=== PATIENT | female | born 1975 | race Caucasian/White ===

== ENCOUNTER → 2020-03-21 15:13 | Outpatient (BNVA) | payer OTHER, SELFPAY | DX: Z76.89 Persons encountering health services in other specified circumstances (principal) ==

== ENCOUNTER 2020-05-21 08:46 | Emergency (ER) | payer OTHER, SELFPAY ==
[2020-05-21 08:57] VITALS: BP 144/82; PULSE 99; RESP 18; TEMP 36.5; O2SAT 97; BMI 29.2
--- NOTE | 2020-05-21 09:16 | ED.NECK ---
HPI - Neck Pain/Injury General Chief Complaint: Neck Pain/Injury Stated Complaint: neck and arm pain Time Seen by Provider: 05/21/20 09:07 Source: patient Mode of arrival: ambulatory Limitations: no limitations History of Present Illness HPI Narrative: 44yoF c PMHx of cervical radiculopathy with herniated discs with history of cervical discectomy presenting to the ED with complaints of neck pain with bilateral tingling to arms that started yesterday. Reports that this is similar compared to prior. Denies any new injuries, fevers, chills, headaches, dizziness, jaw pain, nausea/vomiting, chest pain, shortness of breath, dyspnea on exertion, orthopnea, palpitations, extremity edema, any symptoms or any other symptoms complaints or concerns at this time. Reports that she usually gets a Toradol shot and steroids and help significantly with the pain. Although reports that she had left over prednisone from prior episodes and she took 1 dose yesterday and it did not provide any symptomatic relief. She has taken multiple [id number] medications which include Motrin, Tylenol and muscle relaxants that she has also had in the past including Valium and no symptomatic relief with that either. Reports that she has a follow-up with her primary care provider later this month and he is supposed to prescribe her gabapentin. Denies any other symptoms complaints or concerns at this time. MD complaint: neck pain Onset (ago): day(s) (Since yesterday worse today) Place: home Radiation: right upper extremity Severity: moderate, constant and similar to prior neck pain Severity scale (1-10): >10 Quality: sharp and tingling Duration: constant Relieving factors: remaining still Exacerbating factors: movement of extremity and movement of neck Context: other (History of herniated disc with nerve impingement s hx of surgery few years ago ) Associated symptoms: tingling (To bilateral arms which is similar compared to prior episodes) Treatments prior to arrival: other (Prednisone although no symptomatic relief) Related Data Previous Rx's Medication Instructions Recorded medroxyprogesterone 150 mg/mL 150 mg IM Q12W 84 Days #1 ml 03/18/20 intramuscular suspension ketorolac 10 mg PO TID PRN 5 Days #10 tab 05/21/20 lidocaine [Lidoderm] 1 patch TOPICAL DAILY #15 ea 05/21/20 oxycodone-acetaminophen [Percocet] 1 tab PO Q6H PRN #10 tab 05/21/20 prednisone 40 mg PO DAILY 5 Days #10 tab 05/21/20 Allergies Allergy/AdvReac Type Severity Reaction Status Date / Time No Known Allergies Allergy Verified 02/22/20 13:41 Review of Systems Review of Systems: Constitutional : No trauma, No Weight loss, No Fever, No Chills, ENT/Mouth : No Hearing loss, No Ear Pain, No Nasal Congestion, No Sinus Pain, No Hoarseness, No sore throat, No Rhinorrhea, No Swallowing Difficulty Cardiovascular : No Chest Pain, No SOB Respiratory : No Cough, No Dyspnea Gastrointestinal : No Nausea, No Vomiting, No Diarrhea, No abdominal Pain, No Hematochezia, No Melena Genitourinary : No Dysuria, No Urinary Frequency, No Hematuria, No Urinary or Bowel Incontinence/retention Musculoskeletal : + Neck pain, No Back pain, No joint stiffness, No joint swelling Skin : No Skin Lesions, No rash or signs of infection Neuro : + Tingling to b/l arms, No Weakness, No radiation, No Numbness, No headache, no loss of bowel or bladder incontinence, no saddle anesthesia Denies history of IV drug usage. Yes all other systems are reviewed and are negative PMFSH Past Medical History Medical History Herniated disc Surgical History History of cervical discectomy History of section History of tubal ligation S/P ureteral stent placement Family History Family History Father Medical history unknown Mother Medical history unknown Maternal Grandmother Breast cancer Sister Breast cancer Daughter Breast cancer Son Autism Social History Social History Advance Directives: No Advance Directives Information Provided: Yes Physical Exam Vital Signs: Vital Signs: Last Vital Signs Temp 97.7 F 05/21/20 08:57 Pulse 99 05/21/20 08:57 Resp 18 05/21/20 08:57 BP 144/82 H 05/21/20 08:57 Pulse Ox 97 05/21/20 08:57 Body Mass Index 29.2 vital signs have been reviewed as normal and appeared to be correct. Blood pressure normal. Heart rate normal. Respiration rate normal. Temperature normal. Oxygen saturation normal. Appearance: Alert. Oriented X3. No acute distress. Head: Normal external exam. Normocephalic. Atraumatic. Eyes: PERRLA. EOMI. Conjunctiva and sclera normal. Eyelids normal. ENT: Pharynx normal. Uvula midline. Moist mucous membranes. No trismus noted. No drooling noted. No muffled voice noted. Neck: Normal inspection. Neck supple. FROM. No adenopathy. Thyroid Normal. Trachea midline. No meningeal signs. No neck mass noted. Tender to palpation of bilateral paracervical musculature and mid cervical tenderness. No step-offs or deformities noted. Patient neuro intact bilaterally and distally on all 4 extremities. Reflexes intact bilaterally and distally in all 4 extremities. No rashes/lesion/induration/fluctuance or signs of infection noted. No edema noted. CVS: Normal heart rate and rhythm. Heart sound normal. No murmurs noted. Pulses normal throughout. Respiratory: No respiratory distress. Painless inspiration. Breath sounds normal. No wheezes/rales/rhonchi noted. Chest nontender. No accessory muscle usage noted or decreased air movement noted. Back: Full range of motion noted. No obvious deformities, or edema. Full ROM in back and lower extremities. Skin: Skin warm and dry. Normal skin color. Normal skin turgor. No rashes/lesions/lacerations noted. Extremities: Extremities exhibit normal range of motion. Extremities nontender. Neuro: Oriented X 3. No motor deficit. No sensory deficit. Reflexes normal. Normal steady gait. Course Course Course Narrative: Pt c likely muscular pain, but could be herniated disc. Neuro exam shows no deficits. Not c/w vascular etiology, perivertebral / other soft tissue neck / airway infection, or spinal fx / process. Imaging not currently indicated. DC c meds and f/u patient understands agrees with this plan. MDM - Neck Pain/Injury Medical Records Attestation: I reviewed the patient's medical records. Discharge Plan Discharge Clinical Impression: Cervical radiculopathy, Spasm of cervical paraspinous muscle Patient Disposition: Home, Self-Care Instructions: Cervical Radiculopathy (ED) Prescriptions: New prednisone 20 mg tablet 40 mg PO DAILY 5 Days Qty: 10 RF: 0 ketorolac 10 mg tablet 10 mg PO TID PRN (Reason: pain) 5 Days Qty: 10 RF: 0 oxycodone-acetaminophen [Percocet] 5-325 mg tablet 1 tab PO Q6H PRN (Reason: pain) Qty: 10 RF: 0 lidocaine [Lidoderm] 5 % adhesive patch,medicated 1 patch topical DAILY Qty: 15 RF: 0 No Action medroxyprogesterone [Depo-Provera] 150 mg/mL suspension 150 mg IM Q12W 84 Days Qty: 1 RF: 0 Referrals: Melvin Lara MD [Primary Care Provider] - 2 days Stand Alone Forms: Work/School Release Print Language: Marshallese
[2020-05-21] MEDS: predniSONE 20 MG TABLET 40 MG PO (09:17)
[2020-05-21] MEDS: Ketorolac Tromethamine 30 MG/ML VIAL IM (09:18)
== END 2020-05-21 09:35 | disposition home or self-care (01) ==
PROVIDERS: Emergency Provider Emergency Medicine; PCP Internal Medicine
DX: M54.12 Radiculopathy, cervical region (principal); M62.838 Other muscle spasm
CPT/HCPCS: 96372; 99283; 99284; J1885

== ENCOUNTER → 2020-06-12 15:02 | Outpatient (BNVA) | payer OTHER, SELFPAY | PROVIDERS: PCP Internal Medicine; Visit Provider Advanced Practice Midwife | DX: Z30.42 Encounter for surveillance of injectable contraceptive (principal) | CPT/HCPCS: 96372; 99211 ==

== ENCOUNTER 2020-06-19 16:24 | Outpatient (REF) | payer OTHER, SELFPAY ==
--- NOTE | ~2020-06-19 | MM_ITS ---
EXAMINATION: MM SCREENING DIGITAL BREAST TOMOSYNTHESIS, BILATERAL CLINICAL INFORMATION: Screening. Asymptomatic. The lifetime risk of breast cancer based on the Tyrer-Cuzick Model is 13.8%. COMPARISON: Mammography: May 04, 2018 and studies dating back to May 17, 2013 TECHNIQUE: Digital breast tomosynthesis is performed in both the craniocaudal and mediolateral oblique views along with computer-aided detection (CAD). Synthesized 2D images are generated from the tomosynthesis. FINDINGS: The breasts are heterogeneously dense, which may obscure small masses (ACR BI-RADS breast composition Category c). There are no significant masses, abnormal calcifications, or other abnormalities. MM/MM tomosynthesis screening BI IMPRESSION: There are no significant changes from prior study. ASSESSMENT: BI-RADS 1: Negative RECOMMENDATION: Routine annual mammography screening. This patient's information was entered into a reminder system with a target due date for their next mammogram.
== END 2020-06-19 16:25 | disposition home or self-care (01) ==
LOC: HO.MAMMO 16:24
PROVIDERS: PCP Internal Medicine; Visit Provider Internal Medicine
DX: Z12.31 Encounter for screening mammogram for malignant neoplasm of breast (principal)
CPT/HCPCS: 77063; 77067

== ENCOUNTER 2020-07-25 09:31 | Emergency (ER) | payer OTHER, SELFPAY ==
--- NOTE | ~2020-07-25 | CT_ITS ---
EXAMINATION: CT HEAD WITHOUT CONTRAST CLINICAL INFORMATION: Headache COMPARISON: 06/18/2016 TECHNIQUE: Contiguous axial imaging was performed from the skull base to vertex without intravenous administration of contrast. This CT examination was performed using dose optimization techniques as appropriate, variously including the following: *Automated exposure control *Adjustment of mA and/or kV according to patient size (this includes techniques or standardized protocols for targeted exams where dose is matched to indication/reason for exam; i.e. extremities or head) *Use of iterative reconstruction technique DLP: 580 mGy-cm FINDINGS: There is no evidence of acute intracranial hemorrhage or territorial infarction. No abnormal mass effect or midline shift is seen. Ramos to white matter differentiation is well preserved. No extra-axial fluid collections are identified. The ventricles are normal in size. There is no abnormal attenuation within the brain parenchyma. The osseous structures and soft tissues are normal. The mastoid air cells and visualized portions of the paranasal sinuses are well aerated. CT/CT head/brain wo con IMPRESSION: No CT evidence of acute intracranial pathology.
[2020-07-25 09:49] VITALS: BP 140/92; PULSE 90; RESP 14; TEMP 36.7; O2SAT 97
--- NOTE | 2020-07-25 10:05 | ED.NECK ---
HPI - Neck Pain/Injury General Chief Complaint: Back Pain/Injury Stated Complaint: neck pain Time Seen by Provider: 07/25/20 10:05 History of Present Illness HPI Narrative: Patient complains of right-sided neck pain along with tingling in the right arm radiating to the hand as well as weakness in the chief operator hydroformer of her right hand She gets these symptoms when ever her radiculopathy flares up she has had many evaluations and has had prior surgery for this problem and the surgeon told her at this point there is probably no other surgical recourse She says when she gets steroids the chief operator hydroformer strength returns and the tingling and pain are reduced She denies any changes to bowel or bladder She also complains for the last month she has has been getting new headaches unlike anything she has had before the headaches are continuous and new Related Data Previous Rx's Medication Instructions Recorded medroxyprogesterone 150 mg/mL 150 mg IM Q12W 84 Days #1 ml 03/18/20 intramuscular suspension lidocaine [Lidoderm] 1 patch TOPICAL DAILY #15 ea 05/21/20 prednisone 40 mg PO DAILY 5 Days #10 tab 05/21/20 gabapentin 100 mg capsule 100 mg PO TID 30 Days #90 cap 05/24/20 sulfamethoxazole 800 1 tab PO BID 7 Days #14 tab 05/24/20 mg-trimethoprim 160 mg tablet medroxyprogesterone 150 mg/mL 150 mg IM Q12W #1 ml 06/25/20 intramuscular suspension acetaminophen 1,000 mg PO Q8H PRN #30 tab 07/25/20 cyclobenzaprine 5 mg PO TID PRN #20 tab 07/25/20 ibuprofen 600 mg PO Q6H PRN #30 tab 07/25/20 oxycodone 5 mg PO Q6H PRN #20 cap 07/25/20 prednisone 60 mg PO DAILY 4 Days #12 tab 07/25/20 Allergies Allergy/AdvReac Type Severity Reaction Status Date / Time No Known Allergies Allergy Verified 05/24/20 09:57 Review of Systems Review of Systems: Positive are right-sided neck pain radiating to the right hand and fingers with associated decreased sensation and associated weakness of chief operator hydroformer strength, and a headache Negatives are no fever no chills no dizziness no confusion no fainting no vision changes no chest pain no shortness of breath no palpitations no abdominal pain no nausea no vomiting PMFSH Past Medical History Source: nursing notes reviewed Medical History (Updated 07/26/20 @ 00:01 by Tucker Stephenson) Anxiety Herniated disc Herniation of cervical intervertebral disc with radiculopathy Menstrual disorder Nonintractable headache Obesity (BMI 30-39.9) Urinary tract infection Surgical History History of cervical discectomy History of section History of tubal ligation S/P ureteral stent placement Family History Family History Father Medical history unknown Mother Medical history unknown Maternal Grandmother Breast cancer Sister Breast cancer Daughter Breast cancer Son Autism Social History Social History Alcohol intake: current Alcohol intake frequency: holidays/special occasions only Smoking Status: Never smoker Advance Directives: No Advance Directives Information Provided: No Physical Exam Vital Signs: Vital Signs: Last Vital Signs Temp 98.1 F 07/25/20 09:49 Pulse 79 07/25/20 12:00 Resp 16 07/25/20 12:00 BP 135/96 H 07/25/20 12:00 Pulse Ox 98 07/25/20 12:00 Body Mass Index 30.0 General appearance is no acute distress, common cooperative A&O x3 Head is normocephalic atraumatic Pupils equal round reactive to light extraocular motions are intact The ears are clear with normal tympanic membrane and normal canals The pharynx is clear and well hydrated The neck has right-sided paraspinal tenderness as well as right trapezius tenderness, there is pain with movement of the neck The chest is clear to auscultation bilaterally with full symmetric equal breath sounds, no chest wall tenderness The heart no murmur Abdomen soft nontender Extremities is full range of motion x4 Neuro the chief operator hydroformer strength in the right hand is 4/5 compared to 5/5 in the left hand sensation is diminished in the right hand The gait and balance are normal, cranial nerves 2-12 intact as tested, cerebellar exam is normal, verbal interaction speech and comprehension are normal Course Course Course Narrative: Because she had new headaches over the last month she had a head CT which did not reveal any acute pathology and was normal For her tingling numbness and weakness in the right arm we started steroids As she has had this multiple times before and is closely followed by neurosurgeon Dr. Fay in [place] she can get close follow-up with the neurosurgeon For headaches she will follow with primary care doctor and if needed a referral to neurologist She had some improvement after shot of Toradol and pain was somewhat improved and she was discharged to follow-up Discharge Plan Discharge Clinical Impression: Cervical radiculopathy, Headache Patient Disposition: Home, Self-Care Additional Instructions: We are prescribing prednisone to hopefully reduce inflammation around the nerve and able chief operator hydroformer strength and sensation to return to their baseline For pain we recommend taking Tylenol extra-strength a 1000 mg 3 times a day, Motrin 600 mg 4 times a day and oxycodone as needed Flexeril may help with muscle relaxer Follow closely with your surgeon cause the weakness is concerning in the right hand If needed get a 2nd opinion Return any time any concerns Prescriptions: New acetaminophen 500 mg tablet 1,000 mg PO Q8H PRN (Reason: pain) Qty: 30 RF: 0 ibuprofen 600 mg tablet 600 mg PO Q6H PRN (Reason: pain) Qty: 30 RF: 0 cyclobenzaprine 5 mg tablet 5 mg PO TID PRN (Reason: muscle spasm) Qty: 20 RF: 0 oxycodone 5 mg capsule 5 mg PO Q6H PRN (Reason: pain) Qty: 20 RF: 0 prednisone 20 mg tablet 60 mg PO DAILY 4 Days Qty: 12 RF: 0 No Action medroxyprogesterone [Depo-Provera] 150 mg/mL suspension 150 mg IM Q12W 84 Days Qty: 1 RF: 0 medroxyprogesterone 150 mg/mL suspension 150 mg IM Q12W Qty: 1 RF: 0 prednisone 20 mg tablet 40 mg PO DAILY 5 Days Qty: 10 RF: 0 lidocaine [Lidoderm] 5 % adhesive patch,medicated 1 patch topical DAILY Qty: 15 RF: 0 gabapentin 100 mg capsule 100 mg PO TID 30 Days Qty: 90 RF: 3 sulfamethoxazole-trimethoprim [Bactrim DS] 800-160 mg tablet 1 tab PO BID 7 Days Qty: 14 RF: 0 Interventions: ED Discharge Assessment Last Done: 07/25/20 12:47 Discharge Date/Time: 07/25/20 12:48
[2020-07-25] MEDS: predniSONE 20 MG TABLET 60 MG PO (11:10)
[2020-07-25] MEDS: Ketorolac Tromethamine 60 MG/2 ML VIAL IM (11:13)
[2020-07-25 12:00] VITALS: BP 135/96; PULSE 79; RESP 16; O2SAT 98
== END 2020-07-25 12:48 | disposition home or self-care (01) ==
PROVIDERS: Emergency Provider Emergency Medicine; PCP Internal Medicine
DX: M54.12 Radiculopathy, cervical region (principal); R51.9 Headache, unspecified
CPT/HCPCS: 70450; 96372; 99284; J1885

== ENCOUNTER 2020-08-28 14:35 | Outpatient (REF) | payer OTHER, SELFPAY ==
[2020-08-29 01:29] LABS: CT PCR NOT DETECTED (Not Detect.); NG PCR NOT DETECTED (Not Detect.)
[2020-08-31 06:07] LABS: HPV mRNA E6/E7 rflx Not Detected (Not Detected)
== END 2020-08-28 14:36 | disposition home or self-care (01) ==
LOC: HO.LAB 14:35
PROVIDERS: PCP Internal Medicine; Visit Provider Obstetrics & Gynecology
DX: Z01.419 Encounter for gynecological examination (general) (routine) without abnormal findings (principal); Z11.51 Encounter for screening for human papillomavirus (HPV); Z11.3 Encounter for screening for infections with a predominantly sexual mode of transmission; Z20.2 Contact with and (suspected) exposure to infections with a predominantly sexual mode of transmission; C53.9 Malignant neoplasm of cervix uteri, unspecified; N94.12 Deep dyspareunia
CPT/HCPCS: 87491; 87591; 87624; 88142; 96372; J1050

== ENCOUNTER 2020-09-25 09:22 | Outpatient (REF) | payer OTHER, SELFPAY ==
--- NOTE | 2020-09-25 09:25 | EMG_ITS ---
This is a 45-year-old woman with a 4-year history of cervical diskectomy who has burning and numbness in both hands, right greater than left. Neurological examination is normal. No Tinel or Phalen sign. IMPRESSION: Rule out cervical radiculopathy. Rule out carpal tunnel syndrome. Nerve conduction EMG study: Normal electrodiagnostic study of both upper extremities with no evidence of carpal tunnel syndrome or nerve entrapment. Normal EMG of the right C5-T1 innervated muscles. Mild chronic denervated changes in the right lower paraspinal cervical muscles suggestive of mild lower cervical radiculopathy. MD JOVANY Wyatt/REINA / [id number]
== END 2020-09-25 09:23 | disposition home or self-care (01) ==
LOC: HO.NEURO 09:22
PROVIDERS: PCP Internal Medicine; Visit Provider Internal Medicine
DX: R53.1 Weakness (principal); R29.898 Other symptoms and signs involving the musculoskeletal system
CPT/HCPCS: 95885; 95913

== ENCOUNTER 2020-11-05 17:51 | Emergency (ER) | payer OTHER, SELFPAY ==
--- NOTE | ~2020-11-05 | US_ITS ---
EXAMINATION: US ABDOMEN LIMITED CLINICAL INFORMATION: Right upper quadrant pain. COMPARISON: Renal ultrasound September 06, 2019. CT abdomen and pelvis August 31, 2018 TECHNIQUE: Real-time imaging of the right upper quadrant abdominal viscera. Color Doppler exam used. FINDINGS: PANCREAS: Pancreatic head is visualized and is normal. The body and tail of the pancreas is obscured by bowel gas. LIVER: Normal. The liver is normal in size. The liver contour is normal. Parenchymal echogenicity is normal. No focal hepatic lesion. There is no intrahepatic biliary duct dilatation seen. GALLBLADDER: Normal. The gallbladder is physiologically distended without evidence of stones, sludge, polyps, wall thickening or pericholecystic fluid. COMMON BILE DUCT: Normal in caliber measuring 0.3 cm in diameter. RIGHT KIDNEY: Nonobstructive mid pole stone measuring 0.3 cm. No hydronephrosis. No focal parenchymal lesion. The kidney measures 8.9 cm in maximum dimension. FREE FLUID: None. Bilateral renal stones are seen on the ultrasound exam of kidneys of September 06, [address] exam of July 01, 2018. Only one stone is seen in the left kidney on today's exam. US/US abdomen limited IMPRESSION: 1. No acute abnormality right upper quadrant. 2. 3 mm nonobstructive stone mid pole of the right kidney.
--- NOTE | ~2020-11-05 | CT_ITS ---
EXAMINATION: CT ABDOMEN AND PELVIS WITH CONTRAST CLINICAL INFORMATION: Right upper quadrant/flank pain COMPARISON: 07/01/2018 TECHNIQUE: Multidetector volumetric images were obtained from the superior aspect of the liver through the pubic symphysis following administration 85 mL of Omnipaque 350 intravenous contrast. Sagittal and coronal reformatted images were obtained on the technologist's workstation. Oral contrast: No This CT examination was performed using dose optimization techniques as appropriate, variously including the following: *Automated exposure control *Adjustment of mA and/or kV according to patient size (this includes techniques or standardized protocols for targeted exams where dose is matched to indication/reason for exam; i.e. extremities or head) *Use of iterative reconstruction technique DLP: 518 mGy-cm FINDINGS: LUNG BASES: The visualized lung bases are unremarkable. LIVER, GALLBLADDER, AND BILIARY TREE: The liver is normal in size, shape, and attenuation. No focal hepatic lesion or biliary ductal dilatation is present. The gallbladder is unremarkable with no evidence of radiopaque gallstones, gallbladder wall thickening, or obvious pericholecystic inflammatory changes. PANCREAS: Unremarkable. SPLEEN: Unremarkable. ADRENAL GLANDS: Unremarkable. KIDNEYS AND URETERS: The kidneys are normal in size, shape, and attenuation. There are several scattered calculi within each kidney measuring up to 4 mm. No hydronephrosis, hydroureter, or obstructing calculi seen. No perinephric stranding. BLADDER: Unremarkable. GASTROINTESTINAL TRACT: The small and large bowel are unremarkable. The appendix is unremarkable. No free fluid or free air is seen. ABDOMINAL WALL: No significant hernia is appreciated. LYMPH NODES: Normal. VASCULAR: Circumaortic left renal vein is noted. PELVIC VISCERA: Unremarkable. OSSEOUS STRUCTURES: Unremarkable. CT/CT abdomen pelvis w con IMPRESSION: No acute findings identified in the abdomen/pelvis. Scattered bilateral renal calculi without hydronephrosis.
[2020-11-05 18:44] VITALS: BP 170/106; PULSE 112; RESP 18; TEMP 36.9; O2SAT 97; BMI 28.3
[2020-11-05 19:36] LABS: Glucose Urine UA NEG (NEG); Leukocyte Esterase Urine NEG (NEG); Nitrite Urine NEG (NEG); Specific Gravity - Urine <= 1.005 (1.005-1.025); Urine Blood 2+ (NEG); Urine Ketones NEG (NEG); Urine Protein NEG (NEG-TRACE)
[2020-11-05 19:37] LABS: Appearance Urine CLEAR; Color Urine YELLOW
[2020-11-05 19:48] LABS: RBC Urine 0-2 /HPF (0); Squamous Epithelial Cell Urine 1+ /LPF; WBC Urine 0 /HPF (0-4)
--- NOTE | 2020-11-05 21:21 | ED_ITS ---
HPI - Abdominal Pain General Chief Complaint: Abdominal Pain Stated Complaint: abdominal pain Time Seen by Provider: 11/05/20 21:18 Source: patient Mode of arrival: ambulatory History of Present Illness HPI narrative: 45-year-old female with history of interstitial cystitis presents with onset of right upper quadrant/epigastric pain that radiates into the back since 9:00 a.m. this morning. Patient states she took Prilosec without improv ement of symptoms describes concomitant nausea but no vomiting, fevers, chills, or urinary pain/burning, or diarrhea. Related Data Previous Rx's Medication Instructions Recorded medroxyprogesterone 150 mg/mL 150 mg IM Q12W 84 Days #1 ml 03/18/20 intramuscular suspension lidocaine [Lidoderm] 1 patch TOPICAL DAILY #15 ea 05/21/20 prednisone 40 mg PO DAILY 5 Days #10 tab 05/21/20 gabapentin 100 mg capsule 100 mg PO TID 30 Days #90 cap 05/24/20 medroxyprogesterone 150 mg/mL 150 mg IM Q12W #1 ml 06/25/20 intramuscular suspension acetaminophen 1,000 mg PO Q8H PRN #30 tab 07/25/20 cyclobenzaprine 5 mg PO TID PRN #20 tab 07/25/20 oxycodone 5 mg PO Q6H PRN #20 cap 07/25/20 prednisone 60 mg PO DAILY 4 Days #12 tab 07/25/20 amoxicillin 875 mg-potassium 1 tab PO Q12H 10 Days #20 tab 08/02/20 clavulanate 125 mg tablet fluticasone propionate 50 2 spray INTRANASAL DAILY PRN 30 08/02/20 mcg/actuation nasal Days #16 g spray,suspension ibuprofen 800 mg tablet 800 mg PO TID PRN 30 Days #90 tab 08/20/20 omeprazole 40 mg PO DAILY #30 cap 11/06/20 Allergies Allergy/AdvReac Type Severity Reaction Status Date / Time ciprofloxacin AdvReac Intermediate swelling Verified 11/05/20 18:44 of feet Sulfa (Sulfonamide AdvReac Intermediate swelling Verified 11/05/20 18:44 Antibiotics) of feet Review of Systems Review of Systems Pertinent positives and negatives as stated in HPI 10 point review of systems is otherwise negative. Physical Exam Vital Signs: Vital Signs: Last Vital Signs Temp 98.0 F 11/05/20 22:40 Pulse 96 11/05/20 22:40 Resp 18 11/05/20 22:40 BP 170/100 H 11/05/20 22:40 Pulse Ox 98 11/05/20 22:40 Body Mass Index 28.3 VITAL SIGNS: Reviewed. GENERAL: Well developed, well nourished, in no acute distress. HEAD: Normocephalic/atraumatic EYES: PERRLA, EOMI EARS: Ext canals without abnormality OROPHARYNX: no oral lesions noted, posterior pharynx clear LUNGS: Normal breath sounds. No adventitious sounds or accessory muscle use. SpO2<98> CARDIOVASCULAR: Regular rate and rhythm without noted murmurs ABDOMEN: Soft, right upper quadrant/epigastric pain without rebound, non- distended with bowel sounds. SKIN: Inspection of the skin reveals no rashes NEUROLOGIC: Alert and oriented x 4. Strength and sensation to light touch were grossly intact x 4. Course Course Course Narrative: 45-year-old female with history and clinical presentation suggestive of cholecystitis, renal colic. Review of all investigations negative for acute findings to better explain patient's presentation. Suspect the possibility passage of small stones verses significant gastritis. Patient will receive a GI cocktail and on re-evaluation her pain has improved. MDM - Abdominal Pain Lab Data Result diagrams: 11/05/20 21:43 11/05/20 21:43 Labs: Lab Results 11/05/20 11/05/20 11/05/20 Range/Units 18:49 18:49 21:43 WBC 6.9 (4.8-10.8) X10*3/uL RBC 5.71 H (4.20-5.50) X10*6/uL Hgb 16.1 H (12.0-16.0) g/dl Hct 48.1 H (37-47) % MCV 84.2 (80-98) fL MCH 28.2 (27.0-33.0) pg MCHC 33.5 (31.0-35.0) g/dl RDW 13.3 (11.0-16.0) % Plt Count 218 (160-400) X10*3/uL MPV 12.3 (9.4-12.3) fL Immature Gran % (Auto) 0.3 (0.0-0.4) % Neut % (Auto) 73.9 H (45-73) % Lymph % (Auto) 16.2 L (20-40) % [place] % (Auto) 8.9 (2-11) % Eos % (Auto) 0.3 (0-4) % Baso % (Auto) 0.4 (0-2) % Lymph # (Auto) 1.1 L (1.2-4.9) X10*3/uL [place] # (Auto) 0.6 (0.1-1.2) X10*3/uL Eos # (Auto) 0.0 (0.0-0.4) X10*3/uL Baso # (Auto) 0.0 (0.0-0.2) X10*3/uL Abs Immat Gran (auto) 0.02 (0.00-0.03) X10*3/uL Absolute Neuts (auto) 5.1 (2.0-8.3) X10*3/uL Absolute Nucleated RBC 0.000 (0.0-0.012) X10*3/uL Nucleated RBC % (auto) 0.0 (0.0-0.2) /100WBC Sodium (135-145) mmol/L Potassium (3.3-5.1) mmol/L Chloride (96-108) mmol/L Carbon Dioxide (22-29) mmol/L Anion Gap (12-20) BUN (9-16) mg/dL Creatinine (0.5-1.4) mg/dL Estim Creat Clear Calc Estimated GFR Random Glucose (60-115) mg/dL Calcium (8.4-10.2) mg/dL Total Bilirubin (0.0-1.0) mg/dL AST (5-31) U/L ALT (0-31) U/L Alkaline Phosphatase (39-117) U/L Total Protein (6.5-8.0) g/dL Albumin (3.5-5.0) g/dL Lipase (8-78) U/L Beta HCG, Quant mIU/mL Specimen Comment Urine Color YELLOW Urine Appearance CLEAR Urine pH 6.0 (5.0-8.0) Ur Specific [place] <= 1.005 (1.005-1.025) Urine Protein NEG (NEG-TRACE) MG/DL Urine Glucose (UA) NEG (NEG) MG/DL Urine Ketones NEG (NEG) MG/DL Urine Blood 2+ H (NEG) Urine Nitrite NEG (NEG) Ur Leukocyte Esterase NEG (NEG) Urine RBC 0-2 (0) /HPF Urine WBC 0 (0-4) /HPF Ur Squamous Epith Cells 1+ /LPF Urine Bacteria NONE /LPF Urine Test Cancelled 11/05/20 11/05/20 Range/Units 21:43 22:41 WBC (4.8-10.8) X10*3/uL RBC (4.20-5.50) X10*6/uL Hgb (12.0-16.0) g/dl Hct (37-47) % MCV (80-98) fL MCH (27.0-33.0) pg MCHC (31.0-35.0) g/dl RDW (11.0-16.0) % Plt Count (160-400) X10*3/uL MPV (9.4-12.3) fL Immature Gran % (Auto) (0.0-0.4) % Neut % (Auto) (45-73) % Lymph % (Auto) (20-40) % [place] % (Auto) (2-11) % Eos % (Auto) (0-4) % Baso % (Auto) (0-2) % Lymph # (Auto) (1.2-4.9) X10*3/uL [place] # (Auto) (0.1-1.2) X10*3/uL Eos # (Auto) (0.0-0.4) X10*3/uL Baso # (Auto) (0.0-0.2) X10*3/uL Abs Immat Gran (auto) (0.00-0.03) X10*3/uL Absolute Neuts (auto) (2.0-8.3) X10*3/uL Absolute Nucleated RBC (0.0-0.012) X10*3/uL Nucleated RBC % (auto) (0.0-0.2) /100WBC Sodium 137 (135-145) mmol/L Potassium 4.5 (3.3-5.1) mmol/L Chloride 105 (96-108) mmol/L Carbon Dioxide 21 L (22-29) mmol/L Anion Gap 16 (12-20) BUN 10 (9-16) mg/dL Creatinine 0.79 (0.5-1.4) mg/dL Estim Creat Clear Calc 77.7 Estimated GFR > 60 Random Glucose 78 (60-115) mg/dL Calcium 10.5 H (8.4-10.2) mg/dL Total Bilirubin 0.5 (0.0-1.0) mg/dL AST 26 (5-31) U/L ALT 27 (0-31) U/L Alkaline Phosphatase 67 (39-117) U/L Total Protein 8.0 (6.5-8.0) g/dL Albumin 4.3 (3.5-5.0) g/dL Lipase 9 (8-78) U/L Beta HCG, Quant < 2 mIU/mL Specimen Comment DELAY Urine Color Urine Appearance Urine pH (5.0-8.0) Ur Specific [place] (1.005-1.025) Urine Protein (NEG-TRACE) MG/DL Urine Glucose (UA) (NEG) MG/DL Urine Ketones (NEG) MG/DL Urine Blood (NEG) Urine Nitrite (NEG) Ur Leukocyte Esterase (NEG) Urine RBC (0) /HPF Urine WBC (0-4) /HPF Ur Squamous Epith Cells /LPF Urine Bacteria /LPF Urine Test Discharge Plan Discharge Clinical Impression: Gastritis Patient Disposition: Home, Self-Care Instructions: Gastritis (ED), Kidney Stones (ED), Diet for Stomach Ulcers and Gastritis (ED) Additional Instructions: 1. Resume all home medications as prescribed. 2. Increase fluid hydration especially with water and avoid carbonated/caffeinated products. 3. Tylenol 1000 mg, orally, every 6 hours as needed for pain control. Do not exceed 4000 mg within 24 hours. 4. Ibuprofen 400 mg, orally with milk or food, every 6 hours as needed for pain control. May combine this with Tylenol for increased symptom relief. 5. Please follow-up with primary care provider in the next 2-3 days for re- evaluation and further outpatient management. Return to the ER for acute worsening symptoms. Prescriptions: New omeprazole 40 mg capsule,delayed release(DR/EC) 40 mg PO DAILY Qty: 30 RF: 0 No Action medroxyprogesterone [Depo-Provera] 150 mg/mL suspension 150 mg IM Q12W 84 Days Qty: 1 RF: 0 medroxyprogesterone 150 mg/mL suspension 150 mg IM Q12W Qty: 1 RF: 0 ibuprofen 800 mg tablet 800 mg PO TID PRN (Reason: pain) 30 Days Qty: 90 RF: 1 prednisone 20 mg tablet 40 mg PO DAILY 5 Days Qty: 10 RF: 0 lidocaine [Lidoderm] 5 % adhesive patch,medicated 1 patch topical DAILY Qty: 15 RF: 0 acetaminophen 500 mg tablet 1,000 mg PO Q8H PRN (Reason: pain) Qty: 30 RF: 0 cyclobenzaprine 5 mg tablet 5 mg PO TID PRN (Reason: muscle spasm) Qty: 20 RF: 0 oxycodone 5 mg capsule 5 mg PO Q6H PRN (Reason: pain) Qty: 20 RF: 0 prednisone 20 mg tablet 60 mg PO DAILY 4 Days Qty: 12 RF: 0 gabapentin 100 mg capsule 100 mg PO TID 30 Days Qty: 90 RF: 3 amoxicillin-pot clavulanate 875-125 mg tablet 1 tab PO Q12H 10 Days Qty: 20 RF: 0 fluticasone propionate 50 mcg/actuation spray,suspension 2 spray intranasal DAILY PRN (Reason: nasal congestion) 30 Days Qty: 16 RF: 3 Referrals: Melvin Lara MD [Primary Care Provider] - 2 days PMF Past Medical History Source: nursing notes reviewed Medical History Anxiety Dysuria Herniated disc Herniation of cervical intervertebral disc with radiculopathy Menstrual disorder Nonintractable headache Obesity (BMI 30-39.9) Sinusitis Urinary tract infection Weakness of both hands Surgical History History of cervical discectomy History of section History of tubal ligation S/P ureteral stent placement Family History Family History Father Medical history unknown Mother Medical history unknown Maternal Grandmother Breast cancer Sister Breast cancer Daughter Breast cancer Son Autism Social History Social History Alcohol intake: never Patient Tobacco Use Status: Tobacco use Unknown Use of substances other than those prescribed or required for medical reasons: No Advance Directives: No Advance Directives Information Provided: Yes Patient : No
[2020-11-05 21:23] VITALS: BP 140/94; PULSE 95; RESP 19; TEMP 36.9; O2SAT 98
[2020-11-05 21:48] LABS: Basophils Percent Auto 0.4 % (0-2); Eosinophils Percent Auto 0.3 % (0-4); Hematocrit 48.1 % (37-47); Hemoglobin 16.1 g/dl (12.0-16.0); Imm Gran Abs Auto 0.02 X10*3/uL (0.00-0.03); Imm Gran Pct Auto 0.3 % (0.0-0.4); Lymphocytes Absolute Auto 1.1 X10*3/uL (1.2-4.9); Lymphocytes Percent Auto 16.2 % (20-40); MANUAL DIFF FLAG NO; Mean Corpuscular HGB Conc 33.5 g/dl (31.0-35.0); Mean Corpuscular Hemoglobin 28.2 pg (27.0-33.0); Mean Corpuscular Volume 84.2 fL (80-98); Mean Platelet Volume 12.3 fL (9.4-12.3); Monocytes Absolute Auto 0.6 X10*3/uL (0.1-1.2); Monocytes Percent Auto 8.9 % (2-11); Neutrophils Absolute Auto 5.1 X10*3/uL (2.0-8.3); Neutrophils Percent Auto 73.9 % (45-73); Platelet Count 218 X10*3/uL (160-400); Red Blood Count 5.71 X10*6/uL (4.20-5.50); Red Cell Distribution Width 13.3 % (11.0-16.0); White Blood Count 6.9 X10*3/uL (4.8-10.8)
[2020-11-05 22:14] LABS: Alanine Aminotransferase 27 U/L (0-31); Albumin Level 4.3 g/dL (3.5-5.0); Alkaline Phosphatase 67 U/L (39-117); Anion Gap 16 (12-20); Aspartate Amino Transferase 26 U/L (5-31); Bilirubin Total 0.5 mg/dL (0.0-1.0); Blood Urea Nitrogen 10 mg/dL (9-16); Calcium 10.5 mg/dL (8.4-10.2); Carbon Dioxide 21 mmol/L (22-29); Chloride 105 mmol/L (96-108); Creatinine Clr Calc Pharmacy 77.7; Estimated Glomerular Filt Rate > 60; Glucose Random 78 mg/dL (60-115); Lipase 9 U/L (8-78); Potassium 4.5 mmol/L (3.3-5.1); Sodium 137 mmol/L (135-145)
[2020-11-05] MEDS: Acetaminophen 325 MG TABLET 975 MG PO (22:37)
[2020-11-05] MEDS: Ketorolac Tromethamine 15 MG/ML VIAL IVPUSH (22:37)
[2020-11-05] MEDS: ondansetron HCL 4 MG/2 ML VIAL IVPUSH (22:38)
[2020-11-05] MEDS: 0.9 % Sodium Chloride 1,000 ML 999 ML IV (22:38)
[2020-11-05 22:40] VITALS: BP 170/100; PULSE 96; RESP 18; TEMP 36.7; O2SAT 98
[2020-11-05 22:42] LABS: Delay - Chemistry DELAY
[2020-11-05 23:37] LABS: HCG Quantitative < 2 mIU/mL
[2020-11-05] MEDS: iohexoL 350 MG/ML 100 ML INFUS..BTL 85 ML IV (23:47)
[2020-11-06] MEDS: Magnesium Hydrox/Alum Hydrox 30 ML ORAL.SUSP PO (01:09)
[2020-11-06] MEDS: Lidocaine HCl Viscous 2 % 15 ML SOLUTION 10 ML MUCOUS MEM (01:09)
== END 2020-11-06 01:17 | disposition home or self-care (01) ==
PROVIDERS: Emergency Provider Student in an Organized Health Care Education/Training Program; PCP Internal Medicine
DX: K29.70 Gastritis, unspecified, without bleeding (principal); N20.0 Calculus of kidney
CPT/HCPCS: 36415; 74177; 76705; 80053; 81001; 83690; 84702; 85025; 96361; 96374; 96375; 99285; J1885; J2405; Q9967

== ENCOUNTER → 2020-11-21 12:59 | Outpatient (BNVA) | payer OTHER, SELFPAY | PROVIDERS: PCP Internal Medicine; Visit Provider Obstetrics & Gynecology | DX: Z30.9 Encounter for contraceptive management, unspecified (principal) | CPT/HCPCS: 96372; 99211 ==

== ENCOUNTER 2020-12-10 15:25 | Outpatient (REF) | payer OTHER, SELFPAY | END 2020-12-10 15:26 | disposition home or self-care (01) | LOC: HO.LNP 15:25 | PROVIDERS: Visit Provider Nurse Practitioner Family | DX: R30.0 Dysuria (principal) | CPT/HCPCS: 87086 ==

== ENCOUNTER 2021-01-14 00:01 | Emergency (ER) | payer OTHER, SELFPAY ==
[2021-01-14 00:08] VITALS: BP 145/94; PULSE 93; RESP 20; TEMP 36.7; O2SAT 98; BMI 30.4
--- NOTE | 2021-01-14 00:46 | ED.HA ---
HPI - Headache General Chief Complaint: Headache Stated Complaint: Headache Time Seen by Provider: 01/14/21 00:45 Source: patient Mode of arrival: ambulatory Limitations: no limitations History of Present Illness HPI Narrative: Patient with history of migraine headache noticed headache the right side with tingling sensation on the right side of the face since 04:00 o'clock. Patient feels this pain is different than usual headaches. No light sensitivity no fever no neck pain no nausea vomiting no vision problems no head injury Related Data Previous Rx's Medication Instructions Recorded lidocaine 5 % topical patch 1 patch TOPICAL DAILY #15 ea 05/21/20 (Lidoderm) gabapentin 100 mg capsule 100 mg PO TID 30 Days #90 cap 05/24/20 acetaminophen 500 mg tablet 1,000 mg PO Q8H PRN #30 tab 07/25/20 cyclobenzaprine 5 mg tablet 5 mg PO TID PRN #20 tab 07/25/20 oxycodone 5 mg capsule 5 mg PO Q6H PRN #20 cap 07/25/20 fluticasone propionate 50 2 spray INTRANASAL DAILY PRN 30 08/02/20 mcg/actuation nasal Days #16 g spray,suspension ibuprofen 800 mg tablet 800 mg PO TID PRN 30 Days #90 tab 08/20/20 omeprazole 40 mg capsule,delayed 40 mg PO DAILY #30 cap 11/06/20 release medroxyprogesterone 150 mg/mL 150 mg IM [id number] 90 Days #1 ml 11/21/20 intramuscular suspension phenazopyridine 100 mg tablet 100 mg PO TID PRN #6 tab 12/10/20 (Pyridium) carbamazepine 200 mg tablet 200 mg PO BID #60 tab 01/14/21 (Tegretol) tramadol 50 mg tablet 50 mg PO Q6H PRN #20 tab 01/14/21 Allergies Allergy/AdvReac Type Severity Reaction Status Date / Time ciprofloxacin AdvReac Intermediate swelling Verified 12/10/20 08:57 of feet Sulfa (Sulfonamide AdvReac Intermediate swelling Verified 12/10/20 08:57 Antibiotics) of feet Review of Systems Review of Systems: Yes all other systems are reviewed and are negative PMFSH Past Medical History Medical History Anxiety Dysuria Herniated disc Herniation of cervical intervertebral disc with radiculopathy Menstrual disorder Nonintractable headache Obesity (BMI 30-39.9) Sinusitis Urinary tract infection Weakness of both hands Surgical History History of cervical discectomy History of section History of tubal ligation S/P ureteral stent placement Family History Family History Father Medical history unknown Mother Medical history unknown Maternal Grandmother Breast cancer Sister Breast cancer Daughter Breast cancer Son Autism Mental health disorder Social History Social History Housing: Apartment Alcohol intake: never Patient Tobacco Use Status: Never used Tobacco Use of substances other than those prescribed or required for medical reasons: No Advance Directives: No Advance Directives Information Provided: No Patient : No service: No Current occupational status: employed Physical Exam Vital Signs: Vital Signs: Last Vital Signs Temp 98.0 F 01/14/21 00:08 Pulse 93 01/14/21 00:08 Resp 20 01/14/21 00:08 BP 145/94 H 01/14/21 00:08 Pulse Ox 98 01/14/21 00:08 Body Mass Index 30.4 Appearance: Alert. Oriented X3. No acute distress. Eyes: PERRLA, No Nystagmus ENT: Pharynx normal. Oral Mucosa moist no temporal artery tenderness increase in tingling sensation on tapping tragus on the right side Neck: Normal inspection. Neck supple. CVS: Normal heart rate and rhythm. Pulses normal. Respiratory: No respiratory distress. Equal air entry bilateral, Abdomen: Soft and nontender. Skin: Skin warm and dry. Normal skin color. Normal skin turgor. Extremities: No lower extremity edema. No calf tenderness Neuro: Oriented X 3. No motor deficit. No sensory deficit.No cerebellar signs , cranial nerves II-XII intact MDM - Headache MDM Narrative Medical decision making narrative: Patient clinically seems to be complex migraine possible trigeminal neuralgia. Will try Imitrex and see the response Discharge Plan Discharge Clinical Impression: Trigeminal neuralgia of right side of face Patient Disposition: Home, Self-Care Instructions: Trigeminal Neuralgia (ED) Additional Instructions: Take pain medication as advised Take Tegretol 200 mg twice daily and follow up with PCP Prescriptions: New tramadol 50 mg tablet 50 mg PO Q6H PRN (Reason: pain) Qty: 20 RF: 0 carbamazepine [Tegretol] 200 mg tablet 200 mg PO BID Qty: 60 RF: 0 No Action ibuprofen 800 mg tablet 800 mg PO TID PRN (Reason: pain) 30 Days Qty: 90 RF: 1 lidocaine [Lidoderm] 5 % adhesive patch,medicated 1 patch topical DAILY Qty: 15 RF: 0 acetaminophen 500 mg tablet 1,000 mg PO Q8H PRN (Reason: pain) Qty: 30 RF: 0 cyclobenzaprine 5 mg tablet 5 mg PO TID PRN (Reason: muscle spasm) Qty: 20 RF: 0 oxycodone 5 mg capsule 5 mg PO Q6H PRN (Reason: pain) Qty: 20 RF: 0 omeprazole 40 mg capsule,delayed release(DR/EC) 40 mg PO DAILY Qty: 30 RF: 0 gabapentin 100 mg capsule 100 mg PO TID 30 Days Qty: 90 RF: 3 fluticasone propionate 50 mcg/actuation spray,suspension 2 spray intranasal DAILY PRN (Reason: nasal congestion) 30 Days Qty: 16 RF: 3 phenazopyridine [Pyridium] 100 mg tablet 100 mg PO TID PRN (Reason: pain) Qty: 6 RF: 0 medroxyprogesterone 150 mg/mL suspension 150 mg IM [id number] 90 Days Qty: 1 RF: 2
[2021-01-14] MEDS: traMADoL HCL 50 MG TABLET PO (02:39)
[2021-01-14] MEDS: carBAMazepine 200 MG TABLET PO (02:46)
== END 2021-01-14 02:52 | disposition home or self-care (01) ==
PROVIDERS: Emergency Provider Internal Medicine; PCP Internal Medicine
DX: G50.0 Trigeminal neuralgia (principal); R51.9 Headache, unspecified; Z79.899 Other long term (current) drug therapy
CPT/HCPCS: 96372; 99284; J3030

== ENCOUNTER 2021-01-16 01:31 | Emergency (ER) | payer OTHER, SELFPAY ==
--- NOTE | 2021-01-16 01:45 | ED.HA ---
HPI - Headache General Chief Complaint: Headache Stated Complaint: headache Time Seen by Provider: 01/16/21 01:44 Source: patient Mode of arrival: ambulatory Limitations: no limitations History of Present Illness HPI Narrative: Was seen Wednesday for headache which continued. Now with vesicles to her head MD elicited complaint: headache Onset (ago): day(s) Onset description: gradually Location: right and frontal Quality & Timing: aching and throbbing Exacerbating factors: none Relieving factors: nothing Associated symptoms: none Related Data Previous Rx's Medication Instructions Recorded lidocaine 5 % topical patch 1 patch TOPICAL DAILY #15 ea 05/21/20 (Lidoderm) gabapentin 100 mg capsule 100 mg PO TID 30 Days #90 cap 05/24/20 acetaminophen 500 mg tablet 1,000 mg PO Q8H PRN #30 tab 07/25/20 cyclobenzaprine 5 mg tablet 5 mg PO TID PRN #20 tab 07/25/20 oxycodone 5 mg capsule 5 mg PO Q6H PRN #20 cap 07/25/20 fluticasone propionate 50 2 spray INTRANASAL DAILY PRN 30 08/02/20 mcg/actuation nasal Days #16 g spray,suspension ibuprofen 800 mg tablet 800 mg PO TID PRN 30 Days #90 tab 08/20/20 omeprazole 40 mg capsule,delayed 40 mg PO DAILY #30 cap 11/06/20 release medroxyprogesterone 150 mg/mL 150 mg IM [id number] 90 Days #1 ml 11/21/20 intramuscular suspension phenazopyridine 100 mg tablet 100 mg PO TID PRN #6 tab 12/10/20 (Pyridium) carbamazepine 200 mg tablet 200 mg PO BID #60 tab 01/14/21 (Tegretol) tramadol 50 mg tablet 50 mg PO Q6H PRN #20 tab 01/14/21 valacyclovir 1 gram tablet 1,000 mg PO BID #20 tab 01/16/21 (Valtrex) Allergies Allergy/AdvReac Type Severity Reaction Status Date / Time ciprofloxacin AdvReac Intermediate swelling Verified 12/10/20 08:57 of feet Sulfa (Sulfonamide AdvReac Intermediate swelling Verified 12/10/20 08:57 Antibiotics) of feet Review of Systems Constitutional: Constitutional: Reports no additional constitutional complaints Eyes: Eyes: Reports no additional eye complaints ENT: Denies dizziness Cardiovascular: Cardiovascular: Reports no additional cardiovascular complaints Respiratory: Respiratory: Reports as per HPI Gastrointestinal: Gastrointestinal: Reports no additional gastrointestinal complaints Genitourinary: Genitourinary: Reports no additional female genitourinary complaints Musculoskeletal: Musculoskeletal: Reports no additional musculoskeletal complaints Integumentary/Breasts: Skin/Breast: Denies rash Neurologic: Reports system reviewed and no additional complaints, except as documented, Denies dizziness and Denies Sensory deficit (Neuro) Psychiatric: Psychiatric: Denies anxiety [facility] Past Medical History Medical History Anxiety Dysuria Herniated disc Herniation of cervical intervertebral disc with radiculopathy Menstrual disorder Nonintractable headache Obesity (BMI 30-39.9) Sinusitis Urinary tract infection Weakness of both hands Surgical History History of cervical discectomy History of section History of tubal ligation S/P ureteral stent placement Family History Family History Father Medical history unknown Mother Medical history unknown Maternal Grandmother Breast cancer Sister Breast cancer Daughter Breast cancer Son Autism Mental health disorder Social History Social History Housing: Apartment Alcohol intake: never Patient Tobacco Use Status: Never used Tobacco Advance Directives: No Advance Directives Information Provided: Yes Patient : No service: No Current occupational status: employed Physical Exam Vital Signs: Vital Signs: Last Vital Signs Temp 97.0 F 01/16/21 01:46 Pulse 99 01/16/21 01:46 Resp 14 01/16/21 01:46 BP 132/90 H 01/16/21 01:46 Pulse Ox 99 01/16/21 01:46 Body Mass Index 30.4 Const: General: healthy appearing Nutritional Appearance: average body habitus Orientation/consciousness: oriented to person and patient oriented x3 Limitations: no limitations HENMT: Head: Yes normal to inspection Ears: external ears normal General nose exam: Normal external nose present Mouth: Normal oral and palatal mucosa present and oropharynx normal Throat: Yes posterior oropharynx normal Eyes: General: appearance normal, both eyes and all related structures Neck: Other: supple Neck: Yes normal visual inspection Chest: Chest palpation & inspection: normal inspection of the chest Resp: Auscultation: clear to auscultation bilaterally Cardio: Jugular venous distension: no JVD Rate: regular rate Rhythm: regular rhythm Heart sounds: S1 normal heart sound present and S2 normal heart sound present GI: Inspection: Yes normal to inspection Palpation (GI): Soft to palpation, nontender and No hepatosplenomegaly present Auscultation: normal bowel sounds : General: Yes no CVA tenderness Back/Spine/Pelvis: Back: no CVA tenderness Skin: Other: right frontal area with vesicles grouped, Start of lesion on right eyelid Neuro: General: oriented to person and patient oriented x3 Cranial nerves: Yes CN's II-XII intact bilaterally Motor exam (neuro): 5/5 motor strength present throughout Sensory Exam: No Sensory deficit (Neuro) Extrem: General: Yes normal to inspection Psych: Appearance: grossly normal Course Reevaluation(s) Reevaluation #1: patient with shingles will start valtrex Time: 01:51 Discharge Plan Discharge Clinical Impression: Shingles Qualifiers: Herpes zoster complications: unspecified herpes zoster complication Qualified Code(s): B02.8 - Zoster with other complications Patient Disposition: Home, Self-Care Instructions: Shingles (ED) Prescriptions: New valacyclovir [Valtrex] 1 gram tablet 1,000 mg PO BID Qty: 20 RF: 0 No Action ibuprofen 800 mg tablet 800 mg PO TID PRN (Reason: pain) 30 Days Qty: 90 RF: 1 lidocaine [Lidoderm] 5 % adhesive patch,medicated 1 patch topical DAILY Qty: 15 RF: 0 acetaminophen 500 mg tablet 1,000 mg PO Q8H PRN (Reason: pain) Qty: 30 RF: 0 cyclobenzaprine 5 mg tablet 5 mg PO TID PRN (Reason: muscle spasm) Qty: 20 RF: 0 oxycodone 5 mg capsule 5 mg PO Q6H PRN (Reason: pain) Qty: 20 RF: 0 omeprazole 40 mg capsule,delayed release(DR/EC) 40 mg PO DAILY Qty: 30 RF: 0 tramadol 50 mg tablet 50 mg PO Q6H PRN (Reason: pain) Qty: 20 RF: 0 carbamazepine [Tegretol] 200 mg tablet 200 mg PO BID Qty: 60 RF: 0 gabapentin 100 mg capsule 100 mg PO TID 30 Days Qty: 90 RF: 3 fluticasone propionate 50 mcg/actuation spray,suspension 2 spray intranasal DAILY PRN (Reason: nasal congestion) 30 Days Qty: 16 RF: 3 phenazopyridine [Pyridium] 100 mg tablet 100 mg PO TID PRN (Reason: pain) Qty: 6 RF: 0 medroxyprogesterone 150 mg/mL suspension 150 mg IM [id number] 90 Days Qty: 1 RF: 2 Referrals: Melvin Lara MD [Primary Care Provider] - 5 days Stand Alone Forms: Work/School Release
[2021-01-16 01:46] VITALS: BP 132/90; PULSE 99; RESP 14; TEMP 36.1; O2SAT 99; BMI 30.4
--- NOTE | 2021-01-16 01:54 | PC.NURSE ---
at bedside for primary eval.
== END 2021-01-16 02:05 | disposition home or self-care (01) ==
PROVIDERS: Emergency Provider Emergency Medicine; PCP Internal Medicine
DX: B02.8 Zoster with other complications (principal); R51.9 Headache, unspecified; Z79.899 Other long term (current) drug therapy
CPT/HCPCS: 99283

== ENCOUNTER → 2021-02-06 13:06 | Outpatient (BNVA) | payer OTHER, SELFPAY | PROVIDERS: PCP Internal Medicine; Visit Provider Obstetrics & Gynecology | DX: Z30.42 Encounter for surveillance of injectable contraceptive (principal); Z23 Encounter for immunization | CPT/HCPCS: 96372; 99211 ==

== ENCOUNTER 2021-02-25 12:49 | Emergency (ER) | payer OTHER, SELFPAY ==
--- NOTE | ~2021-02-25 | XR_ITS ---
EXAMINATION: XR RIBS, BILATERAL CLINICAL INFORMATION: Bilateral rib pain. COMPARISON: Chest radiograph dated from 05/01/2016. TECHNIQUE: 3 views of the bilateral ribs were obtained. FINDINGS: Lungs are clear. No consolidation, pneumothorax, or pleural effusion. The cardiomediastinal silhouette and pulmonary vasculature are normal. Osseous structures are unremarkable. Ribs are intact. No fractures are identified. Indeterminate radiopaque bodies overlying the lower cervical spine. XR/XR ribs BI min 4V w [id number] IMPRESSION: No acute cardiopulmonary findings. No evidence of acutely displaced rib fractures.
[2021-02-25 14:30] VITALS: BP 171/94; PULSE 85; RESP 16; TEMP 36.6; O2SAT 99; BMI 30.4
[2021-02-25 15:03] LABS: MANUAL DIFF FLAG NO
[2021-02-25 15:05] LABS: Basophils Percent Auto 0.4 % (0-2); Eosinophils Absolute Auto 0.1 X10*3/uL (0.0-0.4); Eosinophils Percent Auto 1.4 % (0-4); Hematocrit 44.7 % (37.0-47.0); Hemoglobin 15.1 g/dl (12.0-16.0); Imm Gran Abs Auto 0.02 X10*3/uL (0.00-0.03); Imm Gran Pct Auto 0.2 % (0.0-0.4); Lymphocytes Absolute Auto 1.8 X10*3/uL (1.2-4.9); Lymphocytes Percent Auto 18.8 % (20-40); Mean Corpuscular HGB Conc 33.8 g/dl (31.0-35.0); Mean Corpuscular Hemoglobin 28.8 pg (27.0-33.0); Mean Corpuscular Volume 85.3 fL (80.0-98.0); Mean Platelet Volume 12.7 fL (9.4-12.3); Monocytes Absolute Auto 0.8 X10*3/uL (0.1-1.2); Monocytes Percent Auto 8.3 % (2-11); Neutrophils Absolute Auto 6.8 x10*3/uL (2.0-8.3); Neutrophils Percent Auto 70.9 % (45-73); Platelet Count 241 X10*3/uL (160-400); Red Blood Count 5.24 X10*6/uL (4.20-5.50); Red Cell Distribution Width 14.2 % (11.0-16.0); White Blood Count 9.6 X10*3/uL (4.8-10.8)
[2021-02-25 15:17] LABS: Appearance Urine CLEAR; Color Urine YELLOW; Glucose Urine UA NEG (NEG); Leukocyte Esterase Urine TRACE (NEG); Nitrite Urine NEG (NEG); PH 6.5 (5.0-8.0); UACC Culture Trigger YES; Urine Blood TRACE (NEG); Urine Ketones NEG (NEG); Urine Protein NEG (NEG-TRACE)
[2021-02-25 15:18] LABS: Anion Gap 12 (12-20); Blood Urea Nitrogen 10 mg/dL (9-16); COVID-19 Test Negative (Negative); Calcium 9.4 mg/dL (8.4-10.2); Carbon Dioxide 22 mmol/L (22-29); Chloride 110 mmol/L (96-108); Creatinine Clr Calc Pharmacy 82.6; Estimated Glomerular Filt Rate > 60; Glucose Random 90 mg/dL (60-115); Potassium 3.8 mmol/L (3.3-5.1); Sodium 140 mmol/L (135-145)
[2021-02-25 15:23] LABS: Bacteria Urine TRACE /LPF; Mucus Urine 1+ /LPF; Squamous Epithelial Cell Urine 2+ /LPF
--- NOTE | 2021-02-25 16:42 | ECG_ITS ---
Test Reason : BILATERAL CHEST PAIN Blood Pressure : / mmHG Vent. Rate : 080 BPM Atrial Rate : 080 BPM P-R Int : 150 ms QRS Dur : 076 ms QT Int : 376 ms P-R-T Axes : 054 027 038 degrees QTc Int : 433 ms Normal sinus rhythm Normal ECG When compared with ECG of 01-JUL-2017 16:00, No significant change was found Referred By: Elder Kitchen Electronically Signed By:TATYANA MATHUR MD
[2021-02-25 16:56] LABS: Alanine Aminotransferase 17 U/L (0-31); Alkaline Phosphatase 59 U/L (39-117); Aspartate Amino Transferase 12 U/L (5-31); Bilirubin Direct < 0.2 mg/dL (0.0-0.5); Bilirubin Total 0.4 mg/dL (0.0-1.0); Lipase 12 U/L (8-78); Total Protein 7.1 g/dL (6.5-8.0)
[2021-02-25 17:00] LABS: UPreg QC Valid YES; Urine Pregnancy NEGATIVE (NEGATIVE)
--- NOTE | 2021-02-25 17:14 | ED_ITS ---
HPI - General Adult General Chief complaint: Abdominal Pain Stated complaint: abd pain Time Seen by Provider: 02/25/21 15:30 Source: patient Mode of arrival: ambulatory Limitations: no limitations History of Present Illness HPI narrative: 45-year-old female female with past history of kidney stones, gastritis, tubal ligation, GERD, herniated disc, cervical radiculopathy, and shingles presents to ED for atypical presentation. Patient states for couple a days of bilateral rib pain with shortness of breath only when lying down flat, mild nausea, mild upper abdominal pain, and feeling bloated. patient states bi lateral rib pain also worse on movement, Patient denies constipation. Patient states having her usual normal bowel movements every day. Denies any blood in stool or diarrhea. Denies not being able to pass flatus. patient denies any dsuria, hematuria, flank pain, fever, or chills. Patient denies seeing any rash on torso or flanks. Patient denies any trauma. Related Data Previous Rx's Medication Instructions Recorded lidocaine 5 % topical patch 1 patch TOPICAL DAILY #15 ea 05/21/20 (Lidoderm) gabapentin 100 mg capsule 100 mg PO TID 30 Days #90 cap 05/24/20 acetaminophen 500 mg tablet 1,000 mg PO Q8H PRN #30 tab 07/25/20 cyclobenzaprine 5 mg tablet 5 mg PO TID PRN #20 tab 07/25/20 fluticasone propionate 50 2 spray INTRANASAL DAILY PRN 30 08/02/20 mcg/actuation nasal Days #16 g spray,suspension ibuprofen 800 mg tablet 800 mg PO TID PRN 30 Days #90 tab 08/20/20 omeprazole 40 mg capsule,delayed 40 mg PO DAILY #30 cap 11/06/20 release medroxyprogesterone 150 mg/mL 150 mg IM [id number] 90 Days #1 ml 11/21/20 intramuscular suspension phenazopyridine 100 mg tablet 100 mg PO TID PRN #6 tab 12/10/20 (Pyridium) tramadol 50 mg tablet 50 mg PO Q6H PRN #20 tab 01/14/21 valacyclovir 1 gram tablet 1,000 mg PO BID #20 tab 01/16/21 (Valtrex) cyclobenzaprine 10 mg tablet 10 mg PO TID PRN #18 tab 02/25/21 famotidine 20 mg tablet (Pepcid) 20 mg PO BID 10 Days #20 tab 02/25/21 Allergies Allergy/AdvReac Type Severity Reaction Status Date / Time ciprofloxacin AdvReac Intermediate swelling Verified 01/29/21 08:48 of feet Sulfa (Sulfonamide AdvReac Intermediate swelling Verified 01/29/21 08:48 Antibiotics) of feet Review of Systems Review of Systems: Yes all other systems are reviewed and are negative Constitutional: Constitutional: Reports as per HPI and Reports no additional constitutional complaints Eyes: Eyes: Reports as per HPI and Reports no additional eye complaints ENT: Reports system reviewed and no additional complaints, except as documented, Reports as per HPI and Denies dysphagia Cardiovascular: Cardiovascular: Reports as per HPI, Reports no additional cardiovascular complaints and Reports dyspnea (Only when lying flat) Comments: Bilateral rib pain. Respiratory: Respiratory: Reports dyspnea (Only when lying flat) Gastrointestinal: Gastrointestinal: Reports as per HPI, Reports no additional gastrointestinal complaints, Denies abdominal pain, Reports bloating, Denies GI cramping, Denies dysphagia and Reports nausea Genitourinary: Genitourinary: Reports no additional female genitourinary complaints and Reports as per HPI Musculoskeletal: Musculoskeletal: Reports no additional musculoskeletal complaints and Reports as per HPI Neurologic: Reports system reviewed and no additional complaints, except as documented and Reports as per HPI Psychiatric: Psychiatric: Reports no additional psychiatric complaints and Reports as per HPI PMFSH Past Medical History Medical History Anxiety Dysuria Herniated disc Herniation of cervical intervertebral disc with radiculopathy Menstrual disorder Nonintractable headache Obesity (BMI 30-39.9) Sinusitis Urinary tract infection Weakness of both hands Surgical History History of cervical discectomy History of section History of tubal ligation S/P ureteral stent placement Family History Family History Father Medical history unknown Mother Medical history unknown Maternal Grandmother Breast cancer Sister Breast cancer Daughter Breast cancer Son Autism Mental health disorder Social History Social History Housing: Apartment Alcohol intake: never Patient Tobacco Use Status: Never used Tobacco e-Cigarette/Vaping Use: Never Used Second Hand Smoke Exposure: No Advance Directives: No Advance Directives Information Provided: No Patient : No service: No Current occupational status: employed Physical Exam Vital Signs: Vital Signs: Last Vital Signs Temp 98 F 02/25/21 14:30 Pulse 85 02/25/21 14:30 Resp 16 02/25/21 14:30 BP 144/102 H 02/25/21 19:22 Pulse Ox 99 02/25/21 14:30 Body Mass Index 30.4 Const: General: cooperative, healthy appearing, comfortable, no acute distress, well developed, alert, awake, Physically active and acute distress Orientation/consciousness: patient oriented x3 HENMT: Head: Yes normal to inspection, Yes No palpable skull fracture present, Yes normocephalic and Yes atraumatic Eyes: General: appearance normal, both eyes and all related structures Neck: Neck: Yes normal visual inspection, Yes full ROM, Yes no lymphadenopathy, Yes no meningeal signs, Yes trachea midline, Yes supple and No tender Chest: Chest palpation & inspection: normal inspection of the chest Chest/axillae images: 1. Positive for tenderness on palpation and movement of torso. Negative for any rash to indicate shingles. Negative for any ecchymosis to indicate any rib fractures. Negative for erythema to indicate cellulitis 2. Positive for tenderness on palpation and movement of torso. Negative for any rash to indicate shingles. Negative for any ecchymosis to indicate any rib fractures. Negative for erythema to indicate cellulitis. Resp: Effort & Inspection: normal respiratory effort and able to speak in complete sentences Auscultation: clear to auscultation bilaterally Cardio: Jugular venous distension: no JVD Heart sounds: S1 normal heart sound present and S2 normal heart sound present GI: Inspection: Yes normal to inspection and No abdominal wall ecchymosis Palpation (GI): Soft to palpation, not firm, nontender, no guarding and not rigid : General: No CVA tenderness and Yes no CVA tenderness Back/Spine/Pelvis: Back: no CVA tenderness, No CVA tenderness and No back tenderness Skin: General skin exam: no rashes or lesions noted and elasticity normal Neuro: General: patient oriented x3, gait normal, no meningeal signs and CN's II-XI intact bilaterally Cranial nerves: Yes CN's II-XII intact bilaterally Extrem: Other: Lower extremities negative for swelling, pitting edema, calf tenderness General: Yes normal to inspection and Yes full ROM Psych: Appearance: grossly normal, well kempt and not disheveled Course Course Course Narrative: Patient was in typical presentation had rapid medical screening which shows normal white blood cell count and normal chemistry and negative for any UTI. Evaluation patient had bilateral upper rib tenderness on palpation and range of motion. History shortness of breath only when lying flat but presently denies any chest pain or shortness of breath. Due to atypical presentation with the EKG, troponin, BNP, D-dimer, and chest x-ray with bilateral ribs. COVID swab negative. Reevaluation(s) Reevaluation #1: EKG negative STEMI. Liver and lipase enzymes normal. D-dimer negative. Troponin negative. BNP negative. Diagnosis muscular rib chest wall pain. Costochondritis diagnosis. Epigastric pain resolved with GI cocktail. Patient states she will follow-up with her primary care provider. Denies any pleuritic chest pain, shortness of breath, fever, chills, weakness or dizziness. Present patient states only bilateral rib pain on range of motion. Patient will be discharged with muscle relaxer. Patient has NSAIDs at home. Patient will be discharged with Pepcid. Heart score 0. Perc Score ) Time: 19:27 Medical Decision Making MDM Narrative Medical decision making narrative: Costochondritis. GERD Lab Data Result diagrams: 02/25/21 14:58 02/25/21 14:58 Labs: Lab Results 02/25/21 02/25/21 02/25/21 Range/Units 14:58 14:58 14:58 WBC 9.6 (4.8-10.8) X10*3/uL RBC 5.24 (4.20-5.50) X10*6/uL Hgb 15.1 (12.0-16.0) g/dl Hct 44.7 (37.0-47.0) % MCV 85.3 (80.0-98.0) fL MCH 28.8 (27.0-33.0) pg MCHC 33.8 (31.0-35.0) g/dl RDW 14.2 (11.0-16.0) % Plt Count 241 (160-400) X10*3/uL MPV 12.7 H (9.4-12.3) fL Immature Gran % (Auto) 0.2 (0.0-0.4) % Neut % (Auto) 70.9 (45-73) % Lymph % (Auto) 18.8 L (20-40) % [place] % (Auto) 8.3 (2-11) % Eos % (Auto) 1.4 (0-4) % Baso % (Auto) 0.4 (0-2) % Lymph # (Auto) 1.8 (1.2-4.9) X10*3/uL [place] # (Auto) 0.8 (0.1-1.2) X10*3/uL Eos # (Auto) 0.1 (0.0-0.4) X10*3/uL Baso # (Auto) 0.0 (0.0-0.2) X10*3/uL Abs Immat Gran (auto) 0.02 (0.00-0.03) X10*3/uL Absolute Neuts (auto) 6.8 (2.0-8.3) x10*3/uL Absolute Nucleated RBC 0.000 (0.0-0.012) X10*3/uL Nucleated RBC % (auto) 0.0 (0.0-0.2) /100WBC PT (9.9-13.0) SEC INR (0.9-1.1) APTT (24.1-38.0) SEC D-Dimer NG/ML Sodium 140 (135-145) mmol/L Potassium 3.8 (3.3-5.1) mmol/L Chloride 110 H (96-108) mmol/L Carbon Dioxide 22 (22-29) mmol/L Anion Gap 12 (12-20) BUN 10 (9-16) mg/dL Creatinine 0.77 (0.5-1.4) mg/dL Estim Creat Clear Calc 82.6 Estimated GFR > 60 Random Glucose 90 (60-115) mg/dL Calcium 9.4 D (8.4-10.2) mg/dL Total Bilirubin 0.4 (0.0-1.0) mg/dL Direct Bilirubin < 0.2 (0.0-0.5) mg/dL AST 12 D (5-31) U/L ALT 17 (0-31) U/L Alkaline Phosphatase 59 (39-117) U/L B-Natriuretic Peptide (<100) pg/mL Total Protein 7.1 (6.5-8.0) g/dL Albumin 4.0 (3.5-5.0) g/dL Lipase 12 (8-78) U/L Urine Color Urine Appearance Urine pH (5.0-8.0) Ur Specific [place] (1.005-1.025) Urine Protein (NEG-TRACE) MG/DL Urine Glucose (UA) (NEG) MG/DL Urine Ketones (NEG) MG/DL Urine Blood (NEG) Urine Nitrite (NEG) Ur Leukocyte Esterase (NEG) Urine RBC (0) /HPF Urine WBC (0-4) /HPF Ur Squamous Epith Cells /LPF Urine Bacteria /LPF Urine Mucus /LPF Urine Test (NEGATIVE) COVID-19 ([facility]) Negative (Negative) COVID-19 Clin Com See Note 02/25/21 02/25/21 02/25/21 Range/Units 15:04 15:04 17:53 WBC (4.8-10.8) X10*3/uL RBC (4.20-5.50) X10*6/uL Hgb (12.0-16.0) g/dl Hct (37.0-47.0) % MCV (80.0-98.0) fL MCH (27.0-33.0) pg MCHC (31.0-35.0) g/dl RDW (11.0-16.0) % Plt Count (160-400) X10*3/uL MPV (9.4-12.3) fL Immature Gran % (Auto) (0.0-0.4) % Neut % (Auto) (45-73) % Lymph % (Auto) (20-40) % [place] % (Auto) (2-11) % Eos % (Auto) (0-4) % Baso % (Auto) (0-2) % Lymph # (Auto) (1.2-4.9) X10*3/uL [place] # (Auto) (0.1-1.2) X10*3/uL Eos # (Auto) (0.0-0.4) X10*3/uL Baso # (Auto) (0.0-0.2) X10*3/uL Abs Immat Gran (auto) (0.00-0.03) X10*3/uL Absolute Neuts (auto) (2.0-8.3) x10*3/uL Absolute Nucleated RBC (0.0-0.012) X10*3/uL Nucleated RBC % (auto) (0.0-0.2) /100WBC PT (9.9-13.0) SEC INR (0.9-1.1) APTT (24.1-38.0) SEC D-Dimer NG/ML Sodium (135-145) mmol/L Potassium (3.3-5.1) mmol/L Chloride (96-108) mmol/L Carbon Dioxide (22-29) mmol/L Anion Gap (12-20) BUN (9-16) mg/dL Creatinine (0.5-1.4) mg/dL Estim Creat Clear Calc Estimated GFR Random Glucose (60-115) mg/dL Calcium (8.4-10.2) mg/dL Total Bilirubin (0.0-1.0) mg/dL Direct Bilirubin (0.0-0.5) mg/dL AST (5-31) U/L ALT (0-31) U/L Alkaline Phosphatase (39-117) U/L B-Natriuretic Peptide < 10 (<100) pg/mL Total Protein (6.5-8.0) g/dL Albumin (3.5-5.0) g/dL Lipase (8-78) U/L Urine Color YELLOW Urine Appearance CLEAR Urine pH 6.5 (5.0-8.0) Ur Specific [place] 1.010 (1.005-1.025) Urine Protein NEG (NEG-TRACE) MG/DL Urine Glucose (UA) NEG (NEG) MG/DL Urine Ketones NEG (NEG) MG/DL Urine Blood TRACE (NEG) Urine Nitrite NEG (NEG) Ur Leukocyte Esterase TRACE H (NEG) Urine RBC 1-4 (0) /HPF Urine WBC 1-4 (0-4) /HPF Ur Squamous Epith Cells 2+ /LPF Urine Bacteria TRACE /LPF Urine Mucus 1+ /LPF Urine Test NEGATIVE (NEGATIVE) COVID-19 ([facility]) (Negative) COVID-19 Clin Com 02/25/21 Range/Units 18:01 WBC (4.8-10.8) X10*3/uL RBC (4.20-5.50) X10*6/uL Hgb (12.0-16.0) g/dl Hct (37.0-47.0) % MCV (80.0-98.0) fL MCH (27.0-33.0) pg MCHC (31.0-35.0) g/dl RDW (11.0-16.0) % Plt Count (160-400) X10*3/uL MPV (9.4-12.3) fL Immature Gran % (Auto) (0.0-0.4) % Neut % (Auto) (45-73) % Lymph % (Auto) (20-40) % [place] % (Auto) (2-11) % Eos % (Auto) (0-4) % Baso % (Auto) (0-2) % Lymph # (Auto) (1.2-4.9) X10*3/uL [place] # (Auto) (0.1-1.2) X10*3/uL Eos # (Auto) (0.0-0.4) X10*3/uL Baso # (Auto) (0.0-0.2) X10*3/uL Abs Immat Gran (auto) (0.00-0.03) X10*3/uL Absolute Neuts (auto) (2.0-8.3) x10*3/uL Absolute Nucleated RBC (0.0-0.012) X10*3/uL Nucleated RBC % (auto) (0.0-0.2) /100WBC PT 10.5 (9.9-13.0) SEC INR 0.9 (0.9-1.1) APTT 32.3 (24.1-38.0) SEC D-Dimer < 200 NG/ML Sodium (135-145) mmol/L Potassium (3.3-5.1) mmol/L Chloride (96-108) mmol/L Carbon Dioxide (22-29) mmol/L Anion Gap (12-20) BUN (9-16) mg/dL Creatinine (0.5-1.4) mg/dL Estim Creat Clear Calc Estimated GFR Random Glucose (60-115) mg/dL Calcium (8.4-10.2) mg/dL Total Bilirubin (0.0-1.0) mg/dL Direct Bilirubin (0.0-0.5) mg/dL AST (5-31) U/L ALT (0-31) U/L Alkaline Phosphatase (39-117) U/L B-Natriuretic Peptide (<100) pg/mL Total Protein (6.5-8.0) g/dL Albumin (3.5-5.0) g/dL Lipase (8-78) U/L Urine Color Urine Appearance Urine pH (5.0-8.0) Ur Specific [place] (1.005-1.025) Urine Protein (NEG-TRACE) MG/DL Urine Glucose (UA) (NEG) MG/DL Urine Ketones (NEG) MG/DL Urine Blood (NEG) Urine Nitrite (NEG) Ur Leukocyte Esterase (NEG) Urine RBC (0) /HPF Urine WBC (0-4) /HPF Ur Squamous Epith Cells /LPF Urine Bacteria /LPF Urine Mucus /LPF Urine Test (NEGATIVE) COVID-19 ([facility]) (Negative) COVID-19 Clin Com ECG Data Interpretation: Normal sinus rhythm. Normal EKG. Sugar 80. Pr interval 150. QRS 76. QTC 433. Negative STEMI Discharge Plan Discharge Clinical Impression: Costochondritis, Muscle strain of chest wall, Gastroesophageal reflux disease Patient Disposition: Home, Self-Care Instructions: Muscle Strain (ED), Costochondritis (ED), Gastroesophageal Reflux Disease (ED), Indigestion (ED) Additional Instructions: Your EKG and blood work came back negative for heart attack or risk of pulmonary embolus. Chest x-ray rib x-ray came back normal. Your liver enzymes and lipase came back normal. Your blood count came back at baseline. Urine came back negative for UTI. You are safe for discharge. Return to the ED for any chest pain, shortness of breath on exertion, coughing up blood, calf pain, fever, chills, worsening abdominal pain, blood in stool, vomiting blood, flank pain, dysuria, hematuria, tingling numbness in extremities, or any other concerning symptoms. Your blood pressure is slightly elevated in the ED please follow-up with your primary care provider. NSAIDs can be taking for pain relief. Prescriptions: New cyclobenzaprine 10 mg tablet 10 mg PO TID PRN (Reason: muscle spasm) Qty: 18 RF: 0 famotidine [Pepcid] 20 mg tablet 20 mg PO BID 10 Days Qty: 20 RF: 0 No Action ibuprofen 800 mg tablet 800 mg PO TID PRN (Reason: pain) 30 Days Qty: 90 RF: 1 lidocaine [Lidoderm] 5 % adhesive patch,medicated 1 patch topical DAILY Qty: 15 RF: 0 acetaminophen 500 mg tablet 1,000 mg PO Q8H PRN (Reason: pain) Qty: 30 RF: 0 cyclobenzaprine 5 mg tablet 5 mg PO TID PRN (Reason: muscle spasm) Qty: 20 RF: 0 omeprazole 40 mg capsule,delayed release(DR/EC) 40 mg PO DAILY Qty: 30 RF: 0 tramadol 50 mg tablet 50 mg PO Q6H PRN (Reason: pain) Qty: 20 RF: 0 valacyclovir [Valtrex] 1 gram tablet 1,000 mg PO BID Qty: 20 RF: 0 gabapentin 100 mg capsule 100 mg PO TID 30 Days Qty: 90 RF: 3 fluticasone propionate 50 mcg/actuation spray,suspension 2 spray intranasal DAILY PRN (Reason: nasal congestion) 30 Days Qty: 16 RF: 3 phenazopyridine [Pyridium] 100 mg tablet 100 mg PO TID PRN (Reason: pain) Qty: 6 RF: 0 medroxyprogesterone 150 mg/mL suspension 150 mg IM [id number] 90 Days Qty: 1 RF: 2 Stand Alone Forms: Work/School Release Interventions: ED Discharge Assessment Last Done: 02/25/21 19:41 Discharge Date/Time: 02/25/21 19:47 Print Language: [place]
[2021-02-25 18:16] LABS: INTERNATIONAL NORM RATIO 0.9 (0.9-1.1); Prothrombin Time 10.5 SEC (9.9-13.0)
[2021-02-25 18:17] LABS: B Type Natriuretic Peptide < 10 pg/mL (<100)
[2021-02-25 18:19] LABS: D Dimer < 200 NG/ML; Partial Thromboplastin Time 32.3 SEC (24.1-38.0)
[2021-02-25] MEDS: Lidocaine HCl Viscous 2 % 15 ML SOLUTION MUCOUS MEM (19:07)
[2021-02-25] MEDS: PHENobarb/Hyoscy/Atropine/Scop 10 ML ELIXIR PO (19:07)
[2021-02-25] MEDS: Magnesium Hydrox/Alum Hydrox 30 ML ORAL.SUSP PO (19:07)
[2021-02-25] MEDS: Famotidine 20 MG TABLET PO (19:07)
[2021-02-25 19:22] VITALS: BP 144/102
--- NOTE | 2021-02-25 19:32 | PC.NURSE ---
The pt is alert and orineted x 3. She has had GI cocktail and admits to mild relief of L sided abdominal pain. She also states that she feels well enough to be discharged home and wishes to be discharged. PA aware. Repeat Bp 140/102. PA aware. Pt instructed to follow u p with PCP re: BP.
== END 2021-02-25 19:47 | disposition home or self-care (01) ==
PROVIDERS: Physician Assistant; Emergency Provider Internal Medicine; PCP Internal Medicine
DX: M94.0 Chondrocostal junction syndrome [Tietze] (principal); S29.011A Strain of muscle and tendon of front wall of thorax, initial encounter; X58.XXXA Exposure to other specified factors, initial encounter; K21.9 Gastro-esophageal reflux disease without esophagitis; R06.02 Shortness of breath; Z20.822 Contact with and (suspected) exposure to COVID-19; Y93.9 Activity, unspecified; Y92.9 Unspecified place or not applicable; Y99.9 Unspecified external cause status
CPT/HCPCS: 36415; 71111; 80048; 80076; 81001; 81025; 83690; 83880; 85025; 85379; 85610; 85730; 87086; 87635; 93005; 99284

== ENCOUNTER → 2021-04-28 14:55 | Outpatient (BNVA) | payer OTHER, SELFPAY | PROVIDERS: PCP Internal Medicine; Visit Provider Obstetrics & Gynecology | DX: Z30.9 Encounter for contraceptive management, unspecified (principal) | CPT/HCPCS: 96372; 99211 ==

== ENCOUNTER 2021-05-21 11:02 | Outpatient (REF) | payer OTHER, SELFPAY ==
[2021-05-21 11:23] LABS: MANUAL DIFF FLAG NO
[2021-05-21 11:51] LABS: Basophils Percent Auto 0.3 % (0-2); Eosinophils Absolute Auto 0.2 X10*3/uL (0.0-0.4); Eosinophils Percent Auto 2.3 % (0-4); Hematocrit 47.2 % (37.0-47.0); Hemoglobin 15.5 g/dl (12.0-16.0); Imm Gran Abs Auto 0.02 X10*3/uL (0.00-0.03); Imm Gran Pct Auto 0.3 % (0.0-0.4); Lymphocytes Absolute Auto 1.5 X10*3/uL (1.2-4.9); Lymphocytes Percent Auto 20.5 % (20-40); Mean Corpuscular HGB Conc 32.8 g/dl (31.0-35.0); Mean Corpuscular Hemoglobin 28.2 pg (27.0-33.0); Mean Platelet Volume 13.3 fL (9.4-12.3); Monocytes Absolute Auto 0.5 X10*3/uL (0.1-1.2); Monocytes Percent Auto 6.6 % (2-11); Neutrophils Absolute Auto 5.3 x10*3/uL (2.0-8.3); Platelet Count 231 X10*3/uL (160-400); Red Blood Count 5.49 X10*6/uL (4.20-5.50); Red Cell Distribution Width 13.5 % (11.0-16.0); White Blood Count 7.5 X10*3/uL (4.8-10.8)
[2021-05-21 12:14] LABS: Alanine Aminotransferase 25 U/L (0-31); Alkaline Phosphatase 58 U/L (39-117); Anion Gap 12 (12-20); Aspartate Amino Transferase 16 U/L (5-31); Bilirubin Total 0.5 mg/dL (0.0-1.0); Blood Urea Nitrogen 10 mg/dL (9-16); Calcium 9.7 mg/dL (8.4-10.2); Carbon Dioxide 23 mmol/L (22-29); Chloride 110 mmol/L (96-108); Estimated Glomerular Filt Rate > 60; Glucose Random 80 mg/dL (60-115); Magnesium 2.5 mg/dL (1.6-2.6); Potassium 4.4 mmol/L (3.3-5.1); Sodium 141 mmol/L (135-145)
[2021-05-21 12:33] LABS: TSH reflex Free T4 1.68 uIU/mL (0.32-4.0)
[2021-05-21 12:45] LABS: Vitamin B12 423 pg/mL (200-900)
== END 2021-05-21 11:03 | disposition home or self-care (01) ==
LOC: HO.LAB 11:02
PROVIDERS: PCP Internal Medicine; Visit Provider Internal Medicine
DX: R20.2 Paresthesia of skin (principal)
CPT/HCPCS: 36415; 80053; 82607; 82746; 83735; 84443; 85025

== ENCOUNTER 2021-06-17 09:46 | Emergency (ER) | payer OTHER, SELFPAY ==
[2021-06-17 10:16] VITALS: BP 162/108; PULSE 111; RESP 18; TEMP 36.8; O2SAT 98; BMI 31.0
--- NOTE | 2021-06-17 10:37 | ED_ITS ---
HPI - General Adult General Chief complaint: General Medical Stated complaint: neck pain Time Seen by Provider: 06/17/21 10:34 Source: patient Mode of arrival: ambulatory Limitations: no limitations History of Present Illness HPI narrative: 45-year-old female with a history of chronic neck pain, history of herniated disc status post cervical fusion several years ago with recurrent disc herniation at a lower level who presents to the ER with worsening right-sided and central neck pain that started 3 days ago. She denies any trauma or injury. She reports these frequent flare ups that usually respond to Toradol and prednisone. She had leftover steroids at home and took 30 mg last night. 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 She reports chronic tingling and numbness in her fingers. She also reports a slight headache because she is tense. She denies any fever, chills, photophobia, chest pain. MD complaint: acute on chronic neck pain Onset (ago): day(s) (3) Location: neck Radiation: back Severity: severe Severity scale (1-10): 9 Quality: stabbing and aching Pain Consistency: constant Relieving factors: medication Exacerbating factors: movement Associated symptoms: headaches Treatments prior to arrival: none Related Data Previous Rx's Medication Instructions Recorded lidocaine 5 % topical patch 1 patch TOPICAL DAILY #15 ea 05/21/20 (Lidoderm) gabapentin 100 mg capsule 100 mg PO TID 30 Days #90 cap 05/24/20 acetaminophen 500 mg tablet 1,000 mg PO Q8H PRN #30 tab 07/25/20 fluticasone propionate 50 2 spray INTRANASAL DAILY PRN 30 08/02/20 mcg/actuation nasal Days #16 g spray,suspension ibuprofen 800 mg tablet 800 mg PO TID PRN 30 Days #90 tab 08/20/20 omeprazole 40 mg capsule,delayed 40 mg PO DAILY #30 cap 11/06/20 release medroxyprogesterone 150 mg/mL 150 mg IM [id number] 90 Days #1 ml 11/21/20 intramuscular suspension phenazopyridine 100 mg tablet 100 mg PO TID PRN #6 tab 12/10/20 (Pyridium) tramadol 50 mg tablet 50 mg PO Q6H PRN #20 tab 01/14/21 valacyclovir 1 gram tablet 1,000 mg PO BID #20 tab 01/16/21 (Valtrex) cyclobenzaprine 10 mg tablet 10 mg PO TID PRN #18 tab 02/25/21 famotidine 20 mg tablet (Pepcid) 20 mg PO BID 10 Days #20 tab 02/25/21 tretinoin 0.1 % topical cream 1 appl TOPICAL BEDTIME #45 g 03/18/21 albuterol sulfate 90 mcg/actuation 2 inh INHALATION Q6H PRN 30 Days 05/13/21 breath activated powder inhaler #1 ea bupropion HCl 150 mg 24 hr tablet, 150 mg PO QAM 90 Days #90 tab 05/20/21 extended release lidocaine 5 % topical patch 1 patch TOPICAL DAILY #15 ea 06/17/21 naproxen 500 mg tablet 500 mg PO BID PRN #20 tab 06/17/21 prednisone 50 mg tablet 50 mg PO DAILY #5 tab 06/17/21 Allergies Allergy/AdvReac Type Severity Reaction Status Date / Time ciprofloxacin AdvReac Intermediate swelling Verified 06/17/21 10:16 of feet Sulfa (Sulfonamide AdvReac Intermediate swelling Verified 06/17/21 10:16 Antibiotics) of feet Review of Systems Review of Systems: Constitutional: No Fever, No Chills ENT/Mouth: No sore throat, No Rhinorrhea, No Swallowing Difficulty Eyes: No vision changes Cardiovascular: No Chest Pain, No SOB, No Orthopnea, No Edema Respiratory: No Cough, No Sputum, No Wheezing, No dyspnea Gastrointestinal: No Nausea, No Vomiting, No abdominal Pain Genitourinary: No Dysuria, No Urinary Frequency, No Hematuria Musculoskeletal: + joint pain, + Myalgias Skin: No Skin Lesions, No rash Neuro: No Weakness, + Numbness, No Dizziness, + Headache Psych: No Anxiety/Panic, No Depression Heme/Lymph: No Bruising, No Lymphadenopathy Endocrine: No Polyuria, No Polydipsia PMFSH Past Medical History Medical History Anxiety Herniated disc Herniation of cervical intervertebral disc with radiculopathy Menstrual disorder Nonintractable headache Obesity (BMI 30-39.9) Weakness of both hands Surgical History History of cervical discectomy History of section History of tubal ligation S/P ureteral stent placement Family History Family History Father Medical history unknown Mother Medical history unknown Maternal Grandmother Breast cancer Sister Breast cancer Daughter Breast cancer Son Autism Mental health disorder Social History Social History Housing: Apartment Alcohol intake: never Patient Tobacco Use Status: Never used Tobacco e-Cigarette/Vaping Use: Never Used Second Hand Smoke Exposure: No Use of substances other than those prescribed or required for medical reasons: No Advance Directives: No Advance Directives Information Provided: No service: No Current occupational status: employed Physical Exam ED Vital Signs: Vital Signs - 24 hr 06/17/21 10:16 06/17/21 11:50 Temperature 98.2 F Pulse Rate 111 H 92 Respiratory Rate 18 16 Blood Pressure 162/108 H 149/95 H Pulse Oximetry 98 100 BMI result Body Mass Index 31.0 Appearance: Alert. Oriented X3. No acute distress. Eyes: Pupils equal, round and reactive to light. ENT: Pharynx normal. Neck: Appears tense, limited ROM of the neck due to pain. right sided soft tissue tenderness and palpable spasm, No midline tenderness. CVS: Normal heart rate and rhythm. Pulses normal. Respiratory: No respiratory distress. Breath sounds normal. Skin: Skin warm and dry. Normal skin color. Normal skin turgor. No rashes. Extremities: No lower extremity edema. Normal inspection and active/passive ROM of the UE. Neuro: Oriented X 3. No motor deficit. No sensory deficit. Equal and symmetrical hand grasp bilaterally. Course Course Course Narrative: 45 y/o year old female with a history of cervical radiculopathy, status post cervical fusion in the past with recurrent disc herniation who presents to the ER with a flare-up of her neck pain. She denies any recent trauma. Working has aggravated the pain and cause some swelling on the right side of her neck. It is tender to touch and worse with movement. She reports whenever she comes to the emergency room she gets a shot of Toradol and some steroids with improvement in her pain. She is hypertensive on arrival with no history of hypertension. She states this usually happens when she is in severe pain. She denies any headache, vision changes or chest pain. Reevaluation(s) Reevaluation #1: Patient's pain is better. She is resting comfortably. When woken she would like to be discharged home. Will give a course of steroids for the inflammation. She has muscle relaxers at home. She is stable for discharge wit h plan to follow up with her primary care doctor. Work note provided per request. Critical Care Time Critical Care Time Critical Care Time: No Discharge Plan Discharge Clinical Impression: Neck pain, Cervical radiculopathy Patient Disposition: Home, Self-Care Instructions: Cervical Strain (DC), Cervical Radiculopathy (ED) Additional Instructions: Take the prescribed prednisone once a day, starting tomorrow. Use ice several times per day for 20 minutes at a time for the next 48 hours and then change to heat. Take medications as prescribed to help with pain and discomfort. Follow up with your Primary Care Doctor this week. If you develop new or worsening symptoms call 911 or come back to the ER for further evaluation. Prescriptions: New prednisone 50 mg tablet 50 mg PO DAILY Qty: 5 0RF lidocaine 5 % adhesive patch,medicated 1 patch topical DAILY Qty: 15 0RF Rx Instructions: leave on most painful area for up to 12 hrs naproxen 500 mg tablet 500 mg PO BID PRN (Reason: pain) Qty: 20 0RF No Action ibuprofen 800 mg tablet 800 mg PO TID PRN (Reason: pain) 30 Days Qty: 90 1RF lidocaine [Lidoderm] 5 % adhesive patch,medicated 1 patch topical DAILY Qty: 15 0RF Rx Instructions: leave on most painful area for up to 12 hrs. May be substituted acetaminophen 500 mg tablet 1,000 mg PO Q8H PRN (Reason: pain) Qty: 30 0RF omeprazole 40 mg capsule,delayed release(DR/EC) 40 mg PO DAILY Qty: 30 0RF tramadol 50 mg tablet 50 mg PO Q6H PRN (Reason: pain) Qty: 20 0RF valacyclovir [Valtrex] 1 gram tablet 1,000 mg PO BID Qty: 20 0RF cyclobenzaprine 10 mg tablet 10 mg PO TID PRN (Reason: muscle spasm) Qty: 18 0RF Rx Instructions: side effect is drowsiness. Do not take at wokr or while driving. famotidine [Pepcid] 20 mg tablet 20 mg PO BID 10 Days Qty: 20 0RF gabapentin 100 mg capsule 100 mg PO TID 30 Days Qty: 90 3RF fluticasone propionate 50 mcg/actuation spray,suspension 2 spray intranasal DAILY PRN (Reason: nasal congestion) 30 Days Qty: 16 3RF Rx Instructions: administer into each nostril tretinoin 0.1 % cream 1 appl topical BEDTIME Qty: 45 0RF phenazopyridine [Pyridium] 100 mg tablet 100 mg PO TID PRN (Reason: pain) Qty: 6 0RF albuterol sulfate 90 mcg/actuation aerosol powdr breath activated 2 inh inhalation Q6H PRN (Reason: shortness of breath or wheezing) 30 Days Qty: 1 1RF bupropion HCl 150 mg tablet extended release 24 hr 150 mg PO QAM 90 Days Qty: 90 1RF medroxyprogesterone 150 mg/mL suspension 150 mg IM [id number] 90 Days Qty: 1 2RF Referrals: Melvin Lara MD [Primary Care Provider] - 1 week ( Acute on chronic neck pain) Stand Alone Forms: Work/School Release
[2021-06-17] MEDS: predniSONE 10 MG TABLET 50 MG PO (11:34)
[2021-06-17] MEDS: Acetaminophen 325 MG TABLET 975 MG PO (11:34)
[2021-06-17] MEDS: Lidocaine 4 % Patch ADH..PATCH 1 PATCH TRANSDERMA (11:36)
[2021-06-17] MEDS: Ketorolac Tromethamine 30 MG/ML VIAL IM (11:38)
[2021-06-17 11:50] VITALS: BP 149/95; PULSE 92; RESP 16; O2SAT 100
--- NOTE | 2021-06-17 12:36 | PC.NURSE ---
PT REPORTS THAT SHE FEELS MUCH BETTER. PAIN LEVEL DOWN TO A 5. PT AGREEABLE TO DC HOME.
[2021-06-17 12:39] VITALS: BP 116/72; PULSE 90; RESP 16; O2SAT 98
== END 2021-06-17 12:39 | disposition home or self-care (01) ==
PROVIDERS: Emergency Provider Emergency Medicine; PCP Internal Medicine
DX: M54.12 Radiculopathy, cervical region (principal); M54.2 Cervicalgia; Z79.899 Other long term (current) drug therapy
CPT/HCPCS: 96372; 99284; J1885

== ENCOUNTER 2021-06-20 16:22 | Outpatient (REF) | payer OTHER, SELFPAY ==
--- NOTE | ~2021-06-20 | MM_ITS ---
EXAMINATION: MM SCREENING DIGITAL BREAST TOMOSYNTHESIS, BILATERAL CLINICAL INFORMATION: Screening. Asymptomatic. The lifetime risk of breast cancer based on the Tyrer-Cuzick Model is 13%. COMPARISON: Mammography: 06/19/2020, 05/04/2018, 04/20/2017 TECHNIQUE: Digital breast tomosynthesis is performed in both the craniocaudal and mediolateral oblique views along with computer-aided detection (CAD). Synthesized 2D images are generated from the tomosynthesis. FINDINGS: There are scattered areas of fibroglandular density (ACR BI-RADS breast composition Category b). Breast tissue composition borders on heterogeneously dense. There is no significant mass or architectural abnormality or abnormal calcifications. Left breast has biopsy clip marker mid upper outer quadrant. Small intramammary nodes again suggested anterior upper outer left breast. The right breast has coarse calcifications again seen mid 3:00 position. The bilateral axilla and skin contours are unremarkable. MM/MM tomosynthesis screening BI IMPRESSION: No significant changes from prior exams. ASSESSMENT: BI-RADS 2: Benign RECOMMENDATION: Routine annual mammography screening. This patient's information was entered into a reminder system with a target due date for their next mammogram.
== END 2021-06-20 16:23 | disposition home or self-care (01) ==
LOC: HO.MAMMO 16:22
PROVIDERS: PCP Internal Medicine; Visit Provider Internal Medicine
DX: Z12.31 Encounter for screening mammogram for malignant neoplasm of breast (principal)
CPT/HCPCS: 77063; 77067

== ENCOUNTER → 2021-07-21 14:59 | Outpatient (BNVA) | payer OTHER, SELFPAY | PROVIDERS: PCP Internal Medicine; Visit Provider Obstetrics & Gynecology | DX: Z30.42 Encounter for surveillance of injectable contraceptive (principal) | CPT/HCPCS: 96372; 99211 ==

== ENCOUNTER 2021-08-21 10:20 | Emergency (ER) | payer OTHER, SELFPAY ==
[2021-08-21 10:45] VITALS: BP 165/96; PULSE 90; RESP 18; TEMP 35.8; O2SAT 98; BMI 31.0
--- NOTE | 2021-08-21 10:52 | ED.NECK ---
HPI - Neck Pain/Injury General Chief Complaint: Neck Pain/Injury Stated Complaint: neck pain hernia disk Time Seen by Provider: 08/21/21 10:52 Source: patient Mode of arrival: ambulatory Limitations: no limitations History of Present Illness HPI Narrative: Patient presents to the emergency department for evaluation of right lateral/central neck pain. Reports that she has chronic neck pain but her pain has been worse for the past 3 days. Denies any precipitating injury. Reports that she has a herniated disc between C4 and C5. Often when her pain flares Toradol and prednisone are helpful. She discharged reports having a right-sided headache which isn't uncommon for her, though she does not typically experience headaches associated with her neck pain. His pain behind her right eye additionally. Reports blurred vision to the right eye but this is not new, she was evaluated by an eye doctor 2 months ago and was given a new prescription for glasses. She is unsure of her visual acuity in that eye at baseline. Denies numbness or tingling, denies neck stiffness, fevers, chills, nasal congestion, rhinorrhea, ear pain, sore throat, chest pain, palpitations shortness of breath difficulty breathing, vomiting, abdominal pain, bowel or bladder dysfunction, numbness or tingling of the perineum. Related Data Previous Rx's Medication Instructions Recorded acetaminophen 500 mg tablet 1,000 mg PO Q8H PRN #30 tab 07/25/20 fluticasone propionate 50 2 spray INTRANASAL DAILY PRN 30 08/02/20 mcg/actuation nasal Days #16 g spray,suspension ibuprofen 800 mg tablet 800 mg PO TID PRN 30 Days #90 tab 08/20/20 medroxyprogesterone 150 mg/mL 150 mg IM [id number] 90 Days #1 ml 11/21/20 intramuscular suspension cyclobenzaprine 10 mg tablet 10 mg PO TID PRN #18 tab 02/25/21 famotidine 20 mg tablet (Pepcid) 20 mg PO BID 10 Days #20 tab 02/25/21 bupropion HCl 150 mg 24 hr tablet, 150 mg PO QAM 90 Days #90 tab 05/20/21 extended release lidocaine 5 % topical patch 1 patch TOPICAL DAILY #15 ea 06/17/21 azithromycin 250 mg tablet See Rx Instructions PO .COMPLEX #6 08/20/21 tab prednisone 50 mg tablet 50 mg PO DAILY 5 Days #5 tab 08/21/21 Allergies Allergy/AdvReac Type Severity Reaction Status Date / Time ciprofloxacin AdvReac Intermediate swelling Verified 08/18/21 15:15 of feet Sulfa (Sulfonamide AdvReac Intermediate swelling Verified 08/18/21 15:15 Antibiotics) of feet Review of Systems Review of Systems: Constitutional: No Fever, No Chills ENT/Mouth: No sore throat, No Rhinorrhea, No Swallowing Difficulty Eyes: No vision changes Cardiovascular: No Chest Pain, No SOB, No Orthopnea, No Edema Respiratory: No Cough, No Sputum, No Wheezing, No dyspnea Gastrointestinal: No Nausea, No Vomiting, No abdominal Pain Genitourinary: No Dysuria, No Urinary Frequency, No Hematuria Musculoskeletal: + joint pain, + Myalgias Skin: No Skin Lesions, No rash Neuro: No Weakness, + Numbness, No Dizziness, + Headache Psych: No Anxiety/Panic, No Depression Heme/Lymph: No Bruising, No Lymphadenopathy Endocrine: No Polyuria, No Polydipsia Yes all other systems are reviewed and are negative PMFSH Past Medical History Attestation statement: The following information was validated with the patient. Source: old records reviewed Medical History Anxiety Herniated disc Herniation of cervical intervertebral disc with radiculopathy Menstrual disorder Nonintractable headache Obesity (BMI 30-39.9) Weakness of both hands Surgical History History of cervical discectomy History of section History of tubal ligation S/P ureteral stent placement Family History Family History Father Medical history unknown Mother Medical history unknown Maternal Grandmother Breast cancer Sister Breast cancer Daughter Breast cancer Son Autism Mental health disorder Social History Social History Housing: Apartment Alcohol intake: never Patient Tobacco Use Status: Never used Tobacco e-Cigarette/Vaping Use: Never Used Second Hand Smoke Exposure: No Advance Directives: No Advance Directives Information Provided: Yes Patient : No service: No Current occupational status: employed Cognitive needs: No Hearing needs: No Vision needs: Yes (glasses) Physical Exam Vital Signs: Vital Signs: Last Vital Signs Temp 96.5 F L 08/21/21 10:45 Pulse 90 08/21/21 10:45 Resp 18 08/21/21 10:45 BP 165/96 H 08/21/21 10:45 Pulse Ox 98 08/21/21 10:45 BMI result Body Mass Index 31.0 Vital signs have been reviewed as normal and appeared to be correct. Elevated blood pressure? Heart rate normal.? Respiration rate normal. Temperature normal.? Oxygen saturation normal. Appearance: Alert.?Oriented to person, place and time. No acute distress.?Normal affect. Eyes: Pupils equal, round and reactive to light.? ENT: Pharynx normal.?? Neck: Normal inspection.? Limited AROM.?Right-sided soft tissue paraspinal tenderness, palpable spasm. No midline cervical spine tenderness. CVS: Heart sounds normal. Normal heart rate and rhythm.? Pulses normal.?? Respiratory: No respiratory distress.? Lung sounds clear to auscultation bilaterally?? Abdomen: Soft and non-tender. Normoactive bowel sounds. No pulsatile mass.?? Skin: Skin warm and dry.? Normal skin color.? Extremities: No lower extremity edema.? Neuro: Moves all extremities spontaneously. Sensation intact bilaterally. 5/5 bilateral upper extremity strength. CN II-XII intact. No focal neuro deficits. Ambulates with normal steady gait. Course Course Course Narrative: Patient is a 45-year-old female with past medical history of chronic back pain herniated disc post cervical fusion years ago with recurrent disc herniation, presenting for evaluation of worsening of her chronic neck pain and associated headache. Precipitating trauma but has been progressively worsening over the last 3-4 days. Significant tenderness with palpation and exacerbation of pain with movement. No descriptors of thunderclap like headache, worse headache of her life, has low vision but reports this is at baseline, otherwise no vision changes, no feelings of pressure posterior to the eye. Right ocular pressure 15, left ocular pressure 12. Unlikely ICH/SAH, would defer CT imaging of the head at this time. Reevaluation(s) Reevaluation #1: Pain has improved after receiving Toradol. She has increased range of motion to the right side of her neck. Headache has improved also though neither are completely resolved. Ambulatory with a steady gait. Well-appearing, in no apparent distress. Patient states that she feels well enough to go home at this time. She was discharged home in stable condition, advised to follow-up with her primary care provider and inquire about her referral back to her surgeon Dr. Fay, and advised to reasons to return back to the emergency department. Time: 12:17 Discharge Plan Discharge Clinical Impression: Cervical radiculopathy Patient Disposition: Home, Self-Care Instructions: Cervical Radiculopathy (ED) Additional Instructions: You may use Tylenol or ibuprofen as needed for your pain. In addition you have been given a course of prednisone. Please contact your primary care provider to inquire about the status of your referral back to your surgeon Dr. Fay. Return to the emergency department with any new or worsening symptoms or concerns Prescriptions: New prednisone 50 mg tablet 50 mg PO DAILY 5 Days Qty: 5 0RF No Action ibuprofen 800 mg tablet 800 mg PO TID PRN (Reason: pain) 30 Days Qty: 90 1RF azithromycin 250 mg tablet See Rx Instructions PO .COMPLEX Qty: 6 0RF Rx Instructions: take 500 mg today (day 1), then 250 mg for 4 days (days 2-5) PO acetaminophen 500 mg tablet 1,000 mg PO Q8H PRN (Reason: pain) Qty: 30 0RF lidocaine 5 % adhesive patch,medicated 1 patch topical DAILY Qty: 15 0RF Rx Instructions: leave on most painful area for up to 12 hrs cyclobenzaprine 10 mg tablet 10 mg PO TID PRN (Reason: muscle spasm) Qty: 18 0RF Rx Instructions: side effect is drowsiness. Do not take at wokr or while driving. famotidine [Pepcid] 20 mg tablet 20 mg PO BID 10 Days Qty: 20 0RF fluticasone propionate 50 mcg/actuation spray,suspension 2 spray intranasal DAILY PRN (Reason: nasal congestion) 30 Days Qty: 16 3RF Rx Instructions: administer into each nostril bupropion HCl 150 mg tablet extended release 24 hr 150 mg PO QAM 90 Days Qty: 90 1RF medroxyprogesterone 150 mg/mL suspension 150 mg IM [id number] 90 Days Qty: 1 2RF
[2021-08-21] MEDS: Ketorolac Tromethamine 60 MG/2 ML VIAL IM (11:06)
== END 2021-08-21 12:32 | disposition home or self-care (01) ==
PROVIDERS: Emergency Provider Emergency Medicine; PCP Internal Medicine
DX: M54.12 Radiculopathy, cervical region (principal); M54.2 Cervicalgia; Z79.899 Other long term (current) drug therapy
CPT/HCPCS: 96372; 99283; 99284; J1885

== ENCOUNTER 2021-08-26 12:56 | Outpatient (REF) | payer OTHER, SELFPAY ==
[2021-08-26 14:21] LABS: Appearance Urine CLEAR; Color Urine YELLOW; Glucose Urine UA NEG (NEG); Leukocyte Esterase Urine NEG (NEG); Nitrite Urine NEG (NEG); PH 6.5 (5.0-8.0); Urine Blood NEG (NEG); Urine Ketones NEG (NEG); Urine Protein NEG (NEG-TRACE)
== END 2021-08-26 12:57 | disposition home or self-care (01) ==
LOC: HO.LAB 12:56
PROVIDERS: PCP Internal Medicine; Visit Provider Internal Medicine
DX: R30.0 Dysuria (principal)
CPT/HCPCS: 81003

== ENCOUNTER → 2021-10-14 14:08 | Outpatient (BNVA) | payer OTHER, SELFPAY | PROVIDERS: PCP Internal Medicine | DX: R30.0 Dysuria (principal); M62.89 Other specified disorders of muscle | CPT/HCPCS: 51798; 99212 ==

== ENCOUNTER → 2021-10-16 12:54 | Outpatient (BNVA) | payer OTHER, SELFPAY | PROVIDERS: PCP Internal Medicine; Visit Provider Obstetrics & Gynecology | DX: Z30.42 Encounter for surveillance of injectable contraceptive (principal) | CPT/HCPCS: 96372; 99211 ==

== ENCOUNTER 2021-11-07 14:47 | Outpatient (REF) | payer OTHER, SELFPAY ==
[2021-11-07 18:28] LABS: CT PCR NOT DETECTED (Not Detect.); NG PCR NOT DETECTED (Not Detect.)
[2021-11-08 10:08] LABS: BV Int Neg Control Negative (Negative); BV Int Pos Control Positive (Positive)
== END 2021-11-07 14:48 | disposition home or self-care (01) ==
LOC: HO.LAB 14:47
PROVIDERS: Visit Provider Advanced Practice Midwife
DX: Z01.419 Encounter for gynecological examination (general) (routine) without abnormal findings (principal)
CPT/HCPCS: 87480; 87491; 87510; 87591; 87660

== ENCOUNTER 2021-11-20 13:23 | Outpatient (REF) | payer OTHER, SELFPAY ==
--- NOTE | ~2021-11-20 | MM_ITS ---
EXAMINATION: MM DIAGNOSTIC DIGITAL BREAST TOMOSYNTHESIS, RIGHT US DIAGNOSTIC ULTRASOUND BREAST, RIGHT CLINICAL INFORMATION: Palpable area noted lower inner right breast at time of routine clinical exam. The lifetime risk of breast cancer based on the Tyrer-Cuzick Model is 13%. COMPARISON: Mammography: 06/20/2021, 06/19/2020, 05/04/2018, 04/20/2017 TECHNIQUE: Digital breast tomosynthesis is performed in both the craniocaudal and mediolateral oblique views along with computer-aided detection (CAD). Synthesized 2D images are generated from the tomosynthesis. Ultrasound lower inner quadrant right breast is performed using grayscale imaging and color Doppler without and with harmonics. FINDINGS: There are scattered areas of fibroglandular density (ACR BI-RADS breast composition Category b). There are no significant masses, abnormal calcifications, or other abnormalities. Breast tissue composition borders on heterogeneously dense. The parenchymal pattern is similar to prior exams. There is no interval mass, architectural abnormality, or abnormal calcification. No skin thickening or coarsening of the Hussain's ligaments. Ultrasound right breast demonstrates no cystic or solid mass, architectural abnormality, or focal duct ectasia. No skin thickening or edema tracking in soft tissue planes. Results are discussed with the patient at time of visit. MM/MM tomosynthesis diagnostic RT IMPRESSION: -No mammographic evidence of malignancy. No significant changes. -Unremarkable right breast ultrasound. ASSESSMENT: BI-RADS 1: Negative RECOMMENDATION: 1. Patient should be managed based on the clinical impression. If clinically indicated, further evaluation may be considered with surgical consult. Decision to proceed with biopsy should be based on clinical grounds and degree of clinical concern. 2. Otherwise, routine annual screening mammography. This patient's information was entered into a reminder system with a target due date for their next mammogram.
== END 2021-11-20 13:24 | disposition home or self-care (01) ==
LOC: HO.MAMMO 13:23
PROVIDERS: PCP Internal Medicine; Visit Provider Internal Medicine
DX: N63.14 Unspecified lump in the right breast, lower inner quadrant (principal)
CPT/HCPCS: 76642; 77061; 77065

== ENCOUNTER → 2021-11-27 09:49 | Outpatient (BNVA) | payer OTHER, SELFPAY | PROVIDERS: PCP Internal Medicine; Visit Provider Urology | DX: N30.11 Interstitial cystitis (chronic) with hematuria (principal); N32.81 Overactive bladder; R39.15 Urgency of urination; N20.0 Calculus of kidney | CPT/HCPCS: 99212 ==

== ENCOUNTER → 2022-01-09 12:52 | Outpatient (BNVA) | payer OTHER, SELFPAY | PROVIDERS: PCP Internal Medicine; Visit Provider Obstetrics & Gynecology | DX: Z30.9 Encounter for contraceptive management, unspecified (principal) | CPT/HCPCS: 96372; 99211 ==

== ENCOUNTER 2022-01-19 06:21 | Day surgery (SDC) | payer OTHER, SELFPAY ==
[2022-01-14 11:46] VITALS: BMI 30.4
--- NOTE | 2022-01-16 10:31 | HO.ANESPROP2 ---
Documented by User: Marylou Corona NP 01/16/22 10:31 HPI - Anesthesia Eval Consult details Narrative: 46yo F for Cystoscopy Hydrodistention of Bladder PMFSH Active Problems Active Problems: All Active Problems (Updated 11/27/21 @ 10:47 by Tanner Rock MD) Interstitial cystitis (chronic) with hematuria (Acute) Palpable mass of breast (Acute) Dysuria (Acute) Pharyngeal or nasopharyngeal cyst (Acute) Degenerative cervical disc (Acute) Paresthesia (Acute) COVID-19 (Acute) Scar of forehead (Acute) Shingles rash (Acute) Trigeminal neuralgia of right side of face (Acute) Skin mole (Acute) Deep dyspareunia (Acute) Contraceptive management (Acute) Well woman exam (Acute) Dysuria (Acute) Weakness of both hands (Acute) Sinusitis (Acute) Menstrual disorder (Acute) Obesity (BMI 30-39.9) (Acute) Anxiety (Acute) Nonintractable headache (Acute) Urinary tract infection (Acute) Herniation of cervical intervertebral disc with radiculopathy (Acute) Nephrolithiasis (Acute) Rotator cuff injury (Acute) Cervical radiculopathy (Acute) GERD (gastroesophageal reflux disease) (Acute) S/P ureteral stent placement (Acute) History of tubal ligation (Acute) History of section (Acute) History of cervical discectomy (Acute) Herniated disc (Acute) Past Medical History Medical History Anal fissure Anxiety Dysuria Epigastric pain Headache, migraine Hemorrhoid Herniated disc 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 Menstrual disorder Microscopic hematuria Nonintractable headache Obesity (BMI 30-39.9) Pelvic floor dysfunction Rectal bleed Recurrent nephrolithiasis Recurrent UTI Weakness of both hands Family History Family History Father Medical history unknown Mother Medical history unknown Maternal Grandmother Breast cancer Sister Breast cancer Daughter Breast cancer Son Autism Mental health disorder Surgical History Surgical History History of cervical discectomy History of section History of tubal ligation S/P ureteral stent placement Social History Social History Housing: Apartment Alcohol intake: never Patient Tobacco Use Status: Never used Tobacco e-Cigarette/Vaping Use: Never Used Second Hand Smoke Exposure: No service: No Current occupational status: employed Cognitive needs: No Hearing needs: No Vision needs: Yes (glasses) Meds Allergies Allergy/AdvReac Type Severity Reaction Status Date / Time ciprofloxacin AdvReac Intermediate swelling Verified 12/29/21 14:50 of feet Sulfa (Sulfonamide AdvReac Intermediate swelling Verified 12/29/21 14:50 Antibiotics) of feet Exam Exam Date and Time: January 16, 2022 1031 Height,Weight and Vital Signs: Height 5 ft Weight 70.76 kg Assessment and Plan Assessment Anesthesia Assessment: Chart Reviewed Documented by User: Girish Pritchett MD 01/19/22 17:58 PMFSH Past Medical History Medical History Anal fissure Anxiety Dysuria Epigastric pain Headache, migraine Hemorrhoid Herniated disc 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 Menstrual disorder Microscopic hematuria Nonintractable headache Obesity (BMI 30-39.9) Pelvic floor dysfunction Rectal bleed Recurrent nephrolithiasis Recurrent UTI Weakness of both hands Functional capacity: independent ambulation Family History Family History Father Medical history unknown Mother Medical history unknown Maternal Grandmother Breast cancer Sister Breast cancer Daughter Breast cancer Son Autism Mental health disorder Family history of problems with anesthesia: No Surgical History Surgical History History of cervical discectomy History of section History of tubal ligation S/P ureteral stent placement History of Problems with Anesthesia: No Social History Social History Housing: Apartment Alcohol intake: never Patient Tobacco Use Status: Never used Tobacco e-Cigarette/Vaping Use: Never Used Second Hand Smoke Exposure: No service: No Current occupational status: employed Cognitive needs: No Hearing needs: No Vision needs: Yes (glasses) Meds Allergies Allergy/AdvReac Type Severity Reaction Status Date / Time ciprofloxacin AdvReac Intermediate swelling Verified 12/29/21 14:50 of feet Sulfa (Sulfonamide AdvReac Intermediate swelling Verified 12/29/21 14:50 Antibiotics) of feet Exam Airway Mallampati Class: III TM Dist: >3cm Neck ROM: Full Loose/Missing/Broken Teeth: Yes Heart: S1,S2 Lungs: b/l breath sounds Assessment and Plan Assessment Anesthesia Assessment: Anesthesia Plan Discussed Final Anesthetic Review Family History of Problems with Anesthesia: No History of Problems with Anesthesia: No NPO: Yes ASA Class: II Final Preanesthetic Review: Meds/Allgs Chart Reviewed, Consent Obtained/Reviewed and Anes Risks/Benef Reviewed Patient Risk: Intermediate Procedure Risk: Intermediate Anesthetic Plan Anesthetic Plan: GA Disposition: Standard PACU
[2022-01-19 06:54] VITALS: BP 137/89; PULSE 80; RESP 16; TEMP 36.7; O2SAT 97
[2022-01-19] MEDS: Lactated Ringers 1,000 ML 100 ML IVCONT (07:08)
--- NOTE | 2022-01-19 08:17 | MHC.SHP ---
Pre-Procedural Eval Section A Date of Service: 01/19/22 The patient is an INPATIENT: No Changes since office visit: No Cold of Flu in the past 2 weeks, No New Medical Problems, No Changes in Medication and No Patient answered all questions The History & Physical has been completed within 30 days and I have reviewed it.: No Section B Chief Complaint: Interstitial cystitis (chronic) with hematuria Details of Present Illness: interstitial cystitis diagnostics Relevant Family History (Specify if Yes): No Relevant Social History: None Present Medications: see Short Stay Collaborative assessment Medical History: No relevant PMH History of Previous Operations: No relevant previous surgery Allergies: Allergies Allergy/AdvReac Type Severity Reaction Status Date / Time ciprofloxacin AdvReac Intermediate swelling Verified 12/29/21 14:50 of feet Sulfa (Sulfonamide AdvReac Intermediate swelling Verified 12/29/21 14:50 Antibiotics) of feet Review of Systems Sugical H&P ROS: Negative: Constitution, Cardiovascular, Respiratory, Neurological, Psychiatric, Hem-Onc, Allergic/Immunologic, Gastrointestinal, Genitourinary, Musculoskeletal, Integumentary, Endocrine and Eyes/Ears/Nose/Throat Exam Surgical H&P Exam: Normal: HEENT, Normal: Heart, Normal: Lungs, Normal: Extremities, Normal: Abdomen, Normal: Skin and Normal: Neurological Plan Diagnosis/Plan: Unchanged ( cystoscopy, bladder biopsy, hydrodistention) I have reviewed the history and physical and performed a pertinent physical examination on my patient. No changes have occurred unless specified.
[2022-01-19] MEDS: Acetaminophen 325 MG TABLET 650 MG PO (08:34)
--- NOTE | 2022-01-19 09:05 | P.OP_ITS ---
Operative Note Operative Note Date of Service: 01/19/22 Narrative: PreOperative Diagnosis: Interstitial cystitis with pelvic pain Post Operative Diagnosis: Interstitial cystitis with pelvic pain Procedure: Hydrodistention Surgeon: Dr Tanner Rock Anesthesia: General Indications for procedure: Persistent bladder dysfunction Procedure: After informed consent was verified the patient was brought to the operating room and placed in a supine position. Anesthesia was administered per protocol. The patient was placed in a modified dorsal lithotomy position and prepped and draped in sterile fashion. Safety pause time-out was observed. Antibiotics being given. A 22 [place] cystoscope was used to empty the bladder. A mixture of bupivacaine lidocaine gel 20 cc was instilled into the bladder and allowed to sit for 2-3 minutes. A belladonna and opiate rectal suppository was placed. Hydrodistention of the bladder was performed. The bladder was filled and allowed to sit for 2 minutes. Filling was from a height of 1 m. On the 1st fill there was 575 cc within the bladder. Cystoscopy revealed glomerulations consistent with interstitial cystitis. Second filling of the bladder was performed in similar fashion. Bladder biopsies were performed and fulguration used for control. Volume was approximately 575 cc. Terminal hematuria noted. The the bladder was emptied. The patient tolerated procedure well was extubated in operating room transferred in stable condition to the recovery area. Appropriate postprocedure pain medication was provided. Pathology: biopsies Drains: None
[2022-01-19 09:14] VITALS: BP 122/79; PULSE 99; RESP 18; TEMP 36.6; O2SAT 98
[2022-01-19 09:19] VITALS: BP 112/66; PULSE 109; RESP 16; O2SAT 98
[2022-01-19 09:24] VITALS: BP 131/91; PULSE 106; RESP 16; O2SAT 98
[2022-01-19 09:29] VITALS: BP 128/84; PULSE 97; RESP 16; TEMP 36.1; O2SAT 98
[2022-01-19] MEDS: Phenazopyridine HCL 100 MG TABLET PO (09:29)
[2022-01-19 09:42] VITALS: BP 119/89; PULSE 87; RESP 16; TEMP 36.1; O2SAT 98
== END 2022-01-19 10:08 | disposition home or self-care (01) ==
PROVIDERS: PCP Internal Medicine; Visit Provider Urology
PROC: 0T7B7ZZ Dilation of Bladder, Via Natural or Artificial Opening (ICD-10-PCS; CPT 52260; principal; 2022-01-19 08:20)
DX: N30.11 Interstitial cystitis (chronic) with hematuria (principal); R30.0 Dysuria; N32.81 Overactive bladder; R39.15 Urgency of urination; Z87.440 Personal history of urinary (tract) infections; Z88.1 Allergy status to other antibiotic agents; Z88.2 Allergy status to sulfonamides; Z87.442 Personal history of urinary calculi
CPT/HCPCS: 52260; 88305; J0690; J1100; J2250; J2405; J3010

== ENCOUNTER 2022-03-03 14:46 | Emergency (ER) | payer OTHER, SELFPAY ==
--- NOTE | ~2022-03-03 | CT_ITS ---
EXAMINATION: CT HEAD WITHOUT CONTRAST CLINICAL INFORMATION: Blurry vision. COMPARISON: CT head dated from 07/25/2020. TECHNIQUE: Contiguous axial imaging was performed from the skull base to vertex without intravenous administration of contrast. This CT examination was performed using dose optimization techniques as appropriate, variously including the following: *Automated exposure control *Adjustment of mA and/or kV according to patient size (this includes techniques or standardized protocols for targeted exams where dose is matched to indication/reason for exam; i.e. extremities or head) *Use of iterative reconstruction technique DLP: 607 mGy-cm FINDINGS: There is no evidence of acute intracranial hemorrhage or edematous territorial infarction. There is no abnormal attenuation within the brain parenchyma. Ramos-white matter differentiation is preserved. The ventricles are normal in size and configuration. No evidence for obstructive hydrocephalus. No abnormal mass effect or midline shift. No extra-axial fluid collections. No acute soft tissue or osseous abnormalities. The mastoid air cells and paranasal sinuses are clear. CT/CT head/brain wo IV con IMPRESSION: No evidence of acute intracranial hemorrhage or edematous territorial infarction.
--- NOTE | ~2022-03-03 | XR_ITS ---
EXAMINATION: XR CHEST CLINICAL INFORMATION: Elevated blood pressure COMPARISON: Chest x-ray 02/25/2021 TECHNIQUE: Frontal view of the chest was obtained. FINDINGS: The lungs are clear. No airspace consolidation, pleural effusion, or pneumothorax. The cardiomediastinal silhouette is within normal limits. No acute osseous injury. XR/XR chest 1V IMPRESSION: No acute pulmonary disease.
[2022-03-03 17:15] VITALS: BP 182/109; PULSE 99; RESP 20; TEMP 36.5; O2SAT 100; BMI 30.4
--- NOTE | 2022-03-03 17:17 | ECG_ITS ---
Test Reason : CHEST PRESSURE Blood Pressure : / mmHG Vent. Rate : 088 BPM Atrial Rate : 088 BPM P-R Int : 148 ms QRS Dur : 072 ms QT Int : 364 ms P-R-T Axes : 044 023 029 degrees QTc Int : 440 ms Normal sinus rhythm Normal ECG When compared with ECG of 25-FEB-2021 17:35, No significant change was found Referred By: Sylvain Garcia Electronically Signed By:TATYANA MATHUR MD
--- NOTE | 2022-03-03 17:18 | ED_ITS ---
HPI - Headache General Chief Complaint: Headache <Sylvain Garcia MD - Last Filed: 03/03/22 17:20> Stated Complaint: High Blood Pressure Chest Discomfort <Sylvain Garcia MD - Last Filed: 03/03/22 17:20> Time Seen by Provider: 03/03/22 20:11 <Sylvain Garcia MD - Last Filed: 03/03/22 17:20> Source: patient <Manny Richardson MD - Last Filed: 03/03/22 22:22> Mode of arrival: ambulatory <Manny Richardson MD - Last Filed: 03/03/22 22:22> Limitations: no limitations <Manny Richardson MD - Last Filed: 03/03/22 22:22> History of Present Illness HPI Narrative: Patient history of migraine headaches been having headache diffuse little nauseated, no vomiting no light sensitivity feels different than her usual migraine. Headache started gradually no neck pain no fever or chills patient does have white coat hypertension usual blood pressure is normal usually less than 135/80 on arrival patient's blood pressure was 182/109 improved during stay to 145/95 <Manny Richardson MD - Last Filed: 03/03/22 22:22> Related Data Home Medications: Previous Rx's Medication Instructions Recorded acetaminophen 500 mg tablet 1,000 mg PO Q8H PRN pain #30 tabs 07/25/20 fluticasone propionate 50 2 spray intranasal DAILY PRN nasal 08/02/20 mcg/actuation nasal congestion 30 days #16 grams spray,suspension cyclobenzaprine 10 mg tablet 10 mg PO TID PRN muscle spasm #18 02/25/21 tabs famotidine 20 mg tablet (Pepcid) 20 mg PO BID 10 days #20 tabs 02/25/21 bupropion HCl 150 mg 24 hr tablet, 150 mg PO QAM 90 days #90 tabs 05/20/21 extended release amitriptyline 25 mg tablet 25 mg PO BEDTIME 30 days #30 tabs 11/27/21 oxybutynin chloride 10 mg 10 mg PO DAILY 30 days #30 tabs 11/27/21 tablet,extended release 24 hr ibuprofen 800 mg tablet 800 mg PO TID PRN pain 30 days #90 12/29/21 tabs medroxyprogesterone 150 mg/mL 150 mg IM Q12W #1 mL 01/08/22 intramuscular suspension mirabegron 25 mg tablet,extended 25 mg PO DAILY 30 days #30 tabs 01/19/22 release 24 hr (Myrbetriq) phenazopyridine 100 mg tablet 100 mg PO TID PRN Spasm 4 days #12 01/19/22 (Pyridium) tabs tramadol 50 mg tablet 50 mg PO Q6H PRN pain (scale score 01/19/22 1-3) #8 tabs ibhiwoptyz-aipvoowwosvvj-qbroegdi 1 cap PO Q6H PRN headache #20 caps 03/03/22 50 mg-300 mg-40 mg capsule (Fioricet) ondansetron 4 mg disintegrating 4 mg PO Q6-8H PRN nausea and 03/03/22 tablet vomiting #7 tabs sumatriptan succinate 50 mg tablet 50 mg PO Q2H PRN migraine headache 03/03/22 (Imitrex) #10 tabs <Sylvain Garcia MD - Last Filed: 03/03/22 17:20> Allergies/Adverse Reactions: Allergies Allergy/AdvReac Type Severity Reaction Status Date / Time ciprofloxacin AdvReac Intermediate swelling Verified 12/29/21 14:50 of feet Sulfa (Sulfonamide AdvReac Intermediate swelling Verified 12/29/21 14:50 Antibiotics) of feet <Sylvain Garcia MD - Last Filed: 03/03/22 17:20> Review of Systems Review of Systems: Yes all other systems are reviewed and are negative <Manny Richardson MD - Last Filed: 03/03/22 22:22> [facility] Past Medical History Medical History: Medical History Anal fissure Anxiety Dysuria Epigastric pain Headache, migraine Hemorrhoid Herniated disc 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 Menstrual disorder Microscopic hematuria Nonintractable headache Obesity (BMI 30-39.9) Pelvic floor dysfunction Rectal bleed Recurrent nephrolithiasis Recurrent UTI Weakness of both hands <Sylvain Garcia MD - Last Filed: 03/03/22 17:20> Surgical History: Surgical History History of cervical discectomy History of section History of tubal ligation S/P ureteral stent placement <Sylvain Garcia MD - Last Filed: 03/03/22 17:20> Family History Family History: Family History Father Medical history unknown Mother Medical history unknown Maternal Grandmother Breast cancer Sister Breast cancer Daughter Breast cancer Son Autism Mental health disorder <Sylvain Garcia MD - Last Filed: 03/03/22 17:20> Social History Social History: Social History Housing: Apartment Alcohol intake: current Alcohol intake frequency: holidays/special occasions only Patient Tobacco Use Status: Never used Tobacco Smoked in Last 30 Days: No e-Cigarette/Vaping Use: Never Used Second Hand Smoke Exposure: No Use of substances other than those prescribed or required for medical reasons: No Advance Directives: No Advance Directives Information Provided: No Patient : No service: No Current occupational status: employed Cognitive needs: No Hearing needs: No Vision needs: Yes (glasses) <Sylvain Garcia MD - Last Filed: 03/03/22 17:20> Physical Exam Vital Signs: Vital Signs: Last Vital Signs Temp 98.2 F 03/03/22 22:07 Pulse 93 03/03/22 22:07 Resp 99 H 03/03/22 22:07 BP 138/88 03/03/22 22:07 Pulse Ox 99 03/03/22 22:07 O2 Del Method 03/03/22 22:07 BMI result Body Mass Index 30.4 <Sylvain Garcia MD - Last Filed: 03/03/22 17:20> Vital Signs: Last Vital Signs Temp 98.2 F 03/03/22 22:07 Pulse 93 03/03/22 22:07 Resp 99 H 03/03/22 22:07 BP 138/88 03/03/22 22:07 Pulse Ox 99 03/03/22 22:07 O2 Del Method 03/03/22 22:07 BMI result Body Mass Index 30.4 <Manny Richardson MD - Last Filed: 03/03/22 22:22> Appearance: Alert. Oriented X3. No acute distress. Eyes: PERRLA, No Nystagmus ENT: Pharynx normal. Oral Mucosa moist no temporal artery tenderness Neck: Normal inspection. Neck supple. CVS: Normal heart rate and rhythm. Pulses normal. Respiratory: No respiratory distress. Equal air entry bilateral, no whe ezing/rales/rhonchi Abdomen: Soft and nontender. Bowel sounds are present, no mass palpable, no CVA tenderness Skin: Skin warm and dry. Normal skin color. Normal skin turgor. Extremities: No lower extremity edema. No calf tenderness Neuro: Oriented X 3. No motor deficit. No sensory deficit.No cerebellar signs , cranial nerves II-XII intact <Manny Richardson MD - Last Filed: 03/03/22 22:22> Course Reevaluation(s) Reevaluation #1: 46 year female no known history of hypertension presented today with headache, blurry vision, with high blood pressure, patient also been feeling tightness in her chest symptoms have been on and off for the past week. Head CT/EKG/labs were ordered from triage <Sylvain Garcia MD - Last Filed: 03/03/22 17:20> Time: 17:18 <Sylvain Garcia MD - Last Filed: 03/03/22 17:20> Medications Administered Discontinued Medications Generic Name Dose Route Start Last Admin Trade Name Freq PRN Reason Stop Dose Admin Ondansetron HCl 4 mg 03/03/22 20:26 03/03/22 21:00 Ondansetron Odt 4 Mg Tab.Rapdis TRANSLINGU 03/03/22 20:27 4 mg ONCE ONE Administration Sumatriptan Succinate 6 mg 03/03/22 20:26 03/03/22 21:00 Sumatriptan Succinate 6 Mg/0.5 Ml Vial SUBCUT 03/03/22 20:27 6 mg ONCE ONE Administration <Sylvain Garcia MD - Last Filed: 03/03/22 17:20> Medications Administered Discontinued Medications Generic Name Dose Route Start Last Admin Trade Name Freq PRN Reason Stop Dose Admin Ondansetron HCl 4 mg 03/03/22 20:26 03/03/22 21:00 Ondansetron Odt 4 Mg Tab.Rapdis TRANSLINGU 03/03/22 20:27 4 mg ONCE ONE Administration Sumatriptan Succinate 6 mg 03/03/22 20:26 03/03/22 21:00 Sumatriptan Succinate 6 Mg/0.5 Ml Vial SUBCUT 03/03/22 20:27 6 mg ONCE ONE Administration <Manny Richardson MD - Last Filed: 03/03/22 22:22> MDM - Headache MDM Narrative Medical decision making narrative: Patient likely has complex migraine headache started gradually no thunderclap blood pressure improved during stay in the ER Patient felt much better after Imitrex <Manny Richardson MD - Last Filed: 03/03/22 22:22> Lab Data Attestation: I reviewed the patient's lab results. <Manny Richardson MD - Last Filed: 03/03/22 22:22> Result diagrams: : 03/03/22 19:04 03/03/22 17:50 <Sylvain Garcia MD - Last Filed: 03/03/22 17:20> Labs: Lab Results 03/03/22 03/03/22 03/03/22 Range/Units 17:50 17:50 17:50 WBC (4.8-10.8) X10*3/uL RBC (4.20-5.50) X10*6/uL Hgb (12.0-16.0) g/dl Hct (37.0-47.0) % MCV (80.0-98.0) fL MCH (27.0-33.0) pg MCHC (31.0-35.0) g/dl RDW (11.0-16.0) % Plt Count (160-400) X10*3/uL MPV (9.4-12.3) fL Immature Gran % (Auto) (0.0-0.4) % Neut % (Auto) (45-73) % Lymph % (Auto) (20-40) % [facility] % (Auto) (2-11) % Eos % (Auto) (0-4) % Baso % (Auto) (0-2) % Lymph # (Auto) (1.2-4.9) X10*3/uL [facility] # (Auto) (0.1-1.2) X10*3/uL Eos # (Auto) (0.0-0.4) X10*3/uL Baso # (Auto) (0.0-0.2) X10*3/uL Abs Immat Gran (auto) (0.00-0.03) X10*3/uL Absolute Neuts (auto) (2.0-8.3) x10*3/uL Absolute Nucleated RBC (0.0-0.012) X10*3/uL Nucleated RBC % (auto) (0.0-0.2) /100WBC Sodium 139 (135-145) mmol/L Potassium 4.0 (3.3-5.1) mmol/L Chloride 107 (96-108) mmol/L Carbon Dioxide 19 L (22-29) mmol/L Anion Gap 17 (12-20) BUN 10 (9-16) mg/dL Creatinine 0.73 (0.5-1.4) mg/dL Estim Creat Clear Calc 86.3 Estimated GFR > 60 Random Glucose 80 (60-115) mg/dL Calcium 9.6 (8.4-10.2) mg/dL Total Bilirubin 0.3 (0.0-1.0) mg/dL Direct Bilirubin 0.2 (0.0-0.5) mg/dL AST 19 (5-31) U/L ALT 19 (0-31) U/L Alkaline Phosphatase 64 (39-117) U/L Troponin I High Sens < 3.5 (<3.5-17.0) ng/L B-Natriuretic Peptide (<100) pg/mL Total Protein 7.5 (6.5-8.0) g/dL Albumin 4.3 (3.5-5.0) g/dL Lipase 10 (8-78) U/L Urine Color Urine Appearance Urine pH (5.0-9.0) Ur Specific [place] (1.005-1.025) Urine Protein (Neg-Trace) mg/dL Urine Glucose (UA) (Negative) mg/dL Urine Ketones (Negative) mg/dL Urine Blood (Negative) Urine Nitrite (Negative) Ur Leukocyte Esterase (Negative) Urine RBC (0-2) /HPF Urine WBC (0-5) /HPF Ur Squamous Epith Cells (0-2) /HPF Urine Bacteria (None Seen) Hyaline Casts (0-2) /LPF Urine Test (NEGATIVE) COVID-19 ([facility]) Negative (Negative) COVID-19 Clin Com See Note 03/03/22 03/03/22 03/03/22 Range/Units 19:04 19:04 20:08 WBC 10.2 (4.8-10.8) X10*3/uL RBC 5.50 (4.20-5.50) X10*6/uL Hgb 15.3 (12.0-16.0) g/dl Hct 45.8 (37.0-47.0) % MCV 83.3 (80.0-98.0) fL MCH 27.8 (27.0-33.0) pg MCHC 33.4 (31.0-35.0) g/dl RDW 13.5 (11.0-16.0) % Plt Count 263 (160-400) X10*3/uL MPV 12.3 (9.4-12.3) fL Immature Gran % (Auto) 0.2 (0.0-0.4) % Neut % (Auto) 74.8 H (45-73) % Lymph % (Auto) 17.5 L (20-40) % [facility] % (Auto) 6.1 (2-11) % Eos % (Auto) 1.0 (0-4) % Baso % (Auto) 0.4 (0-2) % Lymph # (Auto) 1.8 (1.2-4.9) X10*3/uL [facility] # (Auto) 0.6 (0.1-1.2) X10*3/uL Eos # (Auto) 0.1 (0.0-0.4) X10*3/uL Baso # (Auto) 0.0 (0.0-0.2) X10*3/uL Abs Immat Gran (auto) 0.02 (0.00-0.03) X10*3/uL Absolute Neuts (auto) 7.6 (2.0-8.3) x10*3/uL Absolute Nucleated RBC 0.000 (0.0-0.012) X10*3/uL Nucleated RBC % (auto) 0.0 (0.0-0.2) /100WBC Sodium (135-145) mmol/L Potassium (3.3-5.1) mmol/L Chloride (96-108) mmol/L Carbon Dioxide (22-29) mmol/L Anion Gap (12-20) BUN (9-16) mg/dL Creatinine (0.5-1.4) mg/dL Estim Creat Clear Calc Estimated GFR Random Glucose (60-115) mg/dL Calcium (8.4-10.2) mg/dL Total Bilirubin (0.0-1.0) mg/dL Direct Bilirubin (0.0-0.5) mg/dL AST (5-31) U/L ALT (0-31) U/L Alkaline Phosphatase (39-117) U/L Troponin I High Sens (<3.5-17.0) ng/L B-Natriuretic Peptide < 10 (<100) pg/mL Total Protein (6.5-8.0) g/dL Albumin (3.5-5.0) g/dL Lipase (8-78) U/L Urine Color Yellow Urine Appearance Clear Urine pH 5.5 (5.0-9.0) Ur Specific [place] 1.015 (1.005-1.025) Urine Protein Negative (Neg-Trace) mg/dL Urine Glucose (UA) Negative (Negative) mg/dL Urine Ketones Trace (Negative) mg/dL Urine Blood Moderate (2+) H (Negative) Urine Nitrite Negative (Negative) Ur Leukocyte Esterase Trace H (Negative) Urine RBC 0-2 (0-2) /HPF Urine WBC 0-5 (0-5) /HPF Ur Squamous Epith Cells 6-10 (0-2) /HPF Urine Bacteria None Seen (None Seen) Hyaline Casts 0-2 (0-2) /LPF Urine Test (NEGATIVE) COVID-19 ([facility]) (Negative) COVID-19 Clin Com 03/03/22 Range/Units 20:08 WBC (4.8-10.8) X10*3/uL RBC (4.20-5.50) X10*6/uL Hgb (12.0-16.0) g/dl Hct (37.0-47.0) % MCV (80.0-98.0) fL MCH (27.0-33.0) pg MCHC (31.0-35.0) g/dl RDW (11.0-16.0) % Plt Count (160-400) X10*3/uL MPV (9.4-12.3) fL Immature Gran % (Auto) (0.0-0.4) % Neut % (Auto) (45-73) % Lymph % (Auto) (20-40) % [facility] % (Auto) (2-11) % Eos % (Auto) (0-4) % Baso % (Auto) (0-2) % Lymph # (Auto) (1.2-4.9) X10*3/uL [facility] # (Auto) (0.1-1.2) X10*3/uL Eos # (Auto) (0.0-0.4) X10*3/uL Baso # (Auto) (0.0-0.2) X10*3/uL Abs Immat Gran (auto) (0.00-0.03) X10*3/uL Absolute Neuts (auto) (2.0-8.3) x10*3/uL Absolute Nucleated RBC (0.0-0.012) X10*3/uL Nucleated RBC % (auto) (0.0-0.2) /100WBC Sodium (135-145) mmol/L Potassium (3.3-5.1) mmol/L Chloride (96-108) mmol/L Carbon Dioxide (22-29) mmol/L Anion Gap (12-20) BUN (9-16) mg/dL Creatinine (0.5-1.4) mg/dL Estim Creat Clear Calc Estimated GFR Random Glucose (60-115) mg/dL Calcium (8.4-10.2) mg/dL Total Bilirubin (0.0-1.0) mg/dL Direct Bilirubin (0.0-0.5) mg/dL AST (5-31) U/L ALT (0-31) U/L Alkaline Phosphatase (39-117) U/L Troponin I High Sens (<3.5-17.0) ng/L B-Natriuretic Peptide (<100) pg/mL Total Protein (6.5-8.0) g/dL Albumin (3.5-5.0) g/dL Lipase (8-78) U/L Urine Color Urine Appearance Urine pH (5.0-9.0) Ur Specific [place] (1.005-1.025) Urine Protein (Neg-Trace) mg/dL Urine Glucose (UA) (Negative) mg/dL Urine Ketones (Negative) mg/dL Urine Blood (Negative) Urine Nitrite (Negative) Ur Leukocyte Esterase (Negative) Urine RBC (0-2) /HPF Urine WBC (0-5) /HPF Ur Squamous Epith Cells (0-2) /HPF Urine Bacteria (None Seen) Hyaline Casts (0-2) /LPF Urine Test NEGATIVE (NEGATIVE) COVID-19 ([facility]) (Negative) COVID-19 Clin Com <Sylvain Garcia MD - Last Filed: 03/03/22 17:20> Lab Results 03/03/22 03/03/22 03/03/22 Range/Units 17:50 17:50 17:50 WBC (4.8-10.8) X10*3/uL RBC (4.20-5.50) X10*6/uL Hgb (12.0-16.0) g/dl Hct (37.0-47.0) % MCV (80.0-98.0) fL MCH (27.0-33.0) pg MCHC (31.0-35.0) g/dl RDW (11.0-16.0) % Plt Count (160-400) X10*3/uL MPV (9.4-12.3) fL Immature Gran % (Auto) (0.0-0.4) % Neut % (Auto) (45-73) % Lymph % (Auto) (20-40) % [facility] % (Auto) (2-11) % Eos % (Auto) (0-4) % Baso % (Auto) (0-2) % Lymph # (Auto) (1.2-4.9) X10*3/uL [facility] # (Auto) (0.1-1.2) X10*3/uL Eos # (Auto) (0.0-0.4) X10*3/uL Baso # (Auto) (0.0-0.2) X10*3/uL Abs Immat Gran (auto) (0.00-0.03) X10*3/uL Absolute Neuts (auto) (2.0-8.3) x10*3/uL Absolute Nucleated RBC (0.0-0.012) X10*3/uL Nucleated RBC % (auto) (0.0-0.2) /100WBC Sodium 139 (135-145) mmol/L Potassium 4.0 (3.3-5.1) mmol/L Chloride 107 (96-108) mmol/L Carbon Dioxide 19 L (22-29) mmol/L Anion Gap 17 (12-20) BUN 10 (9-16) mg/dL Creatinine 0.73 (0.5-1.4) mg/dL Estim Creat Clear Calc 86.3 Estimated GFR > 60 Random Glucose 80 (60-115) mg/dL Calcium 9.6 (8.4-10.2) mg/dL Total Bilirubin 0.3 (0.0-1.0) mg/dL Direct Bilirubin 0.2 (0.0-0.5) mg/dL AST 19 (5-31) U/L ALT 19 (0-31) U/L Alkaline Phosphatase 64 (39-117) U/L Troponin I High Sens < 3.5 (<3.5-17.0) ng/L B-Natriuretic Peptide (<100) pg/mL Total Protein 7.5 (6.5-8.0) g/dL Albumin 4.3 (3.5-5.0) g/dL Lipase 10 (8-78) U/L Urine Color Urine Appearance Urine pH (5.0-9.0) Ur Specific [place] (1.005-1.025) Urine Protein (Neg-Trace) mg/dL Urine Glucose (UA) (Negative) mg/dL Urine Ketones (Negative) mg/dL Urine Blood (Negative) Urine Nitrite (Negative) Ur Leukocyte Esterase (Negative) Urine RBC (0-2) /HPF Urine WBC (0-5) /HPF Ur Squamous Epith Cells (0-2) /HPF Urine Bacteria (None Seen) Hyaline Casts (0-2) /LPF Urine Test (NEGATIVE) COVID-19 ([facility]) Negative (Negative) COVID-19 Clin Com See Note 03/03/22 03/03/22 03/03/22 Range/Units 19:04 19:04 20:08 WBC 10.2 (4.8-10.8) X10*3/uL RBC 5.50 (4.20-5.50) X10*6/uL Hgb 15.3 (12.0-16.0) g/dl Hct 45.8 (37.0-47.0) % MCV 83.3 (80.0-98.0) fL MCH 27.8 (27.0-33.0) pg MCHC 33.4 (31.0-35.0) g/dl RDW 13.5 (11.0-16.0) % Plt Count 263 (160-400) X10*3/uL MPV 12.3 (9.4-12.3) fL Immature Gran % (Auto) 0.2 (0.0-0.4) % Neut % (Auto) 74.8 H (45-73) % Lymph % (Auto) 17.5 L (20-40) % [facility] % (Auto) 6.1 (2-11) % Eos % (Auto) 1.0 (0-4) % Baso % (Auto) 0.4 (0-2) % Lymph # (Auto) 1.8 (1.2-4.9) X10*3/uL [facility] # (Auto) 0.6 (0.1-1.2) X10*3/uL Eos # (Auto) 0.1 (0.0-0.4) X10*3/uL Baso # (Auto) 0.0 (0.0-0.2) X10*3/uL Abs Immat Gran (auto) 0.02 (0.00-0.03) X10*3/uL Absolute Neuts (auto) 7.6 (2.0-8.3) x10*3/uL Absolute Nucleated RBC 0.000 (0.0-0.012) X10*3/uL Nucleated RBC % (auto) 0.0 (0.0-0.2) /100WBC Sodium (135-145) mmol/L Potassium (3.3-5.1) mmol/L Chloride (96-108) mmol/L Carbon Dioxide (22-29) mmol/L Anion Gap (12-20) BUN (9-16) mg/dL Creatinine (0.5-1.4) mg/dL Estim Creat Clear Calc Estimated GFR Random Glucose (60-115) mg/dL Calcium (8.4-10.2) mg/dL Total Bilirubin (0.0-1.0) mg/dL Direct Bilirubin (0.0-0.5) mg/dL AST (5-31) U/L ALT (0-31) U/L Alkaline Phosphatase (39-117) U/L Troponin I High Sens (<3.5-17.0) ng/L B-Natriuretic Peptide < 10 (<100) pg/mL Total Protein (6.5-8.0) g/dL Albumin (3.5-5.0) g/dL Lipase (8-78) U/L Urine Color Yellow Urine Appearance Clear Urine pH 5.5 (5.0-9.0) Ur Specific [place] 1.015 (1.005-1.025) Urine Protein Negative (Neg-Trace) mg/dL Urine Glucose (UA) Negative (Negative) mg/dL Urine Ketones Trace (Negative) mg/dL Urine Blood Moderate (2+) H (Negative) Urine Nitrite Negative (Negative) Ur Leukocyte Esterase Trace H (Negative) Urine RBC 0-2 (0-2) /HPF Urine WBC 0-5 (0-5) /HPF Ur Squamous Epith Cells 6-10 (0-2) /HPF Urine Bacteria None Seen (None Seen) Hyaline Casts 0-2 (0-2) /LPF Urine Test (NEGATIVE) COVID-19 ([facility]) (Negative) COVID-19 Clin Com 03/03/22 Range/Units 20:08 WBC (4.8-10.8) X10*3/uL RBC (4.20-5.50) X10*6/uL Hgb (12.0-16.0) g/dl Hct (37.0-47.0) % MCV (80.0-98.0) fL MCH (27.0-33.0) pg MCHC (31.0-35.0) g/dl RDW (11.0-16.0) % Plt Count (160-400) X10*3/uL MPV (9.4-12.3) fL Immature Gran % (Auto) (0.0-0.4) % Neut % (Auto) (45-73) % Lymph % (Auto) (20-40) % [facility] % (Auto) (2-11) % Eos % (Auto) (0-4) % Baso % (Auto) (0-2) % Lymph # (Auto) (1.2-4.9) X10*3/uL [facility] # (Auto) (0.1-1.2) X10*3/uL Eos # (Auto) (0.0-0.4) X10*3/uL Baso # (Auto) (0.0-0.2) X10*3/uL Abs Immat Gran (auto) (0.00-0.03) X10*3/uL Absolute Neuts (auto) (2.0-8.3) x10*3/uL Absolute Nucleated RBC (0.0-0.012) X10*3/uL Nucleated RBC % (auto) (0.0-0.2) /100WBC Sodium (135-145) mmol/L Potassium (3.3-5.1) mmol/L Chloride (96-108) mmol/L Carbon Dioxide (22-29) mmol/L Anion Gap (12-20) BUN (9-16) mg/dL Creatinine (0.5-1.4) mg/dL Estim Creat Clear Calc Estimated GFR Random Glucose (60-115) mg/dL Calcium (8.4-10.2) mg/dL Total Bilirubin (0.0-1.0) mg/dL Direct Bilirubin (0.0-0.5) mg/dL AST (5-31) U/L ALT (0-31) U/L Alkaline Phosphatase (39-117) U/L Troponin I High Sens (<3.5-17.0) ng/L B-Natriuretic Peptide (<100) pg/mL Total Protein (6.5-8.0) g/dL Albumin (3.5-5.0) g/dL Lipase (8-78) U/L Urine Color Urine Appearance Urine pH (5.0-9.0) Ur Specific [place] (1.005-1.025) Urine Protein (Neg-Trace) mg/dL Urine Glucose (UA) (Negative) mg/dL Urine Ketones (Negative) mg/dL Urine Blood (Negative) Urine Nitrite (Negative) Ur Leukocyte Esterase (Negative) Urine RBC (0-2) /HPF Urine WBC (0-5) /HPF Ur Squamous Epith Cells (0-2) /HPF Urine Bacteria (None Seen) Hyaline Casts (0-2) /LPF Urine Test NEGATIVE (NEGATIVE) COVID-19 ([facility]) (Negative) COVID-19 Clin Com <Manny Richardson MD - Last Filed: 03/03/22 22:22> Discharge Plan Discharge Clinical Impression: Headache, migraine <Sylvain Garcia MD - Last Filed: 03/03/22 17:20> Patient Disposition: Home, Self-Care <Sylvain Garcia MD - Last Filed: 03/03/22 17:20> Instructions: Migraine Headache (ED) <Sylvain Garcia MD - Last Filed: 03/03/22 17:20> Additional Instructions: Rest at home Take medication for headache as prescribed Followup with PCP Check blood pressure at home it should be less than 135/85 <Sylvain Garcia MD - Last Filed: 03/03/22 17:20> Prescriptions: New sumatriptan succinate [Imitrex] 50 mg tablet 50 mg PO Q2H PRN (Reason: migraine headache) Qty: 10 0RF Rx Instructions: do not exceed 2 doses per 24 hrs mgrwpsleij-rhykhjewkgapr-nwcg [Fioricet] 50-300-40 mg capsule 1 cap PO Q6H PRN (Reason: headache) Qty: 20 0RF ondansetron 4 mg tablet,disintegrating 4 mg PO Q6-8H PRN (Reason: nausea and vomiting) Qty: 7 0RF No Action medroxyprogesterone 150 mg/mL suspension 150 mg IM Q12W Qty: 1 2RF acetaminophen 500 mg tablet 1,000 mg PO Q8H PRN (Reason: pain) Qty: 30 0RF cyclobenzaprine 10 mg tablet 10 mg PO TID PRN (Reason: muscle spasm) Qty: 18 0RF Rx Instructions: side effect is drowsiness. Do not take at wokr or while driving. famotidine [Pepcid] 20 mg tablet 20 mg PO BID 10 Days Qty: 20 0RF tramadol 50 mg tablet 50 mg PO Q6H PRN (Reason: pain (scale score 1-3)) Qty: 8 0RF phenazopyridine [Pyridium] 100 mg tablet 100 mg PO TID PRN (Reason: Spasm) 4 Days Qty: 12 0RF Myrbetriq 25 mg tablet extended release 24 hr 25 mg PO DAILY 30 Days Qty: 30 1RF fluticasone propionate 50 mcg/actuation spray,suspension 2 spray intranasal DAILY PRN (Reason: nasal congestion) 30 Days Qty: 16 3RF Rx Instructions: administer into each nostril bupropion HCl 150 mg tablet extended release 24 hr 150 mg PO QAM 90 Days Qty: 90 1RF ibuprofen 800 mg tablet 800 mg PO TID PRN (Reason: pain) 30 Days Qty: 90 1RF amitriptyline 25 mg tablet 25 mg PO BEDTIME 30 Days Qty: 30 0RF oxybutynin chloride 10 mg tablet extended release 24hr 10 mg PO DAILY 30 Days Qty: 30 1RF <Sylvain Garcia MD - Last Filed: 03/03/22 17:20> Interventions: ED Discharge Assessment Last Done: 03/03/22 22:21 <Sylvain Garcia MD - Last Filed: 03/03/22 17:20>
[2022-03-03 18:22] LABS: COVID-19 Test Negative (Negative); IDNOW Serial# 55D5AD1C
[2022-03-03 18:45] LABS: Troponin-I High Sensitivity < 3.5 ng/L (<3.5-17.0)
[2022-03-03 18:46] LABS: Alanine Aminotransferase 19 U/L (0-31); Albumin Level 4.3 g/dL (3.5-5.0); Alkaline Phosphatase 64 U/L (39-117); Anion Gap 17 (12-20); Aspartate Amino Transferase 19 U/L (5-31); Bilirubin Direct 0.2 mg/dL (0.0-0.5); Bilirubin Total 0.3 mg/dL (0.0-1.0); Blood Urea Nitrogen 10 mg/dL (9-16); Calcium 9.6 mg/dL (8.4-10.2); Carbon Dioxide 19 mmol/L (22-29); Chloride 107 mmol/L (96-108); Creatinine Clr Calc Pharmacy 86.3; Estimated Glomerular Filt Rate > 60; Glucose Random 80 mg/dL (60-115); Sodium 139 mmol/L (135-145); Total Protein 7.5 g/dL (6.5-8.0)
[2022-03-03 19:11] LABS: MANUAL DIFF FLAG NO
[2022-03-03 19:12] LABS: Basophils Percent Auto 0.4 % (0-2); Eosinophils Absolute Auto 0.1 X10*3/uL (0.0-0.4); Hematocrit 45.8 % (37.0-47.0); Hemoglobin 15.3 g/dl (12.0-16.0); Imm Gran Abs Auto 0.02 X10*3/uL (0.00-0.03); Imm Gran Pct Auto 0.2 % (0.0-0.4); Lymphocytes Absolute Auto 1.8 X10*3/uL (1.2-4.9); Lymphocytes Percent Auto 17.5 % (20-40); Mean Corpuscular HGB Conc 33.4 g/dl (31.0-35.0); Mean Corpuscular Hemoglobin 27.8 pg (27.0-33.0); Mean Corpuscular Volume 83.3 fL (80.0-98.0); Mean Platelet Volume 12.3 fL (9.4-12.3); Monocytes Absolute Auto 0.6 X10*3/uL (0.1-1.2); Monocytes Percent Auto 6.1 % (2-11); Neutrophils Absolute Auto 7.6 x10*3/uL (2.0-8.3); Neutrophils Percent Auto 74.8 % (45-73); Platelet Count 263 X10*3/uL (160-400); Red Cell Distribution Width 13.5 % (11.0-16.0); White Blood Count 10.2 X10*3/uL (4.8-10.8)
[2022-03-03 19:15] LABS: Lipase 10 U/L (8-78)
[2022-03-03 19:33] LABS: B Type Natriuretic Peptide < 10 pg/mL (<100)
--- NOTE | 2022-03-03 19:50 | PC.NURSE ---
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
[2022-03-03 19:51] VITALS: BP 145/95; PULSE 97; RESP 19; TEMP 36.9; O2SAT 100
[2022-03-03 20:27] LABS: Appearance Urine Clear; Color Urine Yellow; Glucose Urine UA Negative (Negative); Leukocyte Esterase Urine Trace (Negative); Nitrite Urine Negative (Negative); PH 5.5 (5.0-9.0); Specific Gravity - Urine 1.015 (1.005-1.025); UMIC TRIGGER UACC YES; Urine Blood Moderate (2+) (Negative); Urine Ketones Trace mg/dL (Negative); Urine Protein Negative (Neg-Trace)
[2022-03-03 20:28] LABS: UPreg QC Valid YES; Urine Pregnancy NEGATIVE (NEGATIVE)
[2022-03-03 20:58] LABS: Bacteria Urine None Seen (None Seen); Hyaline Casts Urine 0-2 /LPF (0-2); RBC Urine 0-2 /HPF (0-2); WBC Urine 0-5 /HPF (0-5)
[2022-03-03] MEDS: Ondansetron ODT 4 MG TAB.RAPDIS TRANSLINGU (21:00)
[2022-03-03] MEDS: SUMAtriptan succinate 6 MG/0.5 ML VIAL SUBCUT (21:00)
--- NOTE | 2022-03-03 21:00 | PC.NURSE ---
Per MD Kristel - no IV access necessary.
[2022-03-03 22:07] VITALS: BP 138/88; PULSE 93; RESP 99; TEMP 36.8; O2SAT 99
--- NOTE | 2022-03-03 22:09 | PC.NURSE ---
Addendum entered by Mikayla Cohen 03/03/22 22:12: Notified YANE Dougherty. Original Note: Pt a&o, no sob or chest pain. No sign of distress at this time. No pain, blurred vision and has a steady gate. Reviewed discharge instructions with pt. Pt verbalized understanding.
== END 2022-03-03 22:21 | disposition home or self-care (01) ==
PROVIDERS: Emergency Medicine; Emergency Provider Internal Medicine; PCP Internal Medicine
DX: G43.909 Migraine, unspecified, not intractable, without status migrainosus (principal); H53.8 Other visual disturbances; R07.89 Other chest pain; R06.02 Shortness of breath; Z20.822 Contact with and (suspected) exposure to COVID-19; Z79.899 Other long term (current) drug therapy
CPT/HCPCS: 36415; 70450; 71045; 80048; 80076; 81001; 81025; 83690; 83880; 84484; 85025; 87635; 93005; 96372; 99284; J3030

== ENCOUNTER 2022-03-24 15:08 | Outpatient (REF) | payer OTHER, SELFPAY ==
[2022-03-24 17:29] LABS: Cortisol Random 5.5 ug/dL; Free T4 (Free Thyroxine) 0.85 ng/dL (0.71-1.85); Thyroid Stimulating Hormone 2.24 uIU/mL (0.32-4.0)
[2022-03-25 07:19] LABS: Triiodothyronine T3 Free 3.5 pg/mL (2.3-4.2)
[2022-03-25 09:38] LABS: Thyroid Peroxidase Antibodies 2 IU/mL (<9)
== END 2022-03-24 15:09 | disposition home or self-care (01) ==
LOC: HO.LAB 15:08
PROVIDERS: PCP Internal Medicine; Visit Provider Nurse Practitioner Family
DX: R53.83 Other fatigue (principal)
CPT/HCPCS: 36415; 82533; 84439; 84443; 84481; 86376

== ENCOUNTER → 2022-03-27 14:52 | Outpatient (BNVA) | payer OTHER, SELFPAY | PROVIDERS: PCP Internal Medicine; Visit Provider Obstetrics & Gynecology | DX: Z30.42 Encounter for surveillance of injectable contraceptive (principal) | CPT/HCPCS: 96372; 99211 ==

== ENCOUNTER → 2022-03-31 13:27 | Outpatient (BNVA) | payer OTHER, SELFPAY | PROVIDERS: PCP Internal Medicine; Visit Provider Internal Medicine Endocrinology, Diabetes & Metabolism | DX: R53.83 Other fatigue (principal) | CPT/HCPCS: 99202 ==

== ENCOUNTER → 2022-04-07 15:04 | Outpatient (BNVA) | payer OTHER, SELFPAY | PROVIDERS: PCP Internal Medicine; Visit Provider Urology | DX: Z13.89 Encounter for screening for other disorder (principal) ==

== ENCOUNTER → 2022-05-08 13:26 | Outpatient (BNVA) | payer OTHER, SELFPAY | PROVIDERS: PCP Internal Medicine; Visit Provider Physician Assistant Surgical | DX: E66.9 Obesity, unspecified (principal); Z68.30 Body mass index [BMI] 30.0-30.9, adult | CPT/HCPCS: 99202 ==

== ENCOUNTER → 2022-06-10 14:57 | Outpatient (BNVA) | payer OTHER, SELFPAY | PROVIDERS: PCP Internal Medicine; Visit Provider Urology | DX: Z13.89 Encounter for screening for other disorder (principal) ==

== ENCOUNTER → 2022-06-18 13:25 | Outpatient (BNVA) | payer OTHER, SELFPAY | PROVIDERS: PCP Internal Medicine; Visit Provider Dietitian, Registered | DX: E66.3 Overweight (principal); Z68.27 Body mass index [BMI] 27.0-27.9, adult | CPT/HCPCS: 97802 ==

== ENCOUNTER → 2022-07-08 08:38 | Outpatient (BNVA) | payer OTHER, SELFPAY | PROVIDERS: PCP Internal Medicine; Visit Provider Obstetrics & Gynecology | DX: Z30.013 Encounter for initial prescription of injectable contraceptive (principal); Z32.02 Encounter for pregnancy test, result negative | CPT/HCPCS: 81025; 96372; 99212 ==

== ENCOUNTER 2022-07-30 14:34 | Outpatient (REF) | payer OTHER, SELFPAY ==
--- NOTE | ~2022-07-30 | MM_ITS ---
EXAMINATION: MM SCREENING DIGITAL BREAST TOMOSYNTHESIS, BILATERAL CLINICAL INFORMATION: Screening. Asymptomatic. The lifetime risk of breast cancer based on the Tyrer-Cuzick Model is 13%. COMPARISON: Mammography: 11/20/2021, 06/20/2021, 06/19/2020, 05/04/2018 TECHNIQUE: Digital breast tomosynthesis is performed in both the craniocaudal and mediolateral oblique views along with computer-aided detection (CAD). Synthesized 2D images are generated from the tomosynthesis. FINDINGS: There are scattered areas of fibroglandular density (ACR BI-RADS breast composition Category b). Parenchymal pattern is similar to prior studies and there is no developing density or architectural abnormality. No significant mass or abnormal calcifications. There is a biopsy clip marker again noted posterior upper outer left breast and an intramammary node mid upper outer left breast. There are benign coarse calcifications mid 3:00 right breast and some scattered bilateral punctate round calcifications in each breast. The axilla are unremarkable. No significant changes. MM/MM tomosynthesis screening BI IMPRESSION: No mammographic evidence of malignancy. ASSESSMENT: BI-RADS 2: Benign RECOMMENDATION: Routine annual mammography screening. This patient's information was entered into a reminder system with a target due date for their next mammogram.
== END 2022-07-30 14:35 | disposition home or self-care (01) ==
LOC: HO.MAMMO 14:34
PROVIDERS: PCP Internal Medicine; Visit Provider Obstetrics & Gynecology
DX: Z12.31 Encounter for screening mammogram for malignant neoplasm of breast (principal)
CPT/HCPCS: 77063; 77067

== ENCOUNTER → 2022-07-31 10:49 | Outpatient (BNVA) | payer OTHER, SELFPAY | PROVIDERS: PCP Internal Medicine; Visit Provider Physician Assistant Surgical | DX: E66.3 Overweight (principal); E55.9 Vitamin D deficiency, unspecified; Z68.25 Body mass index [BMI] 25.0-25.9, adult | CPT/HCPCS: 99212 ==

== ENCOUNTER 2022-09-26 10:25 | Outpatient (REF) | payer OTHER, SELFPAY ==
[2022-09-26 10:38] LABS: MANUAL DIFF FLAG NO
[2022-09-26 11:20] LABS: Appearance Urine Clear; Color Urine Yellow; Glucose Urine UA Negative (Negative); Leukocyte Esterase Urine Trace (Negative); Nitrite Urine Negative (Negative); UMIC TRIGGER UACC YES; Urine Blood Small (1+) (Negative); Urine Ketones Negative (Negative); Urine Protein Negative (Neg-Trace)
[2022-09-26 11:30] LABS: Bacteria Urine None Seen (None Seen); Hyaline Casts Urine 0-2 /LPF (0-2); UACC Culture Trigger YES
[2022-09-26 11:40] LABS: Alanine Aminotransferase 14 U/L (0-31); Albumin Level 4.1 g/dL (3.5-5.0); Alkaline Phosphatase 59 U/L (39-117); Anion Gap 13 (12-20); Aspartate Amino Transferase 12 U/L (5-31); Bilirubin Total 0.5 mg/dL (0.0-1.0); Blood Urea Nitrogen 16 mg/dL (9-16); Calcium 9.9 mg/dL (8.4-10.2); Carbon Dioxide 24 mmol/L (22-29); Chloride 108 mmol/L (96-108); Cholesterol 203 mg/dL; Estimated Glomerular Filt Rate > 60; Glucose Fasting 80 mg/dL (60-99); HDL Cholesterol 46 mg/dL; LDL Cholesterol Calculated 145 mg/dl; Potassium 4.5 mmol/L (3.3-5.1); Sodium 140 mmol/L (135-145); Total Protein 7.1 g/dL (6.5-8.0); Triglycerides 64 mg/dL
[2022-09-26 12:13] LABS: Folate 16.5 ng/mL (> or = 4.0); TSH reflex Free T4 1.84 uIU/mL (0.32-4.0); Vitamin B12 544 pg/mL (200-900); Vitamin D 25-OH Total 31.2 ng/mL (>30)
[2022-09-26 12:21] LABS: Basophils Absolute Auto 0.1 X10*3/uL (0.0-0.2); Basophils Percent Auto 0.6 % (0-2); Eosinophils Absolute Auto 0.3 X10*3/uL (0.0-0.4); Eosinophils Percent Auto 3.5 % (0-4); Hematocrit 47.6 % (37.0-47.0); Hemoglobin 15.6 g/dl (12.0-16.0); Imm Gran Abs Auto 0.02 X10*3/uL (0.00-0.03); Imm Gran Pct Auto 0.2 % (0.0-0.4); Lymphocytes Absolute Auto 1.7 X10*3/uL (1.2-4.9); Lymphocytes Percent Auto 21.5 % (20-40); Mean Corpuscular HGB Conc 32.8 g/dl (31.0-35.0); Mean Corpuscular Hemoglobin 28.2 pg (27.0-33.0); Mean Corpuscular Volume 86.1 fL (80.0-98.0); Mean Platelet Volume 12.7 fL (9.4-12.3); Monocytes Absolute Auto 0.5 X10*3/uL (0.1-1.2); Monocytes Percent Auto 5.7 % (2-11); Neutrophils Absolute Auto 5.5 x10*3/uL (2.0-8.3); Neutrophils Percent Auto 68.5 % (45-73); Platelet Count 228 X10*3/uL (160-400); Red Blood Count 5.53 X10*6/uL (4.20-5.50); Red Cell Distribution Width 13.5 % (11.0-16.0)
[2022-10-07 14:54] LABS: Cortisol, Free 0.31 mcg/dL
== END 2022-09-26 10:26 | disposition home or self-care (01) ==
LOC: HO.LAB 10:25
PROVIDERS: PCP Internal Medicine; Visit Provider Internal Medicine
DX: E78.00 Pure hypercholesterolemia, unspecified (principal); E53.8 Deficiency of other specified B group vitamins; R53.83 Other fatigue; L65.9 Nonscarring hair loss, unspecified; E55.9 Vitamin D deficiency, unspecified
CPT/HCPCS: 36415; 80053; 80061; 81001; 82306; 82530; 82607; 82746; 84443; 85025; 87086

== ENCOUNTER → 2022-09-30 10:51 | Outpatient (BNVA) | payer OTHER, SELFPAY | PROVIDERS: PCP Internal Medicine; Visit Provider Obstetrics & Gynecology | DX: N92.6 Irregular menstruation, unspecified (principal) | CPT/HCPCS: 96372; 99211 ==

== ENCOUNTER 2022-12-24 13:38 | Outpatient (AMB) | payer OTHER, SELFPAY ==
[2022-12-24 13:46] VITALS: BP 140/82; BMI 28.5
--- NOTE | 2022-12-24 13:46 | A.OFFVIS_ITS ---
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 Last shot was on 09/30, 85 days ago. The patient has been on Depo-Provera last 7 years for suppression of menstrual cycle related to reason troy of IC flare-up related to her menstrual cycle. Last mammogram was negative in 08/09. Last co testing was negative in 2019 [facility] Medical History Overweight (BMI 25.0-29.9) Dysuria Pelvic floor dysfunction Headache, migraine Microscopic hematuria Recurrent UTI Hypocitraturia Recurrent nephrolithiasis Epigastric pain Hemorrhoid Anal fissure Rectal bleed Weakness of both hands Menstrual disorder Obesity (BMI 30-39.9) Anxiety Nonintractable headache Herniation of cervical intervertebral disc with radiculopathy Herniated disc Surgical History History of surgery Hx of cystoscopy S/P ureteral stent placement History of cervical discectomy History of section History of tubal ligation Family History Father Medical history unknown Mother Medical history unknown Maternal Grandmother Breast cancer Sister Breast cancer Daughter Breast cancer Son Autism Mental health disorder Social History Housing: Apartment Alcohol intake: former Patient Tobacco Use Status: Never used Tobacco e-Cigarette/Vaping Use: Never Used Second Hand Smoke Exposure: No service: No Current occupational status: employed Cognitive needs: No Hearing needs: No Vision needs: Yes (glasses) Female Reproductive History Menstrual Age of Menarche: 15 control method: progesterone injection Date of last pap smear: 08/29/20 Review of Systems Const All systems reviewed & are unremarkable except as noted in HPI and below Reports as per HPI and Reports no additional complaints GI Reports no additional complaints Reports no additional complaints Physical Exam Vital Signs: Last Vital Signs BP 140/82 H 12/24/22 13:46 BMI result Body Mass Index 28.5 Assessment & Plan Assessment & Plan (1) Encounter for Depo-Provera contraception: Code(s): Z30.42 - Encounter for surveillance of injectable contraceptive Plan: Depo-Provera 150 mg IM given. Discussed with the patient possible bone loss with Depo-Provera long-term use recommended discontinuation of Pap Provera and starting alternatives including continuous control pills or Mirena IUD or endometrial ablation. All pros and cons, risks and benefits of each were discussed with the patient, the patient decided to proceed with a Mirena IUD so a more detailed discussion was carried on including mechanism of action, risks (infection, uterine perforation, failure with ectopic , septic AB, ovarian cyst and pelvic pain, increased breast cancer risk and others) benefits (efficient contraceptive method, others), GC/CG will be taken next visit and the patient was asked to schedule Mirena IUD insertion in less than 90 days around the time of her next Depo-Provera injection Coding Level of Care Code Est Pt Level 3 (21871) Diagnoses Encounter for Depo-Provera contraception Z30.42
== END 2022-12-24 15:02 | disposition home or self-care (01) ==
PROVIDERS: PCP Internal Medicine; Visit Provider Obstetrics & Gynecology
DX: Z30.42 Encounter for surveillance of injectable contraceptive (principal)
CPT/HCPCS: 99213

== ENCOUNTER → 2022-12-24 13:38 | Outpatient (BNVA) | payer OTHER, SELFPAY | PROVIDERS: PCP Internal Medicine; Visit Provider Obstetrics & Gynecology | DX: Z30.42 Encounter for surveillance of injectable contraceptive (principal) | CPT/HCPCS: 96372; 99212; J1050 ==

== ENCOUNTER 2023-01-18 14:58 | Outpatient (AMB) | payer OTHER, SELFPAY ==
[2023-01-18 14:58] VITALS: BP 141/86; PULSE 91; O2SAT 99; BMI 28.2
--- NOTE | 2023-01-18 14:58 | MHC.PC.OV ---
Vital Signs 01/18/23 14:58 Height 5 ft Weight 144 lb 6 oz BMI 28.2 BP 141/86 H Blood Pressure Location Lt brachial Position Sitting Pulse 91 Pulse Source Pulse Oximeter Pulse Oximetry (%) 99 Oxygen Delivery Method Room Air Intake Visit Reasons: 4mt f/u Labor Custodian Required: No Accompanied by: Self / Same As Patient Allergies ciprofloxacin Adverse Reaction (Intermediate, Verified 01/18/23 15:21) swelling of feet Sulfa (Sulfonamide Antibiotics) Adverse Reaction (Intermediate, Verified 01/18/23 15:21) swelling of feet Medication List - Last Reconciled 01/18/23 by Melvin Lara MD fluticasone propionate 50 mcg/actuation 2 sprays intranasal DAILY PRN 30 days ibuprofen 800 mg PO TID PRN 30 days loratadine 10 mg PO DAILY PRN 90 days medroxyprogesterone 150 mg IM Q12W tizanidine 4 mg PO BEDTIME PRN 30 days tramadol 50 mg PO TID PRN 30 days Tobacco use date assessed: 01/18/23 Dental Screening Dental Screen Date: 01/18/23 Did you have a dental visit in the last 12 months?: No Did you have a dental problem in the last 6 months where you did not have access to dental care?: No Was dental information given to patient?: No HPI 4catholic health f/u HPI Details Patient comes in today for her follow up visit States that she has been experiencing on and off pressure behind her right eye lately States that she just had her ophthalmology evaluation a couple of weeks ago and was advised that her eye exam came out normal but will need corrective lenses/glasses, which she states she will be getting soon She also had a head CT done in February 2022 that came out normal Is hoping that her right eye symptoms are just due to her eyesight issue and that once she starts wearing her corrective eyeglasses, her right eye symptoms will resolve Also thinks that her right tonsil is bigger than it should be as she feels food getting stuck there often when she eats Notes that her right tonsil would often start hurting or feel sore when it gets bigger, mostly when more and more things get stuck in there and she would like to have her tonsils checked out to see what can be done to clear up this recurrent problem Adds that her soccer commentator is planning to take her off her BCP soon - was told that due to her advancing age, it is not safe to continue on her control pills and is planning to switch her over to an IUD States that she has a history of interstitial cystitis and is concerned that if she gets a breakthrough bleeding while on her IUD and off her BCP, it can trigger her interstitial cystitis, which has been under good control for a while now She denies any headaches or dizziness lately; denies any fever or sore throat or trouble swallowing Denies any chest pains, no SOB No nausea/vomiting, no abdominal pain No change in bowel habits noted Adds that she has been experiencing a lot of allergy symptoms lately despite her current Rx - thinks that her present Rx are no longer effective in helping control / relieve her allergy symptoms Would also like to go over the results of her labs done a few months ago after her last visit and to get her flu shot as well [facility] Medical History (Updated 01/24/23 @ 21:58 by Melvin Lara MD) Pure hypercholesterolemia Overweight (BMI 25.0-29.9) Dysuria Pelvic floor dysfunction Headache, migraine Microscopic hematuria Recurrent UTI Hypocitraturia Recurrent nephrolithiasis Epigastric pain Hemorrhoid Anal fissure Rectal bleed Weakness of both hands Menstrual disorder Obesity (BMI 30-39.9) Anxiety Nonintractable headache Herniation of cervical intervertebral disc with radiculopathy Herniated disc Surgical History History of surgery Hx of cystoscopy S/P ureteral stent placement History of cervical discectomy History of section History of tubal ligation Family History Father Medical history unknown Mother Medical history unknown Maternal Grandmother Breast cancer Sister Breast cancer Daughter Breast cancer Son Autism Mental health disorder Social History Housing: Apartment Alcohol intake: former Patient Tobacco Use Status: Never used Tobacco e-Cigarette/Vaping Use: Never Used Second Hand Smoke Exposure: No service: No Current occupational status: employed Cognitive needs: No Hearing needs: No Vision needs: Yes (glasses) Female Reproductive History Menstrual Age of Menarche: 15 Questionnaire PHQ-9 Over the last 2 weeks, how often have you been bothered by any of the following problems? 1. Little interest or pleasure in doing things: not at all 2. Feeling down, depressed, or hopeless: not at all 3. Trouble falling or staying asleep, or sleeping too much: not at all 4. Feeling tired or having little energy: not at all 5. Poor appetite or overeating: not at all 6. Feeling bad about yourself - or that you are a failure or have let yourself or your family down: not at all 7. Trouble concentrating on things, such as reading the newspaper or watching television: not at all 8. Moving or speaking so slowly that other people could have noticed. Or the opposite - being so fidgety or restless that you have been moving around a lot more than usual: not at all 9. Thoughts that you would be better off or of hurting yourself in some way: not at all Total score: 0 Depression Screening Interpretation: Negative 38519 - PHQ-9 Billing: Yes Source: Developed by Drs. Tanvir Rucker, Selam Dangelo, Berry Pineda and colleagues, with an educational beth from [employer]. Thrive Questionnaire Date Thrive assessed: 01/18/23 I am a: Patient What is your living situation today?: I have a steady place to live Within the past 12 months, did the food you bought not last and you didn't have the money to get more?: Never true Within the past 12 months, did you worry whether your food would run out before you got money to buy more?: Never true Do you have trouble paying for medicines?: No Do you have trouble getting transportation to medical appointments?: No Do you have trouble paying your heating and electricity bill?: No Do you have trouble taking care of your child, family member or friend?: No Do you have trouble with day-to-day activities such as bathing, preparing meals, shopping, managing finances, etc.?: No Are you currently unemployed and looking for a job?: No Are you interested in more education?: No Please select the resources that you would like help with: None Currently or been in a relationship where the following occur: no concerns reported AUDIT C Alcohol Use Questionnaire (AUDIT-C) 1. How often do you have a drink containing alcohol?: Never 3. How often do you have six or more drinks on one occasion?: Never Total Score: 0 Score Reviewed/Action Taken: Yes SENG-7 AMB Questionnaire SENG-7 Date SENG - 7 assessed: 01/18/23 Feeling nervous, anxious, or on edge: 1 = Several days Not being able to stop or control worryin = Several days Worrying too much about different things: 1 = Several days Trouble relaxin = Several days Being so restless that it is hard to sit still: 1 = Several days Becoming easily annoyed or irritable: 1 = Several days Feeling afraid as if something awful might happen: 1 = Several days Total SENG-7 score (0-4 normal; 5-9 mild; 10-14 moderate; 15-21 severe): 7 Source: Developed by Drs. Tanvir Rucker, Selam Dangelo, Berry Pineda and colleagues, with an educational beth from [employer]. SENG-7 Assessment Billing SENG-7 Assessment Tool: SENG-7 Assessment 39130 Review of Systems Const Denies chills, Denies fatigue, Denies fever(s) and Denies headache(s) Eyes Details: (+) on and off pressure-like sensation behind her right eye Reports blurry vision ENT Denies dysphagia, Denies dizziness, Denies otalgia, Denies headache(s), Reports neck pain (chronic), Denies odynophagia and Reports sore throat (on and off, over the right tonsil - see HPI) Card Denies chest pain, Denies rapid heart rate, Denies irregular heart rhythm, Denies palpitations and Denies dyspnea Resp Denies chest congestion, Denies cough and Denies dyspnea GI Denies abdominal pain, Denies constipation, Denies dysphagia, Denies heartburn, Denies diarrhea, Denies nausea, Denies odynophagia and Denies vomiting Denies hematuria, Denies nocturia, Denies dysuria and Denies urinary urgency Musc Denies back pain and Reports neck pain (chronic) Skin/Breast Reports alopecia and Denies rash Neuro Denies dizziness, Denies headache(s) and Denies paresthesias Psych Denies anxiety Endo Denies fatigue and Denies palpitations Ad/Lymph Denies easy bruising Aller/Immun Reports seasonal rhinorrhea Physical exam (Primary Care) Vital Signs: Last Vital Signs Pulse 91 10/02/23 14:58 BP 141/86 H 01/18/23 14:58 Pulse Ox 99 01/18/23 14:58 Oxygen Delivery Method Room Air 01/18/23 14:58 BMI result Body Mass Index 28.2 Tobacco/Smoking Status: Tobacco use Status Tobacco use date assessed 01/18/23 01/18/23 15:00 Patient Tobacco Use Status Never used Tobacco 01/18/23 15:00 e-Cigarette/Vaping Use Never Used 01/18/23 15:00 PHQ-9: PHQ-9 Score PHQ-9: Total score 0 01/18/23 15:44 Depression Screening Interpretation: Negative Thrive Assessment: Date of Thrive Assessment Date Thrive assessed 01/18/23 01/18/23 15:00 Currently or been in a relationship where the following occur: no concerns reported Const General: no acute distress and alert HENMT Ears: TM's normal bilaterally and EAC's normal Throat: Yes posterior oropharynx normal and Yes abnormal tonsil (right tonsil is noticeably larger than the left tonsil; no TP congestion) Neck Neck: Yes no lymphadenopathy and Yes tender (over the cervical spine - chronic) Resp Auscultation: clear to auscultation bilaterally, no rales and no wheezes Cardio Rate: regular rate Rhythm: regular rhythm Heart sounds: no murmurs GI Palpation (GI): Soft to palpation and nontender Auscultation: normal bowel sounds General: Yes no CVA tenderness Back/Spine/Pelvis Back: no CVA tenderness Cervical Spine: Cervical spine tenderness Thoracic/Lumbar Spine: thoracic and lumbar spine normal to inspection Extrem General: Yes no clubbing, cyanosis or edema Office Procedures Flu Questionnaire Does the patient have a severe egg allergy?: No Does the patient have severe life threatening allergies?: No Does the patient have a fever or illness today?: No Has the patient ever had Guillain-Vista Syndrome?: No Has the patient ever had any past reaction to a flu shot?: No Immunizations flu vacc [id number] 6mos up(PF) 60 mcg(15 mcgx4)/0.5 mL IM syringe Performing Provider: Melvin Lara MD Performing Location: [facility] Administered by: Hu Wong on 01/18/23 15:45 Dose Route Admin Location Dispensed Lot Number Expiration Date NDC Printing Supervisor 0.5 mL IM Left Deltoid 0.5 mL [id number] 10/17/23 72384-648-91 [facility] VIS Given Date VIS Provided VIS Publication Date 01/18/23 Single Vaccine 20 Eligibility Eligibility Date Funding Source Not VFC Eligible 01/18/23 Private Results Reviewed Results Reviewed: Laboratory Tests 09/26/22 09/26/22 10:37 10:40 WBC 8.0 Hgb 15.6 Hct 47.6 H Plt Count 228 Sodium 140 Potassium 4.5 Creatinine 0.73 Estimated GFR > 60 Fasting Glucose 80 Calcium 9.9 AST 12 ALT 14 Triglycerides 64 Cholesterol 203 LDL Cholesterol, Calc 145 HDL Cholesterol 46 Vitamin B12 544 25-OH Vitamin D Total 31.2 TSH 1.84 Free Cortisol 0.31 Ur Specific [place] 1.020 Urine Protein Negative Urine Glucose (UA) Negative Urine Blood Small (1+) H Assessment and Plan Assessment & Plan (1) Recurrent tonsillitis: Code(s): J03.91 - Acute recurrent tonsillitis, unspecified Plan: Will refer her to ENT for further evaluation and management of her recurrent right tonsillar symptoms / pain (2) Allergic rhinitis: Code(s): J30.9 - Allergic rhinitis, unspecified Qualifiers: Allergic rhinitis trigger: unspecified Allergic rhinitis seasonality: seasonal Qualified Code(s): J30.2 - Other seasonal allergic rhinitis Plan: Will start her on Fexofenadine 180 mg QD PRN; D/C Loratadine 10 mg QD Continue Fluticasone 50 mcg nasal spray QD PRN (3) Pure hypercholesterolemia: Code(s): E78.00 - Pure hypercholesterolemia, unspecified Plan: Results of her labs done back in September 2022 reviewed and discussed with patient - advised that her cholesterol levels were very high back then, especially her LDL cholesterol, which was at 145 mg/dl Reinforced low cholesterol diet Will recheck her fasting lipids in 4 months for follow up (4) Herniation of cervical intervertebral disc with radiculopathy: Comment: S/P anterior cervical discectomy C5-C6, interbody device and fusion on 07/12/[address] Zander Fay Code(s): M50.10 - Cervical disc disorder with radiculopathy, unspecified cervical region Plan: Stopped taking her Gabapentin a while back as she states that the medication was making her feel funny Repeat cervical spine MRI done on 08/08/21 revealed (+) post-surgical changes as well as previous multilevel degenerative disc changes, including chronic disc herniations S/P physical therapy last year without any significant improvement of her neck pain Follow up with neurosurgery (Dr. Fay) as scheduled or as needed Has been again advised of option of seeing [facility] Pain Management - patient states that she will call for referral if she decides to try pain management Was started additionally on Tizanidine 4 mg Q HS PRN to help relieve her neck pain better at night a while back but states that it did not help much Reports taking 2 tablets of Tramadol recently and found that it helped much better - states that she does not take Tramadol regularly and takes it only when needed for severe pain (5) Migraine: Code(s): G43.909 - Migraine, unspecified, not intractable, without status migrainosus Qualifiers: Migraine type: unspecified Status migrainosus presence: without status migrainosus Intractability: not intractable Qualified Code(s): G43.909 - Migraine, unspecified, not intractable, without status migrainosus Plan: Reinforced avoidance of potential migraine triggers Is concerned about her recent right eye pressure (see HPI) and is hoping that her eye symptoms are mostly due to her eyesight and should resolve once she gets her corrective lenses and starts wearing them Continue Ibuprofen PRN Follow up with neurology as scheduled (6) GERD (gastroesophageal reflux disease): Code(s): K21.9 - Gastro-esophageal reflux disease without esophagitis Qualifiers: Esophagitis presence: without esophagitis Qualified Code(s): K21.9 - Gastro-esophageal reflux disease without esophagitis Plan: Dietary restrictions reinforced Continue Famotidine 40 mg Q HS PRN (7) Anxiety: Code(s): F41.9 - Anxiety disorder, unspecified Plan: States that her anxiety has been much better controlled and she is doing well on her current Rx Continue Bupropion XL 150 mg QD (8) Overweight (BMI 25.0-29.9): Code(s): E66.3 - Overweight Plan: Reniforced diet/exercise as tolerated/lose weight Follow-up with weight management as scheduled Plan Flu vaccine given today Follow up in 4 months Orders: Orders Influenza [id number] Immunization 01/18/23 Z23 - Encounter for immunization Comprehensive [place]. Panel Fast 4 Months E78.00 - Pure hypercholesterolemia, unspecified Lipid Panel 4 Months E78.00 - Pure hypercholesterolemia, unspecified Referrals Ear/Nose/Throat Referral J03.91 - Acute recurrent tonsillitis, unspecified Medications: New fexofenadine 180 mg PO DAILY PRN 90 tabs 3RF allergy symptoms 90 days Coding Level of Care Code Est Pt Level 4 (57572) Diagnoses Recurrent tonsillitis J03.91 Seasonal allergic rhinitis, unspecified trigger J30.2 Allergic rhinitis trigger: unspecified Allergic rhinitis seasonality: seasonal Pure hypercholesterolemia E78.00 Herniation of cervical intervertebral disc with radiculopathy M50.10 Migraine without status migrainosus, not intractable, unspecified migraine type G43.909 Migraine type: unspecified Status migrainosus presence: without status migrainosus Intractability: not intractable Gastroesophageal reflux disease without esophagitis K21.9 Esophagitis presence: without esophagitis Anxiety F41.9 Overweight (BMI 25.0-29.9) E66.3 Additional Codes SENG-7 Assessment Billing - SENG-7 Assessment Tool: SENG-7 Assessment 61693 ([id number])
== END 2023-01-18 15:49 | disposition home or self-care (01) ==
PROVIDERS: Visit Provider Internal Medicine
DX: Z23 Encounter for immunization (principal)
CPT/HCPCS: 90471; 90686; 99214

== ENCOUNTER 2023-02-10 12:58 | Outpatient (AMB) | payer OTHER, SELFPAY ==
--- NOTE | 2023-02-10 13:39 | AM.OFFWIN_ITS ---
Intake Vital Signs 02/10/23 13:47 Height 5 ft Weight 147 lb BMI 28.7 BP 122/70 Blood Pressure Location Lt brachial Position Sitting Pulse 94 Pulse Source Pulse Oximeter Temp 98.0 F Temp Source Temporal Artery Scan Pulse Oximetry (%) 98 Oxygen Delivery Method Room Air Intake Visit Reasons: EP, sore throat, ear pain ([phone]) Intake Note: pt is here today for sore throat,ear pain with headache Patient Tobacco Use Status: Never used Tobacco Allergies ciprofloxacin Adverse Reaction (Intermediate, Verified 02/10/23 13:41) swelling of feet Sulfa (Sulfonamide Antibiotics) Adverse Reaction (Intermediate, Verified 02/10/23 13:41) swelling of feet Do you need a note to return to daycare/school/sports/work: No HPI EP, sore throat, ear pain ([phone]) HPI Details 47-year-[facility]. Reports sore throat, bilateral ear pressure, generalized fatigue/body aches for the last several days. 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 Known exposure to flu, RSV, strep recently. Denies any respiratory symptoms or GI symptoms. Denies known fever. [facility] Medical History Pure hypercholesterolemia Overweight (BMI 25.0-29.9) Dysuria Pelvic floor dysfunction Headache, migraine Microscopic hematuria Recurrent UTI Hypocitraturia Recurrent nephrolithiasis Epigastric pain Hemorrhoid Anal fissure Rectal bleed Weakness of both hands Menstrual disorder Obesity (BMI 30-39.9) Anxiety Nonintractable headache Herniation of cervical intervertebral disc with radiculopathy Herniated disc Surgical History History of surgery Hx of cystoscopy S/P ureteral stent placement History of cervical discectomy History of section History of tubal ligation Family History Father Medical history unknown Mother Medical history unknown Maternal Grandmother Breast cancer Sister Breast cancer Daughter Breast cancer Son Autism Mental health disorder Social History Housing: Apartment Alcohol intake: former Patient Tobacco Use Status: Never used Tobacco e-Cigarette/Vaping Use: Never Used Second Hand Smoke Exposure: No service: No Current occupational status: employed Cognitive needs: No Hearing needs: No Vision needs: Yes (glasses) Female Reproductive History Menstrual Age of Menarche: 15 Review of Systems Const All systems reviewed & are unremarkable except as noted in HPI and below Physical Exam Vital Signs: Last Vital Signs Temp 98.0 F 02/10/23 13:47 Pulse 94 02/10/23 13:47 BP 122/70 02/10/23 13:47 Pulse Ox 98 02/10/23 13:47 Oxygen Delivery Method Room Air 02/10/23 13:47 BMI result Body Mass Index 28.7 Const General: cooperative and no acute distress HEENT Head: Yes normal to inspection Ears: hearing grossly normal bilaterally and TM's normal bilaterally General nose exam: Normal external nose present Face and sinus: Yes normal facial exam Mouth: Normal oral and palatal mucosa present Throat: Yes posterior oropharynx abnormal (Tonsillar erythema, hypertrophy bilaterally, exudate on right tonsil) Neck Neck: Yes no lymphadenopathy and Yes no JVD Resp Effort & Inspection: normal respiratory effort and able to speak in complete sentences Auscultation: clear to auscultation bilaterally Cardio Jugular venous distension: no JVD Palpation: normal PMI Rate: regular rate Rhythm: regular rhythm Skin General skin exam: no rashes or lesions noted Extrem General: Yes capillary refill normal and Yes no clubbing, cyanosis or edema Psych Appearance: grossly normal Mental Status: mental status grossly normal Speech and movement: Normal speech and movement present Results AMB Rapid Strep AMB Rapid Strep Negative Last Edit by Alfie Haynes CMA on 02/10/23 13 :53 Results Reviewed Results Reviewed: Laboratory Last Values Strep Scn Rapid Clinic Negative 02/10/23 13:53 Assessment & Plan Assessment & Plan (1) Pharyngitis: Code(s): J02.9 - Acute pharyngitis, unspecified Qualifiers: Pharyngitis/tonsillitis etiology: unspecified etiology Qualified Code(s): J02.9 - Acute pharyngitis, unspecified Plan: COVID/flu/RSV swab obtained. Patient aware she will be notified of results once these are available. Rapid strep in the office was negative, however clinically, symptoms are consistent with strep pharyngitis, and she has additionally had a exposure at work. I will treat accordingly with penicillin x10 days. Reviewed indications, use, possible side effects of medication. Advised Tylenol/Motrin as needed for body aches. Advised to return to the clinic if she does not improve with treatment, or if new symptoms develop/symptoms worsen. She verbalizes understanding and agrees to plan. Orders: Orders AMB Rapid Strep Screen Today Z13.9 - Encounter for screening, unspecified SARS-CoV2/FLU/RSV Today J02.9 - Acute pharyngitis, unspecified Medications: New penicillin V potassium 500 mg PO TID 30 tabs 0RF 10 days J02.0 - Streptococcal pharyngitis Coding Level of Care Code Est Pt Level 3 (82615) Diagnoses Pharyngitis, unspecified etiology J02.9 Pharyngitis/tonsillitis etiology: unspecified etiology
[2023-02-10 13:47] VITALS: BP 122/70; PULSE 94; TEMP 36.7; O2SAT 98; BMI 28.7
== END 2023-02-10 14:12 | disposition home or self-care (01) ==
PROVIDERS: PCP Internal Medicine; Visit Provider Nurse Practitioner Family
DX: J02.9 Acute pharyngitis, unspecified (principal)
CPT/HCPCS: 87880; 99213

== ENCOUNTER 2023-02-10 14:08 | Outpatient (REF) | payer OTHER, SELFPAY ==
[2023-02-10 19:07] LABS: Influenza A PCR NEGATIVE (Negative); Influenza B PCR NEGATIVE (Negative); Resp Syncy Virus RNA Qual PCR NEGATIVE (Negative); SARS COV2 PCR INHOUSE NEGATIVE (Negative)
== END 2023-02-10 14:09 | disposition home or self-care (01) ==
LOC: HO.LAB 14:08
PROVIDERS: Visit Provider Nurse Practitioner Family
DX: J02.9 Acute pharyngitis, unspecified (principal); Z11.52 Encounter for screening for COVID-19
CPT/HCPCS: 0241U

== ENCOUNTER 2023-03-08 09:39 | Outpatient (AMB) | payer OTHER, SELFPAY ==
--- NOTE | 2023-03-08 09:51 | AM.OFFWIN_ITS ---
Intake Vital Signs 03/08/23 10:03 Height 5 ft Weight 151 lb 6 oz BMI 29.6 BP 118/74 Blood Pressure Location Rt brachial Position Sitting Pulse 68 Pulse Source Pulse Oximeter Temp 97.8 F Temp Source Temporal Artery Scan Pulse Oximetry (%) 97 Oxygen Delivery Method Room Air Intake Visit Reasons: EST/uti [phone] Intake Note: pt is here for c/o possible uti Patient Tobacco Use Status: Never used Tobacco Allergies ciprofloxacin Adverse Reaction (Intermediate, Verified 03/08/23 09:56) swelling of feet Sulfa (Sulfonamide Antibiotics) Adverse Reaction (Intermediate, Verified 03/08/23 09:56) swelling of feet Do you need a note to return to daycare/school/sports/work: Yes HPI EST/uti [phone] HPI Details 47-year-[facility]. History of interstitial cystitis, followed by Dr. Rock at [facility] for urology. Reports a 5-6 day history of right-sided lower back/flank pain, mild burning with urination. Denies any fever or chills. Denies any odor or discolored urine. Denies any vaginal symptoms. [facility] Medical History Pure hypercholesterolemia Overweight (BMI 25.0-29.9) Dysuria Pelvic floor dysfunction Headache, migraine Microscopic hematuria Recurrent UTI Hypocitraturia Recurrent nephrolithiasis Epigastric pain Hemorrhoid Anal fissure Rectal bleed Weakness of both hands Menstrual disorder Obesity (BMI 30-39.9) Anxiety Nonintractable headache Herniation of cervical intervertebral disc with radiculopathy Herniated disc Surgical History History of surgery Hx of cystoscopy S/P ureteral stent placement History of cervical discectomy History of section History of tubal ligation Family History Father Medical history unknown Mother Medical history unknown Maternal Grandmother Breast cancer Sister Breast cancer Daughter Breast cancer Son Autism Mental health disorder Social History Housing: Apartment Alcohol intake: former Patient Tobacco Use Status: Never used Tobacco e-Cigarette/Vaping Use: Never Used Second Hand Smoke Exposure: No service: No Current occupational status: employed Cognitive needs: No Hearing needs: No Vision needs: Yes (glasses) Female Reproductive History Menstrual Age of Menarche: 15 Review of Systems Const All systems reviewed & are unremarkable except as noted in HPI and below Physical Exam Const General: cooperative, healthy appearing, comfortable and no acute distress Nutritional Appearance: average body habitus Resp Effort & Inspection: normal respiratory effort Auscultation: clear to auscultation bilaterally Cardio Jugular venous distension: no JVD Palpation: normal PMI Rate: regular rate Rhythm: regular rhythm General: Yes bladder normal to palpation and Yes CVA tenderness (very mild) on the right Bimanual exam- vagina & uterus: bladder normal to palpation Back/Spine/Pelvis Back: CVA tenderness (very mild) Skin General skin exam: no rashes or lesions noted Extrem General: Yes capillary refill normal and Yes no clubbing, cyanosis or edema Psych Appearance: grossly normal Mental Status: mental status grossly normal Speech and movement: Normal speech and movement present Results AMB Urinalysis, Automated UA Leukoctes 0 Glendy/uL Last Edit by Alfie Haynes CMA on 03/08/23 10:05 UA Nitrite Negative Last Edit by Alfie Haynes CMA on 03/08/23 10:05 UA Urobilinogen 0.2 mg/dL Last Edit by Alfie Haynes CMA on 03/08/23 10 :05 UA Protein 6.0 mg/dL Last Edit by Alfie Haynes CMA on 03/08/23 10:05 UA pH 6.0 Last Edit by Alfie Haynes CMA on 03/08/23 10:05 UA Blood 0 Wilfred/uL Last Edit by Alfie Haynes CMA on 03/08/23 10:05 UA Specific [place] 1.030 Last Edit by Alfie Haynes CMA on 03/08/23 10:05 UA Ketone Negative Last Edit by Alfie Haynes CMA on 03/08/23 10:05 UA Bilirubin 0 mg/dL Last Edit by Alfie Haynes CMA on 03/08/23 10:05 UA Glucose 0 mg/dL Last Edit by Alfie Haynes CMA on 03/08/23 10:05 Assessment & Plan Assessment & Plan (1) Dysuria: Code(s): R30.0 - Dysuria Plan: I will refill patient's Pyridium. We discussed that her urine dip in the office did not reveal acute UTI. She does have a history of interstitial cystitis, and is followed by Dr. Rock at [facility] urology, whom she has not seen in a while. I recommended f/u with him as symptoms are likely resultant of IC. She does have some burning with urination. I will send an antibiotic to her pharmacy however we discussed she should not fill/take this unless symptoms are unrelieved with Motrin/Tylenol and the pyridium. She has multiple abx allergies and states she is resistant to macrobid. Will try Cefdinir. If she does not improve with treatment or if symptoms worsen she shoule return to clinic or f/u with PCP or urology. She verbalizes understanding and agrees to plan. (2) Interstitial cystitis: Code(s): N30.10 - Interstitial cystitis (chronic) without hematuria Plan: F/U urology Orders: Orders AMB Urinalysis Automated Today Z13.9 - Encounter for screening, unspecified Medications: New cefdinir 300 mg PO BID 5 days 10 caps 0RF R30.0 - Dysuria phenazopyridine 200 mg PO TID PRN 6 tabs 1RF pain Coding Level of Care Code Est Pt Level 3 (12925) Diagnoses Dysuria R30.0 Interstitial cystitis N30.10
[2023-03-08 10:03] VITALS: BP 118/74; PULSE 68; TEMP 36.6; O2SAT 97; BMI 29.6
== END 2023-03-08 10:24 | disposition home or self-care (01) ==
PROVIDERS: PCP Internal Medicine; Visit Provider Nurse Practitioner Family
DX: R30.0 Dysuria (principal); N30.10 Interstitial cystitis (chronic) without hematuria; Z13.9 Encounter for screening, unspecified
CPT/HCPCS: 81003; 99213

== ENCOUNTER 2023-03-24 13:58 | Outpatient (REF) | payer OTHER, SELFPAY ==
[2023-03-25 07:35] LABS: CT PCR NOT DETECTED (Not Detect.); NG PCR NOT DETECTED (Not Detect.)
== END 2023-03-24 13:59 | disposition home or self-care (01) ==
LOC: HO.LNP 13:58
PROVIDERS: PCP Internal Medicine; Visit Provider Obstetrics & Gynecology
DX: Z53.8 Procedure and treatment not carried out for other reasons (principal); Z20.2 Contact with and (suspected) exposure to infections with a predominantly sexual mode of transmission
CPT/HCPCS: 0353U; 81025

== ENCOUNTER 2023-03-24 13:58 | Outpatient (AMB) | payer OTHER, SELFPAY ==
--- NOTE | 2023-03-24 14:20 | MHC.OFFVIS ---
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 The patient takes Depo-Provera suppression of menstrual cycle for her interstitial cystitis. 7 years ago the patient had heavy menstrual cycle after counseling the patient decided to proceed with Mirena IUD [facility] Medical History Pure hypercholesterolemia Overweight (BMI 25.0-29.9) Dysuria Pelvic floor dysfunction Headache, migraine Microscopic hematuria Recurrent UTI Hypocitraturia Recurrent nephrolithiasis Epigastric pain Hemorrhoid Anal fissure Rectal bleed Weakness of both hands Menstrual disorder Obesity (BMI 30-39.9) Anxiety Nonintractable headache Herniation of cervical intervertebral disc with radiculopathy Herniated disc Surgical History History of surgery Hx of cystoscopy S/P ureteral stent placement History of cervical discectomy History of section History of tubal ligation Family History Father Medical history unknown Mother Medical history unknown Maternal Grandmother Breast cancer Sister Breast cancer Daughter Breast cancer Son Autism Mental health disorder Social History Housing: Apartment Alcohol intake: former Patient Tobacco Use Status: Never used Tobacco e-Cigarette/Vaping Use: Never Used Second Hand Smoke Exposure: No service: No Current occupational status: employed Cognitive needs: No Hearing needs: No Vision needs: Yes (glasses) Female Reproductive History Menstrual Age of Menarche: 15 Review of Systems Const All systems reviewed & are unremarkable except as noted in HPI and below Physical Exam Vital Signs: Last Vital Signs BP 118/76 03/24/23 14:37 BMI result Body Mass Index 29.3 General: Yes no CVA tenderness External Female Exam: normal external appearance and normal appearance of the urethra Speculum Exam - Vagina: normal appearance of the vagina, normal palpation, no lesions and no masses Speculum Exam - Cervix: normal appearance of the cervix, normal palpation, no lesions, no masses and nontender Bimanual exam- vagina & uterus: normal bimanual exam, normal palpation, uterine size normal, normal palpation, uterine shape normal, No Cervical tenderness present and non-tender Bimanual Exam- Adnexa, other: normal adnexae Back/Spine/Pelvis Back: no CVA tenderness Results AMB Test Urine AMB Test Urine Negative Last Edit by Bri Morris CMA on 03/24/23 14:42 Assessment & Plan Assessment & Plan (1) Unsuccessful IUD insertion: Code(s): Z53.8 - Procedure and treatment not carried out for other reasons Plan: GC/CT taken, attempted IUD insertion was unsuccessful. A no touch technique was used throughout the procedure. A speculum was placed into vagina and cervix was cleaned with betadine). A tenaculum was placed. A plastic sound was able to be advanced through the external and internal os more than 4 cm . The sound was then withdrawn. The procedure was aborted P Patient tolerated the procedure well. NO complications were noted. Patient was instructed to call for fever over 100.4, significant pain unrelieved by Motrin, IUD expulsion, heavy bleeding, or abnormal discharge. In addition, discussed with the patient other options for insert suppression including control pill patch ordering which are contraindicated in patients migraine with aura, Lysteda, endometrial ablation or hysterectomy. Recommended for the patient to hold off any treatment at this point and watch if for menstrual cycle becomes heavy in the coming few months without Depo-Provera, if AUB occurs will procedures workup and possible Lysteda treatment. Instructions given the patient to call in case her menstrual cycle becomes heavy. All questions answered, the patient verbalized understanding Orders: Orders AMB HCG Urine Test Today Z32.02 - Encounter for test, result negative Medications: Discontinued penicillin V potassium Discontinued Reason: Patient Completed Course 500 mg PO TID 10 days 30 tabs 0RF J02.0 - Streptococcal pharyngitis cefdinir Discontinued Reason: Patient Completed Course 300 mg PO BID 5 days 10 caps 0RF R30.0 - Dysuria Coding Level of Care Code Est Pt Level 3 (61276) Diagnoses Unsuccessful IUD insertion Z53.8
[2023-03-24 14:37] VITALS: BP 118/76; BMI 29.3
== END 2023-03-24 14:57 | disposition home or self-care (01) ==
PROVIDERS: PCP Internal Medicine; Visit Provider Obstetrics & Gynecology
DX: Z53.8 Procedure and treatment not carried out for other reasons (principal); Z32.02 Encounter for pregnancy test, result negative
CPT/HCPCS: 99213

== ENCOUNTER 2023-05-11 10:44 | Outpatient (AMB) | payer OTHER, SELFPAY ==
--- NOTE | 2023-05-11 10:58 | MHC.OFFVIS ---
Intake Intake Visit Reasons: PVR/Med review(Tolterodine) Intake Note: Patient is Present for Follow Up Med Review Urology Medication: Tolterodine Antibiotic Allergies: Sulfa, Cipro Blood Thinners: None PVR:0ml Patient states she does not see any improvement with Tolterodine. She has tried Oxybutynin, Myrbetriq Allergies ciprofloxacin Adverse Reaction (Intermediate, Verified 05/21/23 13:40) swelling of feet Sulfa (Sulfonamide Antibiotics) Adverse Reaction (Intermediate, Verified 05/21/23 13:40) swelling of feet Medication List - Last Reconciled 05/11/23 by Tanner Rock MD fexofenadine 180 mg PO DAILY PRN 90 days fluticasone propionate 50 mcg/actuation 2 sprays intranasal DAILY PRN 30 days ibuprofen 800 mg PO TID PRN 30 days loratadine 10 mg PO DAILY PRN 90 days medroxyprogesterone 150 mg IM Q12W phenazopyridine 200 mg PO TID PRN 6 doses tizanidine 4 mg PO BEDTIME PRN 30 days tramadol 50 mg PO TID PRN 30 days HPI HPI Comments History of Present Illness Details Deena is a pleasant female. She is a patient of Dr. Lara. She is seen for following urologic conditions - urinary urgency and frequency - nocturia - possible interstitial cystitis Failed anticholinergic and beta agonist medications for bladder Encourage Pyridium Prescribed famotidine to use as necessary Will try and avoid dietary triggers Interstitial Cystitis Current therapy trial tolterodine May have developed after series of complicated urinary tract infections Predominantly urgency and frequency Dietary triggers Initial presentation has nocturia times 4-5 with pelvic pressure, pelvic pressure resolved after emptying, constant pelvic pressure and bladder discomfort during the day Prior medications include oxybutynin with significant dry eyes and dry mouth, Myrbetriq with minimal impact, tolterodine with minimal impact Did respond to trial of amitriptyline during flare Intervention - 02/07 hydrodistention with significant improvement in symptoms PFSH Medical History Pure hypercholesterolemia Overweight (BMI 25.0-29.9) Dysuria Pelvic floor dysfunction Headache, migraine Microscopic hematuria Recurrent UTI Hypocitraturia Recurrent nephrolithiasis Epigastric pain Hemorrhoid Anal fissure Rectal bleed Weakness of both hands Menstrual disorder Obesity (BMI 30-39.9) Anxiety Nonintractable headache Herniation of cervical intervertebral disc with radiculopathy Herniated disc Surgical History History of surgery Hx of cystoscopy S/P ureteral stent placement History of cervical discectomy History of section History of tubal ligation Family History Father Medical history unknown Mother Medical history unknown Maternal Grandmother Breast cancer Sister Breast cancer Daughter Breast cancer Son Autism Mental health disorder Social History Housing: Apartment Alcohol intake: former Patient Tobacco Use Status: Never used Tobacco e-Cigarette/Vaping Use: Never Used Second Hand Smoke Exposure: No service: No Current occupational status: employed Cognitive needs: No Hearing needs: No Vision needs: Yes (glasses) Female Reproductive History Menstrual Age of Menarche: 15 Review of Systems Const Denies chills and Denies fever(s) Card Reports no additional complaints and Denies syncope Resp Denies cough GI Denies abdominal pain and Denies heartburn Reports as per HPI and Denies change in libido Neuro Denies syncope Psych Denies change in libido Endo Denies change in libido Physical Exam Const General: cooperative, healthy appearing, comfortable and no acute distress Orientation/consciousness: patient oriented x3 HEENT Face and sinus: Yes normal facial exam Mouth: moist mucous membranes Neck Neck: Yes normal visual inspection, Yes full ROM and Yes trachea midline Chest Chest palpation & inspection: normal inspection of the chest Resp Effort & Inspection: normal respiratory effort, able to speak in complete sentences and no respiratory distress GI Inspection: Yes normal to inspection Back/Spine/Pelvis Cervical Spine: normal cervical lordosis Thoracic/Lumbar Spine: thoracic and lumbar spine normal to inspection Skin General skin exam: no rashes or lesions noted Neuro General: patient oriented x3, gait normal, tone normal and moves all extremities Extrem General: Yes normal to inspection and Yes capillary refill normal Office Procedures Post Void Residual Post Residual Void Post Void Residual (PVR): 0 [id number]-[id number] Void Residual by ultrasound Assessment & Plan Assessment & Plan (1) Urinary urgency: Code(s): R39.15 - Urgency of urination (2) Urinary tract infection: Code(s): N39.0 - Urinary tract infection, site not specified Qualifiers: Urinary tract infection type: site unspecified Hematuria presence: without hematuria Qualified Code(s): N39.0 - Urinary tract infection, site not specified Plan Six-month follow-up Orders: Orders AMB Post Void Residual by ultrasound 05/11/23 N30.11 - Interstitial cystitis (chronic) with hematuria Medications: New famotidine 40 mg PO BEDTIME 30 tabs 0RF 30 days N30.11 - Interstitial cystitis (chronic) with hematuria, R39.15 - Urgency of urination Changed From phenazopyridine 200 mg PO TID PRN 6 tabs 1RF pain N30.11 - Interstitial cystitis (chronic) with hematuria To phenazopyridine 200 mg PO TID PRN 20 tabs 1RF pain 20 days N30.11 - Interstitial cystitis (chronic) with hematuria Patient Instructions: Imaging studies, laboratory and physical exam results were discussed and reviewed in detail. No major barriers to patient understanding were identified. An opportunity to ask questions regarding the treatment plan was provided. All questions were answered. The patient expressed understanding and agreement with the above treatment plan. The patient is aware they should contact our office by phone for worsening of their current condition or the appearance of new urologic symptoms. Compliance is encouraged with any medications and followup testing that is ordered. It is a privilege to participate in the urologic care of your patient. If you have any questions or concerns regarding treatment for the above conditions, or other urologic issues, please do not hesitate to contact me. The office telephone contact is [phone]. This note is constructed using voice recognition software. While every effort has been made to ensure accuracy diesel powerplant supervisor errors may have been included. Yours sincerely, Dr Tanner Rock MD, [facility] - Urology Providers of Expert, Compassionate Care for the Genitourinary System Coding Level of Care Code Est Pt Level 4 (59758) Diagnoses Urinary urgency R39.15 Urinary tract infection without hematuria, site unspecified N39.0 Urinary tract infection type: site unspecified Hematuria presence: without hematuria CPT Codes Post Residual Void - PVR CPT Code: 97798-Nqsu Void Residual by ultrasound ([id number])
== END 2023-05-11 11:32 | disposition home or self-care (01) ==
PROVIDERS: PCP Internal Medicine; Visit Provider Urology
DX: R39.15 Urgency of urination (principal); N39.0 Urinary tract infection, site not specified
CPT/HCPCS: 99214

== ENCOUNTER → 2023-05-11 10:44 | Outpatient (BNVA) | payer OTHER, SELFPAY | PROVIDERS: PCP Internal Medicine; Visit Provider Urology | DX: N30.11 Interstitial cystitis (chronic) with hematuria (principal); R39.15 Urgency of urination | CPT/HCPCS: 51798 ==

== ENCOUNTER 2023-05-21 13:22 | Outpatient (AMB) | payer OTHER, SELFPAY ==
[2023-05-21 13:23] VITALS: BP 110/78; PULSE 84; O2SAT 97; BMI 29.6
--- NOTE | 2023-05-21 13:23 | MHC.PC.OV ---
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 Accompanied by: Self / Same As Patient Allergies ciprofloxacin Adverse Reaction (Intermediate, Verified 05/21/23 13:40) swelling of feet Sulfa (Sulfonamide Antibiotics) Adverse Reaction (Intermediate, Verified 05/21/23 13:40) swelling of feet Medication List - Last Reconciled 05/21/23 by Melvin Lara MD epinephrine (EpiPen) 0.3 mg IM Q4H PRN famotidine 40 mg PO BEDTIME 30 days fexofenadine 180 mg PO DAILY PRN 90 days fluticasone propionate 50 mcg/actuation 2 sprays intranasal DAILY PRN 30 days ibuprofen 800 mg PO TID PRN 30 days loratadine 10 mg PO DAILY PRN 90 days medroxyprogesterone 150 mg IM Q12W phenazopyridine 200 mg PO TID PRN 20 days tizanidine 4 mg PO BEDTIME PRN 30 days tramadol 50 mg PO TID PRN 30 days Tobacco use date assessed: 05/21/23 Dental Screening Dental Screen Date: 05/21/23 Did you have a dental visit in the last 12 months?: Yes Did you have a dental problem in the last 6 months where you did not have access to dental care?: No Was dental information given to patient?: Patient has dentist HPI trigeminal neuralgia, GERD, headaches, IC HPI Details Patient comes in today for her follow up visit States that she still feels fatigued often Relates that she usually gets about 5 hrs of sleep at night and gets about 2 hrs of naptime in total when she can, but her sleep overall is often broken up and never continuously without interruption Adds that she has multiple indoor and outdoor allergies, based on her recent allergy evaluation, and will be starting some oral drops for allergy desensitization 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 Reports that she experienced (+) headaches at times; denies any dizziness Denies any chest pains, no shortness of breath No nausea/vomiting, no abdominal pain No change in bowel habits noted Also continues to experience chronic pain over the back of her neck but states that this has been mostly manageable lately [facility] Medical History Pure hypercholesterolemia Overweight (BMI 25.0-29.9) Dysuria Pelvic floor dysfunction Headache, migraine Microscopic hematuria Recurrent UTI Hypocitraturia Recurrent nephrolithiasis Epigastric pain Hemorrhoid Anal fissure Rectal bleed Weakness of both hands Menstrual disorder Obesity (BMI 30-39.9) Anxiety Nonintractable headache Herniation of cervical intervertebral disc with radiculopathy Herniated disc Surgical History History of surgery Hx of cystoscopy S/P ureteral stent placement History of cervical discectomy History of section History of tubal ligation Family History Father Medical history unknown Mother Medical history unknown Maternal Grandmother Breast cancer Sister Breast cancer Daughter Breast cancer Son Autism Mental health disorder Social History Housing: Apartment Alcohol intake: former Patient Tobacco Use Status: Never used Tobacco e-Cigarette/Vaping Use: Never Used Second Hand Smoke Exposure: No service: No Current occupational status: employed Cognitive needs: No Hearing needs: No Vision needs: Yes (glasses) Female Reproductive History Menstrual Age of Menarche: 15 Questionnaire PHQ-9 Over the last 2 weeks, how often have you been bothered by any of the following problems? 1. Little interest or pleasure in doing things: not at all 2. Feeling down, depressed, or hopeless: not at all 3. Trouble falling or staying asleep, or sleeping too much: not at all 4. Feeling tired or having little energy: not at all 5. Poor appetite or overeating: not at all 6. Feeling bad about yourself - or that you are a failure or have let yourself or your family down: not at all 7. Trouble concentrating on things, such as reading the newspaper or watching television: not at all 8. Moving or speaking so slowly that other people could have noticed. Or the opposite - being so fidgety or restless that you have been moving around a lot more than usual: not at all 9. Thoughts that you would be better off or of hurting yourself in some way: not at all Total score: 0 Depression Screening Interpretation: Negative Depression Screening Done: Yes 71032 - PHQ-9 Billing: Yes Source: Developed by Drs. Tanvir Rucker, Selam Dangelo, Berry Pineda and colleagues, with an educational beth from [employer] Thrive Questionnaire Date Thrive assessed: 05/21/23 I am a: Patient What is your living situation today?: I have a steady place to live Within the past 12 months, did the food you bought not last and you didn't have the money to get more?: Never true Within the past 12 months, did you worry whether your food would run out before you got money to buy more?: Never true Do you have trouble paying for medicines?: No Do you have trouble getting transportation to medical appointments?: No Do you have trouble paying your heating and electricity bill?: No Do you have trouble taking care of your child, family member or friend?: No Do you have trouble with day-to-day activities such as bathing, preparing meals, shopping, managing finances, etc.?: No Are you currently unemployed and looking for a job?: No Are you interested in more education?: No Please select the resources that you would like help with: None Currently or been in a relationship where the following occur: no concerns reported THRIVE Score: 0 AUDIT C Alcohol Use Questionnaire (AUDIT-C) 1. How often do you have a drink containing alcohol?: Never 3. How often do you have six or more drinks on one occasion?: Never Total Score: 0 Score Reviewed/Action Taken: Yes SENG-7 AMB Questionnaire SENG-7 Date SENG - 7 assessed: 05/21/23 Feeling nervous, anxious, or on edge: 1 = Several days Not being able to stop or control worryin = Several days Worrying too much about different things: 1 = Several days Trouble relaxin = Several days Being so restless that it is hard to sit still: 1 = Several days Becoming easily annoyed or irritable: 1 = Several days Feeling afraid as if something awful might happen: 1 = Several days Total SENG-7 score (0-4 normal; 5-9 mild; 10-14 moderate; 15-21 severe): 7 Source: Developed by Rob Barronet B.W. Antolin, Berry Pineda and colleagues, with an educational beth from [employer] SENG-7 Assessment Billing SENG-7 Assessment Tool: SENG-7 Assessment 81301 Review of Systems Const Reports difficulty sleeping (see HPI for details), Reports fatigue (increased), Denies fever(s) and Reports headache(s) (on and off) ENT Denies dysphagia, Denies dizziness, Denies otalgia, Reports headache(s) (on and off), Reports neck pain (chronic) and Denies odynophagia Card Denies chest pain, Denies rapid heart rate, Denies irregular heart rhythm, Denies palpitations and Denies dyspnea Resp Denies chest congestion, Denies cough and Denies dyspnea GI Denies abdominal pain, Denies constipation, Denies dysphagia, Denies heartburn, Denies diarrhea, Denies nausea, Denies odynophagia and Denies vomiting Denies hematuria, Denies nocturia, Denies dysuria and Denies urinary urgency Musc Denies back pain and Reports neck pain (chronic) Skin/Breast Denies rash Neuro Denies dizziness and Reports headache(s) (on and off) Psych Denies anxiety Endo Reports fatigue (increased) and Denies palpitations Ad/Lymph Denies easy bruising Aller/Immun Reports seasonal rhinorrhea Physical exam (Primary Care) Vital Signs: Last Vital Signs Pulse 84 05/21/23 13:23 BP 110/78 05/21/23 13:23 Pulse Ox 97 05/21/23 13:23 Oxygen Delivery Method Room Air 05/21/23 13:23 BMI result Body Mass Index 29.6 Tobacco/Smoking Status: Tobacco use Status Tobacco use date assessed 05/21/23 05/21/23 13:29 Patient Tobacco Use Status Never used Tobacco 05/21/23 13:29 e-Cigarette/Vaping Use Never Used 05/21/23 13:29 PHQ-9: PHQ-9 Score PHQ-9: Total score 0 05/21/23 13:42 Depression Screening Interpretation: Negative Thrive Assessment: Date of Thrive Assessment Date Thrive assessed 05/21/23 05/21/23 13:29 Currently or been in a relationship where the following occur: no concerns reported Const General: no acute distress and alert HENMT Ears: TM's normal bilaterally and EAC's normal Throat: Yes posterior oropharynx normal and Yes tonsils normal Neck Neck: Yes no lymphadenopathy, Yes bilateral parotid enlargement and Yes tender (over the cervical spine - chronic) Thyroid: Thyroid normal Resp Auscultation: clear to auscultation bilaterally, no rales and no wheezes Cardio Rate: regular rate Rhythm: regular rhythm Heart sounds: no murmurs GI Palpation (GI): Soft to palpation and nontender Auscultation: normal bowel sounds General: Yes no CVA tenderness Back/Spine/Pelvis Back: no CVA tenderness Cervical Spine: Cervical spine tenderness Thoracic/Lumbar Spine: thoracic and lumbar spine normal to inspection Skin Rashes: no rashes Extrem General: Yes no clubbing, cyanosis or edema Assessment and Plan Assessment & Plan (1) Fatigue: Code(s): R53.83 - Other fatigue Qualifiers: Fatigue type: unspecified Qualified Code(s): R53.83 - Other fatigue Plan: Patient reports experiencing increasing fatigue and daytime somnolence often lately Will refer her to Sleep Medicine for further evaluation and management (2) Herniation of cervical intervertebral disc with radiculopathy: Comment: S/P anterior cervical discectomy C5-C6, interbody device and fusion on 07/12/[address] Zander Fay Code(s): M50.10 - Cervical disc disorder with radiculopathy, unspecified cervical region Plan: Repeat cervical spine MRI done on 08/08/21 revealed (+) post-surgical changes as well as previous multilevel degenerative disc changes, including chronic disc herniations S/P physical therapy a couple of years ago without any significant improvement of her neck pain Patient stopped taking her Gabapentin a while back as she states that the medication was making her feel funny She was started on Tizanidine 4 mg Q HS PRN to help relieve her neck pain better at night a while back but states that it did not help much Currently takes 1 to 2 tablets of Tramadol 50 mg PRN - states that she only takes Tramadol when neck pain increases Follow up with neurosurgery (Dr. Fay) as scheduled or as needed Has been again advised of option of seeing [facility] Pain Management - patient states that she will call for referral if she decides to try pain management (3) Allergic rhinitis: Code(s): J30.9 - Allergic rhinitis, unspecified Qualifiers: Allergic rhinitis trigger: unspecified Allergic rhinitis seasonality: seasonal Qualified Code(s): J30.2 - Other seasonal allergic rhinitis Plan: Continue Fluticasone 50 mcg nasal spray QD PRN and Fexofenadine 180 mg QD PRN (4) Pure hypercholesterolemia: Code(s): E78.00 - Pure hypercholesterolemia, unspecified Plan: Reinforced low cholesterol diet Will recheck her labs and fasting lipids in 4 months for follow up (5) Migraine: Code(s): G43.909 - Migraine, unspecified, not intractable, without status migrainosus Qualifiers: Migraine type: unspecified Status migrainosus presence: without status migrainosus Intractability: not intractable Qualified Code(s): G43.909 - Migraine, unspecified, not intractable, without status migrainosus Plan: Reinforced avoidance of potential migraine triggers Continue Ibuprofen PRN Follow up with neurology as scheduled (6) GERD (gastroesophageal reflux disease): Code(s): K21.9 - Gastro-esophageal reflux disease without esophagitis Qualifiers: Esophagitis presence: without esophagitis Qualified Code(s): K21.9 - Gastro-esophageal reflux disease without esophagitis Plan: Dietary restrictions reinforced Continue Famotidine 40 mg Q HS PRN (7) Anxiety: Code(s): F41.9 - Anxiety disorder, unspecified Plan: States that her anxiety has been much better controlled and she is doing well on her current Rx Continue Bupropion XL 150 mg QD (8) Overweight (BMI 25.0-29.9): Code(s): E66.3 - Overweight Plan: Reniforced diet/exercise as tolerated/lose weight Follow-up with weight management as scheduled Plan To return in 4 months for her annual physical examination Orders: Orders Complete Blood Count Auto Diff 4 Months D64.9 - Anemia, unspecified Comprehensive Dexter. Panel Fast 4 Months E78.00 - Pure hypercholesterolemia, unspecified TSH reflex Free T4 4 Months E78.00 - Pure hypercholesterolemia, unspecified UA CC w/rflx Micro + Cult 4 Months R30.0 - Dysuria Lipid Panel 4 Months E78.00 - Pure hypercholesterolemia, unspecified Vitamin D 25-OH Total 4 Months E55.9 - Vitamin D deficiency, unspecified Referrals Sleep Medicine Referral R40.0 - Somnolence, R53.83 - Other fatigue Coding Level of Care Code Est Pt Level 4 (87364) Diagnoses Fatigue, unspecified type R53.83 Fatigue type: unspecified Herniation of cervical intervertebral disc with radiculopathy M50.10 Seasonal allergic rhinitis, unspecified trigger J30.2 Allergic rhinitis trigger: unspecified Allergic rhinitis seasonality: seasonal Pure hypercholesterolemia E78.00 Migraine without status migrainosus, not intractable, unspecified migraine type G43.909 Migraine type: unspecified Status migrainosus presence: without status migrainosus Intractability: not intractable Gastroesophageal reflux disease without esophagitis K21.9 Esophagitis presence: without esophagitis Anxiety F41.9 Overweight (BMI 25.0-29.9) E66.3 Additional Codes SENG-7 Assessment Billing - SENG-7 Assessment Tool: SENG-7 Assessment 59509 ([id number])
== END 2023-05-21 13:54 | disposition home or self-care (01) ==
PROVIDERS: PCP Internal Medicine; Visit Provider Internal Medicine
DX: G43.909 Migraine, unspecified, not intractable, without status migrainosus (principal); R53.83 Other fatigue; M50.10 Cervical disc disorder with radiculopathy, unspecified cervical region; J30.2 Other seasonal allergic rhinitis; E78.00 Pure hypercholesterolemia, unspecified; K21.9 Gastro-esophageal reflux disease without esophagitis; F41.9 Anxiety disorder, unspecified; E66.3 Overweight
CPT/HCPCS: 99214

== ENCOUNTER 2023-07-26 13:21 | Outpatient (AMB) | payer OTHER, SELFPAY ==
[2023-07-26 13:40] VITALS: BP 120/80; PULSE 101; O2SAT 97; BMI 28.5
--- NOTE | 2023-07-26 13:40 | A.OFFPC_ITS ---
Vital Signs 07/26/23 13:40 Height 5 ft Weight 146 lb BMI 28.5 BP 120/80 Blood Pressure Location Lt brachial Position Sitting Pulse 101 H Pulse Source Pulse Oximeter Pulse Oximetry (%) 97 Oxygen Delivery Method Room Air Intake Visit Reasons: [facility] - Migraines, neck pain Intake Note: Patient is here to follow-up after a visit the emergency department at [facility] due to Migraines and neck Pain. Medical records requested today. 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: No Accompanied by: Self / Same As Patient Allergies ciprofloxacin Adverse Reaction (Intermediate, Verified 08/07/23 01:39) swelling of feet Sulfa (Sulfonamide Antibiotics) Adverse Reaction (Intermediate, Verified 08/07/23 01:39) swelling of feet Medication List - Last Reconciled 07/26/23 by Melvin Lara MD [id number] 50-325-40 mg 1 tab PO Q6-8H PRN epinephrine (EpiPen) 0.3 mg IM Q4H PRN famotidine 40 mg PO BEDTIME 30 days fexofenadine 180 mg PO DAILY PRN 90 days fluticasone propionate 50 mcg/actuation 2 sprays intranasal DAILY PRN 30 days ibuprofen 800 mg PO TID PRN 30 days loratadine 10 mg PO DAILY PRN 90 days medroxyprogesterone 150 mg IM Q12W phenazopyridine 200 mg PO TID PRN 20 days tizanidine 4 mg PO BEDTIME PRN 30 days tramadol 50 mg PO TID PRN 30 days Tobacco use date assessed: 05/21/23 Dental Screening Dental Screen Date: 05/21/23 HPI [facility] - Migraines, neck pain HPI Details Patient comes in today for [facility] follow up visit States that she was experiencing increased neck pain and headaches for over 2 weeks She went to the ER a few days ago on 07/22/2023 for worsening headaches and was given Toradol and oral Prednisone, which provided her with some relief and she was subsequently discharged home She recalls that she had a cervical MRI done at [facility] a couple of years ago on 08/09/2021 that supposedly revealed no significant change from her previous MRI - will try to request for a copy of this from [facility] for confirmation States that she is currently still experiencing on and off headaches and neck pain She denies any dizziness Denies any chest pains, no SOB No nausea/vomiting, no abdominal pain No change in bowel habits noted will request new MRI [facility] Medical History Pure hypercholesterolemia Overweight (BMI 25.0-29.9) Dysuria Pelvic floor dysfunction Headache, migraine Microscopic hematuria Recurrent UTI Hypocitraturia Recurrent nephrolithiasis Epigastric pain Hemorrhoid Anal fissure Rectal bleed Weakness of both hands Menstrual disorder Obesity (BMI 30-39.9) Anxiety Nonintractable headache Herniation of cervical intervertebral disc with radiculopathy Herniated disc Surgical History History of surgery Hx of cystoscopy S/P ureteral stent placement History of cervical discectomy History of section History of tubal ligation Family History Father Medical history unknown Mother Medical history unknown Maternal Grandmother Breast cancer Sister Breast cancer Daughter Breast cancer Son Autism Mental health disorder Social History Housing: Apartment Alcohol intake: former Patient Tobacco Use Status: Never used Tobacco e-Cigarette/Vaping Use: Never Used Second Hand Smoke Exposure: No service: No Current occupational status: employed Cognitive needs: No Hearing needs: No Vision needs: Yes (glasses) Female Reproductive History Menstrual Age of Menarche: 15 Questionnaire Thrive Questionnaire Date Thrive assessed: 05/21/23 SENG-7 AMB Questionnaire SENG-7 Date SENG - 7 assessed: 05/21/23 Source: Developed by Drs. Tanvir Rucker, Selam Dangelo, Berry Pienda and colleagues, with an educational beth from [employer]. Review of Systems Const Reports difficulty sleeping (see HPI for details), Reports fatigue (increased), Denies fever(s) and Reports headache(s) (on and off - increased lately) ENT Denies dysphagia, Denies dizziness, Denies otalgia, Reports headache(s) (on and off - increased lately), Reports neck pain (chronic - increased lately) and Denies odynophagia Card Denies chest pain, Denies rapid heart rate, Denies irregular heart rhythm, Denies palpitations and Denies dyspnea Resp Denies chest congestion, Denies cough and Denies dyspnea GI Denies abdominal pain, Denies constipation, Denies dysphagia, Denies heartburn, Denies diarrhea, Denies nausea, Denies odynophagia and Denies vomiting Denies hematuria, Denies nocturia, Denies dysuria and Denies urinary urgency Musc Denies back pain and Reports neck pain (chronic - increased lately) Skin/Breast Denies rash Neuro Denies dizziness and Reports headache(s) (on and off - increased lately) Psych Denies anxiety Endo Reports fatigue (increased) and Denies palpitations Ad/Lymph Denies easy bruising Aller/Immun Reports seasonal rhinorrhea Physical exam (Primary Care) Vital Signs: Last Vital Signs Pulse 101 H 07/26/23 13:40 BP 120/80 07/26/23 13:40 Pulse Ox 97 07/26/23 13:40 Oxygen Delivery Method Room Air 07/26/23 13:40 BMI result Body Mass Index 28.5 Tobacco/Smoking Status: Tobacco use Status Tobacco use date assessed 05/21/23 07/26/23 13:40 Patient Tobacco Use Status Never used Tobacco 07/26/23 13:40 e-Cigarette/Vaping Use Never Used 07/26/23 13:40 Thrive Assessment: Date of Thrive Assessment Date Thrive assessed 05/21/23 07/26/23 13:40 Const General: no acute distress and alert HENMT Throat: Yes posterior oropharynx normal and Yes tonsils normal Neck Neck: Yes no lymphadenopathy and Yes tender (over the cervical spine - chronic) Thyroid: Thyroid normal Resp Auscultation: clear to auscultation bilaterally, no rales and no wheezes Cardio Rate: regular rate Rhythm: regular rhythm Heart sounds: no murmurs GI Palpation (GI): Soft to palpation and nontender Auscultation: normal bowel sounds General: Yes no CVA tenderness Back/Spine/Pelvis Back: no CVA tenderness Cervical Spine: Cervical spine tenderness Thoracic/Lumbar Spine: thoracic and lumbar spine normal to inspection Skin Rashes: no rashes Extrem General: Yes no clubbing, cyanosis or edema Assessment and Plan Assessment & Plan (1) Degenerative cervical disc: Code(s): M50.30 - Other cervical disc degeneration, unspecified cervical region Plan: S/P cervical discectomy and fusion back [place] [address] Fermin Oh Will send patient for repeat cervical spine MRI for further evaluation of her recently increasing neck pain Continue Tramadol 50 mg TID PRN and Tizanidine 4 mg TID PRN (2) Migraine: Code(s): G43.909 - Migraine, unspecified, not intractable, without status migrainosus Qualifiers: Intractability: not intractable Migraine type: unspecified Status migrainosus presence: without status migrainosus Qualified Code(s): G43.909 - Migraine, unspecified, not intractable, without status migrainosus Plan: Reinforced avoidance of all potential migraine triggers although advised that her recent increased neck pain can also be a possible trigger Will refer her to neurology at [facility] for further evaluation and management Continue Fioricet PRN Plan To return as scheduled in September 2023 for her annual physical examination Orders: Orders MR cervical spine wo con 07/26/23 M50.30 - Other cervical disc degeneration, unspecified cervical region, M54.12 - Radiculopathy, cervical region Referrals Neurology Referral G43.909 - Migraine, unspecified, not intractable, without status migrainosus Coding Level of Care Code Est Pt Level 3 (66569) Diagnoses Degenerative cervical disc M50.30 Migraine without status migrainosus, not intractable, unspecified migraine type G43.909 Intractability: not intractable Migraine type: unspecified Status migrainosus presence: without status migrainosus
== END 2023-07-26 14:35 | disposition home or self-care (01) ==
PROVIDERS: PCP Internal Medicine; Visit Provider Internal Medicine
DX: M50.30 Other cervical disc degeneration, unspecified cervical region (principal); G43.909 Migraine, unspecified, not intractable, without status migrainosus
CPT/HCPCS: 99213

== ENCOUNTER 2023-08-06 12:34 | Outpatient (AMB) | payer OTHER, SELFPAY ==
[2023-08-06 12:37] VITALS: BP 138/90; PULSE 83; O2SAT 100; BMI 28.1
--- NOTE | 2023-08-06 12:37 | MHC.PC.OV ---
Vital Signs 08/06/23 12:37 Height 5 ft Weight 144 lb 0.6 oz BMI 28.1 BP 138/90 H Blood Pressure Location Lt brachial Position Sitting Pulse 83 Pulse Source Pulse Oximeter Pulse Oximetry (%) 100 Oxygen Delivery Method Room Air Intake Visit Reasons: retina hypertension Allergies ciprofloxacin Adverse Reaction (Intermediate, Verified 08/07/23 01:39) swelling of feet Sulfa (Sulfonamide Antibiotics) Adverse Reaction (Intermediate, Verified 08/07/23 01:39) swelling of feet Medication List - Last Reconciled 08/07/23 by Melvin Lara MD [id number] 50-325-40 mg 1 tab PO Q6-8H PRN epinephrine (EpiPen) 0.3 mg IM Q4H PRN famotidine 40 mg PO BEDTIME 30 days fexofenadine 180 mg PO DAILY PRN 90 days fluticasone propionate 50 mcg/actuation 2 sprays intranasal DAILY PRN 30 days ibuprofen 800 mg PO TID PRN 30 days lisinopril 5 mg PO DAILY 30 days loratadine 10 mg PO DAILY PRN 90 days medroxyprogesterone 150 mg IM Q12W phenazopyridine 200 mg PO TID PRN 20 days tizanidine 4 mg PO BEDTIME PRN 30 days tramadol 50 mg PO TID PRN 30 days Tobacco use date assessed: 05/21/23 Dental Screening Dental Screen Date: 05/21/23 HPI retina hypertension HPI Details Patient comes in today with concerns about her blood pressure States that she went for her eye exam last week on 07/31/2023 was advised that she has hypertensive retinopathy changes in her eyes on exam and she was advised to follow-up with her PCP immediately for further management and investigation Patient states that she feels okay She brought in a log of her blood pressure readings over the past few days, and her log shows her systolic BP readings running between 140 to 160 mm often She denies any increased headaches or dizziness lately Denies any chest pains, no shortness of breath No nausea /vomiting, no abdominal pain No change in bowel habits noted [facility] Medical History (Updated 08/07/23 @ 04:55 by Melvin Lara MD) Hypertensive retinopathy of both eyes Pure hypercholesterolemia Overweight (BMI 25.0-29.9) Dysuria Pelvic floor dysfunction Headache, migraine Microscopic hematuria Recurrent UTI Hypocitraturia Recurrent nephrolithiasis Epigastric pain Hemorrhoid Anal fissure Rectal bleed Weakness of both hands Menstrual disorder Obesity (BMI 30-39.9) Anxiety Nonintractable headache Herniation of cervical intervertebral disc with radiculopathy Herniated disc Surgical History History of surgery Hx of cystoscopy S/P ureteral stent placement History of cervical discectomy History of section History of tubal ligation Family History Father Medical history unknown Mother Medical history unknown Maternal Grandmother Breast cancer Sister Breast cancer Daughter Breast cancer Son Autism Mental health disorder Social History Housing: Apartment Alcohol intake: former Patient Tobacco Use Status: Never used Tobacco e-Cigarette/Vaping Use: Never Used Second Hand Smoke Exposure: No service: No Current occupational status: employed Cognitive needs: No Hearing needs: No Vision needs: Yes (glasses) Female Reproductive History Menstrual Age of Menarche: 15 Questionnaire Thrive Questionnaire Date Thrive assessed: 05/21/23 AUDIT C Alcohol Use Questionnaire (AUDIT-C) 1. How often do you have a drink containing alcohol?: Never 3. How often do you have six or more drinks on one occasion?: Never Total Score: 0 Score Reviewed/Action Taken: Yes SENG-7 AMB Questionnaire SENG-7 Date SENG - 7 assessed: 05/21/23 Source: Developed by Drs. Tanvir Rucker, Selam Dangelo, Berry Pineda and colleagues, with an educational beth from [employer]. Review of Systems Const Denies fatigue, Denies fever(s) and Reports headache(s) (on and off) Eyes Denies eye pain ENT Denies dysphagia, Denies dizziness, Denies otalgia, Reports headache(s) (on and off), Reports neck pain (chronic - increased lately) and Denies odynophagia Card Denies chest pain, Denies rapid heart rate, Denies irregular heart rhythm, Denies palpitations and Denies dyspnea Resp Denies chest congestion, Denies cough and Denies dyspnea GI Denies abdominal pain, Denies constipation, Denies dysphagia, Denies heartburn, Denies diarrhea, Denies nausea, Denies odynophagia and Denies vomiting Denies hematuria, Denies nocturia, Denies dysuria and Denies urinary urgency Musc Denies back pain and Reports neck pain (chronic - increased lately) Skin/Breast Denies rash Neuro Denies dizziness and Reports headache(s) (on and off) Psych Denies anxiety Endo Denies fatigue and Denies palpitations Ad/Lymph Denies easy bruising Aller/Immun Reports seasonal rhinorrhea Physical exam (Primary Care) Vital Signs: Last Vital Signs Pulse 83 08/06/23 12:37 BP 138/90 H 08/06/23 12:37 Pulse Ox 100 08/06/23 12:37 Oxygen Delivery Method Room Air 08/06/23 12:37 BMI result Body Mass Index 28.1 Tobacco/Smoking Status: Tobacco use Status Tobacco use date assessed 05/21/23 08/06/23 12:41 Patient Tobacco Use Status Never used Tobacco 08/06/23 12:41 e-Cigarette/Vaping Use Never Used 08/06/23 12:41 Thrive Assessment: Date of Thrive Assessment Date Thrive assessed 05/21/23 08/06/23 12:41 Const General: no acute distress and alert HENMT Throat: Yes posterior oropharynx normal and Yes tonsils normal Neck Neck: Yes no lymphadenopathy and Yes tender (over the cervical spine - chronic) Thyroid: Thyroid normal Resp Auscultation: clear to auscultation bilaterally, no rales and no wheezes Cardio Rate: regular rate Rhythm: regular rhythm Heart sounds: no murmurs GI Palpation (GI): Soft to palpation and nontender Auscultation: normal bowel sounds General: Yes no CVA tenderness Back/Spine/Pelvis Back: no CVA tenderness Cervical Spine: Cervical spine tenderness Thoracic/Lumbar Spine: thoracic and lumbar spine normal to inspection Skin Rashes: no rashes Extrem General: Yes no clubbing, cyanosis or edema Assessment and Plan Assessment & Plan (1) Essential hypertension: Code(s): I10 - Essential (primary) hypertension Plan: Discussed low sodium diet - goal is systolic BP of 120 mm or less Patient brought in her BP log for the past few days, which showed her systolic BP consistently running between 140 to 160 mm Will go ahead and start her on Lisinopril 5 mg QD Patient is advised to continue monitoring her blood pressure regularly to call if she starts experiencing any recurrent dizziness, lightheadedness or weakness as previous blood pressure readings have been often times within acceptable range until her recent blood pressure log readings (2) Hypertensive retinopathy of both eyes: Code(s): H35.033 - Hypertensive retinopathy, bilateral Plan: This was 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 by 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 when she had eye exam done last week on 07/31/2023 and she was advised to reach out to her PCP for further evaluation and management Will start for now on some antihypertensives to better control her blood pressure Should also consider carotid ultrasound for further evaluation later on, especially if patient is not able to tolerate taking blood pressure medications (3) Migraine: Code(s): G43.909 - Migraine, unspecified, not intractable, without status migrainosus Qualifiers: Migraine type: unspecified Status migrainosus presence: without status migrainosus Intractability: not intractable Qualified Code(s): G43.909 - Migraine, unspecified, not intractable, without status migrainosus Plan: Reinforced avoidance of all potential migraine triggers although advised that her recent increased neck pain can also be a possible trigger She has been referred to neurology at [facility] for further evaluation and management and is currently still waiting for her appt to be scheduled Continue Fioricet PRN (4) Pure hypercholesterolemia: Code(s): E78.00 - Pure hypercholesterolemia, unspecified Plan: Reinforced low cholesterol diet Will recheck her labs and fasting lipids in a couple of months for follow up (5) Anxiety: Code(s): F41.9 - Anxiety disorder, unspecified Plan: States that her anxiety has been much better controlled and she is doing well on her current Rx Continue Bupropion XL 150 mg QD (6) Overweight (BMI 25.0-29.9): Code(s): E66.3 - Overweight Plan: Reniforced diet/exercise as tolerated/lose weight Follow-up with weight management as scheduled Plan To return as scheduled in September 2023 for her annual physical examination Medications: New lisinopril 5 mg PO DAILY 30 tabs 3RF 30 days Coding Level of Care Code Est Pt Level 3 (66541) Diagnoses Essential hypertension I10 Hypertensive retinopathy of both eyes H35.033 Migraine without status migrainosus, not intractable, unspecified migraine type G43.909 Migraine type: unspecified Status migrainosus presence: without status migrainosus Intractability: not intractable Pure hypercholesterolemia E78.00 Anxiety F41.9 Overweight (BMI 25.0-29.9) E66.3
== END 2023-08-06 13:37 | disposition home or self-care (01) ==
PROVIDERS: PCP Internal Medicine; Visit Provider Internal Medicine
DX: I10 Essential (primary) hypertension (principal); H35.033 Hypertensive retinopathy, bilateral; G43.909 Migraine, unspecified, not intractable, without status migrainosus; E78.00 Pure hypercholesterolemia, unspecified; F41.9 Anxiety disorder, unspecified; E66.3 Overweight
CPT/HCPCS: 99213

== ENCOUNTER 2023-09-20 14:50 | Outpatient (AMB) | payer OTHER, SELFPAY ==
--- NOTE | 2023-09-20 14:56 | A.OFFPC_ITS ---
Vital Signs 09/20/23 14:58 Height 5 ft Weight 147 lb 8 oz BMI 28.8 BP 122/80 Blood Pressure Location Lt brachial Position Sitting Pulse 95 Pulse Source Pulse Oximeter Pulse Oximetry (%) 97 Oxygen Delivery Method Room Air Intake Visit Reasons: Annual Exam Intake Note: Patient is here today for a physical. 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: No Plastic Tool Maker: Not Required per policy Accompanied by: Self / Same As Patient Allergies ciprofloxacin Adverse Reaction (Intermediate, Verified 09/20/23 15:39) swelling of feet Sulfa (Sulfonamide Antibiotics) Adverse Reaction (Intermediate, Verified 09/20/23 15:39) swelling of feet Medication List - Last Reconciled 09/20/23 by Melvin Lara MD [id number]-[id number] 50-325-40 mg 1 tab PO Q6-8H PRN epinephrine (EpiPen) 0.3 mg IM Q4H PRN ibuprofen 800 mg PO TID PRN 30 days tramadol 50 mg PO TID PRN 30 days Tobacco use date assessed: 09/20/23 Dental Screening Dental Screen Date: 05/21/23 HPI Annual Exam HPI Details Patient comes in today for her annual physical examination States that she is currently experiencing increased pain over the back of her neck and that she can hardly move her neck or turn her head at this time Is still waiting for her cervical spine MRI, which she states has not been scheduled yet Relates (+) on and off headaches that are mostly related to her neck issues; she denies any dizziness lately Denies any chest pains, no SOB No nausea/vomiting, no abdominal pain No change in bowel habits noted She denies any acute urinary symptoms She is now due for her annual mammogram (last done in July 2022) and annual gynecology exam and pap smear but states that all of her tests and procedures now have to be done through [facility] due to insurance restrictions States that she will look for a program director/music director at [facility] and call them up to schedule an appointment with them BRYN She is also now due for her screening colonoscopy - has never had one done in the past She needs her Tramadol Rx refilled Was not able to get her follow up labs done prior to her visit today - states that she was not even aware she needed to have some labs done [facility] Medical History Hypertensive retinopathy of both eyes Pure hypercholesterolemia Overweight (BMI 25.0-29.9) Dysuria Pelvic floor dysfunction Headache, migraine Microscopic hematuria Recurrent UTI Hypocitraturia Recurrent nephrolithiasis Epigastric pain Hemorrhoid Anal fissure Rectal bleed Weakness of both hands Menstrual disorder Obesity (BMI 30-39.9) Anxiety Nonintractable headache Herniation of cervical intervertebral disc with radiculopathy Herniated disc Surgical History History of surgery Hx of cystoscopy S/P ureteral stent placement History of cervical discectomy History of section History of tubal ligation Family History Father Medical history unknown Mother Medical history unknown Maternal Grandmother Breast cancer Sister Breast cancer Daughter Breast cancer Son Autism Mental health disorder Social History Housing: Apartment Alcohol intake: former Patient Tobacco Use Status: Never used Tobacco e-Cigarette/Vaping Use: Never Used Second Hand Smoke Exposure: No service: No Current occupational status: employed Cognitive needs: No Hearing needs: No Vision needs: Yes (glasses) Female Reproductive History Menstrual Age of Menarche: 15 Questionnaire Thrive Questionnaire Date Thrive assessed: 05/21/23 SENG-7 AMB Questionnaire SENG-7 Date SENG - 7 assessed: 05/21/23 Source: Developed by Drs. Tanvir Rucker, Selam Dangelo, Berry Pineda and colleagues, with an educational beth from [employer]. Review of Systems Const Denies chills, Reports fatigue, Denies fever(s), Reports headache(s) (on and off - related to her neck pain) and Denies malaise Eyes Denies blurry vision, Denies change in vision, Denies irritation and Denies itchy eyes ENT Denies dysphagia, Denies dizziness, Denies otalgia, Reports headache(s) (on and off - related to her neck pain), Denies nasal congestion, Reports neck pain (increasing lately - see HPI), Denies odynophagia, Denies sinus pain and Denies sore throat Card Denies chest pain, Denies rapid heart rate, Denies irregular heart rhythm, Denies palpitations and Denies dyspnea Resp Denies chest congestion, Denies cough, Denies dyspnea and Denies wheezing GI Denies abdominal pain, Denies bloating, Denies constipation, Denies dysphagia, Denies heartburn, Denies diarrhea, Denies nausea, Denies odynophagia and Denies vomiting Denies hematuria, Denies urinary frequency, Denies dysuria, Denies urinary incontinence and Denies urinary urgency Musc Denies back pain, Denies arthralgias, Denies joint swelling, Denies muscle weakness and Reports neck pain (increasing lately - see HPI) Skin/Breast Denies breast pain, Denies breast mass, Denies change in pigmentation, Denies lesions, Denies rash and Denies unusual bruising Neuro Denies dizziness, Reports headache(s) (on and off - related to her neck pain) and Denies paresthesias Psych Denies anxiety and Denies depression Endo Reports fatigue and Denies palpitations Ad/Lymph Denies easy bruising Aller/Immun Denies itchy eyes and Denies wheezing Physical exam (Primary Care) Vital Signs: Last Vital Signs Pulse 95 09/20/23 14:58 BP 122/80 09/20/23 14:58 Pulse Ox 97 09/20/23 14:58 Oxygen Delivery Method Room Air 09/20/23 14:58 BMI result Body Mass Index 28.8 Tobacco/Smoking Status: Tobacco use Status Tobacco use date assessed 09/20/23 09/20/23 15:04 Patient Tobacco Use Status Never used Tobacco 09/20/23 15:04 e-Cigarette/Vaping Use Never Used 09/20/23 15:04 Thrive Assessment: Date of Thrive Assessment Date Thrive assessed 05/21/23 09/20/23 15:04 Const General: no acute distress, alert and awake Orientation/consciousness: patient oriented x3 HENMT Head: Yes normocephalic and Yes atraumatic Ears: external ears normal, TM's normal bilaterally and EAC's normal General nose exam: No nasal discharge present Face and sinus: Yes normal facial exam and Yes sinuses nontender Teeth and gingiva: dentition normal Throat: Yes posterior oropharynx normal and Yes tonsils normal (no TP congestion) Eyes Eyelids: Yes eyelids normal Conjunctivae: conjunctivae normal Pupils: Equal, round and reactive pupils present EOM: EOMs intact bilaterally Neck Other: increased tenderness noted over the cervical spine, with (+) tenderness noted as well over the paraspinal muscles bilaterally Neck: Yes no lymphadenopathy Thyroid: Thyroid normal Resp Auscultation: clear to auscultation bilaterally, no rales and no wheezes Cardio Rate: regular rate Rhythm: regular rhythm Heart sounds: no murmurs GI Palpation (GI): Soft to palpation, nontender and No hepatosplenomegaly present Auscultation: normal bowel sounds General: Yes no CVA tenderness Back/Spine/Pelvis Back: no CVA tenderness Thoracic/Lumbar Spine: thoracic and lumbar spine normal to inspection Skin Lesions: no lesions Rashes: no rashes Neuro General: patient oriented x3, moves all extremities, no focal motor deficits and CN's II-XI intact bilaterally Cranial nerves: Yes Equal, round and reactive pupils present Cognition (Neuro): normal cognition Gait exam (Neuro): Normal gait present Extrem General: Yes no clubbing, cyanosis or edema Assessment and Plan Assessment & Plan (1) Annual physical exam: Code(s): Z00.00 - Encounter for general adult medical examination without abnormal findings Plan: Check labs - will just have patient use her previous orders (printed) for her lab draw She is due for her annual mammogram and screening colonoscopy but because of restrictions by her insurance company, she has to have these done at [place] Mammogram and referral to GI ordered and will have office staff send these over to [place] for scheduling (2) Herniation of cervical intervertebral disc with radiculopathy: Comment: S/P anterior cervical discectomy C5-C6, interbody device and fusion on 07/12/[address] Zander Fay Code(s): M50.10 - Cervical disc disorder with radiculopathy, unspecified cervical region Plan: Patient currently appears to be experiencing a flare up of her neck issues She is currently still awaiting scheduling for her repeat cervical spine MRI that was ordered back in July 2023 Will start her on some oral Prednisone 20 mg QD x 5 days to help calm down her neck issues Have advised her that if her insurance will not approve her cervical spine MRI, the alternative would be to try to refer her to Dr. Duggan and see what they can do to help with her neck issues Continue Ibuprofen 800 mg TID PRN with food and Tramadol 50 mg TID PRN for now (3) Essential hypertension: Code(s): I10 - Essential (primary) hypertension Plan: Reinforced low sodium diet - goal is systolic BP of 120 mm or less Patient brought in her BP log for the past few days, which showed her systolic BP consistently running between 140 to 160 mm We started her previously on Lisinopril 5 mg QD but patient stopped taking the Rx after a few days as it was supposedly causing her blood pressure to bottom out on her States that she has just been taking OTC Fish oil supplements and notes that her blood pressure seems to be better lately without any Rx She will continue to monitor her blood pressure regularly for now (4) Hypertensive retinopathy of both eyes: Code(s): H35.033 - Hypertensive retinopathy, bilateral Plan: This was 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 by 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 when she had eye exam done back on 07/31/2023 and she was advised to reach out to her PCP for further evaluation and management She was started on some antihypertensives previously to better control her blood pressure but she could not tolerate the Rx as it was making her BP drop too low She should also consider a carotid ultrasound for further evaluation later on, especially since she is not able to tolerate taking blood pressure medications (5) Migraine: Code(s): G43.909 - Migraine, unspecified, not intractable, without status migrainosus Qualifiers: Migraine type: unspecified Status migrainosus presence: without status migrainosus Intractability: not intractable Qualified Code(s): G43.909 - Migraine, unspecified, not intractable, without status migrainosus Plan: Reinforced avoidance of all potential migraine triggers; advised that her recent increased neck pain can also be a possible trigger She has been referred to neurology at [facility] for further evaluation and management and is currently still waiting for her appt to be scheduled Continue Fioricet PRN (6) Pure hypercholesterolemia: Code(s): E78.00 - Pure hypercholesterolemia, unspecified Plan: Reinforced low cholesterol diet Will recheck her labs and fasting lipids BRYN for follow up (7) Anxiety: Code(s): F41.9 - Anxiety disorder, unspecified Plan: States that her anxiety has been much better controlled and she is doing well on her current Rx Continue Bupropion XL 150 mg QD (8) Overweight (BMI 25.0-29.9): Code(s): E66.3 - Overweight Plan: Reniforced diet/exercise as tolerated/lose weight Follow-up with weight management as scheduled (9) Breast cancer screening by mammogram: Code(s): Z12.31 - Encounter for screening mammogram for malignant neoplasm of breast Plan: Will refer her for annual mammography - to be done at [place] (10) Colon cancer screening: Code(s): Z12.11 - Encounter for screening for malignant neoplasm of colon Plan: Will refer her to [place] [facility] for her screening colonoscopy (11) Cervical cancer screening: Code(s): Z12.4 - Encounter for screening for malignant neoplasm of cervix Plan: Patient states that she will try to look for a program director/music director at [place] and schedule an annual exam with them BRYN Plan Follow up in 4 months Orders: Orders MM tomosynthesis screening BI Today Z12.31 - Encounter for screening mammogram for malignant neoplasm of breast Referrals Gastroenterology Referral Z12.11 - Encounter for screening for malignant neoplasm of colon Medications: New prednisone 20 mg PO DAILY 5 days 5 tabs 0RF Refilled tramadol 50 mg PO TID 30 days PRN 90 tabs 0RF pain M50.30 - Other cervical disc degeneration, unspecified cervical region Coding Level of Care Code Est Pt Prev Care 40-64y(58818) Diagnoses Annual physical exam Z00.00 Herniation of cervical intervertebral disc with radiculopathy M50.10 Essential hypertension I10 Hypertensive retinopathy of both eyes H35.033 Migraine without status migrainosus, not intractable, unspecified migraine type G43.909 Migraine type: unspecified Status migrainosus presence: without status migrainosus Intractability: not intractable Pure hypercholesterolemia E78.00 Anxiety F41.9 Overweight (BMI 25.0-29.9) E66.3 Breast cancer screening by mammogram Z12.31 Colon cancer screening Z12.11 Cervical cancer screening Z12.4
[2023-09-20 14:58] VITALS: BP 122/80; PULSE 95; O2SAT 97; BMI 28.8
== END 2023-09-20 15:52 | disposition home or self-care (01) ==
PROVIDERS: PCP Internal Medicine; Visit Provider Internal Medicine
DX: Z00.00 Encounter for general adult medical examination without abnormal findings (principal); M50.10 Cervical disc disorder with radiculopathy, unspecified cervical region; I10 Essential (primary) hypertension; H35.033 Hypertensive retinopathy, bilateral; G43.909 Migraine, unspecified, not intractable, without status migrainosus; E78.00 Pure hypercholesterolemia, unspecified; F41.9 Anxiety disorder, unspecified; E66.3 Overweight; Z12.31 Encounter for screening mammogram for malignant neoplasm of breast; Z12.11 Encounter for screening for malignant neoplasm of colon; Z12.4 Encounter for screening for malignant neoplasm of cervix
CPT/HCPCS: 99396

== ENCOUNTER 2024-01-24 13:13 | Outpatient (AMB) | payer OTHER, SELFPAY ==
[2024-01-24 13:16] VITALS: BP 126/80; PULSE 87; O2SAT 97; BMI 28.5
--- NOTE | 2024-01-24 13:16 | A.OFFPC_ITS ---
Vital Signs 01/24/24 13:16 Height 5 ft Weight 146 lb 2 oz BMI 28.5 BP 126/80 Blood Pressure Location Lt brachial Position Sitting Pulse 87 Pulse Source Pulse Oximeter Pulse Oximetry (%) 97 Oxygen Delivery Method Room Air Intake Visit Reasons: 4 Month F/U Corporate Travel Consultant Required: No Accompanied by: Self / Same As Patient Allergies ciprofloxacin Adverse Reaction (Intermediate, Verified 01/24/24 13:52) swelling of feet Sulfa (Sulfonamide Antibiotics) Adverse Reaction (Intermediate, Verified 01/24/24 13:52) swelling of feet Medication List - Last Reconciled 01/24/24 by Melvin Lara MD mfwhzffdie-sbyntmbfyshkx-vihz 50-325-40 mg 1 tab PO Q6-8H PRN epinephrine (EpiPen) 0.3 mg IM Q4H PRN ibuprofen 800 mg PO TID PRN 30 days nitrofurantoin monohyd/m-cryst 100 mg (Macrobid) 100 mg PO Q12H 7 days prednisone 20 mg PO DAILY 5 days tramadol 50 mg PO TID PRN 7 days trazodone 50 mg PO BEDTIME PRN 30 days Tobacco use date assessed: 01/24/24 Dental Screening Dental Screen Date: 01/24/24 Did you have a dental visit in the last 12 months?: Yes Did you have a dental problem in the last 6 months where you did not have access to dental care?: No Was dental information given to patient?: Patient has dentist HPI 4 Month F/U HPI Details Patient comes in today for her follow up visit States that she is still experiencing increased pain over the back of her neck and that her insurance denied her cervical spine MRI States that they would also not cover her Tramadol Rx Relates (+) on and off headaches that are mostly related to her neck issues; she denies any dizziness Denies any chest pains, no increased SOB No nausea/vomiting, no abdominal pain No change in bowel habits noted Adds that she has been having trouble sleeping at night for a while now and at most, gets about 2 hours of sleep and she has been feeling exhausted as a result lately She was not able to get her previously ordered labs done yet [facility] Medical History (Updated 01/24/24 @ 14:37 by Melvin Lara MD) Insomnia Hypertensive retinopathy of both eyes Pure hypercholesterolemia Overweight (BMI 25.0-29.9) Dysuria Pelvic floor dysfunction Headache, migraine Microscopic hematuria Recurrent UTI Hypocitraturia Recurrent nephrolithiasis Epigastric pain Hemorrhoid Anal fissure Rectal bleed Weakness of both hands Menstrual disorder Obesity (BMI 30-39.9) Anxiety Nonintractable headache Herniation of cervical intervertebral disc with radiculopathy Herniated disc Surgical History History of surgery Hx of cystoscopy S/P ureteral stent placement History of cervical discectomy History of section History of tubal ligation Family History Father Medical history unknown Mother Medical history unknown Maternal Grandmother Breast cancer Sister Breast cancer Daughter Breast cancer Son Autism Mental health disorder Social History Housing: Apartment Alcohol intake: former Patient Tobacco Use Status: Never used Tobacco e-Cigarette/Vaping Use: Never Used Second Hand Smoke Exposure: No service: No Current occupational status: employed Cognitive needs: No Hearing needs: No Vision needs: Yes (glasses) Female Reproductive History Menstrual Age of Menarche: 15 Questionnaire PHQ-9 Over the last 2 weeks, how often have you been bothered by any of the following problems? 1. Little interest or pleasure in doing things: not at all 2. Feeling down, depressed, or hopeless: not at all 3. Trouble falling or staying asleep, or sleeping too much: not at all 4. Feeling tired or having little energy: not at all 5. Poor appetite or overeating: not at all 6. Feeling bad about yourself - or that you are a failure or have let yourself or your family down: not at all 7. Trouble concentrating on things, such as reading the newspaper or watching television: not at all 8. Moving or speaking so slowly that other people could have noticed. Or the opposite - being so fidgety or restless that you have been moving around a lot more than usual: not at all 9. Thoughts that you would be better off or of hurting yourself in some way: not at all Total score: 0 Depression Screening Interpretation: Negative Depression Screening Done: Yes 70763 - PHQ-9 Billing: Yes Source: Developed by Drs. Tanvir Rucker, Berry Chao and colleagues, with an educational beth from [email or web address]. Thrive Questionnaire Date Thrive assessed: 01/24/24 I am a: Patient What is your living situation today?: I have a steady place to live Within the past 12 months, did the food you bought not last and you didn't have the money to get more?: Never true Within the past 12 months, did you worry whether your food would run out before you got money to buy more?: Never true Do you have trouble paying for medicines?: No Do you have trouble getting transportation to medical appointments?: No Do you have trouble paying your heating and electricity bill?: No Do you have trouble taking care of your child, family member or friend?: No Do you have trouble with day-to-day activities such as bathing, preparing meals, shopping, managing finances, etc.?: No Are you currently unemployed and looking for a job?: No Are you interested in more education?: No Please select the resources that you would like help with: None Currently or been in a relationship where the following occur: No concerns reported THRIVE Score: 0 AUDIT C Alcohol Use Questionnaire (AUDIT-C) 1. How often do you have a drink containing alcohol?: Never 3. How often do you have six or more drinks on one occasion?: Never Total Score: 0 Score Reviewed/Action Taken: Yes SENG-7 AMB Questionnaire SENG-7 Date SENG - 7 assessed: 01/24/24 Feeling nervous, anxious, or on edge: 0 = Not at all Not being able to stop or control worryin = Not at all Worrying too much about different things: 0 = Not at all Trouble relaxin = Not at all Being so restless that it is hard to sit still: 0 = Not at all Becoming easily annoyed or irritable: 0 = Not at all Feeling afraid as if something awful might happen: 0 = Not at all Total SENG-7 score (0-4 normal; 5-9 mild; 10-14 moderate; 15-21 severe): 0 Source: Developed by Selam Barron Kurt Kroenke and colleagues, with an educational beth from [employer] Review of Systems Const Denies chills, Reports difficulty sleeping (increasing lately), Reports fatigue, Denies fever(s) and Reports headache(s) (on and off - related to her neck pain) ENT Denies dysphagia, Denies dizziness, Denies otalgia, Reports headache(s) (on and off - related to her neck pain), Reports neck pain (increase lately ), Denies odynophagia and Denies sore throat Card Denies chest pain, Denies irregular heart rhythm, Denies palpitations and Denies dyspnea Resp Denies chest congestion, Denies cough and Denies dyspnea GI Denies abdominal pain, Denies constipation, Denies dysphagia, Denies heartburn, Denies diarrhea, Denies nausea, Denies odynophagia and Denies vomiting Denies urinary frequency, Denies dysuria and Denies urinary urgency Musc Denies back pain, Denies arthralgias and Reports neck pain (increase lately ) Skin/Breast Denies rash Neuro Denies dizziness, Reports headache(s) (on and off - related to her neck pain) and Denies paresthesias Psych Denies anxiety and Denies depression Endo Reports fatigue and Denies palpitations Ad/Lymph Denies easy bruising Physical exam (Primary Care) Vital Signs: Last Vital Signs Pulse 87 01/24/24 13:16 BP 126/80 01/24/24 13:16 Pulse Ox 97 01/24/24 13:16 Oxygen Delivery Method Room Air 01/24/24 13:16 BMI result Body Mass Index 28.5 Tobacco/Smoking Status: Tobacco use Status Tobacco use date assessed 01/24/24 01/24/24 13:26 Patient Tobacco Use Status Never used Tobacco 01/24/24 13:26 e-Cigarette/Vaping Use Never Used 01/24/24 13:26 PHQ-9: PHQ-9 Score PHQ-9: Total score 0 01/24/24 13:58 Depression Screening Interpretation: Negative Thrive Assessment: Date of Thrive Assessment Date Thrive assessed 01/24/24 01/24/24 13:26 Currently or been in a relationship where the following occur: No concerns repor rosibel Const General: no acute distress and alert HENMT Ears: TM's normal bilaterally and EAC's normal Throat: Yes posterior oropharynx normal and Yes tonsils normal (no TP congestion) Neck Other: increased tenderness noted over the cervical spine, with (+) tenderness noted as well over the paraspinal muscles bilaterally Neck: Yes no lymphadenopathy Thyroid: Thyroid normal Resp Auscultation: clear to auscultation bilaterally, no rales and no wheezes Cardio Rate: regular rate Rhythm: regular rhythm Heart sounds: no murmurs GI Palpation (GI): Soft to palpation and nontender Auscultation: normal bowel sounds General: Yes no CVA tenderness Back/Spine/Pelvis Back: no CVA tenderness Cervical Spine: Cervical spine tenderness Thoracic/Lumbar Spine: No lumbar spinal tenderness Skin Rashes: no rashes Extrem General: Yes no clubbing, cyanosis or edema Office Procedures Flu Questionnaire Does the patient have a severe egg allergy?: No Immunizations Fluarix Triv [id number] (PF) 45 mcg (15 mcg x 3)/0.5 mL IM syringe Performing Provider: Melvin Lara MD [facility] Documented (not given) by: RENATO Spencer on 01/24/24 14:24 Reason Not Given: Not Given Coding Level of Care Code Est Pt Level 4 (24870) Diagnoses Herniation of cervical intervertebral disc with radiculopathy M50.10 Essential hypertension I10 Hypertensive retinopathy of both eyes H35.033 Migraine without status migrainosus, not intractable, unspecified migraine type G43.909 Migraine type: unspecified Status migrainosus presence: without status migrainosus Intractability: not intractable Pure hypercholesterolemia E78.00 Insomnia, unspecified type G47.00 Insomnia type: unspecified Anxiety F41.9 Overweight (BMI 25.0-29.9) E66.3 Assessment & Plan Assessment & Plan (1) Herniation of cervical intervertebral disc with radiculopathy: Comment: S/P anterior cervical discectomy C5-C6, interbody device and fusion on 07/12/[address] Zander Fay Code(s): M50.10 - Cervical disc disorder with radiculopathy, unspecified cervical region Category: Medical Plan: Patient is currently still experiencing frequent increased neck pain A repeat cervical spine MRI was ordered for her back in July 2023 for further evaluation but her health insurance would not cover this Have advised her that one alternative would be to try to refer her to Dr. Duggan and see what they can do to help with her neck issues Continue Ibuprofen 800 mg TID PRN with food and Tramadol 50 mg TID PRN - states that her insurance would not even cover her Tramadol Rx so will try to send in for a 7 days supply only for now to see if that will help her get through the insurance restriction States that she is willing to try physical therapy again as it has been at least a couple of years now since she has been to PT [facility] [employer] (2) Essential hypertension: Code(s): I10 - Essential (primary) hypertension Category: Medical Plan: Reinforced low sodium diet - goal is systolic BP of 120 mm or less She was previously started on Lisinopril 5 mg QD but patient stopped taking the Rx after a few days as it was supposedly causing her blood pressure to bottom out on her States that she has just been taking OTC Fish oil supplements and notes that her blood pressure seems to be better lately without any Rx so at this point, she may NOT necessarily have high blood pressure but her diagnosis would be more of elevated BP, likely situational She will continue to monitor her blood pressure regularly for now (3) Hypertensive retinopathy of both eyes: Code(s): H35.033 - Hypertensive retinopathy, bilateral Category: Medical Plan: This was noted by her phone representative when she had eye exam done back on 07/31/2023 and she was advised to reach out to her PCP for further evaluation and manage ment She was started on some antihypertensives previously to better control her blood pressure but she could not tolerate the Rx as it was making her BP drop too low Her BP currently appears normal WITHOUT any BP med or Rx She should consider getting a carotid ultrasound done for further evaluation at some point, especially since she is not able to tolerate taking blood pressure medications Follow up with ophthalmology as scheduled (4) Migraine: Code(s): G43.909 - Migraine, unspecified, not intractable, without status migrainosus Category: Medical Qualifiers: Migraine type: unspecified Status migrainosus presence: without status migrainosus Intractability: not intractable Qualified Code(s): G43.909 - Migraine, unspecified, not intractable, without status migrainosus Plan: Reinforced avoidance of all potential migraine triggers; advised that her recent increased neck pain can also be a possible trigger She has been referred to neurology at [facility] for further evaluation and management and is currently still waiting for her appt to be scheduled Continue Fioricet PRN (5) Pure hypercholesterolemia: Code(s): E78.00 - Pure hypercholesterolemia, unspecified Category: Medical Plan: She was not able to get her previously ordered follow up labs done yet and is advised to try to get these done BRYN - orders are updated and printed out as patient has to get her labs done at [facility] due to insurance restrictions Reinforced low cholesterol diet (6) Insomnia: Code(s): G47.00 - Insomnia, unspecified Category: Medical Qualifiers: Insomnia type: unspecified Qualified Code(s): G47.00 - Insomnia, unspecified Plan: Sleep hygiene reinforced Will start her on a trial of Trazodone 50 mg Q HS PRN (7) Anxiety: Code(s): F41.9 - Anxiety disorder, unspecified Category: Medical Plan: Patient states that her anxiety has been much better controlled and she is doing well on her current Rx Continue Bupropion XL 150 mg QD (8) Overweight (BMI 25.0-29.9): Code(s): E66.3 - Overweight Category: Medical Plan: Reniforced diet/exercise as tolerated/lose weight Follow-up with weight management as scheduled Plan Follow up in 4 months Orders: Orders Influenza [id number] Immunization Today Z23 - Encounter for immunization Referrals Physical Medicine and Rehabilitation Referral M50.10 - Cervical disc disorder with radiculopathy, unspecified cervical region, Z98.890 - Other specified postprocedural states Medications: New trazodone 50 mg PO BEDTIME 30 days PRN 30 tabs 1RF insomnia Changed From tramadol 50 mg PO TID 30 days PRN 90 tabs 0RF pain M50.30 - Other cervical disc degeneration, unspecified cervical region To tramadol 50 mg PO TID 7 days PRN 21 tabs 0RF pain M50.30 - Other cervical disc degeneration, unspecified cervical region
== END 2024-01-24 13:56 | disposition home or self-care (01) ==
PROVIDERS: PCP Internal Medicine; Visit Provider Internal Medicine
DX: M50.10 Cervical disc disorder with radiculopathy, unspecified cervical region (principal); I10 Essential (primary) hypertension; H35.033 Hypertensive retinopathy, bilateral; G43.909 Migraine, unspecified, not intractable, without status migrainosus; E78.00 Pure hypercholesterolemia, unspecified; G47.00 Insomnia, unspecified; F41.9 Anxiety disorder, unspecified; E66.3 Overweight; Z23 Encounter for immunization

== ENCOUNTER → 2024-01-24 13:13 | Outpatient (BNVA) | payer OTHER, SELFPAY | PROVIDERS: PCP Internal Medicine; Visit Provider Internal Medicine | DX: M50.10 Cervical disc disorder with radiculopathy, unspecified cervical region (principal); I10 Essential (primary) hypertension; H35.033 Hypertensive retinopathy, bilateral; G43.909 Migraine, unspecified, not intractable, without status migrainosus; E78.00 Pure hypercholesterolemia, unspecified; G47.00 Insomnia, unspecified; F41.9 Anxiety disorder, unspecified; E66.3 Overweight; Z79.899 Other long term (current) drug therapy; Z28.9 Immunization not carried out for unspecified reason | CPT/HCPCS: 90471; 96127 ==

== ENCOUNTER 2024-07-11 22:35 | Emergency (ER) | payer OTHER, SELFPAY ==
--- NOTE | ~2024-07-11 | CT_ITS ---
CLINICAL HISTORY: L flank pain, hx stones CT abdomen and pelvis without contrast Comparison: None Findings: No consolidation or effusion. The unenhanced spleen, adrenal glands, pancreas, gallbladder and liver are unremarkable. There are bilateral nonobstructing renal calculi. No right-sided hydronephrosis. No right-sided stone. There is moderate left hydronephrosis and there is a 5 mm stone in the proximal left ureter. Distal left ureter is decompressed. No bowel obstruction, pneumoperitoneum, or pneumatosis. Pelvic contents unremarkable. Normal appendix. No acute fracture. IMPRESSION: 5 mm stone in the proximal left ureter resulting in moderate left hydronephrosis. This document has been electronically signed by: Carlos Griffin MD on 07/12/2024 00:04:50
[2024-07-11 22:41] VITALS: BP 179/108; PULSE 89; RESP 22; TEMP 36.6; O2SAT 96; BMI 28.7
--- NOTE | 2024-07-11 22:45 | PC.NURSE ---
notified CONNOR Lee of blood pressure.
[2024-07-11 23:13] LABS: Appearance Urine Clear; Color Urine Yellow; Glucose Urine UA Negative (Negative); Leukocyte Esterase Urine Moderate (2+) (Negative); Nitrite Urine Negative (Negative); Specific Gravity - Urine 1.015 (1.005-1.025); UMIC TRIGGER UACC YES; Urine Blood Moderate (2+) (Negative); Urine Ketones Negative (Negative); Urine Protein Negative (Neg-Trace)
[2024-07-11 23:22] LABS: Bacteria Urine 1+ (None Seen); Hyaline Casts Urine 0-2 /LPF (0-2); RBC Urine >20 /HPF (0-2); UACC Culture Trigger YES
[2024-07-11 23:25] LABS: Lymphocytes Percent Auto 21.7 % (20-40); PLT CLUMP 1; Red Cell Distribution Width 14.1 % (11.0-16.0); SCAN SMEAR FLAG 1
[2024-07-11 23:26] LABS: Basophils Absolute Auto 0.1 X10*3/uL (0.0-0.2); Basophils Percent Auto 0.8 % (0-2); Eosinophils Absolute Auto 0.2 X10*3/uL (0.0-0.4); Eosinophils Percent Auto 2.2 % (0-4); Hematocrit 41.5 % (37.0-47.0); Hemoglobin 14.2 g/dl (12.0-16.0); Imm Gran Abs Auto 0.11 X10*3/uL (0.00-0.03); Imm Gran Pct Auto 1.1 % (0.0-0.4); Lymphocytes Absolute Auto 2.2 X10*3/uL (1.2-4.9); MANUAL DIFF FLAG SCAN; Mean Corpuscular HGB Conc 34.2 g/dl (31.0-35.0); Mean Corpuscular Hemoglobin 28.3 pg (27.0-33.0); Mean Corpuscular Volume 82.7 fL (80.0-98.0); Mean Platelet Volume 13.1 fL (9.4-12.3); Monocytes Absolute Auto 0.6 X10*3/uL (0.1-1.2); Monocytes Percent Auto 6.3 % (2-11); Neutrophils Percent Auto 67.9 % (45-73); Red Blood Count 5.02 X10*6/uL (4.20-5.50)
--- NOTE | 2024-07-11 23:29 | ED.GENADULT ---
HPI - General Adult General Chief complaint: Abdominal Pain Stated complaint: Lower left abd pain Time Seen by Provider: 07/11/24 23:16 Source: patient Mode of arrival: ambulatory Limitations: no limitations History of Present Illness ED Provider: Dr. Chelsea Khalil HPI narrative: Patient comes to the emergency room complaining of left-sided flank pain. Patient states that yesterday she had flank pain for a few hours at night, then self resolved. Today, couple of hours ago, 24 hours after the initial episode, patient started having flank pain again, now with nausea and vomiting. Patient states that she has had kidney stones in the past, feels very similar. Last time that she had stones over 5 years ago, patient needed a stent. Patient denies abdominal pain, denies fever chills, denies hematuria or dysuria. Related Data Home Medications ?Medication ?Instructions ?Recorded ?Confirmed epinephrine 0.3 mg/0.3 mL 0.3 mg IM Q4H PRN 05/21/23 01/24/24 injection, auto-injector (EpiPen) Previous Rx's ?Medication ?Instructions ?Recorded ibuprofen 800 mg tablet 800 mg PO TID PRN pain 30 days #90 05/19/22 tabs psbyhcdhwa-gmnnjjsiywedn-wkdznmfd 1 tab PO Q6-8H PRN headaches #30 07/23/23 50 mg-325 mg-40 mg tablet tabs prednisone 20 mg tablet 20 mg PO DAILY 5 days #5 tabs 09/20/23 nitrofurantoin 100 mg PO Q12H 7 days #14 caps 01/05/24 monohydrate/macrocrystals 100 mg capsule (Macrobid) tramadol 50 mg tablet 50 mg PO TID PRN pain 7 days #21 01/24/24 tabs trazodone 50 mg tablet 50 mg PO BEDTIME PRN insomnia 30 01/24/24 days #30 tabs prednisone 20 mg tablet 20 mg PO DAILY 5 days #5 tabs 07/10/24 ketorolac 10 mg tablet 10 mg PO Q8H PRN pain #12 tabs 07/12/24 ondansetron HCl 4 mg tablet 4 mg PO Q6H PRN nausea and 07/12/24 vomiting #14 tabs oxycodone 5 mg tablet 5 mg PO BID PRN pain #5 tabs 07/12/24 tamsulosin 0.4 mg capsule 0.4 mg PO DAILY #14 caps 07/12/24 Allergies Allergy/AdvReac Type Severity Reaction Status Date / Time ciprofloxacin AdvReac Intermediate swelling Verified 07/11/24 22:44 of feet Sulfa (Sulfonamide AdvReac Intermediate swelling Verified 07/11/24 22:44 Antibiotics) of feet Review of Systems Review of Systems: Constitutional : No Weight loss, No Fever, No Chills, No Night Sweats, No Fatigue, No Malaise ENT/Mouth : No Hearing loss, No Ear Pain, No Nasal Congestion, No Sinus Pain, No Hoarseness, No sore throat, No Rhinorrhea, No Swallowing Difficulty Eyes: No Eye Pain, No Swelling, No Redness, No Foreign Body, No Discharge, No Vision Changes Cardiovascular : No Chest Pain, No SOB, No Dyspnea on Exertion, No Orthopnea, No Edema, No Palpitations Respiratory : No Cough, No Sputum, No Wheezing, No Smoke Exposure, No Dyspnea Gastrointestinal : Complaining of nausea and vomiting, No Diarrhea, No Constipation, No abdominal Pain, No Hematochezia, No Melena Genitourinary : no irregular bleeding, No Dysuria, No Urinary Frequency, No Hematuria, No Urinary Incontinence, No Urgency, complaining of left side Flank Pain, No Urinary Flow Changes, No Hesitancy Musculoskeletal : No joint pain, No Myalgias, No Joint Swelling Skin : No Skin Lesions, No rash Neuro : No Weakness, No Numbness, No Paresthesias, No Loss of Consciousness, No Dizziness, No Headache Psych : No Anxiety/Panic, No Depression, No SI/HI/AH/VH, No Social Issues, Heme/Lymph: No Bruising, No Bleeding,No Lymphadenopathy Endocrine : No Polyuria, No Polydipsia, No Temperature Intolerance [facility] Past Medical History Medical History Insomnia Hypertensive retinopathy of both eyes Pure hypercholesterolemia Overweight (BMI 25.0-29.9) Dysuria Pelvic floor dysfunction Headache, migraine Microscopic hematuria Recurrent UTI Hypocitraturia Recurrent nephrolithiasis Epigastric pain Hemorrhoid Anal fissure Rectal bleed Weakness of both hands Menstrual disorder Obesity (BMI 30-39.9) Anxiety Nonintractable headache Herniation of cervical intervertebral disc with radiculopathy Herniated disc Surgical History History of surgery Hx of cystoscopy S/P ureteral stent placement History of cervical discectomy History of section History of tubal ligation Family History Family History Father Medical history unknown Mother Medical history unknown Maternal Grandmother Breast cancer Sister Breast cancer Daughter Breast cancer Son Autism Mental health disorder Social History Social History Housing: Apartment Alcohol intake: current Patient Tobacco Use Status: Never used Tobacco Smoked in Last 30 Days: No e-Cigarette/Vaping Use: Never Used Second Hand Smoke Exposure: No Use of substances other than those prescribed or required for medical reasons: No Advance Directives: No Do you have a plan to hurt others: No Plan Patient : No service: No Current occupational status: employed Cognitive needs: No Hearing needs: No Vision needs: Yes (glasses) Physical Exam ED Vital Signs: Vital Signs - 24 hr 07/11/24 22:41 07/12/24 01:15 Temperature 97.8 F 98.4 F Pulse Rate 89 96 Respiratory Rate 22 H 18 Blood Pressure 179/108 H 124/68 Pulse Oximetry 96 92 Oxygen Delivery Method Room Air Room Air BMI result Body Mass Index 28.7 Const Other: Appearance: Alert. Oriented X3. Looks uncomfortable. Eyes: Pupils equal, round and reactive to light. ENT: Pharynx normal. Neck: Normal inspection. Neck supple. No lymph nodes noted. No crepitus CVS: Normal heart rate and rhythm. Pulses normal. Normal S1 and S2 Respiratory: No respiratory distress. Breath sounds normal. No Wheezing. No rales Abdomen: Soft and nontender. No rigidity. No distention. CVA tenderness on the left Skin: Skin warm and dry. Normal skin color. Normal skin turgor. Extremities: No lower extremity edema. No Lacerations. No Rash Neuro: Oriented X 3. No motor deficit. No sensory deficit. Moving all extremities. No slurred speech. CN 2 through 12 grossly intact Psych: calm, cooperative, normal affect Medications Administered Discontinued Medications Generic Name Dose Route Start Last Admin Trade Name Freq PRN Reason Stop Dose Admin Hydromorphone HCl 1 mg 07/12/24 00:47 07/12/24 01:03 Hydromorphone Hcl 1 Mg/Ml Syringe IVPUSH 07/12/24 00:48 1 mg ONCE ONE Administration Protocol Sodium Chloride 1,000 mls @ 999 mls/hr 07/11/24 23:38 07/11/24 23:52 Ns IVCONT 07/12/24 00:38 999 mls/hr .Q1H1M ONE Administration Ketorolac Tromethamine 30 mg 07/11/24 23:38 07/11/24 23:54 Ketorolac Tromethamine 30 Mg/Ml Vial IVPUSH 07/11/24 23:39 30 mg ONCE ONE Administration Ondansetron HCl 4 mg 07/11/24 23:38 07/11/24 23:54 Ondansetron Hcl 4 Mg/2 Ml Vial IVPUSH 07/11/24 23:39 4 mg ONCE ONE Administration Prochlorperazine Edisylate 5 mg 07/12/24 00:47 07/12/24 01:03 Prochlorperazine Edisylate 10 Mg/2 Ml Vial IVPUSH 07/12/24 00:48 5 mg ONCE ONE Administration Medical Decision Making Medical Decision Making [facility] Narrative: My interpretation of labs: Normal hematology and chemistry, urine positive for blood, large amount of squamous epithelial cells. Patient states that after IV Toradol and Zofran she still feels a bit nauseous and still has flank pain although she feels better. Patient receiving an additional dose of pain medications, IV Dilaudid and Compazine CT scan shows a 5 mm stone in the left proximal ureter resulting in moderate left hydronephrosis Patient was given 1 dose of IV Dilaudid. Patient states that she feels much better. Patient instructed to follow-up with urology. Differential Diagnosis Differential Diagnoses: The differential diagnosis associated with the presentation includes (Pyelonephritis, kidney stone, musculoskeletal pain) Admission/Observation Consideration of admission/observation: Escalation of care including admission/observation considered (Last time the patient had a kidney stone, she needs surgery, observation/admission has been considered) Lab Data [facility] Lab Attestation statement: I reviewed the patient's lab results. 07/11/24 22:56 07/11/24 22:56 Labs: Lab Results 07/11/24 07/11/24 Range/Units 22:56 23:00 WBC 10.2 (4.8-10.8) X10*3/uL RBC 5.02 (4.20-5.50) X10*6/uL Hgb 14.2 (12.0-16.0) g/dl Hct 41.5 (37.0-47.0) % MCV 82.7 (80.0-98.0) fL MCH 28.3 (27.0-33.0) pg MCHC 34.2 (31.0-35.0) g/dl RDW 14.1 (11.0-16.0) % Plt Count 196 (160-400) X10*3/uL MPV 13.1 H (9.4-12.3) fL Immature Gran % (Auto) 1.1 H (0.0-0.4) % Neut % (Auto) 67.9 (45-73) % Lymph % (Auto) 21.7 (20-40) % Clay % (Auto) 6.3 (2-11) % Eos % (Auto) 2.2 (0-4) % Baso % (Auto) 0.8 (0-2) % Lymph # (Auto) 2.2 (1.2-4.9) X10*3/uL [place] # (Auto) 0.6 (0.1-1.2) X10*3/uL Eos # (Auto) 0.2 (0.0-0.4) X10*3/uL Baso # (Auto) 0.1 (0.0-0.2) X10*3/uL Abs Immat Gran (auto) 0.11 H (0.00-0.03) X10*3/uL Absolute Neuts (auto) 7.0 (2.0-8.3) x10*3/uL Absolute Nucleated RBC 0.000 (0.0-0.012) X10*3/uL Nucleated RBC % (auto) 0.0 (0.0-0.2) /100WBC Smear Tech's Comments VERIFIED Sodium 140 (135-145) mmol/L Potassium 4.2 (3.3-5.1) mmol/L Chloride 110 H (96-108) mmol/L Carbon Dioxide 22 (22-29) mmol/L Anion Gap 12 (12-20) BUN 16 (9-16) mg/dL Creatinine 0.74 (0.5-1.4) mg/dL Estim Creat Clear Calc 80.9 Estimated GFR > 60 Random Glucose 109 (60-115) mg/dL Calcium 9.4 (8.4-10.2) mg/dL Total Bilirubin 0.2 (0.0-1.0) mg/dL AST 23 (5-31) U/L ALT 23 (0-31) U/L Alkaline Phosphatase 64 (39-117) U/L Total Protein 6.9 (6.5-8.0) g/dL Albumin 3.7 (3.5-5.0) g/dL Lipase 12 (8-78) U/L Beta HCG, Quant < 2 mIU/mL Urine Color Yellow Urine Appearance Clear Urine pH 7.0 (5.0-9.0) Ur Specific [place] 1.015 (1.005-1.025) Urine Protein Negative (Neg-Trace) mg/dL Urine Glucose (UA) Negative (Negative) mg/dL Urine Ketones Negative (Negative) mg/dL Urine Blood Moderate (2+) H (Negative) Urine Nitrite Negative (Negative) Ur Leukocyte Esterase Moderate (2+) H (Negative) Urine RBC >20 H (0-2) /HPF Urine WBC 11-20 H (0-5) /HPF Ur Squamous Epith Cells 6-10 (0-2) /HPF Urine Bacteria 1+ (None Seen) Hyaline Casts 0-2 (0-2) /LPF Independent Interpretation I performed an independent interpretation of an: CT Scan Radiology Impression Discussion of test interpretation with radiology: I have reviewed the radiologist's reading. Radiologist Impression: No consolidation or effusion. The unenhanced spleen, adrenal glands, pancreas, gallbladder and liver are unremarkable. There are bilateral nonobstructing renal calculi. No right-sided hydronephrosis. No right-sided stone. There is moderate left hydronephrosis and there is a 5 mm stone in the proximal left ureter. Distal left ureter is decompressed. No bowel obstruction, pneumoperitoneum, or pneumatosis. Pelvic contents unremarkable. Normal appendix. No acute fracture. IMPRESSION: 5 mm stone in the proximal left ureter resulting in moderate left hydronephrosis. Independent Historian Clinical information obtained from an independent historian. History obtained from or confirmed by: Spouse Critical Care Time Critical Care Time Critical Care Time: Yes Total Critical Care Time: 45 Attestation: I have personally provided critical care time. Time includes review of lab data, radiology results, discussion with consultants, and monitoring for potential decompensation. Intervention performed as documented. Discharge Plan Discharge Clinical Impression: Ureterolithiasis Patient Disposition: Home, Self-Care Instructions: Ureteral Stones (ED) Additional Instructions: Please follow-up with your primary care physician tomorrow. If you have any worsening or new symptoms, please return to the emergency room or call 911 Prescriptions: New tamsulosin 0.4 mg capsule 0.4 mg PO DAILY Qty: 14 0RF ketorolac 10 mg tablet 10 mg PO Q8H PRN (Reason: pain) Qty: 12 0RF Rx Instructions: Do not use this medication with ibuprofen or NSAIDs, only Tylenol or oxycodone if needed oxycodone 5 mg tablet 5 mg PO BID PRN (Reason: pain) Qty: 5 0RF Rx Instructions: Partial Fill upon patient request. ondansetron HCl 4 mg tablet 4 mg PO Q6H PRN (Reason: nausea and vomiting) Qty: 14 0RF No Action wwdwacjfvm-zgkmjpmsrcyie-ijlw 50-325-40 mg tablet 1 tab PO Q6-8H PRN (Reason: headaches) Qty: 30 0RF nitrofurantoin monohyd/m-cryst [Macrobid] 100 mg capsule 100 mg PO Q12H 7 Days Qty: 14 0RF Rx Instructions: must administer with a meal/food prednisone 20 mg tablet 20 mg PO DAILY 5 Days Qty: 5 0RF ibuprofen 800 mg tablet 800 mg PO TID PRN (Reason: pain) 30 Days Qty: 90 1RF epinephrine [EpiPen] 0.3 mg/0.3 mL auto-injector 0.3 mg IM Q4H PRN prednisone 20 mg tablet 20 mg PO DAILY 5 Days Qty: 5 0RF trazodone 50 mg tablet 50 mg PO BEDTIME PRN (Reason: insomnia) 30 Days Qty: 30 1RF tramadol 50 mg tablet 50 mg PO TID PRN (Reason: pain) 7 Days Qty: 21 0RF Referrals: Tanner Rock MD [Physician] - 07/17/24 Print Language: Swazi
[2024-07-11 23:31] LABS: Alanine Aminotransferase 23 U/L (0-31); Albumin Level 3.7 g/dL (3.5-5.0); Alkaline Phosphatase 64 U/L (39-117); Anion Gap 12 (12-20); Aspartate Amino Transferase 23 U/L (5-31); Bilirubin Total 0.2 mg/dL (0.0-1.0); Blood Urea Nitrogen 16 mg/dL (9-16); Calcium 9.4 mg/dL (8.4-10.2); Carbon Dioxide 22 mmol/L (22-29); Chloride 110 mmol/L (96-108); Creatinine Clr Calc Pharmacy 80.9; Estimated Glomerular Filt Rate > 60; Glucose Random 109 mg/dL (60-115); HCG Quantitative < 2 mIU/mL; Lipase 12 U/L (8-78); Potassium 4.2 mmol/L (3.3-5.1); Sodium 140 mmol/L (135-145); Total Protein 6.9 g/dL (6.5-8.0)
[2024-07-11 23:37] LABS: PLT ABN DIST 1; White Blood Count 10.2 X10*3/uL (4.8-10.8)
[2024-07-11] MEDS: 0.9 % Sodium Chloride 1,000 ML 999 ML IVCONT (23:52)
[2024-07-11] MEDS: Ketorolac Tromethamine 30 MG/ML VIAL IVPUSH (23:54)
[2024-07-11] MEDS: ondansetron HCL 4 MG/2 ML VIAL IVPUSH (23:54)
[2024-07-12 00:19] LABS: Platelet Count 196 X10*3/uL (160-400)
[2024-07-12 00:20] LABS: SLIDE REVIEW VERIFIED
[2024-07-12] MEDS: Prochlorperazine Edisylate 10 MG/2 ML VIAL 5 MG IVPUSH (01:03)
[2024-07-12] MEDS: HYDROmorphone HCl 1 MG/ML SYRINGE IVPUSH (01:03)
[2024-07-12 01:15] VITALS: BP 124/68; PULSE 96; RESP 18; TEMP 36.9; O2SAT 92
[2024-07-12 02:09] VITALS: BP 107/67; PULSE 98; RESP 12; TEMP 36.7; O2SAT 95
[2024-07-12 02:17] VITALS: BP 107/67; PULSE 98; RESP 12; TEMP 36.7; O2SAT 95
== END 2024-07-12 02:18 | disposition home or self-care (01) ==
PROVIDERS: Emergency Provider Emergency Medicine; PCP Internal Medicine
DX: N20.1 Calculus of ureter (principal); R10.9 Unspecified abdominal pain; R11.2 Nausea with vomiting, unspecified; I10 Essential (primary) hypertension
CPT/HCPCS: 36415; 74176; 80053; 81001; 83690; 84702; 85025; 87086; 96361; 96374; 96375; 99284; J0737; J1171; J1885; J2405

== ENCOUNTER → 2024-07-11 23:24 | Outpatient (BNV) | payer OTHER, SELFPAY | PROVIDERS: Emergency Provider Emergency Medicine; PCP Internal Medicine; Visit Provider Radiology Diagnostic Radiology | DX: R10.9 Unspecified abdominal pain (principal); Z87.442 Personal history of urinary calculi | CPT/HCPCS: 74176 ==

== ENCOUNTER 2024-07-13 10:51 | Outpatient (AMB) | payer OTHER, SELFPAY ==
--- NOTE | 2024-07-13 10:52 | MHC.OFFVIS ---
Intake Visit Reasons: H&P for procedure addon Intake Note: Patient is present for H&P FOR PROCEDURE ADDON Urology Medication:TAMSULOSIN Antibiotic Allergy:SULFA,CIPROFLOXACIN Blood Thinner:NONE Compliance Director Required: No Allergies ceftriaxone [From Rocephin] Allergy (Intermediate, Verified 08/28/24 13:45) Lip Swelling ciprofloxacin Adverse Reaction (Intermediate, Verified 08/28/24 13:45) swelling of feet Sulfa (Sulfonamide Antibiotics) Adverse Reaction (Intermediate, Verified 08/28/24 13:45) swelling of feet HPI Comments Details: Deena is a pleasant female. She is a patient of Dr. Lara. She is seen for following urologic conditions - urinary urgency and frequency - nocturia - possible interstitial cystitis - nephrolithiasis Telemedicine Evaluation 15 min Consultation [employer] Nephrolithiasis Prior intervention 2018 Recent ER visit 6 mm left proximal ureteric stone proximal hydronephrosis Persistent pain Will be undergoing ureteroscopy Interstitial Cystitis Current therapy trial tolterodine May have developed after series of complicated urinary tract infections Predominantly urgency and frequency Dietary triggers Initial presentation has nocturia times 4-5 with pelvic pressure, pelvic pressure resolved after emptying, constant pelvic pressure and bladder discomfort during the day Prior medications include oxybutynin with significant dry eyes and dry mouth, Myrbetriq with minimal impact, tolterodine with minimal impact Did respond to trial of amitriptyline during flare Intervention - 02/07 hydrodistention with significant improvement in symptoms PFSH Medical History (Updated 08/28/24 @ 14:05 by Jarret Boudreaux MD) Insomnia Hypertensive retinopathy of both eyes Pure hypercholesterolemia Overweight (BMI 25.0-29.9) Dysuria Pelvic floor dysfunction Headache, migraine Microscopic hematuria Recurrent UTI Hypocitraturia Recurrent nephrolithiasis Epigastric pain Hemorrhoid Anal fissure Rectal bleed Weakness of both hands Menstrual disorder Obesity (BMI 30-39.9) Anxiety Nonintractable headache Herniation of cervical intervertebral disc with radiculopathy Herniated disc Surgical History History of surgery Hx of cystoscopy S/P ureteral stent placement History of cervical discectomy History of section History of tubal ligation Family History Father Medical history unknown Mother Medical history unknown Maternal Grandmother Breast cancer Sister Breast cancer Daughter Breast cancer Son Autism Mental health disorder Social History Housing: Apartment Are you a primary home health care physician to a significant other at home: No Do you presently have visiting nurse or other home services: No Alcohol intake: current Alcohol intake frequency: holidays/special occasions only Patient Tobacco Use Status: Never used Tobacco e-Cigarette/Vaping Use: Never Used Second Hand Smoke Exposure: No service: No Current occupational status: employed Cognitive needs: No Hearing needs: No Vision needs: Yes (glasses) Female Reproductive History Menstrual Age of Menarche: 15 Review of Systems Const All systems reviewed & are unremarkable except as noted in HPI and below Reports no additional complaints Resp Reports no additional complaints GI Reports no additional complaints Reports as per HPI Musc Reports no additional complaints Physical Exam Telemedicine evaluation Appropriate responses Regular breathing rate and rhythm HEENT Head: Yes normal to inspection Ears: hearing grossly normal bilaterally Eyes General: appearance normal, both eyes and all related structures Neck Neck: Yes normal visual inspection Chest Chest palpation & inspection: normal inspection of the chest Resp Effort & Inspection: normal respiratory effort and able to speak in complete sentences Telehealth Telehealth Location of provider rendering services: practice address Location of patient: address on file Patient Identification confirmed using: Name, : Yes Telehealth method: voice only Patient verbally consented to treatment: Yes Patient verbally consented to billing insurance company: Yes Patient informed of any privacy concerns related to visit: Yes Assessment & Plan Assessment & Plan (1) Nephrolithiasis: Code(s): N20.0 - Calculus of kidney Category: Medical Plan Ureteroscopy We discussed the nature of the decision and reasonable alternatives for performing ureteroscopy. Options such as medical therapy were discussed. Interventions include chemical dissolution, ESWL, ureteroscopy with laser lithotripsy and stent placement, PCNL. The relative uncertainties and benefits related to each alternate procedure were adequately discussed. General surgical risks including, but not limited to - pain, bleeding, infection, myocardial infarction, pulmonary embolus, deep vein thrombosis and cerebrovascular accident which may result in further hospitalization were discussed. Full disclosure of the procedure as well as all major risks, benefits and complications were discussed including but not limited to damage to the urethra, bladder and kidney infection, damage to the ureter, stent migration or malposition, scarring to the renal pelvis, remnant stone fragments, subsequent stone passage with need for secondary procedures. The overall secondary procedure rate is approximately 10-15%. The overall clearance rate is approximately 90-95%. Success of the procedure in the short-term does not necessarily guarantee that long-term success will be maintained. Suitable follow up will need to be maintained. The patient showed understanding of discussion and wishes to proceed with - cystoscopy, retrograde, ureteroscopy, possible lithotripsy/stone basketing and stent on the left side Patient Instructions: This note is constructed using voice recognition software. While every effort has been made to ensure accuracy electrical lineman errors may have been included. Imaging studies, laboratory and physical exam results were discussed and reviewed in detail. No major barriers to patient understanding were identified. An opportunity to ask questions regarding the treatment plan was provided. All questions were answered. The patient expressed understanding and agreement with the above treatment plan. The patient is aware they should contact our office by phone for worsening of their current condition or the appearance of new urologic symptoms. Compliance is encouraged with any medications and followup testing that is ordered. It is a privilege to participate in the urologic care of your patient. If you have any questions or concerns regarding treatment for the above conditions, or other urologic issues, please do not hesitate to contact me. The office telephone contact is [phone]. Sincerely, Dr Tanner Rock MD, [facility] - Urology Compassionate Specialist Care for the Genitourinary System Coding Level of Care Code Tele Est Pt Level 4 (49110) Diagnoses Nephrolithiasis N20.0
== END 2024-07-13 12:02 | disposition home or self-care (01) ==
LOC: HO.HUSH 10:51
PROVIDERS: PCP Internal Medicine; Visit Provider Urology
DX: N20.0 Calculus of kidney (principal)
CPT/HCPCS: 98014

== ENCOUNTER → 2024-07-13 10:51 | Outpatient (BNVA) | payer OTHER, SELFPAY | PROVIDERS: PCP Internal Medicine; Visit Provider Urology ==

== ENCOUNTER 2024-07-14 05:12 | Inpatient (IN) | payer OTHER, SELFPAY ==
[2024-07-14] VITALS (11 sets, daily range): BP systolic 126–169; BP diastolic 50–106; PULSE 83–109; RESP 16–22; TEMP 36.3–36.8; O2SAT 95–98; BMI 28.7
--- NOTE | ~2024-07-14 | FL_ITS ---
EXAMINATION: FL GUIDANCE ONLY HISTORY: cysto, ureter, retro, laser LEFT COMPARISON: Correlation is made with an unenhanced CT of the abdomen and pelvis dated 07/11/2024. TECHNIQUE: Fluoroscopy time: 14.8 seconds. Cumulative Dose: 3.59 mGy. Images: 2. FINDINGS: Images demonstrate placement of a left nephroureteral stent. FL/FL guidance in OR IMPRESSION: Fluoroscopy during procedure. Please see procedure report for additional information. Electronically signed by: Tanvir Ny MD 07/17/2024 07:01 AM EDT
--- NOTE | ~2024-07-14 | US_ITS ---
. EXAMINATION: ULTRASOUND LEFT RENAL AND BLADDER. CLINICAL INFORMATION: Left flank pain. COMPARISON: September 06, 2019. Correlated to CT dated July 11, 2024 demonstrated a 5 mm calculus in the proximal left ureter. TECHNIQUE: Real-time ultrasound of the left kidney and bladder using grayscale technique. FINDINGS: 11 x 5 x 7 cm. Prominence of the pelvicalyceal system. Normal echotexture. Normal renal cortical thickness. There is a 5 x 8 mm hyperechoic lesion in the midportion and a 6 x 7 mm hyperechoic lesion in the lower pole. There is mild prominence of the proximal ureter. Bladder: Fluid-filled. There is a jet in the left vesicoureteral junction. Prevoid measures 577 cc. Post void image not obtained. US/US bladder IMPRESSION: Mild hydronephrosis, left kidney. 8 and 7 mm nephrolithiasis, left pelvicalyceal system. Unable to visualized the left ureteral calculus. Electronically signed by: Leighton Mccord MD 07/14/2024 09:22 AM EDT
--- NOTE | ~2024-07-14 | US_ITS ---
. EXAMINATION: ULTRASOUND LEFT RENAL AND BLADDER. CLINICAL INFORMATION: Left flank pain. COMPARISON: September 06, 2019. Correlated to CT dated July 11, 2024 demonstrated a 5 mm calculus in the proximal left ureter. TECHNIQUE: Real-time ultrasound of the left kidney and bladder using grayscale technique. FINDINGS: 11 x 5 x 7 cm. Prominence of the pelvicalyceal system. Normal echotexture. Normal renal cortical thickness. There is a 5 x 8 mm hyperechoic lesion in the midportion and a 6 x 7 mm hyperechoic lesion in the lower pole. There is mild prominence of the proximal ureter. Bladder: Fluid-filled. There is a jet in the left vesicoureteral junction. Prevoid measures 577 cc. Post void image not obtained. US/US renal LT IMPRESSION: Mild hydronephrosis, left kidney. 8 and 7 mm nephrolithiasis, left pelvicalyceal system. Unable to visualized the left ureteral calculus. Electronically signed by: Leighton Mccord MD 07/14/2024 09:22 AM EDT
[2024-07-14 05:31] LABS: Basophils Absolute Auto 0.1 X10*3/uL (0.0-0.2); Basophils Percent Auto 0.4 % (0-2); Eosinophils Absolute Auto 0.3 X10*3/uL (0.0-0.4); Eosinophils Percent Auto 2.2 % (0-4); Hematocrit 40.7 % (37.0-47.0); Hemoglobin 14.1 g/dl (12.0-16.0); Imm Gran Abs Auto 0.02 X10*3/uL (0.00-0.03); Imm Gran Pct Auto 0.2 % (0.0-0.4); Lymphocytes Absolute Auto 1.9 X10*3/uL (1.2-4.9); Lymphocytes Percent Auto 15.4 % (20-40); MANUAL DIFF FLAG NO; Mean Corpuscular HGB Conc 34.6 g/dl (31.0-35.0); Mean Corpuscular Hemoglobin 28.8 pg (27.0-33.0); Mean Corpuscular Volume 83.1 fL (80.0-98.0); Mean Platelet Volume 12.3 fL (9.4-12.3); Monocytes Absolute Auto 1.1 X10*3/uL (0.1-1.2); Monocytes Percent Auto 9.2 % (2-11); Neutrophils Absolute Auto 8.9 x10*3/uL (2.0-8.3); Neutrophils Percent Auto 72.6 % (45-73); Platelet Count 219 X10*3/uL (160-400); Red Cell Distribution Width 13.9 % (11.0-16.0); White Blood Count 12.2 X10*3/uL (4.8-10.8)
[2024-07-14 05:44] LABS: Alanine Aminotransferase 14 U/L (0-31); Albumin Level 3.5 g/dL (3.5-5.0); Alkaline Phosphatase 58 U/L (39-117); Anion Gap 11 (12-20); Aspartate Amino Transferase 17 U/L (5-31); Bilirubin Total 0.3 mg/dL (0.0-1.0); Blood Urea Nitrogen 14 mg/dL (9-16); Calcium 9.1 mg/dL (8.4-10.2); Carbon Dioxide 19 mmol/L (22-29); Chloride 110 mmol/L (96-108); Creatinine Clr Calc Pharmacy 56.4; Estimated Glomerular Filt Rate 56; Glucose Random 88 mg/dL (60-115); Potassium 3.8 mmol/L (3.3-5.1); Sodium 136 mmol/L (135-145); Total Protein 6.5 g/dL (6.5-8.0)
[2024-07-14 05:54] LABS: Appearance Urine Clear; Color Urine Yellow; Glucose Urine UA Negative (Negative); Leukocyte Esterase Urine Small (1+) (Negative); Nitrite Urine Negative (Negative); PH 6.5 (5.0-9.0); Specific Gravity - Urine 1.015 (1.005-1.025); UMIC TRIGGER UACC YES; Urine Blood Small (1+) (Negative); Urine Ketones Negative (Negative); Urine Protein Negative (Neg-Trace)
[2024-07-14 05:55] LABS: UPreg QC Valid YES; Urine Pregnancy NEGATIVE (NEGATIVE)
[2024-07-14 05:59] LABS: Bacteria Urine Trace (None Seen); Hyaline Casts Urine 0-2 /LPF (0-2); UACC Culture Trigger YES
--- NOTE | 2024-07-14 06:59 | ED_ITS ---
HPI - General Adult General Chief complaint: Abdominal Pain Stated complaint: kidney stone pain Time Seen by Provider: 07/14/24 06:48 Source: patient and family Mode of arrival: ambulatory Limitations: no limitations History of Present Illness ED Provider: MAGED Perez HPI narrative: This is a 48-year-old female past medical history significant for insomnia, pelvic floor dysfunction, hypertensive retinopathy, hypertension, hyperlipidemia, migraines, anxiety, GERD presents with severe left-sided flank pain ongoing for the past few days. She reports she was seen here a few days ago and was told she had a 5 mm kidney stone she is scheduled for an outpatient procedure on Wednesday however she reports pain is intolerable and seems to be worsening. She reports associated fatigue, malaise, nausea. No vomiting, fevers, chills, chest pain, shortness of breath, changes in urinary or bowel habits. Related Data Home Medications ?Medication ?Instructions ?Recorded ?Confirmed epinephrine 0.3 mg/0.3 mL 0.3 mg IM Q4H PRN 05/21/23 01/24/24 injection, auto-injector (EpiPen) Previous Rx's ?Medication ?Instructions ?Recorded ibuprofen 800 mg tablet 800 mg PO TID PRN pain 30 days #90 05/19/22 tabs czlnymsboo-llcfcssqteosq-igyqeoie 1 tab PO Q6-8H PRN headaches #30 07/23/23 50 mg-325 mg-40 mg tablet tabs prednisone 20 mg tablet 20 mg PO DAILY 5 days #5 tabs 09/20/23 nitrofurantoin 100 mg PO Q12H 7 days #14 caps 01/05/24 monohydrate/macrocrystals 100 mg capsule (Macrobid) tramadol 50 mg tablet 50 mg PO TID PRN pain 7 days #21 01/24/24 tabs trazodone 50 mg tablet 50 mg PO BEDTIME PRN insomnia 30 01/24/24 days #30 tabs prednisone 20 mg tablet 20 mg PO DAILY 5 days #5 tabs 07/10/24 ketorolac 10 mg tablet 10 mg PO Q8H PRN pain #12 tabs 07/12/24 ondansetron HCl 4 mg tablet 4 mg PO Q6H PRN nausea and 07/12/24 vomiting #14 tabs oxycodone 5 mg tablet 5 mg PO BID PRN pain #5 tabs 07/12/24 tamsulosin 0.4 mg capsule 0.4 mg PO DAILY #14 caps 07/12/24 Allergies Allergy/AdvReac Type Severity Reaction Status Date / Time ciprofloxacin AdvReac Intermediate swelling Verified 07/14/24 05:15 of feet Sulfa (Sulfonamide AdvReac Intermediate swelling Verified 07/14/24 05:15 Antibiotics) of feet Review of Systems 2 Review of Systems: Yes all other systems are reviewed and are negative [facility] Past Medical History Attestation statement: The following information was validated with the patient. Source: old records reviewed and nursing notes reviewed Medical History Insomnia Hypertensive retinopathy of both eyes Pure hypercholesterolemia Overweight (BMI 25.0-29.9) Dysuria Pelvic floor dysfunction Headache, migraine Microscopic hematuria Recurrent UTI Hypocitraturia Recurrent nephrolithiasis Epigastric pain Hemorrhoid Anal fissure Rectal bleed Weakness of both hands Menstrual disorder Obesity (BMI 30-39.9) Anxiety Nonintractable headache Herniation of cervical intervertebral disc with radiculopathy Herniated disc Surgical History History of surgery Hx of cystoscopy S/P ureteral stent placement History of cervical discectomy History of section History of tubal ligation Family History Family History Father Medical history unknown Mother Medical history unknown Maternal Grandmother Breast cancer Sister Breast cancer Daughter Breast cancer Son Autism Mental health disorder Social History Social History Housing: Apartment Alcohol intake: current Patient Tobacco Use Status: Never used Tobacco e-Cigarette/Vaping Use: Never Used Second Hand Smoke Exposure: No Advance Directives: No Advance Directives Information Provided: Yes Patient : No service: No Current occupational status: employed Cognitive needs: No Hearing needs: No Vision needs: Yes (glasses) Physical Exam ED Vital Signs: Vital Signs - 24 hr 07/14/24 05:14 07/14/24 08:21 07/14/24 08:59 Temperature 97.9 F Pulse Rate 91 109 H Respiratory Rate 22 H 18 18 Blood Pressure 169/106 H 150/105 H 140/50 H Pulse Oximetry 98 97 97 Oxygen Delivery Method Room Air Room Air Room Air BMI result Body Mass Index 28.7 vss Appearance: Alert.? Oriented X3.? No acute distress.? Head: Normocephalic, atraumatic, no step-offs or deformities Eyes: Pupils equal, round and reactive to light.? ENT: Pharynx normal.? Neck: Normal inspection.? Neck supple.? CVS: Normal heart rate and rhythm.? Pulses normal.? Respiratory: No respiratory distress.? Breath sounds normal.? Abdomen: Soft and nontender.? Skin: Skin warm and dry.? Normal skin color.? Normal skin turgor.? Extremities: No lower extremity edema.? No calf ttp. 5/5 strength to bilateral upper and lower extremities Back: No midline tenderness, no C-spine tenderness, full range of motion,+ left sided cva tenderness Neuro: Oriented X 3.? No motor deficit.? No sensory deficit. CN 2-12 intact Course Reevaluation(s) Reevaluation #1: CBC with leukocytosis. No left shift. Chemistry with no acute electrolyte abnormalities requiring intervention. When compared to her previous chemistry a few days ago patient does have an elevation in BUN and creatinine. Will hydrate patient and give antibiotics. I did review her CT scan from 2 days ago which shows a left 5 mm stone in the proximal ureter with moderate left hydronephrosis. UA with small amount of leukocyte esterases, urine RBCs test negative. Marshall text out to urology Dr. Rock. Time: 07:00 Reevaluation #2: After patient received IV ceftriaxone she started reporting some burning to her upper lip and shortly after developed a small blister. Patient immediately given Decadron and Benadryl. She is protecting her own airway saturating 100% on room air tachycardic with a heart rate of 101. Speaking in full sentences. No edema to hard or soft palate, tongue, uvula. Time: 08:47 Reevaluation #3: Patient's CT scan with mild hydronephrosis of the left kidney 8 and 7 mm nephrolithiasis. Patient is still extremely uncomfortable. Will order Dilaudid. I did discuss this case with urology who will likely take patient to the operating room later this afternoon. Patient and patient's aware of this. Patient has been NPO for the past hour. She last drank 2 cups of water before that. At this time patient will be admitted to urology service. Time: 09:29 Medications Administered Discontinued Medications Generic Name Dose Route Start Last Admin Trade Name Kamila PRN Reason Stop Dose Admin Ceftriaxone Sodium 1 gm 07/14/24 07:30 07/14/24 07:54 Ceftriaxone Sodium 1 Gm Vial IVPUSH 07/14/24 07:31 1 gm ONCE ONE Administration Dexamethasone Sodium Phosphate 10 mg 07/14/24 08:10 07/14/24 08:14 Dexamethasone Sod Phosphate 10 Mg/Ml Vial IVPUSH 07/14/24 08:11 10 mg ONCE ONE Administration Diphenhydramine HCl 50 mg 07/14/24 08:10 07/14/24 08:14 Diphenhydramine Hcl 50 Mg/Ml Vial IVPUSH 07/14/24 08:11 50 mg ONCE ONE Administration Sodium Chloride 1,000 mls @ 999 mls/hr 07/14/24 07:00 07/14/24 08:01 Ns IV 07/14/24 08:00 999 mls/hr .Q1H1M LOS Administration Ketorolac Tromethamine 30 mg 07/14/24 06:54 07/14/24 07:53 Ketorolac Tromethamine 15 Mg/Ml Vial IVPUSH 07/14/24 06:55 30 mg ONCE ONE Administration Morphine Sulfate 4 mg 07/14/24 06:54 07/14/24 07:54 Morphine Sulfate 4 Mg/Ml Cartridge IVPUSH 07/14/24 06:55 4 mg ONCE ONE Administration Protocol Ondansetron HCl 4 mg 07/14/24 06:54 07/14/24 07:54 Ondansetron Hcl 4 Mg/2 Ml Vial IVPUSH 07/14/24 06:55 4 mg ONCE ONE Administration Medical Decision Making Lab Data 07/14/24 05:25 07/14/24 05:25 Labs: Lab Results 07/14/24 07/14/24 07/14/24 Range/Units 05:25 05:47 07:49 WBC 12.2 H (4.8-10.8) X10*3/uL RBC 4.90 (4.20-5.50) X10*6/uL Hgb 14.1 (12.0-16.0) g/dl Hct 40.7 (37.0-47.0) % MCV 83.1 (80.0-98.0) fL MCH 28.8 (27.0-33.0) pg MCHC 34.6 (31.0-35.0) g/dl RDW 13.9 (11.0-16.0) % Plt Count 219 (160-400) X10*3/uL MPV 12.3 (9.4-12.3) fL Immature Gran % (Auto) 0.2 (0.0-0.4) % Neut % (Auto) 72.6 (45-73) % Lymph % (Auto) 15.4 L (20-40) % [place] % (Auto) 9.2 (2-11) % Eos % (Auto) 2.2 (0-4) % Baso % (Auto) 0.4 (0-2) % Lymph # (Auto) 1.9 (1.2-4.9) X10*3/uL [place] # (Auto) 1.1 (0.1-1.2) X10*3/uL Eos # (Auto) 0.3 (0.0-0.4) X10*3/uL Baso # (Auto) 0.1 (0.0-0.2) X10*3/uL Abs Immat Gran (auto) 0.02 (0.00-0.03) X10*3/uL Absolute Neuts (auto) 8.9 H (2.0-8.3) x10*3/uL Absolute Nucleated RBC 0.000 (0.0-0.012) X10*3/uL Nucleated RBC % (auto) 0.0 (0.0-0.2) /100WBC Sodium 136 (135-145) mmol/L Potassium 3.8 (3.3-5.1) mmol/L Chloride 110 H (96-108) mmol/L Carbon Dioxide 19 L (22-29) mmol/L Anion Gap 11 L (12-20) BUN 14 (9-16) mg/dL Creatinine 1.06 (0.5-1.4) mg/dL Estim Creat Clear Calc 56.4 Estimated GFR 56 Random Glucose 88 (60-115) mg/dL Lactic Acid 1.0 (0.5-2.0) mmol/L Calcium 9.1 (8.4-10.2) mg/dL Total Bilirubin 0.3 (0.0-1.0) mg/dL AST 17 (5-31) U/L ALT 14 (0-31) U/L Alkaline Phosphatase 58 (39-117) U/L Total Protein 6.5 (6.5-8.0) g/dL Albumin 3.5 (3.5-5.0) g/dL Urine Color Yellow Urine Appearance Clear Urine pH 6.5 (5.0-9.0) Ur Specific [place] 1.015 (1.005-1.025) Urine Protein Negative (Neg-Trace) mg/dL Urine Glucose (UA) Negative (Negative) mg/dL Urine Ketones Negative (Negative) mg/dL Urine Blood Small (1+) H (Negative) Urine Nitrite Negative (Negative) Ur Leukocyte Esterase Small (1+) H (Negative) Urine RBC 11-20 H (0-2) /HPF Urine WBC 11-20 H (0-5) /HPF Ur Squamous Epith Cells 6-10 (0-2) /HPF Urine Bacteria Trace (None Seen) Hyaline Casts 0-2 (0-2) /LPF Urine Test NEGATIVE (NEGATIVE) Critical Care Time Critical Care Time Critical Care Time: Yes Total Critical Care Time: 35 Attestation: I attest to this time spent taking care of the patient, obtaining history, physical, reviewing labs, imaging, treatment of patients condition +/- specialist/hospitalist consult +/- procedure Discharge Plan Discharge Clinical Impression: Kidney calculi, Hydronephrosis Patient Disposition: Admitted As Inpatient Prescriptions: No Action lsdwmasyiv-pulknybjccbop-bcuv 50-325-40 mg tablet 1 tab PO Q6-8H PRN (Reason: headaches) Qty: 30 0RF nitrofurantoin monohyd/m-cryst [Macrobid] 100 mg capsule 100 mg PO Q12H 7 Days Qty: 14 0RF Rx Instructions: must administer with a meal/food prednisone 20 mg tablet 20 mg PO DAILY 5 Days Qty: 5 0RF tamsulosin 0.4 mg capsule 0.4 mg PO DAILY Qty: 14 0RF ketorolac 10 mg tablet 10 mg PO Q8H PRN (Reason: pain) Qty: 12 0RF Rx Instructions: Do not use this medication with ibuprofen or NSAIDs, only Tylenol or oxycodone if needed oxycodone 5 mg tablet 5 mg PO BID PRN (Reason: pain) Qty: 5 0RF Rx Instructions: Partial Fill upon patient request. ondansetron HCl 4 mg tablet 4 mg PO Q6H PRN (Reason: nausea and vomiting) Qty: 14 0RF ibuprofen 800 mg tablet 800 mg PO TID PRN (Reason: pain) 30 Days Qty: 90 1RF epinephrine [EpiPen] 0.3 mg/0.3 mL auto-injector 0.3 mg IM Q4H PRN prednisone 20 mg tablet 20 mg PO DAILY 5 Days Qty: 5 0RF trazodone 50 mg tablet 50 mg PO BEDTIME PRN (Reason: insomnia) 30 Days Qty: 30 1RF tramadol 50 mg tablet 50 mg PO TID PRN (Reason: pain) 7 Days Qty: 21 0RF Print Language: Kyrgyz
[2024-07-14] MEDS: Ketorolac Tromethamine 15 MG/ML VIAL 30 MG IVPUSH (07:53)
[2024-07-14] MEDS: Morphine Sulfate 4 MG/ML CARTRIDGE IVPUSH (07:54)
[2024-07-14] MEDS: cefTRIAXone sodium 1 GM VIAL IVPUSH (07:54)
[2024-07-14] MEDS: ondansetron HCL 4 MG/2 ML VIAL IVPUSH (07:54)
[2024-07-14] MEDS: 0.9 % Sodium Chloride 1,000 ML 999 ML IV (08:01)
[2024-07-14] MEDS: diphenhydrAMINE HCL 50 MG/ML VIAL IVPUSH (08:14)
[2024-07-14] MEDS: dexAMETHasone sod phosphate 10 MG/ML VIAL IVPUSH (08:14)
--- NOTE | 2024-07-14 08:14 | PC.NURSE ---
After giving iv abt patient reporting lip swelling. Upper lip with swelling ad small blister noted. PA aware and at bedside to assess. Denies throat or tongue swelling. Medicated per mar
--- NOTE | 2024-07-14 08:59 | PC.NURSE ---
Denies throat and further lip swelling. Blister on upper lip and increased. PA aware
[2024-07-14] MEDS: HYDROmorphone HCl 1 MG/ML SYRINGE IVPUSH (10:00)
--- NOTE | 2024-07-14 10:59 | PHA.MEDREC ---
Addendum entered by Rodolfo Lehman 07/14/24 11:13: reviewed Original Note: Pharmacy Consult ? Medication Reconciliation Pharmacy has completed the medication reconciliation. spoke with patient and she confirmed her medications., Patient confirmed she finished the Prednisone regimen 2 days ago. The patient states she still has Tramadol and Trazodone tablets left at home as needed. She states she took the Ketorolac, Oxycodone and Tamsulosin tablets yesterday and everything else she was not sure when the last time she took them was.
[2024-07-14] MEDS: Lactated Ringers 1,000 ML 125 ML IVCONT (12:47)
--- NOTE | 2024-07-14 16:24 | PM.HPGS ---
History of Present Illness History of Present Illness Date of Service: 07/14/24 Chief complaint: L Ureteric Stone Narrative: Deena Camacho is a 48 year old female Initially seen 2 days ago in emergency room. At that point in time CT scan performed. Associated left side flank pain. Was controlled with medications There is moderate left hydronephrosis and there is a 5 mm stone in the proximal left ureter Re-presented last night with associated fatigue, malaise and nausea. Denied vomiting or hematuria. Chemistry shows WBC 12.2, UA not performed. Plan for intervention Review of Systems Constitutional: Constitutional: Reports as per HPI and Reports no additional constitutional complaints Cardiovascular: Cardiovascular: Reports as per HPI and Reports no additional cardiovascular complaints Respiratory: Respiratory: Reports as per HPI and Reports no additional respiratory complaints Gastrointestinal: Gastrointestinal: Reports as per HPI and Reports no additional gastrointestinal complaints Genitourinary: Genitourinary: Reports as per HPI Musculoskeletal: Musculoskeletal: Reports no additional musculoskeletal complaints and Reports as per HPI Neurologic: Reports system reviewed and no additional complaints, except as documented and Reports as per HPI [facility] Past Medical History Medical History Insomnia Hypertensive retinopathy of both eyes Pure hypercholesterolemia Overweight (BMI 25.0-29.9) Dysuria Pelvic floor dysfunction Headache, migraine Microscopic hematuria Recurrent UTI Hypocitraturia Recurrent nephrolithiasis Epigastric pain Hemorrhoid Anal fissure Rectal bleed Weakness of both hands Menstrual disorder Obesity (BMI 30-39.9) Anxiety Nonintractable headache Herniation of cervical intervertebral disc with radiculopathy Herniated disc Family History Family History Father Medical history unknown Mother Medical history unknown Maternal Grandmother Breast cancer Sister Breast cancer Daughter Breast cancer Son Autism Mental health disorder Surgical History Surgical History History of surgery Hx of cystoscopy S/P ureteral stent placement History of cervical discectomy History of section History of tubal ligation Social History Social History Housing: Apartment Are you a primary child care team lead to a significant other at home: No Do you presently have visiting nurse or other home services: No Alcohol intake: current Alcohol intake frequency: holidays/special occasions only Patient Tobacco Use Status: Never used Tobacco e-Cigarette/Vaping Use: Never Used Second Hand Smoke Exposure: No Use of substances other than those prescribed or required for medical reasons: No Have you been hit, kicked, punched, or otherwise hurt by someone within the past year? If so, by whom?: No Advance Directives: No Advance Directives Information Provided: No Advance Directives on File: No Recently lost weight without trying: No How much weight loss: Not applicable Eating poorly because of decreased appetite: No Nutrition screen score: 0 Nutrition Risks: No Nutritional Risk Patient : No : No Poor oral hygiene: Yes (missing teeth top and bottom) service: No Current occupational status: employed Cognitive needs: No Hearing needs: No Vision needs: Yes (glasses) Meds Allergies Allergy/AdvReac Type Severity Reaction Status Date / Time ceftriaxone [From Rocephin] Allergy Intermediate Lip Verified 07/14/24 15:27 Swelling ciprofloxacin AdvReac Intermediate swelling Verified 07/14/24 05:15 of feet Sulfa (Sulfonamide AdvReac Intermediate swelling Verified 07/14/24 05:15 Antibiotics) of feet Active Medications: Current Medications Acetaminophen (Acetaminophen 325 Mg Tablet) 650 mg PO Q6H PRN PRN Reason: Pain, Mild 1-3,fever,headache Calcium Carbonate (Calcium Carbonate 750 Mg Tab.Chew) 750 mg PO Q4H PRN PRN Reason: Heartburn Lactated Ringer's (Lr) 1,000 mls @ 125 mls/hr IVCONT .Q8H LOS Last Admin: 07/14/24 12:47 Dose: 125 mls/hr Ketorolac Tromethamine (Ketorolac Tromethamine 30 Mg/Ml Vial) 30 mg IVPUSH Q6H PRN PRN Reason: Pain, Mild (Pain Scale 1-3) Stop: 07/19/24 12:31 Magnesium Hydroxide (Milk Of Magnesia 30 Ml Oral.Susp) 30 ml PO DAILY PRN PRN Reason: Constipation Melatonin (Melatonin 3 Mg Tablet) 6 mg PO BEDTIME PRN PRN Reason: Insomnia Morphine Sulfate (Morphine Sulfate 4 Mg/Ml Cartridge) 2 mg IVPUSH Q4H PRN; Protocol PRN Reason: Pain, Severe (Pain Scale 7-10) Oxycodone HCl (Oxycodone Hcl Immed Release 5 Mg Tablet) 5 mg PO Q6H PRN PRN Reason: Pain, Moderate(Pain Scale 4-6) Sodium Chloride (0.9 % Sodium Chloride Flush 3 Ml Syringe) [facility] Medications ?Medication ?Instructions ?Recorded ?Confirmed ?Last Taken ?Type epinephrine 0.3 mg/0.3 mL 0.3 mg IM Q4H PRN Anaphylaxis 05/21/23 07/14/24 Unknown History injection, auto-injector (EpiPen) tramadol 50 mg tablet 50 mg PO TID PRN pain 07/14/24 07/14/24 Unknown History trazodone 50 mg tablet 50 mg PO BEDTIME PRN insomnia 07/14/24 07/14/24 Unknown History Physical Exam Vital Signs: Vital Signs: Last Vital Signs Temp 98.2 F 07/14/24 15:29 Pulse 94 07/14/24 15:29 Resp 16 07/14/24 15:29 BP 145/93 H 07/14/24 15:29 Pulse Ox 97 07/14/24 15:29 O2 Del Method Room Air 07/14/24 15:29 BMI result Body Mass Index 28.7 Const: General: cooperative, healthy appearing, comfortable and no acute distress Orientation/consciousness: patient oriented x3 HEENT: Face and sinus: Yes normal facial exam Mouth: moist mucous membranes Neck: Neck: Yes normal visual inspection, Yes full ROM and Yes trachea midline Chest: Chest palpation & inspection: normal inspection of the chest Resp: Effort & Inspection: normal respiratory effort, able to speak in complete sentences and no respiratory distress GI: Inspection: Yes normal to inspection Back/Spine/Pelvis: Cervical Spine: normal cervical lordosis Thoracic/Lumbar Spine: thoracic and lumbar spine normal to inspection Skin: General skin exam: no rashes or lesions noted Neuro: General: patient oriented x3, tone normal and moves all extremities Extrem: General: Yes normal to inspection and Yes capillary refill normal Results Results Labs: Short CBC 07/14/24 Range/Units 05:25 WBC 12.2 H (4.8-10.8) X10*3/uL Hgb 14.1 (12.0-16.0) g/dl Hct 40.7 (37.0-47.0) % Plt Count 219 (160-400) X10*3/uL BMP 07/14/24 05:25 Sodium 136 Potassium 3.8 Chloride 110 H Carbon Dioxide 19 L BUN 14 Creatinine 1.06 Calcium 9.1 Liver Function 07/14/24 Range/Units 05:25 Total Bilirubin 0.3 (0.0-1.0) mg/dL AST 17 (5-31) U/L ALT 14 (0-31) U/L Alkaline Phosphatase 58 (39-117) U/L Albumin 3.5 (3.5-5.0) g/dL Urine 07/14/24 Range/Units 05:47 Urine Color Yellow Urine Appearance Clear Urine pH 6.5 (5.0-9.0) Ur Specific [place] 1.015 (1.005-1.025) Urine Protein Negative (Neg-Trace) mg/dL Urine Glucose (UA) Negative (Negative) mg/dL Urine Test NEGATIVE (NEGATIVE) Assessment and Plan (1) Nephrolithiasis: Status: Acute Plan Ureteroscopy We discussed the nature of the decision and reasonable alternatives for performing ureteroscopy. Options such as medical therapy were discussed. Interventions include chemical dissolution, ESWL, ureteroscopy with laser lithotripsy and stent placement, PCNL. The relative uncertainties and benefits related to each alternate procedure were adequately discussed. General surgical risks including, but not limited to - pain, bleeding, infection, myocardial infarction, pulmonary embolus, deep vein thrombosis and cerebrovascular accident which may result in further hospitalization were discussed. Full disclosure of the procedure as well as all major risks, benefits and complications were discussed including but not limited to damage to the urethra, bladder and kidney infection, damage to the ureter, stent migration or malposition, scarring to the renal pelvis, remnant stone fragments, subsequent stone passage with need for secondary procedures. The overall secondary procedure rate is approximately 10-15%. The overall clearance rate is approximately 90-95%. Success of the procedure in the short-term does not necessarily guarantee that long-term success will be maintained. Suitable follow up will need to be maintained. The patient showed understanding of discussion and wishes to proceed with - cystoscopy, retrograde, ureteroscopy, possible lithotripsy/stone basketing and stent on the left side Quality Stroke Does the patient have a stroke diagnosis?: No VTE Prior VTE?: No VTE Risk Level:: Surgical - low VTE Device Contraindication: Treatment Not Indicated VTE Drug Contraindication: Treatment Not Indicated Procedures Date of Service Date of Service: 07/14/24
--- NOTE | 2024-07-14 16:44 | MHC.SHP ---
Pre-Procedural Eval Section A - 24 Hr Update-Section A only Date of Service: 07/14/24 The patient is an INPATIENT: Yes Changes since office visit: No Cold of Flu in the past 2 weeks, No New Medical Problems, No Changes in Medication and No Patient answered all questions The patient has been examined within 24 hours of the surgical procedure. The History & Physical has been completed within 30 days and I have reviewed it.: Yes Section B - Complete if H&P > 30 days Chief Complaint: L Ureteric Stone Allergies: Allergies Allergy/AdvReac Type Severity Reaction Status Date / Time ceftriaxone [From Rocephin] Allergy Intermediate Lip Verified 07/14/24 15:27 Swelling ciprofloxacin AdvReac Intermediate swelling Verified 07/14/24 05:15 of feet Sulfa (Sulfonamide AdvReac Intermediate swelling Verified 07/14/24 05:15 Antibiotics) of feet Plan Diagnosis/Plan: Unchanged I have reviewed the history and physical and performed a pertinent physical examination on my patient. No changes have occurred unless specified. Time Spent With Patient Time: Total time managing care of this patient today ____ minutes.
--- NOTE | 2024-07-14 17:25 | P.OP_ITS ---
Operative Note Operative Note Date of Service: 07/14/24 Narrative: PreOperative Diagnosis: Mid left ureteric stone with hydronephrosis Post Operative Diagnosis: Mid left ureteric stone with hydronephrosis Procedure: - cystoscopy, left retrograde - left dilatation of ureteric orifice under fluoroscopy - left ureteroscopy, laser lithotripsy, stone basketing - left stent placement Surgeon: Dr Tanner Rock Anesthesia: General Indications for procedure: Present through emergency room with 6 mm left mid ureteric stone and proximal hydro uretero nephrosis Procedure: After informed consent was verified the patient was brought to the operating room and placed in a supine position. Anesthesia was administered per protocol. The patient was placed in a modified dorsal lithotomy position and prepped and draped in a sterile fashion. Safety pause time-out and side of surgery were confirmed. Images were available for review. Antibiotic administration confirmed. A 22 Albanian cystoscope was inserted per urethra. The urethra was without abnormality. The bladder was normal in its entirety. Both ureteric orifices were seen in normal position . The left ureteric orifice was cannulated and a retrograde examination was performed. Filling defect with stone seen at junction between proximal and mid ureteric segment . A Sensor guidewire was placed up to the level of the renal pelvis under fluoroscopy. The rigid cystoscope was removed. A Juve dilator was placed over the Sensor guidewire and used to dilate the ureteric orifice under fluoroscopy. The dilator was removed. The semi rigid ureteral scope was placed alongside the Sensor guidewire. Stone encountered. Using a 365 micro holmium laser fiber the stone was broken into small pieces using a combination of hammer and dusting techiques. Stone fragments were removed from the ureter using a 1.9 Albanian ZeroTip basket basket. Once the fragments were removed a decision was made to place a ureteric stent. Based on the height of the patient a 6 Fr x 22 cm stent was used. The string was removed from the stent prior to placement. A 6 Albanian by 22 cm double-J stent was placed into the renal pelvis and bladder under a combination of fluoroscopy and direct visualization. The symphisis pubis was used as a radiographic marker to release the stent and good coil was seen within the bladder confirming position Proximal positioning of the stent was confirmed using fluoroscopy. The bladder was emptied. The patient tolerated the procedure well and was extubated in the operating room. They were transferred in stable condition to the recovery area. Pathology: stones Drains: Double J stent as described above
--- NOTE | 2024-07-14 17:28 | P.DS_ITS ---
DS: Providers Provider Date of Service: 07/14/24 Date of admission: 07/14/24 12:32 Date of discharge: 07/14/24 Primary care physician: Melvin Lara MD Admitting clinician: Tanner Rock DS: Diagnosis Discharge Diagnosis (1) Nephrolithiasis: Status: Acute DS: Summary Hospital Course Hospital Course: Second presentation to emergency room with left proximal ureteric stone Underwent intervention with laser lithotripsy and stent placement Status at Discharge Functional status at discharge: independent ambulation Overall status at discharge: patient is back to baseline Time Attestation Total time managing care of this patient today: 60 mintues. Discharge Coordination Time (in mins): 5 Quality: Safe Use of Opioids Does Pt have an Active Cancer Diagnosis on the Problem List?: No Quality: Stroke Does the patient have a stroke diagnosis?: No Physical Exam Vital Signs: Vital Signs: Last Vital Signs Temp 98.2 F 07/14/24 15:29 Pulse 94 07/14/24 15:29 Resp 16 07/14/24 15:29 BP 145/93 H 07/14/24 15:29 Pulse Ox 97 07/14/24 15:29 O2 Del Method Room Air 07/14/24 15:29 BMI result Body Mass Index 28.7 DS: Data Data Completed and Pending Labs on day of discharge: Laboratory Results - last 24 hr 07/14/24 07/14/24 07/14/24 05:25 05:47 07:49 WBC 12.2 H RBC 4.90 Hgb 14.1 Hct 40.7 MCV 83.1 MCH 28.8 MCHC 34.6 RDW 13.9 Plt Count 219 MPV 12.3 Immature Gran % (Auto) 0.2 Neut % (Auto) 72.6 Lymph % (Auto) 15.4 L [place] % (Auto) 9.2 Eos % (Auto) 2.2 Baso % (Auto) 0.4 Lymph # (Auto) 1.9 [place] # (Auto) 1.1 Eos # (Auto) 0.3 Baso # (Auto) 0.1 Abs Immat Gran (auto) 0.02 Absolute Neuts (auto) 8.9 H Absolute Nucleated RBC 0.000 Nucleated RBC % (auto) 0.0 Sodium 136 Potassium 3.8 Chloride 110 H Carbon Dioxide 19 L Anion Gap 11 L BUN 14 Creatinine 1.06 Estim Creat Clear Calc 56.4 Estimated GFR 56 Random Glucose 88 Lactic Acid 1.0 Calcium 9.1 Total Bilirubin 0.3 AST 17 ALT 14 Alkaline Phosphatase 58 Total Protein 6.5 Albumin 3.5 Urine Color Yellow Urine Appearance Clear Urine pH 6.5 Ur Specific [place] 1.015 Urine Protein Negative Urine Glucose (UA) Negative Urine Ketones Negative Urine Blood Small (1+) H Urine Nitrite Negative Ur Leukocyte Esterase Small (1+) H Urine RBC 11-20 H Urine WBC 11-20 H Ur Squamous Epith Cells 6-10 Urine Bacteria Trace Hyaline Casts 0-2 Urine Test NEGATIVE Imaging CT scan - abdomen: Attestation: I personally reviewed and interpreted this imaging study as follows: Radiologist's impression: ITS Impressions Bladder Ultrasound 07/14/24 08:32 IMPRESSION: Mild hydronephrosis, left kidney. 8 and 7 mm nephrolithiasis, left pelvicalyceal system. Unable to visualized the left ureteral calculus. Electronically signed by: Leighton Mccord MD 07/14/2024 09:22 AM EDT [employer] Renal Ultrasound 07/14/24 08:32 IMPRESSION: Mild hydronephrosis, left kidney. 8 and 7 mm nephrolithiasis, left pelvicalyceal system. Unable to visualized the left ureteral calculus. Electronically signed by: Leighton Mccord MD 07/14/2024 09:22 AM EDT Discharge Plan Discharge Anticipated Discharge Date/Time: 07/14/24 17:22 Patient Disposition: Home, Self-Care Discharge Diagnosis: Left ureteric stone Referrals: Melvin Lara MD [Primary Care Provider] - 1 Week Discharge Medications: New phenazopyridine [Pyridium] 100 mg tablet 100 mg PO TID PRN (Reason: Spasm) 4 Days Qty: 12 0RF Continued prednisone 20 mg tablet 20 mg PO DAILY 5 Days Qty: 5 0RF tamsulosin 0.4 mg capsule 0.4 mg PO DAILY Qty: 14 0RF ketorolac 10 mg tablet 10 mg PO Q8H PRN (Reason: pain) Qty: 12 0RF Rx Instructions: Do not use this medication with ibuprofen or NSAIDs, only Tylenol or oxycodone if needed oxycodone 5 mg tablet 5 mg PO BID PRN (Reason: pain) Qty: 5 0RF Rx Instructions: Partial Fill upon patient request. ondansetron HCl 4 mg tablet 4 mg PO Q6H PRN (Reason: nausea and vomiting) Qty: 14 0RF trazodone 50 mg tablet 50 mg PO BEDTIME PRN (Reason: insomnia) tramadol 50 mg tablet 50 mg PO TID PRN (Reason: pain) ibuprofen 800 mg tablet 800 mg PO TID PRN (Reason: pain) 30 Days Qty: 90 1RF epinephrine [EpiPen] 0.3 mg/0.3 mL auto-injector 0.3 mg IM Q4H PRN (Reason: Anaphylaxis) Discharge Orders: Discharge Order (Routine); Ordered 07/14/24 Ordered By: Tanner Rock Diet: Advance to usual diet Activity on Discharge: As tolerated Stand Alone Forms: Patient Portal Discharge page Print Language: Northern Irish Care Plan Goals: stones Health Concerns: stones Plan of Treatment: stones Assessment: stones Patient Instructions: Ureteroscopy (DC)
[2024-07-14] MEDS: Phenazopyridine HCL 100 MG TABLET PO (17:45)
--- NOTE | 2024-07-15 08:06 | HO.POSTANES ---
Post Anesthesia Evaluation Post Anesthesia Evaluation Date of Service: 07/15/24 Anesthesia: General LMA Mental Status: Awake Pain Control: Satisfactory Nausea/Vomiting: None Hydration: Adequate Anesthesia-Related Issues: No Anes. Related Issues
== END 2024-07-14 18:40 | disposition home or self-care (01) | DRG 661 ==
LOC: HO.ED 12:46 → HO.EDOVER 12:50
PROVIDERS: Physician Assistant; Admitting Provider Urology; Emergency Provider Emergency Medicine; PCP Internal Medicine; Visit Provider Urology
PROC: 0T778DZ Dilation of Left Ureter with Intraluminal Device, Via Natural or Artificial Opening Endoscopic (ICD-10-PCS; principal; 2024-07-14 16:30)
DX: N13.2 Hydronephrosis with renal and ureteral calculous obstruction (principal); Z79.52 Long term (current) use of systemic steroids; Z79.899 Other long term (current) drug therapy
CPT/HCPCS: 36415; 76775; 76857; 80053; 81001; 81025; 82365; 83605; 85025; 87040; 87086; 88300; 99284; C1758; C1769; C2617; J0131; J0696; J1100; J1171; J1200; J1885; J2003; J2270; J2405; J2704; J3010; J7120; Q9967

== ENCOUNTER → 2024-07-14 07:01 | Outpatient (BNV) | payer OTHER, SELFPAY | PROVIDERS: Emergency Provider Emergency Medicine; PCP Internal Medicine; Visit Provider Radiology Diagnostic Radiology | DX: N20.0 Calculus of kidney (principal) | CPT/HCPCS: 76775; 76857 ==

== ENCOUNTER → 2024-07-14 12:32 | Outpatient (BNV) | payer OTHER, SELFPAY | PROVIDERS: Admitting Provider Urology; Emergency Provider Emergency Medicine; PCP Internal Medicine; Visit Provider Urology | DX: N20.1 Calculus of ureter (principal) | CPT/HCPCS: 52356; 99284 ==

== ENCOUNTER 2024-07-27 13:16 | Outpatient (AMB) | payer OTHER, SELFPAY ==
--- NOTE | 2024-07-27 13:23 | MHC.OFFVIS ---
Intake Visit Reasons: Stent removal Intake Note: Patient is present for Cystoscopy/stent removal Urology Medication:pyridium,tamsulosin Antibiotic Allergy:sulfa,ciprofloxacin Blood Thinner:none Lot:[id number] Exp:08/25/26 Sand Technologist Required: No Allergies ceftriaxone [From Rocephin] Allergy (Intermediate, Verified 07/27/24 13:24) Lip Swelling ciprofloxacin Adverse Reaction (Intermediate, Verified 07/27/24 13:24) swelling of feet Sulfa (Sulfonamide Antibiotics) Adverse Reaction (Intermediate, Verified 07/27/24 13:24) swelling of feet HPI Comments Details: Deena is a pleasant female. She is a patient of Dr. Lara. She is seen for following urologic conditions - urinary urgency and frequency - nocturia - possible interstitial cystitis - nephrolithiasis Here for stent removal Calcium oxalate stones Start vitamin B6 Encourage fluids Three-month follow-up imaging Nephrolithiasis Imaging - 07/11 CT 6 mm left proximal ureteric stone proximal hydronephrosis Composition - 07/11 Calcium Oxalate Dihydrate (Weddellite) 20%Calcium Oxalate Monohydrate (Whewellite) 80% Interstitial Cystitis Current therapy trial tolterodine May have developed after series of complicated urinary tract infections Predominantly urgency and frequency Dietary triggers Initial presentation has nocturia times 4-5 with pelvic pressure, pelvic pressure resolved after emptying, constant pelvic pressure and bladder discomfort during the day Prior medications include oxybutynin with significant dry eyes and dry mouth, Myrbetriq with minimal impact, tolterodine with minimal impact Did respond to trial of amitriptyline during flare Intervention - 02/07 hydrodistention with significant improvement in symptoms PFSH Medical History Insomnia Hypertensive retinopathy of both eyes Pure hypercholesterolemia Overweight (BMI 25.0-29.9) Dysuria Pelvic floor dysfunction Headache, migraine Microscopic hematuria Recurrent UTI Hypocitraturia Recurrent nephrolithiasis Epigastric pain Hemorrhoid Anal fissure Rectal bleed Weakness of both hands Menstrual disorder Obesity (BMI 30-39.9) Anxiety Nonintractable headache Herniation of cervical intervertebral disc with radiculopathy Herniated disc Surgical History History of surgery Hx of cystoscopy S/P ureteral stent placement History of cervical discectomy History of section History of tubal ligation Family History Father Medical history unknown Mother Medical history unknown Maternal Grandmother Breast cancer Sister Breast cancer Daughter Breast cancer Son Autism Mental health disorder Social History Housing: Apartment Are you a primary customer care agent to a significant other at home: No Do you presently have visiting nurse or other home services: No Alcohol intake: current Alcohol intake frequency: holidays/special occasions only Patient Tobacco Use Status: Never used Tobacco e-Cigarette/Vaping Use: Never Used Second Hand Smoke Exposure: No service: No Current occupational status: employed Cognitive needs: No Hearing needs: No Vision needs: Yes (glasses) Female Reproductive History Menstrual Age of Menarche: 15 Review of Systems Const Denies chills and Denies fever(s) Card Reports no additional complaints and Denies syncope Resp Denies cough GI Denies abdominal pain and Denies heartburn Reports as per HPI and Denies change in libido Neuro Denies syncope Psych Denies change in libido Endo Denies change in libido Physical Exam Const General: cooperative, healthy appearing, comfortable and no acute distress Orientation/consciousness: patient oriented x3 HEENT Face and sinus: Yes normal facial exam Mouth: moist mucous membranes Neck Neck: Yes normal visual inspection, Yes full ROM and Yes trachea midline Chest Chest palpation & inspection: normal inspection of the chest Resp Effort & Inspection: normal respiratory effort, able to speak in complete sentences and no respiratory distress GI Inspection: Yes normal to inspection Back/Spine/Pelvis Cervical Spine: normal cervical lordosis Thoracic/Lumbar Spine: thoracic and lumbar spine normal to inspection Skin General skin exam: no rashes or lesions noted Neuro General: patient oriented x3, gait normal, tone normal and moves all extremities Extrem General: Yes normal to inspection and Yes capillary refill normal Office Procedures Cystoscopy Consent Discussed risk and benefit or proposed procedure with the patient. Information consent for procedure given to the patient. Discussed technical aspects, risks, benefits and alternatives in full. Addressed all of the patient's questions and concerns regarding the procedure. The patient demonstrated knowledge and understanding. They wish to proceed with this procedure. Preparation The patient was prepped in the usual manner. A crm dynamics developer was present and in the room. Genitalia was prepped with betadine solution in a sterile manner. Lidocaine Jelly 2% was placed into the urethra and 16Fr flexible Olympus cystoscope was inserted into the meatus after adequate lubrication. Procedure A well lubricated 16 Estonian cystoscope was placed No abnormality noted of urethra during placement Indwelling stent seen within bladder emerging from left ureteric orifices The stent was grasped with a 3 prong grasper and removed without difficulty The patient tolerated the procedure well [id number] with stent removal DISPOSABLE SCOPE URO-G FLEXIBLE SCOPE Procedure code (CPT) selection complete Office Meds lidocaine HCl 2 % mucosal jelly in applicator Performing Provider: Tanner Rock MD Performing Location: [facility] [place] [facility] Administered by: Risa Alexander RN on 07/27/24 13:39 Dose Route Admin Location Dispensed Lot Number Expiration Date NDC Wardrobe Custodian 10 mL intra-urethral 10 mL nitrofurantoin monohydrate/macrocrystals 100 mg capsule Performing Provider: Tanner Rock MD Performing Location: [facility] [place] [facility] Administered by: Risa Alexander RN on 07/27/24 13:39 Dose Route Admin Location Dispensed Lot Number Expiration Date NDC Wardrobe Custodian 100 mg PO 1 cap naproxen 500 mg tablet Performing Provider: Tanner Rock MD Performing Location: [facility] [place] [facility] Administered by: Risa Alexander RN on 07/27/24 13:39 Dose Route Admin Location Dispensed Lot Number Expiration Date NDC Wardrobe Custodian 500 mg PO 1 tab Results AMB Urinalysis, Automated UA Leukoctes 0 Glendy/uL Last Edit by ASHLEY Vora on 07/27/24 13:33 UA Nitrite Negative Last Edit by ASHLEY Vora on 07/27/24 13:33 UA Urobilinogen 0.2 mg/dL Last Edit by ASHLEY Vora on 07/27/24 13:33 UA Protein 0 mg/dL Last Edit by ASHLEY Vora on 07/27/24 13:33 UA pH 6.0 Last Edit by ASHLEY Vora on 07/27/24 13:33 UA Blood 25 Wilfred/uL Last Edit by ASHLEY Vora on 07/27/24 13:33 UA Specific [place] 1.025 Last Edit by ASHLEY Vora on 07/27/24 13:33 UA Ketone Negative Last Edit by ASHLEY Vora on 07/27/24 13:33 UA Bilirubin 0 mg/dL Last Edit by ASHLEY Vora on 07/27/24 13:33 UA Glucose 0 mg/dL Last Edit by ASHLEY oVra on 07/27/24 13:33 Results Reviewed Results Reviewed: Laboratory Last Values Urine pH (Auto) 6.0 07/27/24 13:33 Specific [place] (Auto) 1.025 07/27/24 13:33 Urine Protein (Auto) 0 mg/dL 07/27/24 13:33 Glucose (UA)(Auto) 0 mg/dL 07/27/24 13:33 Urine Ketones (Auto) Negative 07/27/24 13:33 Urine Blood (Auto) 25 Wilfred/uL 07/27/24 13:33 Urine Nitrite (Auto) Negative 07/27/24 13:33 Urine Bilirubin (Auto) 0 mg/dL 07/27/24 13:33 Urine Urobilinogen (Auto) 0.2 mg/dL 07/27/24 13:33 Leukocyte Esterase (Auto) 0 Glendy/uL 07/27/24 13:33 Assessment & Plan Assessment & Plan (1) Kidney calculi: Code(s): N20.0 - Calculus of kidney Category: Medical Plan Three-month follow-up renal ultrasound Orders: Orders AMB Urinalysis Automated Today Z13.9 - Encounter for screening, unspecified US renal BI 3 Months Z96.0 - Presence of urogenital implants AMB Cystoscopy Today Z96.0 - Presence of urogenital implants Patient Instructions: This note is constructed using voice recognition software. While every effort has been made to ensure accuracy stitch bonding machine tender helper errors may have been included. Imaging studies, laboratory and physical exam results were discussed and reviewed in detail. No major barriers to patient understanding were identified. An opportunity to ask questions regarding the treatment plan was provided. All questions were answered. The patient expressed understanding and agreement with the above treatment plan. The patient is aware they should contact our office by phone for worsening of their current condition or the appearance of new urologic symptoms. Compliance is encouraged with any medications and followup testing that is ordered. It is a privilege to participate in the urologic care of your patient. If you have any questions or concerns regarding treatment for the above conditions, or other urologic issues, please do not hesitate to contact me. The office telephone contact is [phone]. Sincerely, Dr Tanner Rock MD, [facility] - Urology Compassionate Specialist Care for the Genitourinary System Coding Level of Care Code Est Pt Level 4 (07366) Diagnoses Kidney calculi N20.0 CPT Codes Cystoscopy - CPT: 75913-[id number] with stent removal ([id number])
--- OUTSIDE RECORDS SUMMARY | 2024-07-27 16:01 | XMS_ITS | Clinical Summary ---
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 Active traMADoL 25 mg tablet Take 50 mg by mouth every 4 (four) hours. Max Daily Amount: 300 mg Active cyclobenzaprine (FLEXERIL) 10 mg tablet Take 1 tablet (10 mg total) by mouth 2 (two) times a day if needed for muscle spasms for up to 10 days. 20 tablet 05/29/2024 Active Encounters Date Type Department Care Team Description 05/29/2024 4:22 AM EST - 05/29/2024 10:46 AM EST Emergency [facility] Emergency [address] [place] [address] Fall, initial encounter (Primary Dx); Closed head injury, initial encounter; Acute strain of neck muscle, initial encounter; Pain of left hip Discharge Disposition: Home or Self Care from Last 3 Months Surgical History Surgery Date Site/Laterality Comments SECTION PROCEDURE: HISTORICAL Medical History Medical History Date Comments Herniated cervical disc Cystitis, interstitial GERD (gastroesophageal reflux disease) Social History Tobacco Use Types Packs/Day Years Used Date Smoking Tobacco: Never Smokeless Tobacco: Never Alcohol Use Standard Drinks/Week Comments Yes 0 (1 standard drink = 0.6 oz pur e alcohol) Interpersonal Safety Answer Date Record ed Physical Abuse 02/23/2024 Verbal Abuse 02/23/2024 Comments No Sex and Gender Information Value Date Recorded Sex Assigned at Female 05/29/2024 5:25 AM EST Legal Sex Female 4:31 AM EST Gender Identity Female 05/29/2024 5:25 AM EST Sexual Orientation Straight 05/29/2024 5: 25 AM EST Obstetrics History Last Filed Vital Signs Vital Sign Reading Time Taken Comments Blood Pressure 131/97 05/29/2024 10:31 AM EST Pulse 75 05/29/2024 10:31 AM EST Temperature 36.5 ??C (97.7 ??F) 05/29/2024 8:25 AM ES T Respiratory Rate 19 05/29/2024 10:31 AM EST Oxygen Saturation 98% 05/29/2024 10:31 AM EST Inhaled Oxygen Concentration - - Weight 66.7 kg (147 lb) 05/29/2024 4:12 AM EST Height 152.4 cm (5') 05/29/2024 4:12 AM EST Body Mass Index 28.71 05/29/2024 4:12 AM EST Plan of Treatment Health Maintenance Due Date Last Done Comments Breast Cancer Screening 1977 Hepatitis B Vaccines (1 of 3 - 19+ 3-dose series) 1996 Cervical Cancer Screening: Pap Smear 1998 Depression Screening 03/22/2022 HIV Screening 03/22/2022 Hepatitis C Screening 03/22/2022 Social Influencers of Health Screening 03/22/2022 COVID-19 Vaccine ( season) 2023 11/08/2020, 10/16/2020 Influenza Vaccine (Season Ended) 2024 01/18/2023, 03/02/2022, 03/07/2021, Additional history exists DTaP,Tdap,and Td Vaccines (3 - Td or Tdap) 06/01/2029 06/01/2019, 04/21/2016 Colorectal Cancer Screening: Colonoscopy 02/22/2034 02/23/2024 MMR Vaccines Aged Out 08/06/2016, 07/06/2016 No lo nger eligible based on patient's age to complete this topic HIB Vaccines Aged Out No longer eligi ble based on patient's age to complete this topic HPV Vaccines Aged Out No longer eligi ble based on patient's age to complete this topic Hepatitis A Vaccines Aged Out No long er eligible based on patient's age to complete this topic IPV Vaccines Aged Out No longer eligi ble based on patient's age to complete this topic Meningococcal ACWY Vaccine Aged Out N o longer eligible based on patient's age to complete this topic Meningococcal B Vaccine Aged Out No l onger eligible based on patient's age to complete this topic Pneumococcal Vaccine: Pediatrics (0 to 5 Years) and At-Risk Patients (6 to 64 Years) Aged Out No longer eligible based on patient's age to complete this topic RSV Immunization Patients Under 20 months Aged Out No longer eligible based on patient's age to complete this topic Varicella Vaccines Aged Out No longer eligible based on patient's age to complete this topic Procedures Procedure Name Priority Date/Time Associated Diagnosis Comments CT CERVICAL SPINE WO CONTRAST STAT 05/29/2024 8:[address] HEAD WO CONTRAST STAT 05/29/2024 8 :[address] CHEST/ABDOMEN/PELVIS W CONTRAST STAT 05/29/2024 8:17 AM EST COMPREHENSIVE METABOLIC PANEL STAT 05/29/2024 6:58 AM EST CBC WITH AUTO DIFFERENTIAL STAT 05/29/2024 5:39 AM EST HCG, SERUM, QUALITATIVE STAT 05/29/2024 5:39 AM EST CBC AND DIFFERENTIAL STAT 05/29/2024 5:39 AM EST COLONOSCOPY Routine 02/23/2024 1:15 PM EST Encounter for screening for malignant neoplasm of colon from Last 3 Months or Most Recently Relevant to Health Maintenance Results * CT Chest/Abdomen/Pelvis w Contrast (05/29/2024 8:17 AM EST) Anatomical Region Laterality Modality Body Computed Tomogra phy 05/29/2024 8:35 AM EST Impressions 05/29/2024 8:52 AM EST No mediastinal hematoma or pneumothorax. No hemoperitoneum or solid visceral injury. Multiple bilateral nonobstructing renal calculi. Left gluteal subcutaneous hematoma Incidental 0.4 cm right upper lobe pulmonary nodule. In low risk patient this does not require any specific imaging follow-up ?? -------- FINAL REPORT -------- Dictated By: Raman Washington Dictated Date: 05/29/2024 08:35 ET Assigned Physician: Raman Washington Reviewed and Electronically Signed By: Raman Washington Signed Date: 05/29/2024 08:52 ET Workstation ID: [id number] Transcribed By: Self Edit Transcribed Date: 05/29/2024 08:35 ET Narrative 05/29/2024 8:52 AM EST EXAMINATION: CT CHEST, ABDOMEN and PELVIS WITH CONTRAST CLINICAL INFORMATION: Blunt trauma. Fall. ??Pain. COMPARISON: None ?? TECHNIQUE: Multidetector CT. Examination of the chest, abdomen and pelvis. Multidetector CT. Examination of the chest, abdomen and pelvis following IV administration of nonionic contrast. Reformatting in the coronal and sagittal planes. DLP: 783 mGy-cm Dose optimization was performed including the use of low-dose iterative reconstruction technique with automatic exposure control based on patient size. Type of contrast: ISOVUE 370 Volume of IV contrast: 90 mL Volume of contrast discarded: 0 mL FINDINGS: LUNG: No abnormality of the trachea or mainstem bronchi. There is a 0.4 cm solid nodule in the posterior right apex (3/55). ?? No evidence of acute pulmonary injury. There are some minimal nonspecific dependent lung base opacities At least one left lower lung calcified granuloma. MEDIASTINUM: ??There is no mediastinal hematoma. There are no enlarged lymph nodes. No suspicious abnormality esophagus. CARDIAC: The heart is not enlarged. No pericardial fluid or thickening ?? CORONARY CALCIFICATION: None VASCULAR: There is no evidence of a thoracic aortic injury. The central pulmonary arteries opacify. There is no aortic aneurysm. ?? PLEURAL: There is no pleural fluid or pneumothorax. There is a tiny gas lucency associated with the lowest anterior right lower lung medially (. This may represent tiny bleb. ?? AXILLA/CHEST WALL: There are no enlarged axillary lymph nodes. No chest wall mass demonstrated. There is no large chest wall hematoma. ?? LIVER: There is no evidence of liver injury. The liver contour is smooth. There is no suspicious focal liver lesion. No suspicious focal liver lesions. ?? BILIARY TRACT: ??No opaque gallstone. No biliary dilation. SPLEEN: No evidence of splenic injury. ?? PANCREAS: No pancreatic injury demonstrated. No surrounding stranding. No ductal dilation ?? ADRENAL GLANDS: No suspicious abnormality. ?? KIDNEYS: There is no dilation of the urinary collecting system. No evidence of a renal injury. There are areas of renal cortical scarring on the right. There are multiple high density areas of central aspect of each kidney. Although IV contrast was administered I suspect these represent multiple nonobstructing renal calculi. There are at least 4 right renal calculi. There are at least 4 left renal calculi. Perhaps the largest in the region of the left renal pelvis measures 0.8 cm and is approximately 9.4 cm from the skin. ?? GASTROINTESTINAL TRACT: No evidence of a colonic injury. No localized colonic fat stranding. The appendix is within normal limits. No significant small bowel dilation. No definite abnormality of the stomach. There is no omental or mesenteric hematoma. ?? URINARY BLADDER: ??The bladder is moderately distended. No evidence of a bladder injury. PELVIC VISCERA: ??No suspicious abnormality. Small ovarian cysts are likely physiologic. ABDOMINAL WALL: No significant hernia is appreciated. ?? There are scattered soft tissue densities in the left gluteal superficial fat consistent with hematoma. No localized collection. No convincing evidence of active bleeding. LYMPHOVASCULAR STRUCTURES AND FLUID: There is no evidence of abdominal aortic injury. No retroperitoneal hemorrhage. There is a normal variant circumaortic left renal vein. The IVC caliber is within normal limits. There are no enlarged lymph nodes. There is no significant free intraperitoneal fluid. ?? MUSCULOSKELETAL: No acute or suspicious osseous abnormality. ?? No acute fracture. Slight offset dorsally in the coccyx does not appear acute. Procedure Note Raman Washington MD - 05/29/2024 EXAMINATION: CT CHEST, ABDOMEN and PELVIS WITH CONTRAST CLINICAL INFORMATION: Blunt trauma. Fall. Pain. COMPARISON: None TECHNIQUE: Multidetector CT. Examination of the chest, abdomen and pelvis. Multidetector CT. Examination of the chest, abdomen and pelvis followingIV administration of nonionic contrast. Reformatting in the coronal and sagittal planes. DLP: 783 mGy-cm Dose optimization was performed including the use of low-dose iterativereconstruction technique with automatic exposure control based on patientsize. Type of contrast: ISOVUE 370 Volume of IV contrast: 90 mL Volume of contrast discarded: 0 mL FINDINGS: LUNG: No abnormality of the trachea or mainstem bronchi. There is a 0.4 cm solid nodule in the posterior right apex (3/55). No evidence of acute pulmonary injury. There are some minimal nonspecificdependent lung base opacities At least one left lower lung calcified granuloma. MEDIASTINUM: There is no mediastinal hematoma. There are no enlargedlymph nodes. No suspicious abnormality esophagus. CARDIAC: The heart is not enlarged. No pericardial fluid or thickening CORONARY CALCIFICATION: None VASCULAR: There is no evidence of a thoracic aortic injury. The centralpulmonary arteries opacify. There is no aortic aneurysm. PLEURAL: There is no pleural fluid or pneumothorax. There is a tiny gaslucency associated with the lowest anterior right lower lung medially(4/77. This may represent tiny bleb. AXILLA/CHEST WALL: There are no enlarged axillary lymph nodes. No chestwall mass demonstrated. There is no large chest wall hematoma. LIVER: There is no evidence of liver injury. The liver contour is smooth.There is no suspicious focal liver lesion. No suspicious focal liverlesions. BILIARY TRACT: No opaque gallstone. No biliary dilation. SPLEEN: No evidence of splenic injury. PANCREAS: No pancreatic injury demonstrated. No surrounding stranding. Noductal dilation ADRENAL GLANDS: No suspicious abnormality. KIDNEYS: There is no dilation of the urinary collecting system. Noevidence of a renal injury. There are areas of renal cortical scarring onthe right. There are multiple high density areas of central aspect of eachkidney. Although IV contrast was administered I suspect these representmultiple nonobstructing renal calculi. There are at least 4 right renalcalculi. There are at least 4 left renal calculi. Perhaps the largest inthe region of the left renal pelvis measures 0.8 cm and is approximately9.4 cm from the skin. GASTROINTESTINAL TRACT: No evidence of a colonic injury. No localizedcolonic fat stranding. The appendix is within normal limits. Nosignificant small bowel dilation. No definite abnormality of thestomach. There is no omental or mesenteric hematoma. URINARY BLADDER: The bladder is moderately distended. No evidence of abladder injury. PELVIC VISCERA: No suspicious abnormality. Small ovarian cysts are likelyphysiologic. ABDOMINAL WALL: No significant hernia is appreciated. There are scattered soft tissue densities in the left gluteal superficialfat consistent with hematoma. No localized collection. No convincingevidence of active bleeding. LYMPHOVASCULAR STRUCTURES AND FLUID: There is no evidence of abdominalaortic injury. No retroperitoneal hemorrhage. There is a normal variantcircumaortic left renal vein. The IVC caliber is within normal limits. There are no enlarged lymph nodes. There is no significant freeintraperitoneal fluid. MUSCULOSKELETAL: No acute or suspicious osseous abnormality. No acute fracture. Slight offset dorsally in the coccyx does not appearacute. IMPRESSION: No mediastinal hematoma or pneumothorax. No hemoperitoneum or solid visceral injury. Multiple bilateral nonobstructing renal calculi. Left gluteal subcutaneous hematoma Incidental 0.4 cm right upper lobe pulmonary nodule. In low risk patientthis does not require any specific imaging follow-up -------- FINAL REPORT -------- Dictated By: Raman Washington Dictated Date: 05/29/2024 08:35 ET Assigned Physician: Raman Washington Reviewed and Electronically Signed By: Raman Washington Signed Date: 05/29/2024 08:52 ET Workstation ID: [id number] Transcribed By: Self Edit Transcribed Date: 05/29/2024 08:35 ET Marshal LYNNE IMIsmael CT PROCEDURES Final Result * CT Cervical Spine wo Contrast (05/29/2024 8:17 AM EST) Anatomical Region Laterality Modality Spine, C-spine Computed Tomogra phy 05/29/2024 8:25 AM EST Addenda Addendum by Raman Washington MD on 05/29/2024 9:52 AM EST Addendum: Findings reviewed with Coco [place]elia, physician's commercial escrow assistant at approximately 0950 hours on 05/29/2024 We discussed possibilities including iatrogenic gas introduced through IV tubing, upper airway injuries and infection. I suspect this is an incidental finding and not acute. The patient does have an IV and I suspect this is iatrogenic. We discussed that there are unexpected or unexplained symptoms a repeat study could be performed -------- ADDENDUM -------- Dictated By: Raman Washington Dictated Date: 05/29/2024 09:43 ET Assigned Physician: Raman Washington Reviewed and Electronically Signed By: Raman Washington Signed Date: 05/29/2024 09:52 ET Workstation ID: [id number] Transcribed By: Self Edit Transcribed Date: 05/29/2024 09:43 ET Impressions 05/29/2024 8:35 AM EST No intracranial hemorrhage, infarct or skull fracture. ?? No acute cervical fracture or subluxation. Previous discectomy and instrumentation at C5/C6. Nonspecific small amounts of soft tissue gas to ??the left of the C2 lateral mass. -------- FINAL REPORT -------- Dictated By: Raman Washington Dictated Date: 05/29/2024 08:25 ET Assigned Physician: Raman Washington Reviewed and Electronically Signed By: Raman Washington Signed Date: 05/29/2024 08:35 ET Workstation ID: [id number] Transcribed By: Self Edit Transcribed Date: 05/29/2024 08:25 ET Narrative 05/29/2024 8:35 AM EST EXAMINATION: CT HEAD ??and CT CERVICAL SPINE WITHOUT CONTRAST CLINICAL INFORMATION: Fall. Hit back of head. Previous neck surgery. Left-sided pain ??no loss of consciousness COMPARISON: None ?? TECHNIQUE: Multidetector CT. Examination of the head and cervical spine. Examination of the head and cervical spine without IV contrast. Reformatting in the coronal and sagittal planes. DLP: 1177 mGy-cm Dose optimization was performed including the use of low-dose iterative reconstruction technique with automatic exposure control based on patient size. Type of contrast: None Volume of IV contrast: None Volume of contrast discarded: 0 mL FINDINGS: HEAD CT: Intracranial hemorrhage: No evidence of recent intracranial hemorrhage. Ventricles, cisterns and sulci: ??Within normal limits. Extra-axial mass or collections: No extra-axial mass or collection ?? Intra-axial mass: No mass demonstrated Acute infarct: No acute territorial infarct demonstrated. ?? White matter disease: No significant white matter disease demonstrated. ?? Ramos-white interface: No disruption of the ramos-white interface. ?? Paranasal sinuses: The visualized paranasal sinuses are well pneumatized and aerated ?? Osseous/Scalp[: ??No fracture, fluid level or focal lesion. CERVICAL CT: No acute fracture or subluxation. There has been instrumentation with discectomy and fusion at C5/C6. Some bone encroaches upon the ventral aspect of the spinal canal. This does not appear acute. There is nonspecific gas in the soft tissues adjacent to the lateral mass of C2 on the left. This is of uncertain etiology or significance. There is no other abnormal soft tissue gas demonstrated. No suspicious abnormality in the visualized apex of the chest Procedure Note Raman Washington MD - 05/29/2024 EXAMINATION: CT HEAD and CT CERVICAL SPINE WITHOUT CONTRAST CLINICAL INFORMATION: Fall. Hit back of head. Previous neck surgery. Left-sided pain no loss ofconsciousness COMPARISON: None TECHNIQUE: Multidetector CT. Examination of the head and cervical spine. Examination of the head and cervical spine without IV contrast. Reformatting in the coronal and sagittal planes. DLP: 1177 mGy-cm Dose optimization was performed including the use of low-dose iterativereconstruction technique with automatic exposure control based on patientsize. Type of contrast: None Volume of IV contrast: None Volume of contrast discarded: 0 mL FINDINGS: HEAD CT: Intracranial hemorrhage: No evidence of recent intracranial hemorrhage. Ventricles, cisterns and sulci: Within normal limits. Extra-axial mass or collections: No extra-axial mass or collection Intra-axial mass: No mass demonstrated Acute infarct: No acute territorial infarct demonstrated. White matter disease: No significant white matter disease demonstrated. Ramos-white interface: No disruption of the ramos-white interface. Paranasal sinuses: The visualized paranasal sinuses are well pneumatizedand aerated Osseous/Scalp[: No fracture, fluid level or focal lesion. CERVICAL CT: No acute fracture or subluxation. There has been instrumentation withdiscectomy and fusion at C5/C6. Some bone encroaches upon the ventralaspect of the spinal canal. This does not appear acute. There is nonspecific gas in the soft tissues adjacent to the lateral massof C2 on the left. This is of uncertain etiology or significance. There isno other abnormal soft tissue gas demonstrated. No suspicious abnormality in the visualized apex of the chest IMPRESSION: No intracranial hemorrhage, infarct or skull fracture. No acute cervical fracture or subluxation. Previous discectomy andinstrumentation at C5/C6. Nonspecific small amounts of soft tissue gas to the left of the [id number] mass. -------- FINAL REPORT -------- Dictated By: Raman Washington Dictated Date: 05/29/2024 08:25 ET Assigned Physician: Raman Washington Reviewed and Electronically Signed By: Raman Washington Signed Date: 05/29/2024 08:35 ET Workstation ID: [id number] Transcribed By: Self Edit Transcribed Date: 05/29/2024 08:25 ET Marshal [facility] [place]ED[place] Edited Result - Final * CT Head wo Contrast (05/29/2024 8:17 AM EST) Anatomical Region Laterality Modality Head and Neck Computed Tomogra phy 05/29/2024 8:25 AM EST Addenda Addendum by Raman Washington MD on 05/29/2024 9:52 AM EST Addendum: Findings reviewed with Coco [place] physician's commercial escrow assistant at approximately 0950 hours on 05/29/2024 We discussed possibilities including iatrogenic gas introduced through IV tubing, upper airway injuries and infection. I suspect this is an incidental finding and not acute. The patient does have an IV and I suspect this is iatrogenic. We discussed that there are unexpected or unexplained symptoms a repeat study could be performed -------- ADDENDUM -------- Dictated By: Raman Washington Dictated Date: 05/29/2024 09:43 ET Assigned Physician: Raman Washington Reviewed and Electronically Signed By: Raman Washington Signed Date: 05/29/2024 09:52 ET Workstation ID: [id number] Transcribed By: Self Edit Transcribed Date: 05/29/2024 09:43 ET Impressions 05/29/2024 8:35 AM EST No intracranial hemorrhage, infarct or skull fracture. ?? No acute cervical fracture or subluxation. Previous discectomy and instrumentation at C5/C6. Nonspecific small amounts of soft tissue gas to ??the left of the C2 lateral mass. -------- FINAL REPORT -------- Dictated By: Raman Washington Dictated Date: 05/29/2024 08:25 ET Assigned Physician: Raman Washington Reviewed and Electronically Signed By: Raman Washington Signed Date: 05/29/2024 08:35 ET Workstation ID: [id number] Transcribed By: Self Edit Transcribed Date: 05/29/2024 08:25 ET Narrative 05/29/2024 8:35 AM EST EXAMINATION: CT HEAD ??and CT CERVICAL SPINE WITHOUT CONTRAST CLINICAL INFORMATION: Fall. Hit back of head. Previous neck surgery. Left-sided pain ??no loss of consciousness COMPARISON: None ?? TECHNIQUE: Multidetector CT. Examination of the head and cervical spine. Examination of the head and cervical spine without IV contrast. Reformatting in the coronal and sagittal planes. DLP: 1177 mGy-cm Dose optimization was performed including the use of low-dose iterative reconstruction technique with automatic exposure control based on patient size. Type of contrast: None Volume of IV contrast: None Volume of contrast discarded: 0 mL FINDINGS: HEAD CT: Intracranial hemorrhage: No evidence of recent intracranial hemorrhage. Ventricles, cisterns and sulci: ??Within normal limits. Extra-axial mass or collections: No extra-axial mass or collection ?? Intra-axial mass: No mass demonstrated Acute infarct: No acute territorial infarct demonstrated. ?? White matter disease: No significant white matter disease demonstrated. ?? Ramos-white interface: No disruption of the ramos-white interface. ?? Paranasal sinuses: The visualized paranasal sinuses are well pneumatized and aerated ?? Osseous/Scalp[: ??No fracture, fluid level or focal lesion. CERVICAL CT: No acute fracture or subluxation. There has been instrumentation with discectomy and fusion at C5/C6. Some bone encroaches upon the ventral aspect of the spinal canal. This does not appear acute. There is nonspecific gas in the soft tissues adjacent to the lateral mass of C2 on the left. This is of uncertain etiology or significance. There is no other abnormal soft tissue gas demonstrated. No suspicious abnormality in the visualized apex of the chest Procedure Note Raman Washington MD - 05/29/2024 EXAMINATION: CT HEAD and CT CERVICAL SPINE WITHOUT CONTRAST CLINICAL INFORMATION: Fall. Hit back of head. Previous neck surgery. Left-sided pain no loss ofconsciousness COMPARISON: None TECHNIQUE: Multidetector CT. Examination of the head and cervical spine. Examination of the head and cervical spine without IV contrast. Reformatting in the coronal and sagittal planes. DLP: 1177 mGy-cm Dose optimization was performed including the use of low-dose iterativereconstruction technique with automatic exposure control based on patientsize. Type of contrast: None Volume of IV contrast: None Volume of contrast discarded: 0 mL FINDINGS: HEAD CT: Intracranial hemorrhage: No evidence of recent intracranial hemorrhage. Ventricles, cisterns and sulci: Within normal limits. Extra-axial mass or collections: No extra-axial mass or collection Intra-axial mass: No mass demonstrated Acute infarct: No acute territorial infarct demonstrated. White matter disease: No significant white matter disease demonstrated. Ramos-white interface: No disruption of the ramos-white interface. Paranasal sinuses: The visualized paranasal sinuses are well pneumatizedand aerated Osseous/Scalp[: No fracture, fluid level or focal lesion. CERVICAL CT: No acute fracture or subluxation. There has been instrumentation withdiscectomy and fusion at C5/C6. Some bone encroaches upon the ventralaspect of the spinal canal. This does not appear acute. There is nonspecific gas in the soft tissues adjacent to the lateral massof C2 on the left. This is of uncertain etiology or significance. There isno other abnormal soft tissue gas demonstrated. No suspicious abnormality in the visualized apex of the chest IMPRESSION: No intracranial hemorrhage, infarct or skull fracture. No acute cervical fracture or subluxation. Previous discectomy andinstrumentation at C5/C6. Nonspecific small amounts of soft tissue gas to the left of the [id number] mass. -------- FINAL REPORT -------- Dictated By: Raman Washington Dictated Date: 05/29/2024 08:25 ET Assigned Physician: Raman Washington Reviewed and Electronically Signed By: Raman Washington Signed Date: 05/29/2024 08:35 ET Workstation ID: [id number] Transcribed By: Self Edit Transcribed Date: 05/29/2024 08:25 ET Marshal L[facility] IMG CT PROCEDURES Edited Result - Final * Comprehensive Metabolic Panel (CMP) (05/29/2024 6:58 AM EST) Sodium 140 133 - 145 mmol/L LAB CHEMISTRY METHOD 05/29/2024 8:36 AM [facility] Potassium 4.0 3.5 - 5.5 mmol/L LAB CHEMISTRY METHOD 05/29/2024 8:36 AM [facility] Chloride 110 96 - 110 mmol/L LAB CHEMISTRY METHOD 05/29/2024 8:36 AM [facility] CO2 22 21 - 32 mmol/L LAB CHEMISTRY METHOD 05/29/2024 8:36 AM [facility] Anion Gap 8 3 - 11 LAB CHEMISTRY METHOD 05/29/2024 8:36 AM [facility] Glucose 88 70 - 100 mg/dL LAB CHEMISTRY METHOD 05/29/2024 8:36 AM [facility] BUN 14 5 - 25 mg/dL LAB CHEMISTRY METHOD 05/29/2024 8:36 AM [facility] Creatinine 0.63 0.50 - 1.10 mg/dL LAB CHEMISTRY METHOD 05/29/2024 8:36 AM [facility] eGFR 111 >=60 mL/min/1. 73m2 LAB CHEMISTRY METHOD 05/29/2024 8:36 AM [facility] Comment:Calculation based on the??Chronic Kidney Disease Epidemiology Collaboration (CKD-EPI) equation refit??without adjustment for race. BUN/Creatinine Ratio 22.2 LAB CHEMISTRY METHOD 05/29/2024 8:36 AM [facility] Calcium 9.2 8.5 - 10.5 mg/dL LAB CHEMISTRY METHOD 05/29/2024 8:36 AM [facility] AST (SGOT) 12 10 - 42 unit/L LAB CHEMISTRY METHOD 05/29/2024 8:36 AM [facility] ALT (SGPT) 19 10 - 60 unit/L LAB CHEMISTRY METHOD 05/29/2024 8:36 AM [facility] Alkaline Phosphatase 56 42 - 121 unit/L LAB CHEMISTRY METHOD 05/29/2024 8:36 AM [facility] Total Protein 6.2 6.0 - 8.0 g/dL LAB CHEMISTRY METHOD 05/29/2024 8:36 AM [facility] Albumin 3.3 3.2 - 5.0 g/dL LAB CHEMISTRY METHOD 05/29/2024 8:36 AM [facility] Total Bilirubin 0.3 0.0 - 1.4 mg/dL LAB CHEMISTRY METHOD 05/29/2024 8:36 AM [facility] Blood Venous blood specimen / Unknown Venipuncture / Unknown 05/29/2024 6:58 AM EST 05/29/2024 8:05 AM EST us Marshal LYNNE LAB BLOOD ORDERABLES Final Resul t [facility] [address] [place] [address], * (ABNORMAL) CBC auto differential (05/29/2024 5:39 AM EST) WBC 13.0(H) 4.8 - 10.8 K/mcL LAB HEMETOLOGY METHOD 05/29/2024 7:07 AM [facility] RBC 5.00(H) 3.80 - 4.80 M/mcL LAB HEMETOLOGY METHOD 05/29/2024 7:07 AM [facility] Hemoglobin 14.2 11.5 - 16.0 g/dL LAB HEMETOLOGY METHOD 05/29/2024 7:07 AM [facility] Hematocrit 43.7 35.0 - 47.0 % LAB HEMETOLOGY METHOD 05/29/2024 7:07 AM [facility] MCV 86.7 79.0 - 98.0 FL LAB HEMETOLOGY METHOD 05/29/2024 7:07 AM [facility] MCH 28.2 27.0 - 32.0 pcg LAB HEMETOLOGY METHOD 05/29/2024 7:07 AM [facility] MCHC 32.5 32.0 - 37.0 g/dL LAB HEMETOLOGY METHOD 05/29/2024 7:07 AM [facility] RDW 13.8 11.0 - 15.0 % LAB HEMETOLOGY METHOD 05/29/2024 7:07 AM [facility] Platelets 174 130 - 400 K/mcL LAB HEMETOLOGY METHOD 05/29/2024 7:07 AM [facility] Comment:reviewed by slide MPV 14.2(H) 7.0 - 11.0 FL LAB HEMETOLOGY METHOD 05/29/2024 7:07 AM [facility] NRBC 0.0 <1.0 % LAB HEMETOLOGY METHOD 05/29/2024 7:07 AM [facility] NRBC Absolute 0.00 <0.10 K/mcL LAB HEMETOLOGY METHOD 05/29/2024 7:07 AM [facility] Neutrophils Relative 83.9 % LAB HEMETOLOGY METHOD 05/29/2024 7:07 AM [facility] Lymphocytes Relative 9.9 % LAB HEMETOLOGY METHOD 05/29/2024 7:07 AM [facility] Monocytes Relative 4.4 % LAB HEMETOLOGY METHOD 05/29/2024 7:07 AM [facility] Eosinophils Relative 1.2 % LAB HEMETOLOGY METHOD 05/29/2024 7:07 AM [facility] Basophils Relative 0.4 % LAB HEMETOLOGY METHOD 05/29/2024 7:07 AM [facility] Immature Granulocytes Relative 0.2 % LAB HEMETOLOGY METHOD 05/29/2024 7:07 AM [facility] Neutrophils Absolute 10.92(H) 1.50 - 7.00 K/mcL LAB HEMETOLOGY METHOD 05/29/2024 7:07 AM [facility] Lymphocytes Absolute 1.28 1.00 - 5.00 K/mcL LAB HEMETOLOGY METHOD 05/29/2024 7:07 AM [facility] Monocytes Absolute 0.57 0.20 - 1.00 K/mcL LAB HEMETOLOGY METHOD 05/29/2024 7:07 AM [facility] Eosinophils Absolute 0.15 0.00 - 0.50 K/mcL LAB HEMETOLOGY METHOD 05/29/2024 7:07 AM [facility] Basophils Absolute 0.05 0.00 - 0.20 K/mcL LAB HEMETOLOGY METHOD 05/29/2024 7:07 AM [facility] Immature Granulocytes Absolute 0.02 0.00 - 0.03 K/mcL LAB HEMETOLOGY METHOD 05/29/2024 7:07 AM [facility] Blood Venous blood specimen / Unknown Venipuncture / Unknown 05/29/2024 5:39 AM EST 05/29/2024 6:13 AM EST us Marshal LYNNE LAB BLOOD ORDERABLES Final Resul t [facility] [address] [place] [address], * hCG Qualitative (05/29/2024 5:39 AM EST) hCG Qual Negative Negative 05/29/2024 6:42 AM EST [facility] Blood Venous blood specimen / Unknown Venipuncture / Unknown 05/29/2024 5:39 AM EST 05/29/2024 6:13 AM EST us Marshal LYNNE LAB BLOOD ORDERABLES Final Resul t [facility] ([facility]) [facility] [address] [place] [address], * COLONOSCOPY Anesthesia - MAC; [facility] ENDOSCOPY (02/23/2024 1:15 PM EST) Anatomical Region Laterality Modality Endoscopy 02/23/2024 12:2 9 PM EST Narrative 02/23/2024 1:19 PM EST [facility] GI Patient Name: Deena Camacho ?Procedure Date: 02/23/2024 12:29 PM ? Date of : 1975 ?Age: 48 Room: ROOM 16 ? Gender: Female Note Status: Finalized ?Attending MD: Johnny Dill DO, [id number] Procedure Date No Time: 02/23/2024 ? Procedure: ? Colonoscopy Indications: ? Screening for colorectal malignant neoplasm Providers: ? Johnny Dill DO Referring MD: ?Melvin Lara MD Medicines: ? Monitored Anesthesia Care Complications: ? No immediate complications. Estimated blood loss: None. Estimated Blood Loss: ? Estimated blood loss: none. Procedure: ? Pre-Anesthesia Assessment: ? - - Prior to the procedure, a History and Physical was ? performed, and patient medications and allergies were ? reviewed. The patient is competent. The risks and ? benefits of the procedure and the sedation options and ? risks were discussed with the patient. All questions ? were answered and informed consent was obtained. ? Patient identification and proposed procedure were ? verified by the physician, the nurse, the ? anesthesiologist, the echocardiography tech and the oil refinery process technician ? in the pre-procedure area in the endoscopy suite. ? Mental Status Examination: alert and oriented. Airway ? Examination: normal oropharyngeal airway and neck ? mobility. Respiratory Examination: clear to ? auscultation. CV Examination: normal. Prophylactic ? Antibiotics: The patient does not require prophylactic ? antibiotics. Prior Anticoagulants: The patient has ? taken no anticoagulant or antiplatelet agents. ASA ? Grade Assessment: II - A patient with severe systemic ? disease. After reviewing the risks and benefits, the ? patient was deemed in satisfactory condition to ? undergo the procedure. The anesthesia plan was to use ? monitored anesthesia care (MAC). Immediately prior to ? administration of medications, the patient was ? re-assessed for adequacy to receive sedatives. The ? heart rate, respiratory rate, oxygen saturations, ? blood pressure, adequacy of pulmonary ventilation, and ? response to care were monitored throughout the ? procedure. The physical status of the patient was ? re-assessed after the procedure. ? After I obtained informed consent, the scope was ? passed under direct vision. Throughout the procedure, ? the patient's blood pressure, pulse, and oxygen ? saturations were monitored continuously. The ? Colonoscope was introduced through the anus and ? advanced to the cecum, identified by appendiceal ? orifice and ileocecal valve. The colonoscopy was ? performed without difficulty. The patient tolerated ? the procedure well. The quality of the bowel ? preparation was good. Findings: ?The perianal and digital rectal examinations were ? normal. ? Non-bleeding hemorrhoids were found during ? retroflexion. The hemorrhoids were small. ? The exam was otherwise without abnormality on direct ? and retroflexion views. Impression: ?- The examination was otherwise normal on direct and ? retroflexion views. ? - No specimens collected. Recommendation: ?- - Discharge patient to home. ? - Resume previous diet. ? - Continue present medications. ? - Repeat colonoscopy in 10 years for screening ? purposes. ? - Return to primary care physician. Procedure Code(s): ? --- Professional --- ? G0121, Colorectal cancer screening; colonoscopy on ? individual not meeting criteria for high risk Diagnosis Code(s): ? --- Professional --- ? Z12.11, Encounter for screening for malignant neoplasm ? of colon CPT copyright 2021 [employer]. All rights reserved. The codes documented in this report are preliminary and upon benefits consulting analyst review may be revised to meet current compliance requirements. JOHNNY DILL Johnny Dill DO 02/23/2024 1:19:36 PM This report has been signed electronically.Johnny Dill DO Number of Addenda: 0 Note Initiated On: 02/23/2024 12:29 PM Scope Withdrawal Time: 0 hours 7 minutes 14 seconds Scope In: 1:02:21 PM Scope Out: 1:13:56 PM ? Endoscopy Department at [facility] - [address] [place] [address], ? [place] [id number] Procedure Note Johnny Dill DO - 02/23/2024 [facility] GI Patient Name: Deena Camacho Procedure Date: 02/23/2024 12:29 PM Date of : 1975 Age: 48 Room: ROOM 16 Gender: Female Note Status: Finalized Attending MD: Johnny Dill DO,[id number] Procedure Date No Time: 02/23/2024 Procedure: Colonoscopy Indications: Screening for colorectal malignant neoplasm Providers: Johnny Dill DO Referring MD: Melvin Lara MD Medicines: Monitored Anesthesia Care Complications: No immediate complications. Estimated blood loss:None. Estimated Blood Loss: Estimated blood loss: none. Procedure: Pre-Anesthesia Assessment: - - Prior to the procedure, a History and Physicalwas performed, and patient medications and allergieswere reviewed. The patient is competent. The risks and benefits of the procedure and the sedation optionsand risks were discussed with the patient. Allquestions were answered and informed consent was obtained. Patient identification and proposed procedure were verified by the physician, the nurse, the anesthesiologist, the echocardiography tech and thetechnician in the pre-procedure area in the endoscopy suite. Mental Status Examination: alert and oriented.Airway Examination: normal oropharyngeal airway and neck mobility. Respiratory Examination: clear to auscultation. CV Examination: normal. Prophylactic Antibiotics: The patient does not requireprophylactic antibiotics. Prior Anticoagulants: The patient has taken no anticoagulant or antiplatelet agents. ASA Grade Assessment: II - A patient with severesystemic disease. After reviewing the risks and benefits,the patient was deemed in satisfactory condition to undergo the procedure. The anesthesia plan was touse monitored anesthesia care (MAC). Immediately priorto administration of medications, the patient was re-assessed for adequacy to receive sedatives. The heart rate, respiratory rate, oxygen saturations, blood pressure, adequacy of pulmonary ventilation,and response to care were monitored throughout the procedure. The physical status of the patient was re-assessed after the procedure. After I obtained informed consent, the scope was passed under direct vision. Throughout theprocedure, the patient's blood pressure, pulse, and oxygen saturations were monitored continuously. The Colonoscope was introduced through the anus and advanced to the cecum, identified by appendiceal orifice and ileocecal valve. The colonoscopy was performed without difficulty. The patient tolerated the procedure well. The quality of the bowel preparation was good. Findings: The perianal and digital rectal examinations were normal. Non-bleeding hemorrhoids were found during retroflexion. The hemorrhoids were small. The exam was otherwise without abnormality ondirect and retroflexion views. Impression: - The examination was otherwise normal on directand retroflexion views. - No specimens collected. Recommendation: - - Discharge patient to home. - Resume previous diet. - Continue present medications. - Repeat colonoscopy in 10 years for screening purposes. - Return to primary care physician. Procedure Code(s): --- Professional --- G0121, Colorectal cancer screening; colonoscopy on individual not meeting criteria for high risk Diagnosis Code(s): --- Professional --- Z12.11, Encounter for screening for malignantneoplasm of colon CPT copyright 2020 [employer]. All rights reserved. The codes documented in this report are preliminary and upon benefits consulting analyst reviewmay be revised to meet current compliance requirements. JOHNNY DILL Johnny Dill DO 02/23/2024 1:19:36 PM This report has been signed electronically.Johnny Dill DO Number of Addenda: 0 Note Initiated On: 02/23/2024 12:29 PM Scope Withdrawal Time: 0 hours 7 minutes 14 seconds Scope In: 1:02:21 PM Scope Out: 1:13:56 PM Endoscopy Department at [address] [id number] Johnny Dill DO GI~PROCEDURE ORDERABLES Final Re sult from Last 3 Months or Most Recently Relevant to Health Maintenance Insurance [employer] Care Teams Cap Lining Machine Operator Relationship Specialty Start Date End Date Melvin Lara MD [address] [place] [address] [place] [address] PCP - General Internal Medicine 11/10/18
== END 2024-07-27 14:05 | disposition home or self-care (01) ==
LOC: HO.HUSH 13:17
PROVIDERS: PCP Internal Medicine; Visit Provider Urology
DX: N20.0 Calculus of kidney (principal); Z96.0 Presence of urogenital implants; Z13.9 Encounter for screening, unspecified
CPT/HCPCS: 52310

== ENCOUNTER → 2024-07-27 13:16 | Outpatient (BNVA) | payer OTHER, SELFPAY | PROVIDERS: PCP Internal Medicine; Visit Provider Urology | DX: N20.0 Calculus of kidney (principal) | CPT/HCPCS: 52310; 81003 ==

== ENCOUNTER 2024-08-28 13:27 | Outpatient (REF) | payer OTHER, SELFPAY ==
--- OUTSIDE RECORDS SUMMARY | 2024-08-28 14:21 | XMS_ITS | Clinical Summary ---
Author Organization [facility] Address [address] [place] [address] Care Team Providers Care Sous Chef Name Role Phone Melvin Lara MD Primary Care Provider +1- [phone] Social History Tobacco Use Types Packs/Day Years [...] age to complete this topic Care Teams Sous Chef Relationship Specialty Start Date End Date Melvin Lara MD [address] [place] [address] [place] [address] PCP - General Internal Medicine 07/18/19
--- OUTSIDE RECORDS SUMMARY | 2024-08-28 14:21 | XMS_ITS | Clinical Summary ---
Author Organization [facility] Address [address] [place] [address] Phone Care Team Providers Care Swing Tender Name Role Phone Melvin Lara MD Primary [...] Maintenance Results * COLONOSCOPY Anesthesia - MAC; [facility] ENDOSCOPY (02/23/2024 1:15 PM EST) Anatomical Region Laterality Modality Endoscopy 02/23/2024 12:2 9 PM EST Narrative 02/23/2024 1:19 PM EST [facility] GI Patient Name: Deena Camacho ?Procedure Date: 02/23/2024 12:29 PM ? Date of : 1975 ?Age: 48 Room: ROOM 16 ? Gender: Female Note Status: Finalized ?Attending MD: Johnny Dill DO, [id number] Procedure Date No Time: 02/23/2024 ? Procedure: [...] physician, the nurse, the ? anesthesiologist, the motion picture set up worker and the oil heat technician ? in the pre-procedure area in [...] neoplasm ? of colon CPT copyright 2020 [employer]. All rights reserved. The codes documented in this report are preliminary and upon tack driller review may be revised to meet current compliance requirements. JOHNNY DILL Johnny Dill DO 02/23/2024 1:19:36 PM This report has been signed electronically.Johnny Dill DO Number of Addenda: 0 Note Initiated On: 02/23/2024 12:29 PM Scope Withdrawal Time: 0 hours 7 minutes 14 seconds Scope In: 1:02:21 PM Scope Out: 1:13:56 PM ? Endoscopy Department at [facility] - [address] [place] [address], ? [place] [address] Procedure Note Johnny Dill DO - 02/23/2024 [facility] GI Patient Name: Deena Camacho Procedure Date: 02/23/2024 12:29 PM Date of : 1975 Age: 48 Room: ROOM 16 Gender: Female Note Status: Finalized Attending MD: Johnny Dill DO,[id number] Procedure Date No Time: 02/23/2024 Procedure: Colonoscopy [...] the physician, the nurse, the anesthesiologist, the motion picture set up worker and thetechnician in the pre-procedure area in [...] for malignantneoplasm of colon CPT copyright 2020 [employer]. All rights reserved. The codes documented in this report are preliminary and upon tack driller reviewmay be revised to meet current compliance requirements. JOHNNY DILL Johnny Dill DO 02/23/2024 1:19:36 PM This report has been signed electronically.Johnny Dill DO Number of Addenda: 0 Note Initiated On: 02/23/2024 12:29 PM Scope Withdrawal Time: 0 hours 7 minutes 14 seconds Scope In: 1:02:21 PM Scope Out: 1:13:56 PM Endoscopy Department at [address] [address] Johnny Dill DO GI~PROCEDURE ORDERABLES Final Re sult from Last 3 Months or Most Recently Relevant to Health Maintenance Insurance [employer] Care Teams Swing Tender Relationship Specialty Start Date End Date Melvin Lara MD [address] [place] [address] [place] [address] PCP - General Internal Medicine 11/10/18
[2024-08-28 18:25] LABS: Bacterial Vaginosis PCR POSITIVE (Negative); Candida Group PCR NOT DETECTED (Not Detect); Candida glab krusei PCR NOT DETECTED (Not Detect); Trichomonas vaginalis PCR NOT DETECTED (Not Detect)
[2024-08-28 18:58] LABS: CT PCR NOT DETECTED (Not Detect.); NG PCR NOT DETECTED (Not Detect.)
== END 2024-08-28 13:28 | disposition home or self-care (01) ==
LOC: HO.LNP 13:27
PROVIDERS: PCP Internal Medicine; Visit Provider Obstetrics & Gynecology
DX: N93.9 Abnormal uterine and vaginal bleeding, unspecified (principal); N89.8 Other specified noninflammatory disorders of vagina; R31.29 Other microscopic hematuria
CPT/HCPCS: 81025; 81515; 87086; 87491; 87591

== ENCOUNTER 2024-08-28 13:27 | Outpatient (AMB) | payer OTHER, SELFPAY ==
--- NOTE | 2024-08-28 13:38 | MHC.OFFVIS ---
Vital Signs 08/28/24 13:42 Height 5 ft Weight 147 lb BMI 28.7 Intake Visit Reasons: vaginal dryness Technology Sales Consultant Required: No Information Interpreted: non-clinical & clinical Order Entry Administrator: Order Entry Administrator Present (Bri Morris RENATO) Accompanied by: Self / Same As Patient Allergies ceftriaxone [From Rocephin] Allergy (Intermediate, Verified 08/28/24 13:45) Lip Swelling ciprofloxacin Adverse Reaction (Intermediate, Verified 08/28/24 13:45) swelling of feet Sulfa (Sulfonamide Antibiotics) Adverse Reaction (Intermediate, Verified 08/28/24 13:45) swelling of feet HPI Comments Details: Presenting complaining of irregular menstrual cycles associated with vulvovaginal dryness and hot flashes in addition to urinary frequency Last co testing was in 09/06 Last screening mammogram was many years ago Last screening colonoscopy was in 03/12 done at [facility], no records available but according to patient the patient will be due for next screening colonoscopy in 10 years PFSH Medical History (Updated 08/28/24 @ 14:05 by Jarret Boudreaux MD) Insomnia Hypertensive retinopathy of both eyes Pure hypercholesterolemia Overweight (BMI 25.0-29.9) Dysuria Pelvic floor dysfunction Headache, migraine Microscopic hematuria Recurrent UTI Hypocitraturia Recurrent nephrolithiasis Epigastric pain Hemorrhoid Anal fissure Rectal bleed Weakness of both hands Menstrual disorder Obesity (BMI 30-39.9) Anxiety Nonintractable headache Herniation of cervical intervertebral disc with radiculopathy Herniated disc Surgical History History of surgery Hx of cystoscopy S/P ureteral stent placement History of cervical discectomy History of section History of tubal ligation Family History Father Medical history unknown Mother Medical history unknown Maternal Grandmother Breast cancer Sister Breast cancer Daughter Breast cancer Son Autism Mental health disorder Social History Housing: Apartment Are you a primary caregivers non medical to a significant other at home: No Do you presently have visiting nurse or other home services: No Alcohol intake: current Alcohol intake frequency: holidays/special occasions only Patient Tobacco Use Status: Never used Tobacco e-Cigarette/Vaping Use: Never Used Second Hand Smoke Exposure: No service: No Current occupational status: employed Cognitive needs: No Hearing needs: No Vision needs: Yes (glasses) Female Reproductive History Menstrual Age of Menarche: 15 Review of Systems Const All systems reviewed & are unremarkable except as noted in HPI and below Card Reports as per HPI Resp Reports as per HPI GI Reports as per HPI and Reports no additional complaints Reports as per HPI Physical Exam Vital Signs: BMI result Body Mass Index 28.7 Const General: cooperative, healthy appearing and comfortable Chest Chest palpation & inspection: normal inspection of the chest and normal palpation of entire chest wall Breast/axilla inspection: normal inspection of the breasts and normal inspection of the axillae Breast/axilla palpation: normal palpation of the breasts, normal palpation of the axillae and no axillary lymphadenopathy Resp Effort & Inspection: normal respiratory effort Auscultation: clear to auscultation bilaterally Percussion: percussion normal Cardio Palpation: normal PMI Rate: regular rate Rhythm: regular rhythm Heart sounds: no murmurs and no rubs Peripheral pulses: Peripheral pulses 2+ throughout GI Inspection: Yes normal to inspection Palpation (GI): Soft to palpation, nontender, no guarding, not rigid and No hepatosplenomegaly present Percussion: Yes normal to percussion Auscultation: normal bowel sounds Rectal Exam - Female: deferred General: Yes bladder normal to palpation External Female Exam: No lesion Speculum Exam - Vagina: normal appearance of the vagina, normal palpation, normal vaginal discharge and not erythematous Speculum Exam - Cervix: normal appearance of the cervix and normal palpation Bimanual exam- vagina & uterus: normal bimanual exam, normal palpation, uterine size normal, bladder normal to palpation, consistency normal and normal palpation Bimanual Exam- Adnexa, other: normal adnexae, no masses and no tenderness Assessment & Plan Assessment & Plan (1) Abnormal uterine bleeding: Code(s): N93.9 - Abnormal uterine and vaginal bleeding, unspecified Category: Medical Plan: Urine test done in the office was negative. Screening mammogram ordered. GC and chlamydia taken CBC, TSH, FSH/LH, HCG, and pelvic ultrasound ordered. Discussed with the patient the different causes of abnormal bleeding including thyroid disorders, uterine and ovarian pathology, endometrial hyperplasia, carcinoma and other potential causes. Discussed with the patient the work up including CBC (to r/o anemia), TSH, FSH/LH, pelvic Ultrasound, endometrial biopsy to r/o endometrial pathology. All questions answered and the patient verbalized understanding. Instructed the patient to schedule an appointment for an endometrial biopsy in 2 weeks. (2) Vaginal dryness: Code(s): N89.8 - Other specified noninflammatory disorders of vagina Category: Medical Plan: GC/CT with BV panel collected in addition FSH/LH ordered. Will check the results and treat accordingly (3) Microscopic hematuria: Code(s): R31.29 - Other microscopic hematuria Category: Medical Plan: Urine dip showed microscopic hematuria, urine culture sent. Will repeat urine dip in 2 weeks. Discussed with the patient the possible causes of microscopic hematuria including but not limited to: interstitial cystitis, polyps, stones, masses, urethral inflammatory processes and others. If Urine Culture is negative and repeat urine dip in 2 weeks shows persistent microscopic hematuria, will proceed with CT abdomen/pelvis and urology referral. Instructions given the patient to schedule a 2 week urine dip follow-up appointment. All questions answered and the patient verbalized understanding. Orders: Orders Complete Blood Count no Diff Today N93.9 - Abnormal uterine and vaginal bleeding, unspecified Lutenizing Hormone Today N93.9 - Abnormal uterine and vaginal bleeding, unspecified TSH reflex Free T4 Today N93.9 - Abnormal uterine and vaginal bleeding, unspecified HCG Quantitative Today N93.9 - Abnormal uterine and vaginal bleeding, unspecified Follicle Stimulating Hormone Today N93.9 - Abnormal uterine and vaginal bleeding, unspecified US pelvic and transvaginal Today N93.9 - Abnormal uterine and vaginal bleeding, unspecified MM screening mammo BI Today Z12.31 - Encounter for screening mammogram for malignant neoplasm of breast Coding Level of Care Code Est Pt Level 4 (79225) Diagnoses Abnormal uterine bleeding N93.9 Vaginal dryness N89.8 Microscopic hematuria R31.29
[2024-08-28 13:42] VITALS: BMI 28.7
--- OUTSIDE RECORDS SUMMARY | 2024-08-28 13:47 | XMS_ITS | Clinical Summary ---
Author Organization [facility] Address [address] [place] [address] Phone Care Team Providers Care Workforce Planning Analyst Name Role Phone Melvin Lara MD Primary [...] to 10 days. 20 tablet 05/29/2024 Active Surgical History Surgery Date Site/Laterality Comments SECTION [...] of Health Screening 03/22/2022 COVID-19 Vaccine ( - season) 2023 11/08/2020, 10/16/2020 Influenza Vaccine (Season [...] Procedure Name Priority Date/Time Associated Diagnosis Comments COLONOSCOPY Routine 02/23/2024 1:15 PM EST Encounter for screening for malignant neoplasm of colon from Last 3 Months or Most Recently Relevant to Health Maintenance Results * COLONOSCOPY Anesthesia - MAC; [facility] ENDOSCOPY (02/23/2024 1:15 PM EST) Anatomical Region Laterality Modality Endoscopy 02/23/2024 12:2 9 PM EST Narrative 02/23/2024 1:19 PM EST [facility] GI Patient Name: Deena Camacho ?Procedure Date: 02/23/2024 12:29 PM ? Date of : 1975 ?Age: 48 Room: ROOM 16 ? Gender: Female Note Status: Finalized ?Attending MD: Johnny Dill DO, [id number] Procedure Date No Time: 02/23/2024 ? Procedure: [...] physician, the nurse, the ? anesthesiologist, the search marketing analyst and the marine fisheries technician ? in the pre-procedure area in [...] malignant neoplasm ? of colon CPT copyright 2020 [employer]. All rights reserved. The codes documented in this report are preliminary and upon alum operator review may be revised to meet current compliance requirements. JOHNNY DILL Johnny Dill DO 02/23/2024 1:19:36 PM This report has been signed electronically.Johnny Dill DO Number of Addenda: 0 Note Initiated On: 02/23/2024 12:29 PM Scope Withdrawal Time: 0 hours 7 minutes 14 seconds Scope In: 1:02:21 PM Scope Out: 1:13:56 PM ? Endoscopy Department at [facility] - [address] [place] [address], ? [place] [address] Procedure Note Johnny Dill DO - 02/23/2024 [facility] GI Patient Name: Deena Camacho Procedure Date: 02/23/2024 12:29 PM Date of : 1975 Age: 48 Room: ROOM 16 Gender: Female Note Status: Finalized Attending MD: Johnny Dill DO,[id number] Procedure Date No Time: 02/23/2024 Procedure: Colonoscopy [...] the physician, the nurse, the anesthesiologist, the search marketing analyst and thetechnician in the pre-procedure area in [...] for malignantneoplasm of colon CPT copyright 2020 [employer]. All rights reserved. The codes documented in this report are preliminary and upon alum operator reviewmay be revised to meet current compliance requirements. JOHNNY DILL Johnny Dill DO 02/23/2024 1:19:36 PM This report has been signed electronically.Johnny Dill DO Number of Addenda: 0 Note Initiated On: 02/23/2024 12:29 PM Scope Withdrawal Time: 0 hours 7 minutes 14 seconds Scope In: 1:02:21 PM Scope Out: 1:13:56 PM Endoscopy Department at [address] [address] Johnny Dill DO GI~PROCEDURE ORDERABLES Final Re sult from Last 3 Months or Most Recently Relevant to Health Maintenance Insurance [employer] Care Teams Workforce Planning Analyst Relationship Specialty Start Date End Date Melvin Lara MD [address] [place] [address] [place] [address] PCP - General Internal Medicine 11/10/18
--- OUTSIDE RECORDS SUMMARY | 2024-08-28 13:47 | XMS_ITS | Clinical Summary ---
Author Organization [facility] Address [address] [place] [address] Care Team Providers Care Instructor Product Inspection Name Role Phone Melvin Lara MD Primary Care Provider +1- [phone] Social History Tobacco Use Types Packs/Day Years Used Date Smoking Tobacco: Never Assessed Sex and Gender Information Value Date Recorded Sex Assigned at Not on file Gender Identity Not on file Sexual Orientation Not on file Plan of Treatment Health Maintenance Due Date Last Done Comments Hepatitis B Vaccines (1 of 3 - 3-dose series) 1975 Hepatitis C Screening 1975 COVID-19 Vaccine (#1) 03/09/1978 Depression Screening 1989 Preventative Health Evaluation 09/07/1995 DTap / Tdap / Td (1 - Tdap) 1996 Cervical Cancer Screening (P ap Smear) 1998 Colon Cancer Screening (Colonoscopy) 2022 Influenza Vaccine (#1) 2023 Pneumococcal Vaccine Aged Out No long er eligible based on patient's age to complete this topic RSV Ped < 20 months Aged Out No longe r eligible based on patient's age to complete this topic Care Teams Instructor Product Inspection Relationship Specialty Start Date End Date Melvin Lara MD [address] [place] [address] [place] [address] PCP - General Internal Medicine 07/18/19
== END 2024-08-28 14:00 | disposition home or self-care (01) ==
LOC: HO.HWS 13:27
PROVIDERS: PCP Internal Medicine; Visit Provider Obstetrics & Gynecology
DX: N93.9 Abnormal uterine and vaginal bleeding, unspecified (principal); N89.8 Other specified noninflammatory disorders of vagina; R31.29 Other microscopic hematuria; Z32.02 Encounter for pregnancy test, result negative
CPT/HCPCS: 99214

== ENCOUNTER 2024-08-29 12:14 | Outpatient (REF) | payer OTHER, SELFPAY ==
[2024-08-29 13:21] LABS: Hematocrit 45.6 % (37.0-47.0); Mean Corpuscular HGB Conc 32.9 g/dl (31.0-35.0); Mean Corpuscular Hemoglobin 28.1 pg (27.0-33.0); Mean Corpuscular Volume 85.4 fL (80.0-98.0); PLT CLUMP 1; Red Blood Count 5.34 X10*6/uL (4.20-5.50); Red Cell Distribution Width 13.5 % (11.0-16.0)
--- OUTSIDE RECORDS SUMMARY | 2024-08-29 13:25 | XMS_ITS | Clinical Summary ---
Author Organization [facility] Address [address] [place] [address] Care Team Providers Care Plow Mechanic Name Role Phone Melvin Lara MD Primary Care Provider +1- [phone] Social History Tobacco Use Types Packs/Day Years [...] age to complete this topic Care Teams Plow Mechanic Relationship Specialty Start Date End Date Melvin Lara MD [address] [place] [address] [place] [address] PCP - General Internal Medicine 07/18/19
--- OUTSIDE RECORDS SUMMARY | 2024-08-29 13:25 | XMS_ITS | Clinical Summary ---
Author Organization [facility] Address [address] [place] [address] Phone Care Team Providers Care Dial Mounter Name Role Phone Melvin Lara MD Primary Care Provider [phone] Allergies Active Allergy Reactions Criticality Noted Date [...] Maintenance Results * COLONOSCOPY Anesthesia - MAC; [facility] ENDOSCOPY (02/23/2024 1:15 PM EST) Anatomical Region Laterality Modality Endoscopy 02/23/2024 12:2 9 PM EST Narrative 02/23/2024 1:19 PM EST [facility] GI Patient Name: Deena Camacho ?Procedure Date: 02/23/2024 12:29 PM ? Date of : 1975 ?Age: 48 Room: ROOM 16 ? Gender: Female Note Status: Finalized ?Attending MD: Johnny Dill DO, [id number] Procedure Date No Time: 02/23/2024 ? Procedure: [...] physician, the nurse, the ? anesthesiologist, the admissions advisor and the waste minimization technician ? in the pre-procedure area in [...] neoplasm ? of colon CPT copyright 2020 [employer]. All rights reserved. The codes documented in this report are preliminary and upon bosom presser review may be revised to meet current compliance requirements. JOHNNY DILL Johnny Dill DO 02/23/2024 1:19:36 PM This report has been signed electronically.Johnny Dill DO Number of Addenda: 0 Note Initiated On: 02/23/2024 12:29 PM Scope Withdrawal Time: 0 hours 7 minutes 14 seconds Scope In: 1:02:21 PM Scope Out: 1:13:56 PM ? Endoscopy Department at [facility] - [address] [place] [address], ? [place] [address] Procedure Note Johnny Dill DO - 02/23/2024 [facility] GI Patient Name: Deena Camacho Procedure Date: 02/23/2024 12:29 PM Date of : 1975 Age: 48 Room: ROOM 16 Gender: Female Note Status: Finalized Attending MD: Johnny Dill DO,[id number] Procedure Date No Time: 02/23/2024 Procedure: Colonoscopy [...] the physician, the nurse, the anesthesiologist, the admissions advisor and thetechnician in the pre-procedure area in [...] for malignantneoplasm of colon CPT copyright 2020 [employer]. All rights reserved. The codes documented in this report are preliminary and upon bosom presser reviewmay be revised to meet current compliance requirements. JOHNNY DILL Johnny Dill DO 02/23/2024 1:19:36 PM This report has been signed electronically.Johnny Dill DO Number of Addenda: 0 Note Initiated On: 02/23/2024 12:29 PM Scope Withdrawal Time: 0 hours 7 minutes 14 seconds Scope In: 1:02:21 PM Scope Out: 1:13:56 PM Endoscopy Department at [address] [address] Johnny Dill DO GI~PROCEDURE ORDERABLES Final Re sult from Last 3 Months or Most Recently Relevant to Health Maintenance Insurance [employer] Care Teams Dial Mounter Relationship Specialty Start Date End Date Melvin Laar MD [address] [place] [address] [place] [address] PCP - General Internal Medicine 11/10/18
[2024-08-29 14:18] LABS: HCG Quantitative < 2 mIU/mL; TSH reflex Free T4 1.39 uIU/mL (0.32-4.0)
[2024-08-29 14:38] LABS: Mean Platelet Volume 13.7 fL (9.4-12.3); Platelet Count 183 X10*3/uL (160-400); White Blood Count 9.4 X10*3/uL (4.8-10.8)
[2024-08-30 05:44] LABS: Follicle Stimulating Hormone 12.4 mIU/mL; Lutenizing Hormone 8.7 mIU/mL
[2024-08-30 08:30] LABS: Syphilis Screen Nonreactive (Nonreactive)
[2024-08-30 08:34] LABS: HBsAGNum1 0.34 S/CO (0.00-0.99); HIV AB/AG Nonreactive (Nonreactive); HIV Num 1 0.05 S/CO (0.00-0.99); Hepatitis B Surface Antigen Negative (Negative); ~HepC Num1 0.16 S/CO (0.00-0.79); ~Hepatitis C Antibody Nonreactive (Nonreactive)
== END 2024-08-29 12:15 | disposition home or self-care (01) ==
LOC: HO.LAB 12:14
PROVIDERS: PCP Internal Medicine; Visit Provider Obstetrics & Gynecology
DX: N93.9 Abnormal uterine and vaginal bleeding, unspecified (principal); N76.0 Acute vaginitis; B96.89 Other specified bacterial agents as the cause of diseases classified elsewhere
CPT/HCPCS: 36415; 83001; 83002; 84443; 84702; 85027; 86780; 86803; 87340; 87389

== ENCOUNTER 2024-09-25 14:53 | Outpatient (REF) | payer OTHER, SELFPAY ==
--- OUTSIDE RECORDS SUMMARY | 2024-09-25 16:40 | XMS_ITS | Clinical Summary ---
Author Organization [facility] Address [address] [place] [address] Phone Care Team Providers Care Breaker Mechanic Name Role Phone Melvin Lara MD [...] Maintenance Results * COLONOSCOPY Anesthesia - MAC; [facility] ENDOSCOPY (02/23/2024 1:15 PM EST) Anatomical Region Laterality Modality Endoscopy 02/23/2024 12:2 9 PM EST Narrative 02/23/2024 1:19 PM EST [facility] GI Patient Name: Deena Camacho ?Procedure Date: 02/23/2024 12:29 PM ? Date of : 1975 ?Age: 48 Room: ROOM 16 ? Gender: Female Note Status: Finalized ?Attending MD: Johnny Dill DO, [id number] Procedure Date No Time: 02/23/2024 ? Procedure: [...] physician, the nurse, the ? anesthesiologist, the dealer sales rep and the performing arts technicians ? in the pre-procedure area in the [...] neoplasm ? of colon CPT copyright 2020 [employer]. All rights reserved. The codes documented in this report are preliminary and upon sulfur chloride operator review may be revised to meet current compliance requirements. JOHNNY DILL Johnny Dill DO 02/23/2024 1:19:36 PM This report has been signed electronically.Johnny Dill DO Number of Addenda: 0 Note Initiated On: 02/23/2024 12:29 PM Scope Withdrawal Time: 0 hours 7 minutes 14 seconds Scope In: 1:02:21 PM Scope Out: 1:13:56 PM ? Endoscopy Department at [facility] - [address] [place] [address], ? [place] [address] Procedure Note Johnny Dill DO - 02/23/2024 [facility] GI Patient Name: Deena Camacho Procedure Date: 02/23/2024 12:29 PM Date of : 1975 Age: 48 Room: ROOM 16 Gender: Female Note Status: Finalized Attending MD: Johnny Dill DO,[id number] Procedure Date No Time: 02/23/2024 Procedure: Colonoscopy [...] the physician, the nurse, the anesthesiologist, the dealer sales rep and thetechnician in the pre-procedure area in [...] for malignantneoplasm of colon CPT copyright 2020 [employer]. All rights reserved. The codes documented in this report are preliminary and upon sulfur chloride operator reviewmay be revised to meet current compliance requirements. JOHNNY DILL Johnny Dill DO 02/23/2024 1:19:36 PM This report has been signed electronically.Johnny Dill DO Number of Addenda: 0 Note Initiated On: 02/23/2024 12:29 PM Scope Withdrawal Time: 0 hours 7 minutes 14 seconds Scope In: 1:02:21 PM Scope Out: 1:13:56 PM Endoscopy Department at [address] [address] Johnny Dill DO GI~PROCEDURE ORDERABLES Final Re sult from Last 3 Months or Most Recently Relevant to Health Maintenance Insurance [employer] Care Teams Breaker Mechanic Relationship Specialty Start Date End Date Melvin Lara MD [address] [place] [address] [place] [address] PCP - General Internal Medicine 11/10/18
== END 2024-09-25 14:54 | disposition home or self-care (01) ==
LOC: HO.MAMMO 14:53
PROVIDERS: PCP Internal Medicine; Visit Provider Obstetrics & Gynecology
DX: Z12.31 Encounter for screening mammogram for malignant neoplasm of breast (principal)
CPT/HCPCS: 77063; 77067

== ENCOUNTER → 2024-09-25 15:00 | Outpatient (BNV) | payer OTHER, SELFPAY | PROVIDERS: PCP Internal Medicine; Visit Provider Internal Medicine | DX: Z12.31 Encounter for screening mammogram for malignant neoplasm of breast (principal) | CPT/HCPCS: 77063; 77067 ==

== ENCOUNTER 2024-09-26 15:50 | Outpatient (REF) | payer OTHER, SELFPAY ==
--- NOTE | ~2024-09-26 | US_ITS ---
EXAMINATION: US PELVIS TRANSABDOMINAL AND TRANSVAGINAL HISTORY: N93.9 - Abnormal uterine and vaginal bleeding, unspecified COMPARISON: Comparison is made with the prior examination dated 05/01/2016. TECHNIQUE: Transabdominal and endovaginal real-time 2D wei-scale ultrasound was performed. FINDINGS: Uterus: The uterus is normal in size, measuring 10.2 x 3.9 x 4.9 cm. Myometrium has a normal echotexture. No fibroids are identified. Endometrium: The endometrial stripe measures 14 mm in thickness. There is a nabothian cyst in the cervix. Right ovary: The right ovary measures 2.4 x 1.7 x 2.2 cm. The right ovary is normal in size and echotexture. Left ovary: The left ovary measures 2.4 x 2.1 x 2.2 cm. The left ovary is normal in size and echotexture. There is a 1.6 cm probable involuting follicle. Pelvic fluid: none. US/US pelvic and transvaginal IMPRESSION: Unremarkable pelvic ultrasound. Electronically signed by: Tanvir Ny MD 09/27/2024 07:21 AM EDT
--- OUTSIDE RECORDS SUMMARY | 2024-09-26 18:48 | XMS_ITS | Clinical Summary ---
Author Organization [facility] Address [address] [place] [address] Phone Care Team Providers Care Quarter Inspector Name Role Phone Melvin Lara MD Primary Care Provider [phone] Allergies Active Allergy Reactions Criticality Noted Date [...] Maintenance Results * COLONOSCOPY Anesthesia - MAC; [facility] ENDOSCOPY (02/23/2024 1:15 PM EST) Anatomical Region Laterality Modality Endoscopy 02/23/2024 12:2 9 PM EST Narrative 02/23/2024 1:19 PM EST [facility] GI Patient Name: Deena Camacho ?Procedure Date: 02/23/2024 12:29 PM ? Date of : 1975 ?Age: 48 Room: ROOM 16 ? Gender: Female Note Status: Finalized ?Attending MD: Johnny Dill DO, [id number] Procedure Date No Time: 02/23/2024 ? Procedure: [...] physician, the nurse, the ? anesthesiologist, the cable tool driller and the fisheries technician ? in the pre-procedure area [...] neoplasm ? of colon CPT copyright 2020 [employer]. All rights reserved. The codes documented in this report are preliminary and upon orthopedic coder review may be revised to meet current compliance requirements. JOHNNY DILL Johnny Dill DO 02/23/2024 1:19:36 PM This report has been signed electronically.Johnny Dill DO Number of Addenda: 0 Note Initiated On: 02/23/2024 12:29 PM Scope Withdrawal Time: 0 hours 7 minutes 14 seconds Scope In: 1:02:21 PM Scope Out: 1:13:56 PM ? Endoscopy Department at [facility] - [address] [place] [address], ? [place] [address] Procedure Note Johnny Dill DO - 02/23/2024 [facility] GI Patient Name: Deena Camacho Procedure Date: 02/23/2024 12:29 PM Date of : 1975 Age: 48 Room: ROOM 16 Gender: Female Note Status: Finalized Attending MD: Johnny Dill DO,[id number] Procedure Date No Time: 02/23/2024 Procedure: Colonoscopy [...] the physician, the nurse, the anesthesiologist, the cable tool driller and thetechnician in the pre-procedure area in [...] for malignantneoplasm of colon CPT copyright 2020 [employer]. All rights reserved. The codes documented in this report are preliminary and upon orthopedic coder reviewmay be revised to meet current compliance requirements. JOHNNY DILL Johnny Dill DO 02/23/2024 1:19:36 PM This report has been signed electronically.Johnny Dill DO Number of Addenda: 0 Note Initiated On: 02/23/2024 12:29 PM Scope Withdrawal Time: 0 hours 7 minutes 14 seconds Scope In: 1:02:21 PM Scope Out: 1:13:56 PM Endoscopy Department at [address] [address] Johnny Dill DO GI~PROCEDURE ORDERABLES Final Re sult from Last 3 Months or Most Recently Relevant to Health Maintenance Insurance [employer] Care Teams Quarter Inspector Relationship Specialty Start Date End Date Melvin Lara MD [address] [place] [address] [place] [address] PCP - General Internal Medicine 11/10/18
== END 2024-09-26 15:51 | disposition home or self-care (01) ==
LOC: HO.US 15:50
PROVIDERS: PCP Internal Medicine; Visit Provider Obstetrics & Gynecology
DX: N93.9 Abnormal uterine and vaginal bleeding, unspecified (principal)
CPT/HCPCS: 76830; 76856

== ENCOUNTER → 2024-09-26 15:53 | Outpatient (BNV) | payer OTHER, SELFPAY | PROVIDERS: PCP Internal Medicine; Visit Provider Radiology Diagnostic Radiology | DX: N93.9 Abnormal uterine and vaginal bleeding, unspecified (principal) | CPT/HCPCS: 76830; 76856 ==

== ENCOUNTER 2024-10-03 11:49 | Outpatient (REF) | payer OTHER, SELFPAY | END 2024-10-03 11:50 | disposition home or self-care (01) | LOC: HO.LNP 11:49 | PROVIDERS: PCP Internal Medicine; Visit Provider Obstetrics & Gynecology | DX: Z32.02 Encounter for pregnancy test, result negative (principal); R31.29 Other microscopic hematuria; N93.9 Abnormal uterine and vaginal bleeding, unspecified | CPT/HCPCS: 58100; 81002; 81025; 88305 ==

== ENCOUNTER 2024-10-03 11:49 | Outpatient (AMB) | payer OTHER, SELFPAY ==
--- NOTE | 2024-10-03 12:16 | A.OFFVIS_ITS ---
Intake Visit Reasons: Ultra sound follow up/ EMB/ Urine dip Home Theater Experience Expert: Home Theater Experience Expert Present (Crystal) Accompanied by: Self / Same As Patient Allergies ceftriaxone [From Rocephin] Allergy (Intermediate, Verified 10/03/24 12:16) Lip Swelling ciprofloxacin Adverse Reaction (Intermediate, Verified 10/03/24 12:16) swelling of feet Sulfa (Sulfonamide Antibiotics) Adverse Reaction (Intermediate, Verified 10/03/24 12:16) swelling of feet HPI Comments Details: Presenting for repeat urine dip and EMB. Last urine dip was positive for microscopic hematuria, urine culture was negative. The patient has kidney stone being for the by urologist next appointment on 10/26/2023 [facility] Medical History Insomnia Hypertensive retinopathy of both eyes Pure hypercholesterolemia Overweight (BMI 25.0-29.9) Dysuria Pelvic floor dysfunction Headache, migraine Microscopic hematuria Recurrent UTI Hypocitraturia Recurrent nephrolithiasis Epigastric pain Hemorrhoid Anal fissure Rectal bleed Weakness of both hands Menstrual disorder Obesity (BMI 30-39.9) Anxiety Nonintractable headache Herniation of cervical intervertebral disc with radiculopathy Herniated disc Surgical History History of surgery Hx of cystoscopy S/P ureteral stent placement History of cervical discectomy History of section History of tubal ligation Family History Father Medical history unknown Mother Medical history unknown Maternal Grandmother Breast cancer Sister Breast cancer Daughter Breast cancer Son Autism Mental health disorder Social History Housing: Apartment Are you a primary career guidance technician to a significant other at home: No Do you presently have visiting nurse or other home services: No Alcohol intake: current Alcohol intake frequency: holidays/special occasions only Patient Tobacco Use Status: Never used Tobacco e-Cigarette/Vaping Use: Never Used Second Hand Smoke Exposure: No service: No Current occupational status: employed Cognitive needs: No Hearing needs: No Vision needs: Yes (glasses) Female Reproductive History Menstrual Age of Menarche: 15 Review of Systems Const All systems reviewed & are unremarkable except as noted in HPI and below Reports as per HPI and Reports no additional complaints GI Reports no additional complaints Reports no additional complaints Office Procedures Endometrial Biopsy Details: The patient was counseled regarding the indication and benefits of endometrial sampling to rule out endometrial pathology including not limited to endometrial hyperplasia or endometrial cancer and others; The alternatives (Either do nothing vs. hysteroscopy D&C) & the risks were discussed with the patient including but not limited: pain, uterine perforation, bleeding, infection, possible injury to bladder, bowel, ureter, possible need for blood transfusion with all its possible risks. The patient verbalized understanding all questions answered and signed consent. Urine test done in the office was negative The patient was placed into the dorsal lithotomy position; a speculum was inserted in the vagina. Using aseptic technique for the procedure, the cervix was cleansed with Betadine. The anterior lip of the cervix was grasped with a single tooth tenaculum. The uterus was sounded to 7 cm with a 4 mm Pipelle was used. Tissues samples were obtained and placed in formalin, in a patient labeled container and sent to the pathology department. At the end of the procedure, there was minimal bleeding noted The patient tolerated the procedure well and was discharged in good condition with the following instructions: Nothing in the vagina until the bleeding stops. No sex until the bleeding stops, to call if any of the following occurs: fever (>100.4), flu-like symptoms, abdominal pain, heavy bleeding, four smelling vaginal discharge. The patient was instructed to schedule a Follow up appointment in 2 weeks to discuss pathology results of the biopsy and treatment options. This note was generated with a voice recognition program. Some errors may have been overlooked during the review of this note. Sometimes these errors may affect the content or meaning of a given sentence. 63959-[id number] Biopsy Assessment & Plan Assessment & Plan (1) Microscopic hematuria: Code(s): R31.29 - Other microscopic hematuria Category: Medical Plan: Repeat urine dip showed persistent microscopic hematuria, the patient is schedule appointment with Urology on 10/25/24 (2) Abnormal uterine bleeding: Code(s): N93.9 - Abnormal uterine and vaginal bleeding, unspecified Category: Medical Plan: EMB done, see procedure note Orders: Orders AMB Endometrial Biopsy Today N93.9 - Abnormal uterine and vaginal bleeding, unspecified Coding Level of Care Code Est Pt Level 3 (62383) Procedure Only Diagnoses Microscopic hematuria R31.29 Abnormal uterine bleeding N93.9 CPT Codes Endometrial Biopsy - CPT: 16839-Icvnuduhscb Biopsy ([id number])
--- OUTSIDE RECORDS SUMMARY | 2024-10-03 13:31 | XMS_ITS | Clinical Summary ---
Author Organization [facility] Address [address] [place] [address] Phone Care Team Providers Care Electric Meter Reader Name Role Phone Melvin Lara MD Primary [...] Maintenance Results * COLONOSCOPY Anesthesia - MAC; [facility] ENDOSCOPY (02/23/2024 1:15 PM EST) Anatomical Region Laterality Modality Endoscopy 02/23/2024 12:2 9 PM EST Narrative 02/23/2024 1:19 PM EST [facility] GI Patient Name: Deena Camacho ?Procedure Date: 02/23/2024 12:29 PM ? Date of : 1975 ?Age: 48 Room: ROOM 16 ? Gender: Female Note Status: Finalized ?Attending MD: Johnny Dill DO, [id number] Procedure Date No Time: 02/23/2024 ? Procedure: [...] physician, the nurse, the ? anesthesiologist, the receiver/laborer and the roofing technician ? in the pre-procedure area in [...] neoplasm ? of colon CPT copyright 2020 [employer]. All rights reserved. The codes documented in this report are preliminary and upon scalper operator review may be revised to meet current compliance requirements. JOHNNY DILL Johnny Dill DO 02/23/2024 1:19:36 PM This report has been signed electronically.Johnny Dill DO Number of Addenda: 0 Note Initiated On: 02/23/2024 12:29 PM Scope Withdrawal Time: 0 hours 7 minutes 14 seconds Scope In: 1:02:21 PM Scope Out: 1:13:56 PM ? Endoscopy Department at [facility] - [address] [place] [address], ? [place] [address] Procedure Note Johnny Dill DO - 02/23/2024 [facility] GI Patient Name: Deena Camacho Procedure Date: 02/23/2024 12:29 PM Date of : 1975 Age: 48 Room: ROOM 16 Gender: Female Note Status: Finalized Attending MD: Johnny Dill DO,[id number] Procedure Date No Time: 02/23/2024 Procedure: Colonoscopy [...] the physician, the nurse, the anesthesiologist, the receiver/laborer and thetechnician in the pre-procedure area in [...] for malignantneoplasm of colon CPT copyright 2020 [employer]. All rights reserved. The codes documented in this report are preliminary and upon scalper operator reviewmay be revised to meet current compliance requirements. JOHNNY DILL Johnny Dill DO 02/23/2024 1:19:36 PM This report has been signed electronically.Johnny Dill DO Number of Addenda: 0 Note Initiated On: 02/23/2024 12:29 PM Scope Withdrawal Time: 0 hours 7 minutes 14 seconds Scope In: 1:02:21 PM Scope Out: 1:13:56 PM Endoscopy Department at [address] [address] Johnny Dill DO GI~PROCEDURE ORDERABLES Final Re sult from Last 3 Months or Most Recently Relevant to Health Maintenance Insurance [employer] Care Teams Electric Meter Reader Relationship Specialty Start Date End Date Melvin Lara MD [address] [place] [address] [place] [address] PCP - General Internal Medicine 11/10/18
== END 2024-10-03 12:25 | disposition home or self-care (01) ==
LOC: HO.HWS 11:49
PROVIDERS: PCP Internal Medicine; Visit Provider Obstetrics & Gynecology
DX: R31.29 Other microscopic hematuria (principal); N93.9 Abnormal uterine and vaginal bleeding, unspecified; Z32.02 Encounter for pregnancy test, result negative
CPT/HCPCS: 58100; 99213

== ENCOUNTER 2024-10-09 10:23 | Outpatient (AMB) | payer OTHER, SELFPAY ==
[2024-10-09 10:25] VITALS: BP 128/84; PULSE 96; TEMP 37; O2SAT 96; BMI 28.4
--- NOTE | 2024-10-09 10:25 | AM.OFFWIN_ITS ---
Intake Vital Signs 10/09/24 10:25 Height 5 ft Weight 145 lb 8 oz BMI 28.4 BP 128/84 Blood Pressure Location Rt brachial Position Sitting Pulse 96 Pulse Source Pulse Oximeter Temp 98.6 F Temp Source Oral Pulse Oximetry (%) 96 Intake Visit Reasons: EP ? cold or sinus infection Patient Tobacco Use Status: Never used Tobacco Ceramic Tile Mechanic Required: No Allergies ceftriaxone (From Rocephin) Allergy (Intermediate, Verified 10/09/24 10:28) Lip Swelling ciprofloxacin Adverse Reaction (Intermediate, Verified 10/09/24 10:28) swelling of feet Sulfa (Sulfonamide Antibiotics) Adverse Reaction (Intermediate, Verified 10/09/24 10:28) swelling of feet HPI HPI Comments History of Present Illness Details History - The patient is a 49-year-old female pr esenting with body aches, chest tightness, and symptoms suggestive of a sinus infection. - Symptoms began on Wednesday with a sore t hroat, progressing to headache, nasal congestion, and facial pain. - History of allergic rhinitis managed w alice Beltran, with infrequent sinus infections. - Reports dry cough and postnasal drip, without purulent nasal discharge. - She has pain in the teeth and pressure in her face. - She has no sick contacts. - She denies fever, chills, CP, SOB, abd pain, n/v/d. - She denies smoking. Physical Exam VSS, pt well appearing General: Cooperative, healthy appearing, comfortable and no acute distress Head: Tender to palpation of the maxillary region. Ears: Hearing grossly normal bilaterally, external ears normal, TM's normal bilaterally. Nose: Normal external nose present, normal nares present, no nasal discharge present Face and sinus: Sinuses tender to palpation in maxillary areas bilaterally. Mouth: Normal oral and palatal mucosa present and moist mucous membranes noted Throat: Tonsils normal. Uvula is midline. Posterior oropharynx with erythema and no exudates Neck: Normal visual inspection, full ROM. No lymphadenopathy noted Respiratory: Clear to auscultation bilaterally. Normal respiratory effort, able to speak in complete sentences. No respiratory distress, not tachypneic, no tripod positioning and no use of accessory muscles Cardiovascular: Regular rate and rhythm. Normal S1 and S2 Skin: No rashes or lesions noted Patient was informed and verbally consented to the use of an ambient scribe for clinic note documentation during this visit [facility] Medical History Insomnia Hypertensive retinopathy of both eyes Pure hypercholesterolemia Overweight (BMI 25.0-29.9) Dysuria Pelvic floor dysfunction Headache, migraine Microscopic hematuria Recurrent UTI Hypocitraturia Recurrent nephrolithiasis Epigastric pain Hemorrhoid Anal fissure Rectal bleed Weakness of both hands Menstrual disorder Obesity (BMI 30-39.9) Anxiety Nonintractable headache Herniation of cervical intervertebral disc with radiculopathy Herniated disc Surgical History History of surgery Hx of cystoscopy S/P ureteral stent placement History of cervical discectomy History of section History of tubal ligation Family History Father Medical history unknown Mother Medical history unknown Maternal Grandmother Breast cancer Sister Breast cancer Daughter Breast cancer Son Autism Mental health disorder Social History Housing: Apartment Are you a primary career portals teacher to a significant other at home: No Do you presently have visiting nurse or other home services: No Alcohol intake: current Alcohol intake frequency: holidays/special occasions only Patient Tobacco Use Status: Never used Tobacco e-Cigarette/Vaping Use: Never Used Second Hand Smoke Exposure: No service: No Current occupational status: employed Cognitive needs: No Hearing needs: No Vision needs: Yes (glasses) Female Reproductive History Menstrual Age of Menarche: 15 Review of Systems Const All systems reviewed & are unremarkable except as noted in HPI and below Physical Exam Vital Signs: Last Vital Signs Temp 98.6 F 10/09/24 10:25 Pulse 96 10/09/24 10:25 BP 128/84 10/09/24 10:25 Pulse Ox 96 10/09/24 10:25 BMI result Body Mass Index 28.4 Assessment & Plan Assessment & Plan (1) Congestion of upper airway: Code(s): J98.8 - Other specified respiratory disorders Plan Most likely URI vs sinusitis vs allergic rhinitis Plan - Prescribe antibiotics for sinusitis management. - Recommend nasal spray for symptomatic relief. - Advise continuation of Claritin for allergic rhinitis. - Suggest steam inhalation for congestion relief. - Recommend Tylenol or Motrin for body aches. Medications: New doxycycline hyclate 100 mg PO BID 14 tabs 0RF 7 days fluticasone propionate 50 mcg/actuation administer into each nostril 1 spray intranasal Q12H 16 grams 0RF Coding Level of Care Code Est Pt Level 3 (15174) Diagnoses Congestion of upper airway J98.8
--- OUTSIDE RECORDS SUMMARY | 2024-10-09 11:35 | XMS_ITS | Clinical Summary ---
Author Organization [facility] Address [address] [place] [address] Phone Care Team Providers Care Computer Compositor Name Role Phone Melvin Lara MD Primary [...] 75 05/29/2024 10:31 AM EST Temperature 36.5 C (97.7 F) 05/29/2024 8:25 AM EST Respiratory Rate 19 05/29/2024 10:31 AM EST [...] Maintenance Results * COLONOSCOPY Anesthesia - MAC; [facility] ENDOSCOPY (02/23/2024 1:15 PM EST) Anatomical Region Laterality Modality Endoscopy 02/23/2024 12:2 9 PM EST Narrative 02/23/2024 1:19 PM EST [facility] GI Patient Name: Deena Camacho Procedure Date: 02/23/2024 12:29 PM Date of : 1975 Age: 48 Room: ROOM 16 Gender: Female Note Status: Finalized Attending MD: Johnny Dill DO, [id number] Procedure Date No Time: 02/23/2024 Procedure: Colonoscopy Indications: Screening for colorectal malignant neoplasm Providers: Johnny Dill DO Referring MD: Melvin Lara MD Medicines: Monitored Anesthesia Care Complications: No immediate complications. Estimated blood loss: None. Estimated Blood Loss: Estimated blood loss: none. Procedure: Pre-Anesthesia Assessment: - - Prior to the procedure, a History and Physical was performed, and patient medications and allergies were reviewed. The patient is competent. The risks and benefits of the procedure and the sedation options and risks were discussed with the patient. All questions were answered and informed consent was obtained. Patient identification and proposed procedure were verified by the physician, the nurse, the anesthesiologist, the adjunct philosophy faculty and the radiological technician in the pre-procedure area in the endoscopy suite. Mental Status Examination: alert and oriented. Airway Examination: normal oropharyngeal airway and neck mobility. Respiratory Examination: clear to auscultation. CV Examination: normal. Prophylactic Antibiotics: The patient does not require prophylactic antibiotics. Prior Anticoagulants: The patient has taken no anticoagulant or antiplatelet agents. ASA Grade Assessment: II - A patient with severe systemic disease. After reviewing the risks and benefits, the patient was deemed in satisfactory condition to undergo the procedure. The anesthesia plan was to use monitored anesthesia care (MAC). Immediately prior to administration of medications, the patient was re-assessed for adequacy to receive sedatives. The heart rate, respiratory rate, oxygen saturations, blood pressure, adequacy of pulmonary ventilation, and response to care were monitored throughout the procedure. The physical status of the patient was re-assessed after the procedure. After I obtained informed consent, the scope was passed under direct vision. Throughout the procedure, the patient's blood pressure, pulse, and oxygen [...] small. The exam was otherwise without abnormality on direct and retroflexion views. Impression: - The examination was otherwise normal on direct and retroflexion views. - No specimens collected. Recommendation: [...] Professional --- Z12.11, Encounter for screening for malignant neoplasm of colon CPT copyright 2020 [employer]. All rights reserved. The codes documented in this report are preliminary and upon last turner review may be revised to meet current compliance requirements. JOHNNY DILL Johnny Dill DO 02/23/2024 1:19:36 PM This report has been signed electronically.Johnny Dill DO Number of Addenda: 0 Note Initiated On: 02/23/2024 12:29 PM Scope Withdrawal Time: 0 hours 7 minutes 14 seconds Scope In: 1:02:21 PM Scope Out: 1:13:56 PM Endoscopy Department at [address] [address] Procedure Note Johnny Dill DO - 02/23/2024 [facility] GI Patient Name: Deena Camacho Procedure Date: 02/23/2024 12:29 PM Date of : 1975 Age: 48 Room: ROOM 16 Gender: Female Note Status: Finalized Attending MD: Johnny Dill DO,[id number] Procedure Date No Time: 02/23/2024 Procedure: Colonoscopy [...] the physician, the nurse, the anesthesiologist, the adjunct philosophy faculty and thetechnician in the pre-procedure area in [...] for malignantneoplasm of colon CPT copyright 2020 [employer]. All rights reserved. The codes documented in this report are preliminary and upon last turner reviewmay be revised to meet current compliance requirements. JOHNNY DILL Johnny Dill DO 02/23/2024 1:19:36 PM This report has been signed electronically.Johnny Dill DO Number of Addenda: 0 Note Initiated On: 02/23/2024 12:29 PM Scope Withdrawal Time: 0 hours 7 minutes 14 seconds Scope In: 1:02:21 PM Scope Out: 1:13:56 PM Endoscopy Department at [address] [address] Johnny Dill DO GI~PROCEDURE ORDERABLES Final Re sult from Last 3 Months or Most Recently Relevant to Health Maintenance Insurance [employer] Care Teams Computer Compositor Relationship Specialty Start Date End Date Melvin Lara MD [address] [place] [address] [place] [address] PCP - General Internal Medicine 11/10/18
== END 2024-10-09 10:43 | disposition home or self-care (01) ==
PROVIDERS: PCP Internal Medicine; Visit Provider Physician Assistant Medical
DX: J98.8 Other specified respiratory disorders (principal)

== ENCOUNTER → 2024-10-09 10:23 | Outpatient (BNVA) | payer OTHER, SELFPAY | PROVIDERS: PCP Internal Medicine; Visit Provider Physician Assistant Medical | DX: Z13.89 Encounter for screening for other disorder (principal) ==

== ENCOUNTER 2024-10-16 13:20 | Outpatient (REF) | payer OTHER, SELFPAY ==
--- NOTE | ~2024-10-16 | US_ITS ---
EXAMINATION: Ultrasound renal bilaterally. CLINICAL INFORMATION: Status post ureteral stent placement secondary to obstructing nephrolithiasis. COMPARISON: Correlated to CT dated July 14, 2024. TECHNIQUE: Real-time ultrasound kidneys using grayscale technique. FINDINGS: Right kidney: 9 x 3 x 3 cm. Volume: 43 cc. Normal echotexture. Normal renal cortical thickness. No hydronephrosis. There multiple, scattered, 2-6 mm hyperechoic lesions in the pelvicalyceal system. No gross solid or cystic lesion detected. Left kidney: 10 x 4 x 3 cm. Volume: 67 cc.. Normal echotexture. Normal renal cortical thickness. No hydronephrosis. There are few scattered 6-8 mm hyperechoic lesions in the lower pole and midportion of the pelvicalyceal system. US/US renal BI IMPRESSION: Bilateral nonobstructing nephrolithiasis. Electronically signed by: Leighton Mccord MD 10/16/2024 02:04 PM EDT
--- OUTSIDE RECORDS SUMMARY | 2024-10-16 13:48 | XMS_ITS | Clinical Summary ---
Author Organization [facility] Address [address] [place] [address] Phone Care Team Providers Care Industrial Machine Assembler Name Role Phone Melvin Lara MD Primary [...] Maintenance Results * COLONOSCOPY Anesthesia - MAC; [facility] ENDOSCOPY (02/23/2024 1:15 PM EST) Anatomical Region Laterality Modality Endoscopy 02/23/2024 12:2 9 PM EST Narrative 02/23/2024 1:19 PM EST GI Patient Name: Deena Camacho Procedure Date: 02/23/2024 12:29 PM Date of : 1975 Age: 48 Room: ROOM 16 Gender: Female Note Status: Finalized Attending MD: Johnny Dill DO, [id number] Procedure Date No Time: 02/23/2024 Procedure: Colonoscopy [...] the physician, the nurse, the anesthesiologist, the school laboratory technician and the aircraft avionics technician in the pre-procedure area in the [...] malignant neoplasm of colon CPT copyright 2020 [employer]. All rights reserved. The codes documented in this report are preliminary and upon motorized squad captain review may be revised to meet current compliance requirements. JOHNNY DILL Johnny Dill DO 02/23/2024 1:19:36 PM This report has been signed electronically.Johnny Dill DO Number of Addenda: 0 Note Initiated On: 02/23/2024 12:29 PM Scope Withdrawal Time: 0 hours 7 minutes 14 seconds Scope In: 1:02:21 PM Scope Out: 1:13:56 PM Endoscopy Department at [address] [address] Procedure Note Johnny Dill DO - 02/23/2024 GI Patient Name: Deena Camacho Procedure Date: 02/23/2024 12:29 PM Date of : 1975 Age: 48 Room: ROOM 16 Gender: Female Note Status: Finalized Attending MD: Johnny Dill DO,[id number] Procedure Date No Time: 02/23/2024 Procedure: Colonoscopy [...] the physician, the nurse, the anesthesiologist, the school laboratory technician and thetechnician in the pre-procedure area in [...] for malignantneoplasm of colon CPT copyright 2020 [employer]. All rights reserved. The codes documented in this report are preliminary and upon motorized squad captain reviewmay be revised to meet current compliance requirements. JOHNNY DILL Johnny Dill DO 02/23/2024 1:19:36 PM This report has been signed electronically.Johnny Dill DO Number of Addenda: 0 Note Initiated On: 02/23/2024 12:29 PM Scope Withdrawal Time: 0 hours 7 minutes 14 seconds Scope In: 1:02:21 PM Scope Out: 1:13:56 PM Endoscopy Department at [address] [address] Johnny Dill DO GI~PROCEDURE ORDERABLES Final Re sult from Last 3 Months or Most Recently Relevant to Health Maintenance Insurance [employer] Care Teams Industrial Machine Assembler Relationship Specialty Start Date End Date Melvin Lara MD [address] [place] [address] [place] [address] PCP - General Internal Medicine 11/10/18
--- OUTSIDE RECORDS SUMMARY | 2024-10-16 13:48 | XMS_ITS | Clinical Summary ---
Author Organization [facility] Address [address] [place] [address] Care Team Providers Care Mine Superintendent Name Role Phone Melvin Lara MD Primary Care Provider [phone] Social History Tobacco Use Types Packs/Day Years [...] Colon Cancer Screening (Colonoscopy) 2022 Influenza Vaccine (Season Ended) 2024 Pneumococcal Vaccine Aged Out No long er eligible based on patient's age to complete this topic RSV Ped < 20 months Aged Out No longe r eligible based on patient's age to complete this topic Care Teams Mine Superintendent Relationship Specialty Start Date End Date Melvin Lara MD [address] [place] [address] [place] [address] PCP - General Internal Medicine 07/18/19
== END 2024-10-16 13:21 | disposition home or self-care (01) ==
LOC: HO.US 13:20
PROVIDERS: PCP Internal Medicine; Visit Provider Urology
DX: Z96.0 Presence of urogenital implants (principal)
CPT/HCPCS: 76775

== ENCOUNTER → 2024-10-16 13:26 | Outpatient (BNV) | payer OTHER, SELFPAY | PROVIDERS: PCP Internal Medicine; Visit Provider Radiology Diagnostic Radiology | DX: N20.0 Calculus of kidney (principal) | CPT/HCPCS: 76775 ==

== ENCOUNTER 2024-10-25 14:41 | Outpatient (AMB) | payer OTHER, SELFPAY ==
--- NOTE | 2024-10-25 14:43 | MHC.OFFVIS ---
Intake Visit Reasons: /US Intake Note: Patient is present for /US Urology Medication:TAMSULOSIN Antibiotic Allergy:CIPROFLOXACIN,SULFA Blood Thinner:NONE Shipyard Laborer Required: No Allergies ceftriaxone (From Rocephin) Allergy (Intermediate, Verified 10/25/24 14:45) Lip Swelling ciprofloxacin Adverse Reaction (Intermediate, Verified 10/25/24 14:45) swelling of feet Sulfa (Sulfonamide Antibiotics) Adverse Reaction (Intermediate, Verified 10/25/24 14:45) swelling of feet HPI Comments Details: Deena is a pleasant female. She is a patient of Dr. Lara. She is seen for following urologic conditions - urinary urgency and frequency - nocturia - possible interstitial cystitis - nephrolithiasis Telemedicine Evaluation 15 min Consultation [facility] Imaging renal bilateral scattered 2 mm stone Having flare of interstitial cystitis. Waking 6 times at night. Recommend Trial rescue solution Continuing allopurinol with vitamin B6 for renal stone management Nephrolithiasis Imaging - 07/11 CT 6 mm left proximal ureteric stone proximal hydronephrosis Composition - 07/11 Calcium Oxalate Dihydrate (Weddellite) 20%Calcium Oxalate Monohydrate (Whewellite) 80% Current therapy vitamin B6 with allopurinol Interstitial Cystitis Prior therapy trial tolterodine May have developed after series of complicated urinary tract infections Predominantly urgency and frequency Dietary triggers Initial presentation has nocturia times 4-5 with pelvic pressure, pelvic pressure resolved after emptying, constant pelvic pressure and bladder discomfort during the day Prior medications include oxybutynin with significant dry eyes and dry mouth, Myrbetriq with minimal impact, tolterodine with minimal impact Did respond to trial of amitriptyline during flare Intervention - 02/07 hydrodistention with significant improvement in symptoms PFSH Medical History Insomnia Hypertensive retinopathy of both eyes Pure hypercholesterolemia Overweight (BMI 25.0-29.9) Dysuria Pelvic floor dysfunction Headache, migraine Microscopic hematuria Recurrent UTI Hypocitraturia Recurrent nephrolithiasis Epigastric pain Hemorrhoid Anal fissure Rectal bleed Weakness of both hands Menstrual disorder Obesity (BMI 30-39.9) Anxiety Nonintractable headache Herniation of cervical intervertebral disc with radiculopathy Herniated disc Surgical History History of surgery Hx of cystoscopy S/P ureteral stent placement History of cervical discectomy History of section History of tubal ligation Family History Father Medical history unknown Mother Medical history unknown Maternal Grandmother Breast cancer Sister Breast cancer Daughter Breast cancer Son Autism Mental health disorder Social History Housing: Apartment Are you a primary care assistant to a significant other at home: No Do you presently have visiting nurse or other home services: No Alcohol intake: current Alcohol intake frequency: holidays/special occasions only Patient Tobacco Use Status: Never used Tobacco e-Cigarette/Vaping Use: Never Used Second Hand Smoke Exposure: No service: No Current occupational status: employed Cognitive needs: No Hearing needs: No Vision needs: Yes (glasses) Female Reproductive History Menstrual Age of Menarche: 15 Review of Systems Const All systems reviewed & are unremarkable except as noted in HPI and below Reports no additional complaints Resp Reports no additional complaints GI Reports no additional complaints Reports as per HPI Musc Reports no additional complaints Physical Exam Telemedicine evaluation Appropriate responses Regular breathing rate and rhythm HEENT Head: Yes normal to inspection Ears: hearing grossly normal bilaterally Eyes General: appearance normal, both eyes and all related structures Neck Neck: Yes normal visual inspection Chest Chest palpation & inspection: normal inspection of the chest Resp Effort & Inspection: normal respiratory effort and able to speak in complete sentences Telehealth Telehealth Telehealth Platform: [facility] Location of provider rendering services: practice address Location of patient: address on file Patient Identification confirmed using: Name, : Yes Telehealth method: voice only Patient verbally consented to treatment: Yes Patient verbally consented to billing insurance company: Yes Patient informed of any privacy concerns related to visit: Yes Minutes spent on Phone/Video with Pt.: 15 Assessment & Plan Assessment & Plan (1) Recurrent nephrolithiasis: Code(s): N20.0 - Calculus of kidney Category: Medical (2) Interstitial cystitis (chronic) with hematuria: Code(s): N30.11 - Interstitial cystitis (chronic) with hematuria Category: Medical Plan Interstitial cystitis flare Recommend rescue solutions Continue allopurinol on vitamin B6 for kidney stones May benefit from gabapentin, amitriptyline, Naprosyn nightly for IC Orders: Orders US renal BI Today N20.0 - Calculus of kidney Medications: New allopurinol 100 mg PO DAILY 90 tabs 1RF 90 days pyridoxine (vitamin B6) 50 mg PO DAILY 90 tabs 1RF 90 days Patient Instructions: This note is constructed using voice recognition software. While every effort has been made to ensure accuracy grease worker errors may have been included. Imaging studies, laboratory and physical exam results were discussed and reviewed in detail. No major barriers to patient understanding were identified. An opportunity to ask questions regarding the treatment plan was provided. All questions were answered. The patient expressed understanding and agreement with the above treatment plan. The patient is aware they should contact our office by phone for worsening of their current condition or the appearance of new urologic symptoms. Compliance is encouraged with any medications and followup testing that is ordered. It is a privilege to participate in the urologic care of your patient. If you have any questions or concerns regarding treatment for the above conditions, or other urologic issues, please do not hesitate to contact me. The office telephone contact is [phone]. Sincerely, Dr Tanner Rock MD, MICHAEL [facility] - Urology Compassionate Specialist Care for the Genitourinary System Coding Level of Care Code Tele Est Pt Level 4 (96423) Diagnoses Recurrent nephrolithiasis N20.0 Interstitial cystitis (chronic) with hematuria N30.11
--- OUTSIDE RECORDS SUMMARY | 2024-10-25 15:11 | XMS_ITS | Clinical Summary ---
Author Organization [facility] Address [address] [place] [address] Phone Care Team Providers Care Senior Ui Web Developer Name Role Phone Melvin Lara MD Primary [...] ( season) 2023 11/08/2020, 10/16/2020 Influenza Vaccine (#1) 2024 , 03/02/2022, 03/07/2021, Additional history exists DTaP,Tdap,and Td [...] 5 Years) and At-Risk Patients (6 to 49 Years) Aged Out No longer eligible based [...] Maintenance Results * COLONOSCOPY Anesthesia - MAC; [facility] ENDOSCOPY (02/23/2024 1:15 PM EST) Anatomical Region Laterality Modality Endoscopy 02/23/2024 12:2 9 PM EST Narrative 02/23/2024 1:19 PM EST [facility] GI Patient Name: Deena Camacho Procedure Date: 02/23/2024 12:29 PM Date of : 1975 Age: 48 Room: ROOM 16 Gender: Female Note Status: Finalized Attending MD: Johnny Dill DO, [id number] Procedure Date No Time: 02/23/2024 Procedure: Colonoscopy [...] the physician, the nurse, the anesthesiologist, the trainer and the commercial kitchen service technician in the pre-procedure area in the [...] malignant neoplasm of colon CPT copyright 2020 [employer]. All rights reserved. The codes documented in this report are preliminary and upon career technical education instructor review may be revised to meet current compliance requirements. JOHNNY DILL Johnny Dill DO 02/23/2024 1:19:36 PM This report has been signed electronically.Johnny Dill DO Number of Addenda: 0 Note Initiated On: 02/23/2024 12:29 PM Scope Withdrawal Time: 0 hours 7 minutes 14 seconds Scope In: 1:02:21 PM Scope Out: 1:13:56 PM Endoscopy Department at [address] [address] Procedure Note Johnny Dill DO - 02/23/2024 [facility] GI Patient Name: Deena Camacho Procedure Date: 02/23/2024 12:29 PM Date of : 1975 Age: 48 Room: ROOM 16 Gender: Female Note Status: Finalized Attending MD: Johnny Dill DO,[id number] Procedure Date No Time: 02/23/2024 Procedure: Colonoscopy [...] the physician, the nurse, the anesthesiologist, the trainer and thetechnician in the pre-procedure area in [...] for malignantneoplasm of colon CPT copyright 2020 [employer]. All rights reserved. The codes documented in this report are preliminary and upon career technical education instructor reviewmay be revised to meet current compliance requirements. JOHNNY DILL Johnny Dill DO 02/23/2024 1:19:36 PM This report has been signed electronically.Johnny Dill DO Number of Addenda: 0 Note Initiated On: 02/23/2024 12:29 PM Scope Withdrawal Time: 0 hours 7 minutes 14 seconds Scope In: 1:02:21 PM Scope Out: 1:13:56 PM Endoscopy Department at [address] [address] Johnny Dill DO GI~PROCEDURE ORDERABLES Final Re sult from Last 3 Months or Most Recently Relevant to Health Maintenance Insurance [employer] Care Teams Senior Ui Web Developer Relationship Specialty Start Date End Date Melvin Lara MD [address] [place] [address] [place] [address] PCP - General Internal Medicine 11/10/18
--- OUTSIDE RECORDS SUMMARY | 2024-10-25 15:11 | XMS_ITS | Clinical Summary ---
Author Organization [facility] Address [address] [place] [address] Care Team Providers Care Telemarketing Manager Name Role Phone Melvin Lara MD Primary Care Provider +1- [phone] Social History Tobacco Use Types Packs/Day Years [...] Cancer Screening (Colonoscopy) 2022 Influenza Vaccine (#1) 2024 Pneumococcal Vaccine Aged Out No long er eligible based on patient's age to complete this topic RSV Ped < 20 months Aged Out No longe r eligible based on patient's age to complete this topic Care Teams Telemarketing Manager Relationship Specialty Start Date End Date Melvin Lara MD [address] [place] [address] [place] [address] PCP - General Internal Medicine 07/18/19
== END 2024-10-25 16:03 | disposition home or self-care (01) ==
LOC: HO.HUSH 14:41
PROVIDERS: PCP Internal Medicine; Visit Provider Urology
DX: N20.0 Calculus of kidney (principal); N30.11 Interstitial cystitis (chronic) with hematuria
CPT/HCPCS: 98014

== ENCOUNTER 2024-11-14 15:40 | Outpatient (AMB) | payer OTHER, SELFPAY ==
[2024-11-14 15:43] VITALS: BP 116/80; PULSE 93; O2SAT 96; BMI 29.0
--- NOTE | 2024-11-14 15:43 | A.OFFPC_ITS ---
Vital Signs 11/14/24 15:43 Height 5 ft Weight 148 lb 6 oz BMI 29.0 BP 116/80 Blood Pressure Location Lt brachial Position Sitting Pulse 93 Pulse Source Pulse Oximeter Pulse Oximetry (%) 96 Oxygen Delivery Method Room Air Intake Visit Reasons: cervical DDD, migraine, HTN, hyperlipidemia Hearing Instrument Specialist Required: No Accompanied by: Self / Same As Patient Allergies ceftriaxone (From Rocephin) Allergy (Intermediate, Verified 11/14/24 16:17) Lip Swelling ciprofloxacin Adverse Reaction (Intermediate, Verified 11/14/24 16:17) swelling of feet diphenhydramine (From Benadryl) Adverse Reaction (Intermediate, Verified 11/14/24 16:34) sensation of a hangover for hours Sulfa (Sulfonamide Antibiotics) Adverse Reaction (Intermediate, Verified 0 11/14/24 16:17) swelling of feet trazodone Adverse Reaction (Intermediate, Verified 11/14/24 16:34) jitteriness Medication List - Last Reconciled 11/14/24 by Melvin Lara MD allopurinol 100 mg PO DAILY 90 days epinephrine (EpiPen) 0.3 mg IM Q4H PRN fluticasone propionate 50 mcg/actuation 1 spray intranasal Q12H ibuprofen 800 mg PO TID PRN 30 days ketorolac 10 mg PO Q8H PRN ondansetron HCl 4 mg PO Q6H PRN oxycodone 5 mg PO BID PRN pyridoxine (vitamin B6) 50 mg PO DAILY 90 days tamsulosin 0.4 mg PO DAILY tramadol 50 mg PO TID PRN Tobacco use date assessed: 11/14/24 Dental Screening Dental Screen Date: 11/14/24 Did you have a dental visit in the last 12 months?: Yes Did you have a dental problem in the last 6 months where you did not have access to dental care?: No Was dental information given to patient?: Patient has dentist HPI cervical DDD, migraine, HTN, hyperlipidemia HPI Details Patient comes in today for her follow-up visit States that she continues to experience increased pain (chronic) over the back of her neck often Her insurance previously denied her cervical spine MRI Relates (+) on and off headaches that are mostly related to her neck issues; she denies any dizziness Denies any chest pains, no increased SOB No nausea/vomiting, no abdominal pain No change in bowel habits noted She is also currently requesting for a referral to weight management to help her with her weight - states that she has been doing a lot of stress eating lately and has gained some weight as a result [facility] Medical History Insomnia Hypertensive retinopathy of both eyes Pure hypercholesterolemia Overweight (BMI 25.0-29.9) Dysuria Pelvic floor dysfunction Headache, migraine Microscopic hematuria Recurrent UTI Hypocitraturia Recurrent nephrolithiasis Epigastric pain Hemorrhoid Anal fissure Rectal bleed Weakness of both hands Menstrual disorder Obesity (BMI 30-39.9) Anxiety Nonintractable headache Herniation of cervical intervertebral disc with radiculopathy Herniated disc Surgical History History of surgery Hx of cystoscopy S/P ureteral stent placement History of cervical discectomy History of section History of tubal ligation Family History Father Medical history unknown Mother Medical history unknown Maternal Grandmother Breast cancer Sister Breast cancer Daughter Breast cancer Son Autism Mental health disorder Social History Housing: Apartment Are you a primary child care associate to a significant other at home: No Do you presently have visiting nurse or other home services: No Alcohol intake: current Alcohol intake frequency: holidays/special occasions only Patient Tobacco Use Status: Never used Tobacco e-Cigarette/Vaping Use: Never Used Second Hand Smoke Exposure: No service: No Current occupational status: employed Cognitive needs: No Hearing needs: No Vision needs: Yes (glasses) Female Reproductive History Menstrual Age of Menarche: 15 Questionnaire PHQ-9 Over the last 2 weeks, how often have you been bothered by any of the following problems? 1. Little interest or pleasure in doing things: not at all 2. Feeling down, depressed, or hopeless: not at all 3. Trouble falling or staying asleep, or sleeping too much: nearly every day 4. Feeling tired or having little energy: nearly every day 5. Poor appetite or overeating: not at all 6. Feeling bad about yourself - or that you are a failure or have let yourself or your family down: not at all 7. Trouble concentrating on things, such as reading the newspaper or watching television: not at all 8. Moving or speaking so slowly that other people could have noticed. Or the opposite - being so fidgety or restless that you have been moving around a lot more than usual: not at all 9. Thoughts that you would be better off or of hurting yourself in some way: not at all Total score: 6 Depression Screening Interpretation: Positive Depression Screening Follow-up: Existing condition and Follow-up Visit Requested Depression Screening Done: Yes 68119 - PHQ-9 Billing: Yes Source: Developed by Drs. Tanvir Rucker, Selam Dangelo, Berry Pineda and colleagues, with an educational beth from [employer]. Thrive Questionnaire Date Thrive assessed: 11/14/24 I am a: Patient What is your living situation today?: I have a steady place to live Within the past 12 months, did the food you bought not last and you didn't have the money to get more?: Often true Within the past 12 months, did you worry whether your food would run out before you got money to buy more?: Never true Do you have trouble paying for medicines?: No Do you have trouble getting transportation to medical appointments?: No Do you have trouble paying your heating and electricity bill?: No Do you have trouble taking care of your child, family member or friend?: No Do you have trouble with day-to-day activities such as bathing, preparing meals, shopping, managing finances, etc.?: No Are you currently unemployed and looking for a job?: No Are you interested in more education?: No Please select the resources that you would like help with: None Currently or been in a relationship where the following occur: No concerns reported THRIVE Score: 1 AUDIT C Alcohol Use Questionnaire (AUDIT-C) 1. How often do you have a drink containing alcohol?: Never 3. How often do you have six or more drinks on one occasion?: Never Total Score: 0 Score Reviewed/Action Taken: Yes SENG-7 AMB Questionnaire SENG-7 Date SENG - 7 assessed: 11/14/24 Feeling nervous, anxious, or on edge: 0 = Not at all Not being able to stop or control worryin = Not at all Worrying too much about different things: 0 = Not at all Trouble relaxin = Not at all Being so restless that it is hard to sit still: 0 = Not at all Becoming easily annoyed or irritable: 0 = Not at all Feeling afraid as if something awful might happen: 0 = Not at all Total SENG-7 score (0-4 normal; 5-9 mild; 10-14 moderate; 15-21 severe): 0 Source: Developed by Drs. Tanvir Rucker, Selam Dangelo, Berry Pineda and colleagues, with an educational beth from [employer]. Review of Systems Const Denies chills, Reports difficulty sleeping (mostly due to her neck pains), Reports fatigue, Denies fever(s) and Reports headache(s) (on and off - related to her neck pain) ENT Denies dysphagia, Denies dizziness, Denies otalgia, Reports headache(s) (on and off - related to her neck pain), Reports neck pain (increase lately ), Denies odynophagia and Denies sore throat Card Denies chest pain, Denies irregular heart rhythm, Denies palpitations and Denies dyspnea Resp Denies chest congestion, Denies cough and Denies dyspnea GI Denies abdominal pain, Denies constipation, Denies dysphagia, Denies heartburn, Denies diarrhea, Denies nausea, Denies odynophagia and Denies vomiting Denies difficulty voiding, Denies dysuria and Denies urinary urgency Musc Denies back pain, Denies arthralgias and Reports neck pain (increase lately ) Skin/Breast Denies rash Neuro Denies dizziness, Reports headache(s) (on and off - related to her neck pain) and Denies paresthesias Psych Denies anxiety and Denies depression Endo Reports fatigue and Denies palpitations Ad/Lymph Denies easy bruising Physical exam (Primary Care) Vital Signs: Last Vital Signs Pulse 93 11/14/24 15:43 BP 116/80 11/14/24 15:43 Pulse Ox 96 11/14/24 15:43 Oxygen Delivery Method Room Air 11/14/24 15:43 BMI result Body Mass Index 29.0 Tobacco/Smoking Status: Tobacco use Status Tobacco use date assessed 11/14/24 11/14/24 15:48 Patient Tobacco Use Status Never used Tobacco 11/14/24 15:48 e-Cigarette/Vaping Use Never Used 11/14/24 15:48 PHQ-9: PHQ-9 Score PHQ-9: Total score 6 11/14/24 16:24 Depression Screening Interpretation: Positive Depression Screening Follow-up: Existing condition and Follow-up Visit Requested Thrive Assessment: Date of Thrive Assessment Date Thrive assessed 11/14/24 11/14/24 15:48 Currently or been in a relationship where the following occur: No concerns reported Const General: no acute distress and alert HENMT Ears: TM's normal bilaterally and EAC's normal Throat: Yes posterior oropharynx normal and Yes tonsils normal (no TP congestion) Neck Other: increased tenderness noted over the cervical spine, with (+) tenderness noted as well over the paraspinal muscles bilaterally Neck: Yes no lymphadenopathy Thyroid: Thyroid normal Resp Auscultation: clear to auscultation bilaterally, no rales and no wheezes Cardio Rate: regular rate Rhythm: regular rhythm Heart sounds: no murmurs GI Palpation (GI): Soft to palpation and nontender Auscultation: normal bowel sounds General: Yes no CVA tenderness Back/Spine/Pelvis Back: no CVA tenderness Cervical Spine: Cervical spine tenderness Thoracic/Lumbar Spine: No lumbar spinal tenderness Skin Rashes: no rashes Extrem General: Yes no clubbing, cyanosis or edema Coding Level of Care Code Est Pt Level 4 (62731) Diagnoses Herniation of cervical intervertebral disc with radiculopathy M50.10 Essential hypertension I10 Hypertensive retinopathy of both eyes H35.033 Migraine without status migrainosus, not intractable, unspecified migraine type G43.909 Migraine type: unspecified Status migrainosus presence: without status migrainosus Intractability: not intractable Pure hypercholesterolemia E78.00 Insomnia, unspecified type G47.00 Insomnia type: unspecified Anxiety F41.9 Overweight (BMI 25.0-29.9) E66.3 Additional Codes PHQ-9 - 88678 - PHQ-9 Billing: Yes ([id number]) Assessment & Plan Assessment & Plan (1) Herniation of cervical intervertebral disc with radiculopathy: Comment: S/P anterior cervical discectomy C5-C6, interbody device and fusion on 07/12/[address] Zander Fay Code(s): M50.10 - Cervical disc disorder with radiculopathy, unspecified cervical region Category: Medical Plan: Patient is currently still experiencing frequent increased neck pain A repeat cervical spine MRI was ordered for her back in July 2023 for further evaluation but her health insurance would not cover this Continue Ibuprofen 800 mg TID PRN with food and Tramadol 50 mg TID PRN States that she would like to go back to physical therapy again - referral to PT placed (2) Essential hypertension: Code(s): I10 - Essential (primary) hypertension Category: Medical Plan: Reinforced low sodium diet - goal is systolic BP of 120 mm or less She was previously started on Lisinopril 5 mg QD but patient stopped taking the Rx after a few days as it was supposedly causing her blood pressure to bottom out on her States that she has just been taking OTC Fish oil supplements and notes that her blood pressure seems to be better lately without any Rx so at this point, she may NOT necessarily have high blood pressure but her diagnosis would be more of elevated BP, likely situational She will continue to monitor her blood pressure regularly for now (3) Hypertensive retinopathy of both eyes: Code(s): H35.033 - Hypertensive retinopathy, bilateral Category: Medical Plan: This was noted by her wireless sales representative when she had eye exam done back on 07/31/2023 and she was advised to reach out to her PCP for further evaluation and management She was started on some antihypertensives previously to better control her blood pressure but she could not tolerate the Rx as it was making her BP drop too low Her BP currently appears normal WITHOUT any BP med or Rx She should consider getting a carotid ultrasound done for further evaluation at some point, especially since she is not able to tolerate taking blood pressure medications Follow up with ophthalmology as scheduled (4) Migraine: Code(s): G43.909 - Migraine, unspecified, not intractable, without status migrainosus Category: Medical Qualifiers: Migraine type: unspecified Status migrainosus presence: without status migrainosus Intractability: not intractable Qualified Code(s): G43.909 - Migraine, unspecified, not intractable, without status migrainosus Plan: Reinforced avoidance of all potential migraine triggers; advised that her recent increased neck pain can also be a possible trigger She has been referred to neurology at [facility] for further evaluation and management and is currently still waiting for her appt to be scheduled Continue Fioricet PRN (5) Pure hypercholesterolemia: Code(s): E78.00 - Pure hypercholesterolemia, unspecified Category: Medical Plan: Reinforced low cholesterol diet Will have patient recheck her labs and fasting lipids in a few months for follow-up (6) Insomnia: Code(s): G47.00 - Insomnia, unspecified Category: Medical Qualifiers: Insomnia type: unspecified Qualified Code(s): G47.00 - Insomnia, unspecified Plan: Sleep hygiene reinforced Continue Trazodone 50 mg Q HS PRN (7) Anxiety: Code(s): F41.9 - Anxiety disorder, unspecified Category: Medical Plan: Patient states that her anxiety has been much better controlled and she is doing well on her current Rx Continue Bupropion XL 150 mg QD (8) Overweight (BMI 25.0-29.9): Code(s): E66.3 - Overweight Category: Medical Plan: Reinforced diet/exercise as tolerated/lose weight Per request, we will refer her again to weight management as she has gained a lot of weight lately due to stress eating Plan To return in March 2025 for her annual physical examination Orders: Orders Comprehensive [place]. Panel Fast 03/13/25 E78.00 - Pure hypercholesterolemia, unspecified, Z00.00 - Encounter for general adult medical examination without abnormal findings Lipid Panel 03/13/25 E78.00 - Pure hypercholesterolemia, unspecified, Z00.00 - Encounter for general adult medical examination without abnormal findings TSH reflex Free T4 03/13/25 E78.00 - Pure hypercholesterolemia, unspecified, Z00.00 - Encounter for general adult medical examination without abnormal findings UA CC w/rflx Micro + Cult 03/13/25 R30.0 - Dysuria, Z00.00 - Encounter for gene ral adult medical examination without abnormal findings Vitamin D 25-OH Total 03/13/25 E55.9 - Vitamin D deficiency, unspecified, Z00.00 - Encounter for general adult medical examination without abnormal findings Complete Blood Count Auto Diff 03/13/25 D64.9 - Anemia, unspecified, Z00.00 - Encounter for general adult medical examination without abnormal findings Vitamin B12 and Folate 03/13/25 E53.8 - Deficiency of other specified B group vitamins, Z00.00 - Encounter for general adult medical examination without a bnormal findings Referrals Physical Medicine and Rehabilitation Referral M50.10 - Cervical disc disorder with radiculopathy, unspecified cervical region, M54.12 - Radiculopathy, cervical region, Z98.890 - Other specified postprocedural states Medical Weight Management Referral E66.9 - Obesity, unspecified
--- OUTSIDE RECORDS SUMMARY | 2024-11-14 16:22 | XMS_ITS | Clinical Summary ---
Author Organization [facility] Address [address] [place] [address] Phone Care Team Providers Care Electronic Service Technician Name Role Phone Melvin Lara MD Primary [...] 1996 Cervical Cancer Screening: Pap Smear 1998 HIV Screening 03/22/2022 Hepatitis C Screening 03/22/2022 Social Influencers of Health Screening 03/22/2022 COVID-19 Vaccine ( season) 2023 11/08/2020, 10/16/2020 Depression Screening 04/19/2024 Influenza Vaccine (#1) 2024 , 03/02/2022, 03/07/2021, [...] Maintenance Results * COLONOSCOPY Anesthesia - MAC; [facility] ENDOSCOPY (02/23/2024 1:15 PM EST) Anatomical Region Laterality Modality Endoscopy 02/23/2024 12:2 9 PM EST Narrative 02/23/2024 1:19 PM EST [facility] GI Patient Name: Deena Camacho Procedure Date: 02/23/2024 12:29 PM Date of : 1975 Age: 48 Room: ROOM 16 Gender: Female Note Status: Finalized Attending MD: Johnny Dill DO, [id number] Procedure Date No Time: 02/23/2024 Procedure: Colonoscopy [...] the physician, the nurse, the anesthesiologist, the steel rule die maker and the medication reconciliation technician in the pre-procedure area in the [...] malignant neoplasm of colon CPT copyright 2020 [employer]. All rights reserved. The codes documented in this report are preliminary and upon barrel rib matting machine operator review may be revised to meet current compliance requirements. JOHNNY DILL Johnny Dill DO 02/23/2024 1:19:36 PM This report has been signed electronically.Johnny Dill DO Number of Addenda: 0 Note Initiated On: 02/23/2024 12:29 PM Scope Withdrawal Time: 0 hours 7 minutes 14 seconds Scope In: 1:02:21 PM Scope Out: 1:13:56 PM Endoscopy Department at [address] [address] Procedure Note Johnny Dill DO - 02/23/2024 [facility] GI Patient Name: Deena Camacho Procedure Date: 02/23/2024 12:29 PM Date of : 1975 Age: 48 Room: ROOM 16 Gender: Female Note Status: Finalized Attending MD: Johnny Dill DO,[id number] Procedure Date No Time: 02/23/2024 Procedure: Colonoscopy [...] the physician, the nurse, the anesthesiologist, the steel rule die maker and thetechnician in the pre-procedure area in [...] for malignantneoplasm of colon CPT copyright 2020 [employer]. All rights reserved. The codes documented in this report are preliminary and upon barrel rib matting machine operator reviewmay be revised to meet current compliance requirements. JOHNNY DILL Johnny Dill DO 02/23/2024 1:19:36 PM This report has been signed electronically.Johnny Dill DO Number of Addenda: 0 Note Initiated On: 02/23/2024 12:29 PM Scope Withdrawal Time: 0 hours 7 minutes 14 seconds Scope In: 1:02:21 PM Scope Out: 1:13:56 PM Endoscopy Department at [address] [phone] Johnny Dill DO GI~PROCEDURE ORDERABLES Final Re sult from Last 3 Months or Most Recently Relevant to Health Maintenance Insurance [employer] Care Teams Electronic Service Technician Relationship Specialty Start Date End Date Melvin Lara MD [address] [place] [address] [place] [address] PCP - General Internal Medicine 11/10/18
--- OUTSIDE RECORDS SUMMARY | 2024-11-14 16:22 | XMS_ITS | Clinical Summary ---
Author Organization [facility] Address [address] [place] [address] Care Team Providers Care Reefer Truck Driver Name Role Phone Melvin Lara MD Primary Care Provider +1- [phone] Social History Tobacco Use Types Packs/Day Years [...] age to complete this topic Care Teams Reefer Truck Driver Relationship Specialty Start Date End Date Melvin Lara MD [address] [place] [address] [place] [address] PCP - General Internal Medicine 07/18/19
== END 2024-11-14 16:35 | disposition home or self-care (01) ==
LOC: HO.HMCH 15:41
PROVIDERS: PCP Internal Medicine; Visit Provider Internal Medicine
DX: M50.10 Cervical disc disorder with radiculopathy, unspecified cervical region (principal); I10 Essential (primary) hypertension; H35.033 Hypertensive retinopathy, bilateral; G43.909 Migraine, unspecified, not intractable, without status migrainosus; E78.00 Pure hypercholesterolemia, unspecified; G47.00 Insomnia, unspecified; F41.9 Anxiety disorder, unspecified; E66.3 Overweight

== ENCOUNTER → 2024-11-14 15:40 | Outpatient (BNVA) | payer OTHER, SELFPAY | PROVIDERS: PCP Internal Medicine; Visit Provider Internal Medicine | DX: M50.10 Cervical disc disorder with radiculopathy, unspecified cervical region (principal); I10 Essential (primary) hypertension; H35.033 Hypertensive retinopathy, bilateral; G43.909 Migraine, unspecified, not intractable, without status migrainosus; E78.00 Pure hypercholesterolemia, unspecified; G47.00 Insomnia, unspecified; F41.9 Anxiety disorder, unspecified; E66.3 Overweight; Z68.29 Body mass index [BMI] 29.0-29.9, adult; Z79.899 Other long term (current) drug therapy; Z13.31 Encounter for screening for depression; Z13.39 Encounter for screening examination for other mental health and behavioral disorders | CPT/HCPCS: 96127 ==

== ENCOUNTER 2024-12-06 07:43 | Emergency (ER) | payer OTHER, SELFPAY ==
--- NOTE | ~2024-12-06 | XR_ITS ---
EXAMINATION: XR THORACIC SPINE CLINICAL INFORMATION: pain COMPARISON: Correlated to chest x-ray dated May 01, 2016. TECHNIQUE: AP lateral and swimmer's projection. FINDINGS: Multilevel endplate sclerosis decreased intervertebral disc height and small marginal osteophyte formation throughout the upper and mid thoracic spine. No acute cortical disruption or gross malalignment. There is an intervertebral disc spacer at C5-6. No lytic or blastic lesions. S-shaped curvature of the mid thoracic spine. Punctate calcifications overlapping the kidney shadows both sides of the upper abdomen no fully included in the [id number]. XR/XR thoracic spine 3V IMPRESSION: Multilevel spondylosis without acute fracture or gross listhesis. Probable nephrolithiasis. Electronically signed by: Lieghton Mccord MD 12/06/2024 08:53 AM EDT
--- NOTE | ~2024-12-06 | CT_ITS ---
EXAMINATION: CT ANGIOGRAM HEAD AND NECK CLINICAL INFORMATION: Right-sided paresthesias. COMPARISON: No prior CTA. CTA head 03/03/2022. TECHNIQUE: Noncontrast axial imaging of the head was performed. This was followed by test bolus sequences and head and neck intravenous bolus administration 70 mL of Omnipaque 350. Helical imaging was performed in the axial plane from the aortic arch to the skull vertex. A [address] head was also obtained. The data was processed at the molecular technologist's workstation for generation of MIP sequences. Angled MIPs and volume rendered reformatted images were also generated at an offline 3D workstation. Stenoses are assessed in accordance with NASCET criteria unless otherwise indicated. This CT examination was performed using dose optimization techniques as appropriate, variously including the following: *Automated exposure control *Adjustment of mA and/or kV according to patient size (this includes techniques or standardized protocols for targeted exams where dose is matched to indication/reason for exam; i.e. extremities or head) *Use of iterative reconstruction technique FINDINGS: NONCONTRAST HEAD CT: There is no evidence of intracranial hemorrhage or extra-axial fluid collection. There is no mass effect, or edema. No CT evidence of acute territorial infarct. Ventricles, sulci, and cisterns are normal in size and configuration for patient age. No hydrocephalus. No midline shift. No significant white matter abnormalities. Globes and orbital contents image normally. No extracranial soft tissue abnormalities. The paranasal sinuses, mastoid air cells, and tympanic cavities are normally aerated. No suspicious bony abnormalities. NECK CTA: -AORTIC ARCH: Normal in caliber. Mild atheromatous calcification. Three-vessel branching pattern. -GREAT VESSEL ORIGINS: Widely patent. No stenosis. -RIGHT COMMON CAROTID ARTERY: Normal in course and caliber to the level of the bifurcation. -CERVICAL RIGHT INTERNAL CAROTID ARTERY: Normal opacification without focal stenosis or occlusion. -LEFT COMMON CAROTID ARTERY: Normal in course and caliber to the level of the bifurcation. -CERVICAL LEFT INTERNAL CAROTID ARTERY: Normal opacification without focal stenosis or occlusion. -CERVICAL RIGHT VERTEBRAL ARTERY: Codominant. Normal in course and caliber into the skull base. -CERVICAL LEFT VERTEBRAL ARTERY: Codominant. Normal in course and caliber into the skull base. OTHER, SOFT TISSUES: -No lymphadenopathy or mass. No abnormal fluid collection or soft tissue swelling. -Normal thyroid. -Imaged superior mediastinal structures normal. -Imaged lung apices clear. CTA OF THE BRAIN: -INTRACRANIAL INTERNAL CAROTID ARTERIES: No focal stenosis or occlusion. -RIGHT ANTERIOR CEREBRAL ARTERY: Normal A1 segment.. Normal arborization of the distal segments. -LEFT ANTERIOR CEREBRAL ARTERY: Normal A1 segment.. Normal arborization of the distal segments. -ANTERIOR COMMUNICATING ARTERY: Normal. -RIGHT MIDDLE CEREBRAL ARTERY: Normal M1 segment of the MCA without focal stenosis or occlusion. Normal arborization of the distal segments. -LEFT MIDDLE CEREBRAL ARTERY: Normal M1 segment of the MCA without focal stenosis or occlusion. Normal arborization of the distal segments. -RIGHT VERTEBRAL ARTERY V4: Normal in course and caliber. -LEFT VERTEBRAL ARTERY V4: Normal in course and caliber. -BASILAR ARTERY: Normal without focal stenosis or occlusion. Normal appearance of the proximal superior cerebellar arteries. Normal basilar tip. -RIGHT POSTERIOR CEREBRAL ARTERY: Normal P1 segment. Normal opacification of the distal NURSES ASSISTANT segments. -LEFT POSTERIOR CEREBRAL ARTERY: Normal P1 segment. Normal opacification of the distal NURSES ASSISTANT segments. -POSTERIOR COMMUNICATING ARTERIES: Poorly seen bilaterally. Normal opacification of the superior sagittal, straight, transverse, and sigmoid sinuses. No venous thrombosis. No space-occupying hemorrhage or definite evolving infarct. CT/CT angio head neck IMPRESSION: NONCONTRAST HEAD CT: 1. No intracranial hemorrhage or mass effect. No CT evidence of acute territorial infarct. CTA NECK: 1. No evidence of significant stenosis, occlusion, dissection, or aneurysm of the major cervical arterial vasculature. CTA HEAD: 1. No evidence of significant stenosis, occlusion, dissection, or aneurysm of the major intracranial arterial vasculature. 2. Patent major cortical and dural venous sinuses. Electronically signed by: Marshal Ellsworth MD 12/06/2024 12:04 PM EDT
[2024-12-06 07:47] VITALS: BP 175/102; PULSE 80; RESP 16; TEMP 36.6; O2SAT 98; BMI 29.3
--- NOTE | 2024-12-06 08:17 | ED_ITS ---
HPI - Neuro Symptoms/Deficit General Chief Complaint: Neuro Symptoms/Deficit Stated Complaint: numbness on RT side Time Seen by Provider: 12/06/24 08:07 Source: patient Mode of arrival: ambulatory Limitations: no limitations History of Present Illness ED Provider: Ange Godoy PA-C HPI Narrative: Patient is a 49 year old assigned female at with a history of HTN, HLD, migraines, anxiety, GERD, and cervical radiculopathy s/p cervical spine procedure presenting to the emergency department today with numbness to her right upper and lower extremities. Patient states that this feels similar to when she has issues with her neck but it is now also affecting her lower leg. Patient states that it started yesterday morning and has not completely improved. Patient denies any dizziness, lightheadedness, abdominal pain, nausea, vomiting, fever, chills, blurry vision, double vision, loss of vision, chest pain, difficulty breathing, shortness of breath, back pain, night sweats, pain with urination, increased urinary frequency, increased urinary urgency, blood in her urine or stool, syncope or a near syncopal episode, recent trauma or falls, bowel incontinence, bladder incontinence, or any other complaints at this time. Quality: numb and tingling Relieving factors: none Exacerbating factors: none Associated symptoms: denies other symptoms Related Data Home Medications ?Medication ?Instructions ?Recorded ?Confirmed epinephrine 0.3 mg/0.3 mL 0.3 mg IM Q4H PRN Anaphylaxi s 05/21/23 11/14/24 injection, auto-injector (EpiPen) tramadol 50 mg tablet 50 mg PO TID PRN pain 11/14/24 Previous Rx's ?Medication ?Instructions ?Recorded ibuprofen 800 mg tablet 800 mg PO TID PRN pain 30 da ys #90 05/19/22 tabs ketorolac 10 mg tablet 10 mg PO Q8H PRN pain #12 ta bs 07/12/24 ondansetron HCl 4 mg tablet 4 mg PO Q6H PRN nausea and 07/12/24 vomiting #14 tabs oxycodone 5 mg tablet 5 mg PO BID PRN pain #5 tabs 07/12/24 tamsulosin 0.4 mg capsule 0.4 mg PO DAILY #14 caps fluticasone propionate 50 1 spray intranasal Q12H #16 grams 10/09/24 mcg/actuation nasal spray,suspension allopurinol 100 mg tablet 100 mg PO DAILY 90 days #90 tabs 10/25/24 pyridoxine (vitamin B6) 50 mg 50 mg PO DAILY 90 days # 90 tabs 10/25/24 tablet cyclobenzaprine 5 mg tablet 5 mg PO TID PRN muscle spa sm 7 12/06/24 days #21 tabs Allergies Allergy/AdvReac Type Severity Reaction Status Date / Time ceftriaxone (From Rocephin) Allergy Intermediate Lip Verified 12/06/24 07:49 Swelling ciprofloxacin AdvReac Intermediate swelling Verified 12/06/24 07:49 of feet diphenhydramine (From AdvReac Intermediate sensation Verified 12/06/24 07:49 Benadryl) of a hangover for hours Sulfa (Sulfonamide AdvReac Intermediate swelling Verified 12/06/24 07:49 Antibiotics) of feet trazodone AdvReac Intermediate jitteriness Verified 12/06/24 07:49 Review of Systems 2 Constitutional: Constitutional: Reports no additional constitutional complaints, Denies chills, Denies fever(s) and Denies night sweats Eyes: Eyes: Reports no additional eye complaints, Denies blurry vision, Denies change in vision, Denies diplopia, Denies eye discharge, Denies loss of vision and Denies eye pain ENT: Denies dizziness Cardiovascular: Cardiovascular: Reports no additional cardiovascular complaints, Denies chest pain, Denies lightheadedness, Denies Loss of Consciousness and Denies dyspnea Respiratory: Respiratory: Reports no additional respiratory complaints and Denies dyspnea Gastrointestinal: Gastrointestinal: Reports no additional gastrointestinal complaints, Denies abdominal pain, Denies melena, Denies hematochezia, Denies change in bowel habits and Denies change in stool character Genitourinary: Genitourinary: Denies hematuria, Denies urinary frequency, Denies dysuria, Denies urinary incontinence, Denies urinary hesitancy and Denies urinary urgency Musculoskeletal: Musculoskeletal: Reports no additional musculoskeletal complaints Neurologic: Denies dizziness and Denies loss of vision Comments: right sided numbness / tingling in the upper and lower extremities Psychiatric: Psychiatric: Reports no additional psychiatric complaints Endocrine: Endocrine: Reports no additional endocrine complaints Hematologic/Lymphatic: Hematologic/Lymphatic: Reports no additional hematologic/lymphatic complaints Allergic/Immunologic: Allergic/Immunologic: Reports no additional allergic/immunologic complaints PMFSH Past Medical History Attestation statement: The following information was validated with the patient. Source: old records reviewed and nursing notes reviewed Medical History Insomnia Hypertensive retinopathy of both eyes Pure hypercholesterolemia Overweight (BMI 25.0-29.9) Dysuria Pelvic floor dysfunction Headache, migraine Microscopic hematuria Recurrent UTI Hypocitraturia Recurrent nephrolithiasis Epigastric pain Hemorrhoid Anal fissure Rectal bleed Weakness of both hands Menstrual disorder Obesity (BMI 30-39.9) Anxiety Nonintractable headache Herniation of cervical intervertebral disc with radiculopathy Herniated disc Surgical History History of surgery Hx of cystoscopy S/P ureteral stent placement History of cervical discectomy History of section History of tubal ligation Family History Family History Father Medical history unknown Mother Medical history unknown Maternal Grandmother Breast cancer Sister Breast cancer Daughter Breast cancer Son Autism Mental health disorder Social History Social History Housing: Apartment Are you a primary lawn care technician to a significant other at home: No Do you presently have visiting nurse or other home services: No Alcohol intake: current Alcohol intake frequency: holidays/special occasions only Patient Tobacco Use Status: Never used Tobacco e-Cigarette/Vaping Use: Never Used Second Hand Smoke Exposure: No Advance Directives: No Advance Directives Information Provided: Yes service: No Current occupational status: employed Cognitive needs: No Hearing needs: No Vision needs: Yes (glasses) Physical Exam 2 Vital Signs: Vital Signs: Last Vital Signs Temp 98 F 12/06/24 07:47 Pulse 84 12/06/24 10:35 Resp 18 12/06/24 10:35 BP 145/84 H 12/06/24 10:35 Pulse Ox 98 12/06/24 10:35 O2 Del Method Room Air 12/06/24 10:35 BMI result Body Mass Index 29.3 Const: General: cooperative, no acute distress, alert and awake Nutritional Appearance: well nourished Orientation/consciousness: patient oriented x3 HEENT: Head: Yes normal to inspection and Yes atraumatic Ears: hearing grossly normal bilaterally and external ears normal General nose exam: Normal external nose present, no nasal discharge noted and no epistaxis Face and sinus: Yes normal facial exam, No abrasion and No laceration Mouth: Normal oral and palatal mucosa present, no drooling and no muffled voice Eyes: General: appearance normal, both eyes and all related structures P eriorbital: periorbital findings normal Eyelids: Yes eyelids normal C onjunctivae: conjunctivae normal Pupils: Equal, round and reactive pupils present EOM: EOMs intact bilaterally Neck: Neck: Yes normal visual inspection and Yes full ROM Resp: Effort & Inspection: normal respiratory effort and able to speak in complete sentences Neuro: General: patient oriented x3, moves all extremities and CN's II-XI intact bilaterally Cranial nerves: Yes Equal, round and reactive pupils present Cognition (Neuro): normal cognition Extrem: General: Yes normal to inspection, Yes full ROM and Yes capillary refill normal Psych: Appearance: grossly normal Mental Status: mental status grossly normal Affect: normal affect Attitude: cooperative Thought process: N ormal thought process present Thought content: Normal thought content present Insight: Good insight present (Psych) Medications Administered Discontinued Medications Generic Name Dose Route Start Last Admin Trade Name Freq PRN Reason Stop Dose Admin Diazepam 2.5 mg 12/06/24 08:40 12/06/24 10:41 Diazepam 10 Mg/2 Ml Cartridge IVPUSH 12/06/24 08:41 2.5 mg STAT STA Administration Iohexol 100 ml 12/06/24 11:44 12/06/24 11:45 Iohexol 350 Mg/Ml 100 Ml Infus..Btl IV 12/06/24 11:45 70 ml ONCE ONE Administration Medical Decision Making Medical Decision Making [facility] Narrative: Patient is a 49 year old assigned female at with a history of HTN, HLD, migraines, anxiety, GERD, and cervical radiculopathy s/p cervical spine procedure presenting to the emergency department today with numbness to her right upper and lower extremities. Patient's physical exam was unremarkable. Patient's blood work was unremarkable. Patient's thoracic x-ray showed no acute process but showed evidence of multilevel spondylosis. Patient's CTA of the head and neck showed no acute process. Patient's clinical presentation is most consistent with a muscle spasm causing intermittent paresthesias. I explained my physical exam findings as well as all test results to the patient. I answered all questions asked by the patient. Patient received toradol and valium which she stated helped her symptoms significantly. I stressed the importance of the patient taking her medication as directed (either prescribed or as the over the counter packaging recommends). I stressed the importance of the patient following up with her primary care provider. I stressed the importance of the patient returning to the emergency department immediately if her symptoms were to worsen or if she were to develop any dizziness, shortness of breath, difficulty breathing, chest pain, blurry vision, loss of vision, nausea, vomiting, abdominal pain, fever, chills, back pain, or any other complaints. Patient verbalized agreement and understanding with this treatment plan and discharge. Differential Diagnosis Differential Diagnoses: The differential diagnosis associated with the presentation includes Paresthesias Muscle spasm Back pain Admission/Observation Consideration of admission/observation: Escalation of care including admission/observation considered Patient would have been admitted to the hospital had her work up had any findings where hospital admission was appropriate and her clinical presentation warranted hospital admission. Lab Data [facility] Lab Attestation statement: I reviewed the patient's lab results. My interpretation of these results are in the [facility] Rationale portion of this note. 12/06/24 09:38 12/06/24 09:38 Labs: Lab Results 12/06/24 Range/Units 09:38 WBC 6.8 (4.8-10.8) X10*3/uL RBC 5.01 (4.20-5.50) X10*6/uL Hgb 14.3 (12.0-16.0) g/dl Hct 42.3 (37.0-47.0) % MCV 84.4 (80.0-98.0) fL MCH 28.5 (27.0-33.0) pg MCHC 33.8 (31.0-35.0) g/dl RDW 13.5 (11.0-16.0) % Plt Count 230 D (160-400) X10*3/uL MPV 13.0 H (9.4-12.3) fL Immature Gran % (Auto) 0.3 (0.0-0.4) % Neut % (Auto) 71.6 (45-73) % Lymph % (Auto) 20.2 (20-40) % Foster % (Auto) 5.3 (2-11) % Eos % (Auto) 2.2 (0-4) % Baso % (Auto) 0.4 (0-2) % Lymph # (Auto) 1.4 (1.2-4.9) X10*3/uL Foster # (Auto) 0.4 (0.1-1.2) X10*3/uL Eos # (Auto) 0.2 (0.0-0.4) X10*3/uL Baso # (Auto) 0.0 (0.0-0.2) X10*3/uL Abs Immat Gran (auto) 0.02 (0.00-0.03) X10*3/uL Absolute Neuts (auto) 4.9 (2.0-8.3) x10*3/uL Absolute Nucleated RBC 0.000 (0.0-0.012) X10*3/uL Nucleated RBC % (auto) 0.0 (0.0-0.2) /100WBC Sodium 141 (135-145) mmol/L Potassium 3.7 (3.3-5.1) mmol/L Chloride 107 (96-108) mmol/L Carbon Dioxide 25 (22-29) mmol/L Anion Gap 13 (12-20) BUN 13 (9-16) mg/dL Creatinine 0.68 (0.5-1.4) mg/dL Estim Creat Clear Calc 88.0 Estimated GFR > 60 Random Glucose 89 (60-115) mg/dL Calcium 9.5 (8.4-10.2) mg/dL Total Bilirubin 0.4 (0.0-1.0) mg/dL AST 18 (5-31) U/L ALT 14 (0-31) U/L Alkaline Phosphatase 52 (39-117) U/L Total Protein 6.6 (6.5-8.0) g/dL Albumin 3.9 (3.5-5.0) g/dL Independent Interpretation I performed an independent interpretation of an: Plain X-Ray and CT Scan Interpretation: My interpretation is in agreement with the radiologist's impression of these imaging studies. L EXAMINATION: XR THORACIC SPINE CLINICAL INFORMATION: pain COMPARISON: Correlated to chest x-ray dated May 01, 2016. TECHNIQUE: AP lateral and swimmer's projection. FINDINGS: Multilevel endplate sclerosis decreased intervertebral disc height and small marginal osteophyte formation throughout the upper and mid thoracic spine. No acute cortical disruption or gross malalignment. There is an intervertebral disc spacer at C5-6. No lytic or blastic lesions. S-shaped curvature of the mid thoracic spine. Punctate calcifications overlapping the kidney shadows both sides of the upper abdomen no fully included in the [id number]. XR/XR thoracic spine 3V IMPRESSION: Multilevel spondylosis without acute fracture or gross listhesis. Probable nephrolithiasis. Electronically signed by: Leighton Mccord MD 12/06/2024 08:53 AM EDT RP Dictated By: Leighton Enciso MD Signed By: Electronically signed by Leighton Bennett MD 12/06/24 0853 Report Number: [id number]: Total DLP = 1335.00 mGy-cm EXAMINATION: CT ANGIOGRAM HEAD AND NECK CLINICAL INFORMATION: Right-sided paresthesias. COMPARISON: No prior CTA. CTA head 03/03/2022. TECHNIQUE: Noncontrast axial imaging of the head was performed. This was followed by test bolus sequences and head and neck intravenous bolus administration 70 mL of Omnipaque 350. Helical imaging was performed in the axial plane from the aortic arch to the skull vertex. A [address] head was also obtained. The data was processed at the photo technologist's workstation for generation of MIP sequences. Angled MIPs and volume rendered reformatted images were also generated at an offline 3D workstation. Stenoses are assessed in accordance with NASCET criteria unless otherwise indicated. This CT examination was performed using dose optimization techniques as appropriate, variously including the following: *Automated exposure control *Adjustment of mA and/or kV according to patient size (this includes techniques or standardized protocols for targeted exams where dose is matched to indication/reason for exam; i.e. extremities or head) *Use of iterative reconstruction technique FINDINGS: NONCONTRAST HEAD CT: There is no evidence of intracranial hemorrhage or extra-axial fluid collection. There is no mass effect, or edema. No CT evidence of acute territorial infarct. Ventricles, sulci, and cisterns are normal in size and configuration for patient age. No hydrocephalus. No midline shift. No significant white matter abnormalities. Globes and orbital contents image normally. No extracranial soft tissue abnormalities. The paranasal sinuses, mastoid air cells, and tympanic cavities are normally aerated. No suspicious bony abnormalities. NECK CTA: -AORTIC ARCH: Normal in caliber. Mild atheromatous calcification. Three-vessel branching pattern. -GREAT VESSEL ORIGINS: Widely patent. No stenosis. -RIGHT COMMON CAROTID ARTERY: Normal in course and caliber to the level of the bifurcation. -CERVICAL RIGHT INTERNAL CAROTID ARTERY: Normal opacification without focal stenosis or occlusion. -LEFT COMMON CAROTID ARTERY: Normal in course and caliber to the level of the bifurcation. -CERVICAL LEFT INTERNAL CAROTID ARTERY: Normal opacification without focal stenosis or occlusion. -CERVICAL RIGHT VERTEBRAL ARTERY: Codominant. Normal in course and caliber into the skull base. -CERVICAL LEFT VERTEBRAL ARTERY: Codominant. Normal in course and caliber into the skull base. OTHER, SOFT TISSUES: -No lymphadenopathy or mass. No abnormal fluid collection or soft tissue swelling. -Normal thyroid. -Imaged superior mediastinal structures normal. -Imaged lung apices clear. CTA OF THE BRAIN: -INTRACRANIAL INTERNAL CAROTID ARTERIES: No focal stenosis or occlusion. -RIGHT ANTERIOR CEREBRAL ARTERY: Normal A1 segment.. Normal arborization of the distal segments. -LEFT ANTERIOR CEREBRAL ARTERY: Normal A1 segment.. Normal arborization of the distal segments. -ANTERIOR COMMUNICATING ARTERY: Normal. -RIGHT MIDDLE CEREBRAL ARTERY: Normal M1 segment of the MCA without focal stenosis or occlusion. Normal arborization of the distal segments. -LEFT MIDDLE CEREBRAL ARTERY: Normal M1 segment of the MCA without focal stenosis or occlusion. Normal arborization of the distal segments. -RIGHT VERTEBRAL ARTERY V4: Normal in course and caliber. -LEFT VERTEBRAL ARTERY V4: Normal in course and caliber. -BASILAR ARTERY: Normal without focal stenosis or occlusion. Normal appearance of the proximal superior cerebellar arteries. Normal basilar tip. -RIGHT POSTERIOR CEREBRAL ARTERY: Normal P1 segment. Normal opacification of the distal SENIOR JAVASCRIPT ENGINEER segments. -LEFT POSTERIOR CEREBRAL ARTERY: Normal P1 segment. Normal opacification of the distal SENIOR JAVASCRIPT ENGINEER segments. -POSTERIOR COMMUNICATING ARTERIES: Poorly seen bilaterally. Normal opacification of the superior sagittal, straight, transverse, and sigmoid sinuses. No venous thrombosis. No space-occupying hemorrhage or definite evolving infarct. CT/CT angio head neck IMPRESSION: NONCONTRAST HEAD CT: 1. No intracranial hemorrhage or mass effect. No CT evidence of acute territorial infarct. CTA NECK: 1. No evidence of significant stenosis, occlusion, dissection, or aneurysm of the major cervical arterial vasculature. CTA HEAD: 1. No evidence of significant stenosis, occlusion, dissection, or aneurysm of the major intracranial arterial vasculature. 2. Patent major cortical and dural venous sinuses. Electronically signed by: Marshal Ellsworth MD 12/06/2024 12:04 PM EDT Dictated By: Marshal Ellsworth MD Signed By: Electronically signed by Marshal Ellsworth MD 12/06/24 [id number] Radiology Impression Discussion of test interpretation with radiology: I have reviewed the radiologist's reading. Prescription Management I considered prescription management with: Pain Medication (patient prescribed a muscle relaxer) NIH Stroke Scale Internal: Initial- Upon Arrival Level of Consciousness: Alert Level of Consciousness Questions: Answers both questions correctly Level of Consciousness Commands: Performs both tasks correctly Best Gaze: Normal Visual: No visual loss Facial Palsy: Normal Motor Arm (Right): No drift Motor Arm (Left): No drift Motor Leg (Right): No drift Motor Leg (Left): No drift Limb Ataxia: Absent Sensory: Normal Best Language: No aphasia Dysarthia: Normal Extinction and Inattention: No abnormality Score: 0 Discharge Plan Discharge Clinical Impression: Muscle spasm, Paresthesia Patient Disposition: Home, Self-Care Instructions: Paresthesia (ED), Muscle Spasm (ED) Additional Instructions: Your work up today was reassuring there is no EMERGENT process causing your symptoms. IF you are prescribed home medications and/or you are taking over the counter medications at home - it is very important you continue to do so as prescribed / directed unless told otherwise. Follow up with your primary care provider. Return to the emergency department immediately if your symptoms worsen or if you develop any numbness, tingling, dizziness, shortness of breath, difficulty breathing, chest pain, blurry vision, loss of vision, nausea, vomiting, abdominal pain, fever, chills, back pain, or any other complaints. Please see the information below about our Patient Portal. If you are not yet enrolled in the [facility] Patient Portal, you will receive an enrollment email invitation following your visit to any [facility] setting. You may also self-enroll in the Patient Portal by visiting our website: [email or web address] The following information is required to access the Patient Portal: - Your [facility] Medical Record Number - Your personal home email address (must match what is in your electronic medical record, Registration staff can assist with this) - Name - Date of Capabilities of the Patient Portal: - Message some providers - View upcoming appointments - Access your health summary, medical history, and visit history - View current conditions and allergies - View procedure and lab results - View your medications, including guidelines, side effects, and precautions - Complete pre-appointment questionnaires requested by your provider - Ready summary reports of your office visits and procedures To access the Patient Portal Mobile [employer]ania, follow these directions: - Search nanoRETE in the [employer] Store or [employer] Store - Download the Tania - Search for [facility] - Enter your login/password Prescriptions: New cyclobenzaprine 5 mg tablet 5 mg PO TID PRN (Reason: muscle spasm) 7 Days Qty: 21 0RF No Action tamsulosin 0.4 mg capsule 0.4 mg PO DAILY Qty: 14 0RF ketorolac 10 mg tablet 10 mg PO Q8H PRN (Reason: pain) Qty: 12 0RF Rx Instructions: Do not use this medication with ibuprofen or NSAIDs, only Tylenol or oxycodone if needed oxycodone 5 mg tablet 5 mg PO BID PRN (Reason: pain) Qty: 5 0RF Rx Instructions: Partial Fill upon patient request. ondansetron HCl 4 mg tablet 4 mg PO Q6H PRN (Reason: nausea and vomiting) Qty: 14 0RF tramadol 50 mg tablet 50 mg PO TID PRN (Reason: pain) ibuprofen 800 mg tablet 800 mg PO TID PRN (Reason: pain) 30 Days Qty: 90 1RF epinephrine [EpiPen] 0.3 mg/0.3 mL auto-injector 0.3 mg IM Q4H PRN (Reason: Anaphylaxis) allopurinol 100 mg tablet 100 mg PO DAILY 90 Days Qty: 90 1RF pyridoxine (vitamin B6) 50 mg tablet 50 mg PO DAILY 90 Days Qty: 90 1RF fluticasone propionate 50 mcg/actuation spray,suspension 1 spray intranasal Q12H Qty: 16 0RF Rx Instructions: administer into each nostril Referrals: Melvin Lara MD [Primary Care Provider, Internal Medicine] Print Language: Bulgarian
--- OUTSIDE RECORDS SUMMARY | 2024-12-06 08:31 | XMS_ITS | Clinical Summary ---
Author Organization [facility] Address [address] [place] [address] Care Team Providers Care Chief Environmental Commitment Officer Name Role Phone Melvin Lara MD Primary Care Provider [phone] Social History Tobacco Use Types Packs/Day Years [...] age to complete this topic Care Teams Chief Environmental Commitment Officer Relationship Specialty Start Date End Date Melvin Lara MD [address] [place] [address] [place] [id number] PCP - General Internal Medicine 07/18/19
[2024-12-06 09:44] LABS: Hematocrit 42.3 % (37.0-47.0); Hemoglobin 14.3 g/dl (12.0-16.0); Imm Gran Abs Auto 0.02 X10*3/uL (0.00-0.03); Imm Gran Pct Auto 0.3 % (0.0-0.4); Lymphocytes Absolute Auto 1.4 X10*3/uL (1.2-4.9); MANUAL DIFF FLAG NO; Mean Corpuscular HGB Conc 33.8 g/dl (31.0-35.0); Mean Corpuscular Hemoglobin 28.5 pg (27.0-33.0); Mean Corpuscular Volume 84.4 fL (80.0-98.0); NRBC Abs Auto 0.000 X10*3/uL (0.0-0.012); NRBC Pct Auto 0.0 /100WBC (0.0-0.2); Platelet Count 230 X10*3/uL (160-400); Red Blood Count 5.01 X10*6/uL (4.20-5.50); White Blood Count 6.8 X10*3/uL (4.8-10.8)
[2024-12-06 10:03] LABS: Alanine Aminotransferase 14 U/L (0-31); Albumin Level 3.9 g/dL (3.5-5.0); Alkaline Phosphatase 52 U/L (39-117); Anion Gap 13 (12-20); Aspartate Amino Transferase 18 U/L (5-31); Blood Urea Nitrogen 13 mg/dL (9-16); Calcium 9.5 mg/dL (8.4-10.2); Carbon Dioxide 25 mmol/L (22-29); Chloride 107 mmol/L (96-108); Creatinine Clr Calc Pharmacy 88.0; Estimated Glomerular Filt Rate > 60; Potassium 3.7 mmol/L (3.3-5.1); Sodium 141 mmol/L (135-145); Total Protein 6.6 g/dL (6.5-8.0)
[2024-12-06 10:35] VITALS: BP 145/84; PULSE 84; RESP 18; O2SAT 98
[2024-12-06] MEDS: diazePAM 10 MG/2 ML CARTRIDGE 2.5 MG IVPUSH (10:41)
[2024-12-06] MEDS: iohexoL 350 MG/ML 100 ML INFUS..BTL IV (11:45)
[2024-12-06 12:41] VITALS: BP 145/84; PULSE 84; RESP 18; TEMP 36.8; O2SAT 98
[2024-12-07 05:53] LABS: Lyme Abs Screen <0.90 index
[2024-12-07 18:08] LABS: A. Phagocytphilium DNA,RT-PCR NOT DETECTED (NOT DETECTED); Babesia Microti DNA, RT-PCR NOT DETECTED (NOT DETECTED); Borrelia Miyamotoi,DNA RT-PCR NOT DETECTED (NOT DETECTED); E.Chaffeensis DNA RT-PCR NOT DETECTED (NOT DETECTED); Lyme(Borrelia ssp)DNA RT-PCR NOT DETECTED (NOT DETECTED)
== END 2024-12-06 12:41 | disposition home or self-care (01) ==
PROVIDERS: Physician Assistant Medical; Emergency Provider Emergency Medicine; PCP Internal Medicine
DX: R20.0 Anesthesia of skin (principal); M54.6 Pain in thoracic spine; M54.2 Cervicalgia; R51.9 Headache, unspecified; Z79.899 Other long term (current) drug therapy
CPT/HCPCS: 36415; 70496; 70498; 72072; 80053; 85025; 86617; 86618; 87468; 87469; 87478; 87484; 87798; 96374; 96375; 99284; J1885; J3360; Q9967

== ENCOUNTER → 2024-12-06 08:25 | Outpatient (BNV) | payer OTHER, SELFPAY | PROVIDERS: PCP Internal Medicine; Visit Provider Radiology Diagnostic Radiology | DX: R20.2 Paresthesia of skin (principal); M25.78 Osteophyte, vertebrae | CPT/HCPCS: 70496; 70498; 72072 ==

== ENCOUNTER 2024-12-26 13:13 | Outpatient (REF) | payer OTHER, SELFPAY ==
--- NOTE | ~2024-12-26 | US_ITS ---
CLINICAL HISTORY: N20.0 - Calculus of kidney US Renal Comparison: US/SR - US KIDNEY BILATERAL - 10/16/24 13:[address]/SR - CT ABDOMEN PELVIS WO IV CON - 07/11/24 23:31 EDT Findings: Right kidney normal size and echotexture, 9.3 cm length. Several 2-3 mm hyperechogenicities are seen in the right kidney with twinkle artifact. Left kidney normal size and echotexture, 9.0 cm length. 3 mm and 4 mm hyperechogenicities are seen in the left kidney with twinkle artifact. No hydronephrosis of either kidney. IMPRESSION: 1. Several 2-3 mm nonobstructive right renal stones. 2. 4 mm and 3 mm nonobstructive left renal stones. This document has been electronically signed by: Merlyn Horner on 12/27/2024 08:43:24
--- OUTSIDE RECORDS SUMMARY | 2024-12-26 15:34 | XMS_ITS | Clinical Summary ---
Author Organization [facility] Address [address] [place] [address] Phone Care Team Providers Care Call Center Specialist Name Role Phone Melvin Lara MD Primary [...] 05/29/2024 4:12 AM EST Plan of Treatment Upcoming Encounters Date Type Department Care Team (Late st Contact Info) Description 01/04/2025 1:00 PM EDT Evaluation [facility] [place] [address] [facility] [address] [place] [id number] Alex Najera, PT [address] [place] [address] 06/26/2025 2:30 PM EDT Office Visit [facility] [place] [address] [facility] [address] [place] [id number] Zeus Ugarte MD [address] [place] [phone] Health Maintenance Due Date Last Done Comments Breast Cancer Screening 1975 Hepatitis B Vaccines (1 of 3 - 19+ 3-dose series) 1996 Cervical Cancer Screening: Pap Smear 1998 Cholesterol Screening (Lipid Panel) 03/22/2022 HIV Screening 03/22/2022 Hepatitis C Screening 03/22/2022 Social Influencers of Health Screening 03/22/2022 Depression Screening 04/19/2024 COVID-19 Vaccine ( season) 2024 11/08/2020, 10/16/2020 Influenza Vaccine (#1) 2024 3, 03/02/2022, 03/07/2021, Additional history exists DTaP,Tdap,and Td [...] Results * COLONOSCOPY Anesthesia - MAC; [facility] ENDOSCOPY (02/23/2024 1:15 PM EST) Anatomical Region Laterality Modality Endoscopy 02/23/2024 12:2 9 PM EST Narrative 02/23/2024 1:19 PM EST [facility] Patient Name: Deena Camacho Procedure Date: 02/23/2024 12:29 PM Date of : 1975 Age: 48 Room: ROOM 16 Gender: Female Note Status: Finalized Attending MD: Johnny Dill DO, [id number] Procedure Date No Time: 02/23/2024 Procedure: Colonoscopy [...] the physician, the nurse, the anesthesiologist, the yarn finisher and the truck engine technician in the pre-procedure area in the [...] malignant neoplasm of colon CPT copyright 2020 [employer]. All rights reserved. The codes documented in this report are preliminary and upon in flight refueling manager review may be revised to meet current compliance requirements. JOHNNY DILL Johnny Dill DO 02/23/2024 1:19:36 PM This report has been signed electronically.Johnny Dill DO Number of Addenda: 0 Note Initiated On: 02/23/2024 12:29 PM Scope Withdrawal Time: 0 hours 7 minutes 14 seconds Scope In: 1:02:21 PM Scope Out: 1:13:56 PM Endoscopy Department at [facility] - [address] [place] [id number] Procedure Note Johnny Dill DO - 02/23/2024 [facility] Patient Name: Deena Camacho Procedure Date: 02/23/2024 12:29 PM Date of : 1975 Age: 48 Room: ROOM 16 Gender: Female Note Status: Finalized Attending MD: Johnny Dill DO,[id number] Procedure Date No Time: 02/23/2024 Procedure: Colonoscopy [...] the physician, the nurse, the anesthesiologist, the yarn finisher and thetechnician in the pre-procedure area in [...] for malignantneoplasm of colon CPT copyright 2020 [employer]. All rights reserved. The codes documented in this report are preliminary and upon in flight refueling manager reviewmay be revised to meet current compliance requirements. JOHNNY DILL Johnny Dill DO 02/23/2024 1:19:36 PM This report has been signed electronically.Johnny Dill DO Number of Addenda: 0 Note Initiated On: 02/23/2024 12:29 PM Scope Withdrawal Time: 0 hours 7 minutes 14 seconds Scope In: 1:02:21 PM Scope Out: 1:13:56 PM Endoscopy Department at [facility] - [address] [place] [phone] us Johnny Dill DO GI~PROCEDURE ORDERABLES Final Re sult from Last 3 Months or Most Recently Relevant to Health Maintenance Insurance [employer] Care Teams Call Center Specialist Relationship Specialty Start Date End Date Melvin Lara MD [address] [place] [address] [place] [address] PCP - General Internal Medicine 11/10/18
--- OUTSIDE RECORDS SUMMARY | 2024-12-26 15:34 | XMS_ITS | Clinical Summary ---
Author Organization [facility] Address [address] [place] [address] Care Team Providers Care Pole Framer Name Role Phone Melvin Lara MD Primary Care Provider [phone]- [phone] Social History Tobacco Use Types Packs/Day Years [...] age to complete this topic Care Teams Pole Framer Relationship Specialty Start Date End Date Melvin Lara MD [address] [place] [address] [place] [address] PCP - General Internal Medicine 07/18/19
== END 2024-12-26 13:14 | disposition home or self-care (01) ==
LOC: HO.US 13:13
PROVIDERS: PCP Internal Medicine; Visit Provider Urology
DX: N20.0 Calculus of kidney (principal)
CPT/HCPCS: 76775

== ENCOUNTER → 2024-12-26 13:15 | Outpatient (BNV) | payer OTHER, SELFPAY | PROVIDERS: PCP Internal Medicine; Visit Provider Radiology Vascular & Interventional Radiology | DX: N20.0 Calculus of kidney (principal) | CPT/HCPCS: 76775 ==

== ENCOUNTER 2025-01-11 11:46 | Outpatient (AMB) | payer OTHER, SELFPAY ==
--- NOTE | 2025-01-11 11:46 | MHC.OFFVIS ---
Intake Visit Reasons: EMB Results Allergies ceftriaxone (From Rocephin) Allergy (Intermediate, Verified 12/06/24 07:49) Lip Swelling ciprofloxacin Adverse Reaction (Intermediate, Verified 12/06/24 07:49) swelling of feet diphenhydramine (From Benadryl) Adverse Reaction (Intermediate, Verified 12/06/24 07:49) sensation of a hangover for hours Sulfa (Sulfonamide Antibiotics) Adverse Reaction (Intermediate, Verified 12/06/24 07:49) swelling of feet trazodone Adverse Reaction (Intermediate, Verified 12/06/24 07:49) jitteriness HPI Comments Details: The patient scheduled a telehealth visit for follow-up to discuss the results of her abnormal uterine bleeding workup and options of treatment. The following workup was done.: H&H= 14.3/42.3 TSH, hCG, GC and chlamydia were negative. FSH/LH 12.4/8.7 Endometrial biopsy pathology showed the following: Benign late secretory endometrium (day 23-24); no atypia or carcinoma Co testing was done in 09/06 was negative. Mammogram was BI-RADS 2 Pelvic ultrasound showed the following: IMPRESSION: Unremarkable pelvic ultrasound. [facility] Medical History Insomnia Hypertensive retinopathy of both eyes Pure hypercholesterolemia Overweight (BMI 25.0-29.9) Dysuria Pelvic floor dysfunction Headache, migraine Microscopic hematuria Recurrent UTI Hypocitraturia Recurrent nephrolithiasis Epigastric pain Hemorrhoid Anal fissure Rectal bleed Weakness of both hands Menstrual disorder Obesity (BMI 30-39.9) Anxiety Nonintractable headache Herniation of cervical intervertebral disc with radiculopathy Herniated disc Surgical History History of surgery Hx of cystoscopy S/P ureteral stent placement History of cervical discectomy History of section History of tubal ligation Family History Father Medical history unknown Mother Medical history unknown Maternal Grandmother Breast cancer Sister Breast cancer Daughter Breast cancer Son Autism Mental health disorder Social History Housing: Apartment Are you a primary after school caregiver to a significant other at home: No Do you presently have visiting nurse or other home services: No Alcohol intake: current Alcohol intake frequency: holidays/special occasions only Patient Tobacco Use Status: Never used Tobacco e-Cigarette/Vaping Use: Never Used Second Hand Smoke Exposure: No service: No Current occupational status: employed Cognitive needs: No Hearing needs: No Vision needs: Yes (glasses) Female Reproductive History Menstrual Age of Menarche: 15 Review of Systems Const All systems reviewed & are unremarkable except as noted in HPI and below Reports as per HPI and Reports no additional complaints GI Reports no additional complaints Reports no additional complaints Telehealth Telehealth Telehealth Platform: [employer] Location of provider rendering services: practice address Location of patient: address on file Patient Identification confirmed using: Name, : Yes Telehealth method: video Patient verbally consented to treatment: Yes Patient verbally consented to billing insurance company: Yes Patient informed of any privacy concerns related to visit: Yes Minutes spent on Phone/Video with Pt.: 8 Assessment & Plan Assessment & Plan (1) Abnormal uterine bleeding: Code(s): N93.9 - Abnormal uterine and vaginal bleeding, unspecified Category: Medical Plan: Discussed with the patient the results of the work up done and options of treatment including Lysteda, BCP's, Mirena IUD, endometrial ablation and hysterectomy. All pros, cons, risks and benefits if each option was discussed with the patient and the patient decided to proceed with definitive surgical management, hysterectomy. Discussed with the patient the different types of hysterectomies including, vaginal, laparoscopic assisted vaginal, robotic assisted laparoscopic,& abdominal with BSO. All pros, cons, r/b of each approach were discussed the patient including evidence that morbidity is less and recovery is shorter with minimally invasive approaches to hysterectomy. Discussed with the patient the lack of availability of the robot DaVinci robot and/or minimally invasive oracle technical developer specialist at [facility]. Will refer to [facility] minimally invasive oceanographer assistant surgery. Instructed the patient to call our office back in case a referral appointment is not scheduled, missed or canceled so that we will assist on rescheduling another appointment, the patient verbalized understanding agreed with the plan. I spent a total of 20 minutes reviewing the chart, talking to the patient via video and documenting in the medical record. Coding Level of Care Code Tele Est Pt Level 3 (96689) Diagnoses Abnormal uterine bleeding N93.9
--- OUTSIDE RECORDS SUMMARY | 2025-01-11 16:38 | XMS_ITS | Clinical Summary ---
Author Organization [facility] Address [address] [place] [address] Care Team Providers Care Commercial Energy Auditor Name Role Phone Melvin Lara MD Primary Care Provider +1- [phone] Social History Tobacco Use Types Packs/Day Years [...] age to complete this topic Care Teams Commercial Energy Auditor Relationship Specialty Start Date End Date Melvin Lara MD [address] [place] [address] [place] [address] PCP - General Internal Medicine 07/18/19
== END 2025-01-11 12:55 | disposition home or self-care (01) ==
LOC: HO.HWS 11:46
PROVIDERS: PCP Internal Medicine; Visit Provider Obstetrics & Gynecology
DX: N93.9 Abnormal uterine and vaginal bleeding, unspecified (principal)
CPT/HCPCS: 99213

== ENCOUNTER 2025-03-20 13:14 | Outpatient (AMB) | payer OTHER, SELFPAY ==
[2025-03-20 13:23] VITALS: BP 120/74; PULSE 104; O2SAT 97; BMI 29.1
--- NOTE | 2025-03-20 13:23 | A.OFFPC_ITS ---
Vital Signs 03/20/25 13:23 Height 5 ft Weight 149 lb 2 oz BMI 29.1 BP 120/74 Blood Pressure Location Lt brachial Position Sitting Pulse 104 H Pulse Source Pulse Oximeter Pulse Oximetry (%) 97 Oxygen Delivery Method Room Air Intake Visit Reasons: Annual Exam Whipped Topping Mixer Required: No Accompanied by: Self / Same As Patient Allergies ceftriaxone (From Rocephin) Allergy (Intermediate, Verified 03/20/25 13:50) Lip Swelling ciprofloxacin Adverse Reaction (Intermediate, Verified 03/20/25 13:50) swelling of feet diphenhydramine (From Benadryl) Adverse Reaction (Intermediate, Verified 03/20/25 13:50) sensation of a hangover for hours Sulfa (Sulfonamide Antibiotics) Adverse Reaction (Intermediate, Verified 03/20/25 13:50) swelling of feet trazodone Adverse Reaction (Intermediate, Verified 03/20/25 13:50) jitteriness Medication List - Last Reconciled 03/20/25 by Melvin Lara MD allopurinol 100 mg PO DAILY 90 days cyclobenzaprine 5 mg PO TID PRN 7 days epinephrine (EpiPen) 0.3 mg IM Q4H PRN fluticasone propionate 50 mcg/actuation 1 spray intranasal Q12H ibuprofen 800 mg PO TID PRN 30 days lisinopril 5 mg PO DAILY 30 days ondansetron HCl 4 mg PO Q6H PRN tamsulosin 0.4 mg PO DAILY tramadol 50 mg PO TID PRN Tobacco use date assessed: 03/20/25 Dental Screening Dental Screen Date: 03/20/25 Did you have a dental visit in the last 12 months?: Yes Did you have a dental problem in the last 6 months where you did not have access to dental care?: No Was dental information given to patient?: Patient has dentist HPI Annual Exam HPI Details Patient comes in today for her annual physical examination States that she has been sick since last week, with increased cough and congestion and sore throat She denies any fever and states that she tested negative for COVID a few days ago She has been taking some OTC Mucinex with some relief of her symptoms She denies any dizziness but still has on and off headaches Denies any exertional chest pains; (+) chest congestion but she has not had any increased SOB lately No nausea/vomiting, no abdominal pain No change in bowel habits noted She denies any acute urinary symptoms States that she has an appt scheduled with gynecologic surgery in [place] tomorrow to consider laparoscopic hysterectomy because of her history of menorrhagia and a thickened, secretory endometrium, which, while currently benign, poses a future risk for uterine cancer. She reportedly had her screening colonoscopy last done on 03/01/2024 with [facility] - states that her colonoscopy came out negative She last had her annual mammogram done in September 2024 She is scheduled for her yearly gynecology exam and pap with Dr. Boudreaux in July 2025 [facility] Medical History Insomnia Hypertensive retinopathy of both eyes Pure hypercholesterolemia Overweight (BMI 25.0-29.9) Dysuria Pelvic floor dysfunction Headache, migraine Microscopic hematuria Recurrent UTI Hypocitraturia Recurrent nephrolithiasis Epigastric pain Hemorrhoid Anal fissure Rectal bleed Weakness of both hands Menstrual disorder Obesity (BMI 30-39.9) Anxiety Nonintractable headache Herniation of cervical intervertebral disc with radiculopathy Herniated disc Surgical History History of surgery Hx of cystoscopy S/P ureteral stent placement History of cervical discectomy History of section History of tubal ligation Family History Father Medical history unknown Mother Medical history unknown Maternal Grandmother Breast cancer Sister Breast cancer Daughter Breast cancer Son Autism Mental health disorder Social History Housing: Apartment Are you a primary lawn care technician to a significant other at home: No Do you presently have visiting nurse or other home services: No Alcohol intake: current Alcohol intake frequency: holidays/special occasions only Patient Tobacco Use Status: Never used Tobacco e-Cigarette/Vaping Use: Never Used Second Hand Smoke Exposure: No service: No Current occupational status: employed Cognitive needs: No Hearing needs: No Vision needs: Yes (glasses) Female Reproductive History Menstrual Age of Menarche: 15 Questionnaire PHQ-9 Over the last 2 weeks, how often have you been bothered by any of the following problems? 1. Little interest or pleasure in doing things: not at all 2. Feeling down, depressed, or hopeless: not at all 3. Trouble falling or staying asleep, or sleeping too much: nearly every day 4. Feeling tired or having little energy: nearly every day 5. Poor appetite or overeating: not at all 6. Feeling bad about yourself - or that you are a failure or have let yourself or your family down: not at all 7. Trouble concentrating on things, such as reading the newspaper or watching television: not at all 8. Moving or speaking so slowly that other people could have noticed. Or the opposite - being so fidgety or restless that you have been moving around a lot more than usual: not at all 9. Thoughts that you would be better off or of hurting yourself in some way: not at all Total score: 6 Depression Screening Interpretation: Positive Depression Screening Follow-up: Follow-up Visit Requested Depression Screening Done: Yes 07035 - PHQ-9 Billing: Yes Source: Developed by Drs. Tnavir Rucker, Selam Dangelo, Berry Pineda and colleagues, with an educational beth from [employer]. Thrive Questionnaire Date Thrive assessed: 03/20/25 I am a: Patient What is your living situation today?: I have a steady place to live Within the past 12 months, did the food you bought not last and you didn't have the money to get more?: Often true Within the past 12 months, did you worry whether your food would run out before you got money to buy more?: Never true Do you have trouble paying for medicines?: No Do you have trouble getting transportation to medical appointments?: No Do you have trouble paying your heating and electricity bill?: No Do you have trouble taking care of your child, family member or friend?: No Do you have trouble with day-to-day activities such as bathing, preparing meals, shopping, managing finances, etc.?: No Are you currently unemployed and looking for a job?: No Are you interested in more education?: No Please select the resources that you would like help with: None Currently or been in a relationship where the following occur: No concerns reported THRIVE Score: 1 AUDIT C Alcohol Use Questionnaire (AUDIT-C) 1. How often do you have a drink containing alcohol?: Never 3. How often do you have six or more drinks on one occasion?: Never Total Score: 0 Score Reviewed/Action Taken: Yes SENG-7 AMB Questionnaire SENG-7 Date SENG - 7 assessed: 03/20/25 Feeling nervous, anxious, or on edge: 0 = Not at all Not being able to stop or control worryin = Not at all Worrying too much about different things: 0 = Not at all Trouble relaxin = Not at all Being so restless that it is hard to sit still: 0 = Not at all Becoming easily annoyed or irritable: 0 = Not at all Feeling afraid as if something awful might happen: 0 = Not at all Total SENG-7 score (0-4 normal; 5-9 mild; 10-14 moderate; 15-21 severe): 0 Source: Developed by Drs. Tanvir Rucker, Selam Dangelo, Berry Pineda and colleagues, with an educational beth from [employer]. Review of Systems Const Denies chills, Denies fatigue, Denies fever(s), Reports headache(s) (on and off) and Denies malaise Eyes Denies blurry vision, Denies change in vision, Denies irritation and Denies itchy eyes ENT Denies dysphagia, Denies dizziness, Denies otalgia, Reports headache(s) (on and off), Reports nasal congestion, Reports neck pain (chronic), Denies odynophagia, Denies sinus pain and Reports sore throat (mild) Card Denies chest pain, Denies rapid heart rate, Denies irregular heart rhythm, Denies palpitations and Denies dyspnea Resp Reports chest congestion, Reports cough (recurrent), Denies dyspnea and Denies wheezing GI Denies abdominal pain, Denies bloating, Denies constipation, Denies dysphagia, Denies heartburn, Denies diarrhea, Denies nausea, Denies odynophagia and Denies vomiting Denies hematuria, Denies difficulty voiding, Denies dysuria, Denies urinary incontinence and Denies urinary urgency Musc Reports back pain (over the lower back), Denies arthralgias, Denies joint swelling, Denies muscle weakness and Reports neck pain (chronic) Skin/Breast Denies breast pain, Denies breast mass, Denies change in pigmentation, Denies lesions, Denies rash and Denies unusual bruising Neuro Denies dizziness, Reports headache(s) (on and off) and Denies paresthesias Psych Denies anxiety and Denies depression Endo Denies fatigue and Denies palpitations Ad/Lymph Denies easy bruising Aller/Immun Denies itchy eyes and Denies wheezing Physical exam (Primary Care) Vital Signs: Last Vital Signs Pulse 104 H 03/20/25 13:23 BP 120/74 03/20/25 13:23 Pulse Ox 97 03/20/25 13:23 Oxygen Delivery Method Room Air 03/20/25 13:23 BMI result Body Mass Index 29.1 Tobacco/Smoking Status: Tobacco use Status Tobacco use date assessed 03/20/25 03/20/25 13:27 Patient Tobacco Use Status Never used Tobacco 03/20/25 13:27 e-Cigarette/Vaping Use Never Used 03/20/25 13:27 PHQ-9: PHQ-9 Score PHQ-9: Total score 6 03/20/25 13:42 Depression Screening Interpretation: Positive Depression Screening Follow-up: Follow-up Visit Requested Thrive Assessment: Date of Thrive Assessment Date Thrive assessed 03/20/25 03/20/25 13:27 Currently or been in a relationship where the following occur: No concerns reported Const General: no acute distress, alert and awake Orientation/consciousness: patient oriented x3 HENMT Head: Yes normocephalic and Yes atraumatic Ears: external ears normal, TM's normal bilaterally and EAC's normal General nose exam: No nasal discharge present Face and sinus: Yes normal facial exam and Yes sinuses nontender Teeth and gingiva: dentition normal Throat: Yes tonsils normal (no TP congestion) and Yes posterior oropharynx abnormal ((+) mild erythema of the posterior pharynx) Eyes Eyelids: Yes eyelids normal Conjunctivae: conjunctivae normal Pupils: Equal, round and reactive pupils present EOM: EOMs intact bilaterally Neck Neck: No lymphadenopathy Thyroid: Thyroid normal Resp Auscultation: no crackles, no rales, rhonchi (occasional) throughout and no wheezes Cardio Rate: regular rate Rhythm: regular rhythm Heart sounds: no murmurs GI Palpation (GI): Soft to palpation, nontender and No hepatosplenomegaly present Auscultation: normal bowel sounds General: Yes no CVA tenderness Back/Spine/Pelvis Back: no CVA tenderness Cervical Spine: Cervical spine tenderness Thoracic/Lumbar Spine: lumbar spinal tenderness Skin Lesions: no lesions Rashes: no rashes Neuro General: patient oriented x3, moves all extremities, no focal motor deficits and CN's II-XI intact bilaterally Cranial nerves: Yes Equal, round and reactive pupils present Cognition (Neuro): normal cognition Gait exam (Neuro): Normal gait present Extrem General: Yes no clubbing, cyanosis or edema Coding Level of Care Code Est Pt Prev Care 40-64y(94502) Diagnoses Annual physical exam Z00.00 Essential hypertension I10 Herniation of cervical intervertebral disc with radiculopathy M50.10 Hypertensive retinopathy of both eyes H35.033 Migraine without status migrainosus, not intractable, unspecified migraine type G43.909 Migraine type: unspecified Status migrainosus presence: without status migrainosus Intractability: not intractable Pure hypercholesterolemia E78.00 Insomnia, unspecified type G47.00 Insomnia type: unspecified Anxiety F41.9 Overweight (BMI 25.0-29.9) E66.3 Additional Codes PHQ-9 - 69064 - PHQ-9 Billing: Yes ([id number]) Assessment & Plan Assessment & Plan (1) Annual physical exam: Code(s): Z00.00 - Encounter for general adult medical examination without abnormal findings Category: Medical Plan: Check labs BRYN - will just have patient use her current lab orders (updated) for her lab draw She reportedly had her screening colonoscopy last done on 03/01/2024 with [facility] - states that her colonoscopy came out negative She last had her annual mammogram done in September 2024 She is scheduled for her yearly gynecology exam and pap with Dr. Boudreaux in July 2025 (2) Essential hypertension: Code(s): I10 - Essential (primary) hypertension Category: Medical Plan: Reinforced low sodium diet - goal is systolic BP of 120 mm or less She was previously started on Lisinopril 5 mg QD but patient stopped taking the Rx after a few days as it was supposedly causing her blood pressure to bottom out on her She started taking it again recently when her blood pressure went up and stayed up Will try starting her instead on Losartan 25 mg QD and will D/C Lisinopril in case it is aggravating or causing her recent recurrent coughing She is instructed to continue monitoring her blood pressure regularly (3) Herniation of cervical intervertebral disc with radiculopathy: Comment: S/P anterior cervical discectomy C5-C6, interbody device and fusion on 07/12/[address] Zander Fay Code(s): M50.10 - Cervical disc disorder with radiculopathy, unspecified cervical region Category: Medical Plan: Patient is currently still experiencing frequent increased neck pain A repeat cervical spine MRI was ordered for her back in July 2023 for further evaluation but her health insurance would not cover this Continue Ibuprofen 800 mg TID PRN with food and Tramadol 50 mg TID PRN She has also been referred to physical therapy in the past when her neck pain flares up - states that physical therapy has helped with her neck pains (4) Hypertensive retinopathy of both eyes: Code(s): H35.033 - Hypertensive retinopathy, bilateral Category: Medical Plan: This was noted by her information tech when she had eye exam done back on 07/31/2023 and she was advised to reach out to her PCP for further evaluation and management She was started on low dose Lisinopril previously to better control her blood pressure but she could not tolerate the Rx as it was making her BP drop too low She should consider getting a carotid ultrasound done for further evaluation at some point, especially if she is not able to tolerate taking blood pressure medications Follow up with ophthalmology as scheduled (5) Migraine: Code(s): G43.909 - Migraine, unspecified, not intractable, without status migrainosus Category: Medical Qualifiers: Migraine type: unspecified Status migrainosus presence: without status migrainosus Intractability: not intractable Qualified Code(s): G43.909 - Migraine, unspecified, not intractable, without status migrainosus Plan: Reinforced avoidance of all potential migraine triggers; advised that her recent increased neck pain can also be a possible trigger She has been referred to neurology at [facility] for further evalu ation and management and is currently still waiting for her appt to be scheduled Continue Fioricet PRN (6) Pure hypercholesterolemia: Code(s): E78.00 - Pure hypercholesterolemia, unspecified Category: Medical Plan: Reinforced low cholesterol diet Will have patient recheck her labs and fasting lipids BRYN for follow-up (7) Insomnia: Code(s): G47.00 - Insomnia, unspecified Category: Medical Qualifiers: Insomnia type: unspecified Qualified Code(s): G47.00 - Insomnia, unspecified Plan: Sleep hygiene reinforced Continue Trazodone 50 mg Q HS PRN (8) Anxiety: Code(s): F41.9 - Anxiety disorder, unspecified Category: Medical Plan: Patient states that her anxiety has been much better controlled and she is doing well on her current Rx Continue Bupropion XL 150 mg QD (9) Overweight (BMI 25.0-29.9): Code(s): E66.3 - Overweight Category: Medical Plan: Reinforced diet/exercise as tolerated/lose weight Plan Follow up in 4 months Medications: New losartan 25 mg PO DAILY 90 tabs 1RF 90 days Discontinued lisinopril Discontinued Reason: Doctor's Order 5 mg PO DAILY 30 days 30 tabs 3RF
--- OUTSIDE RECORDS SUMMARY | 2025-03-20 15:13 | XMS_ITS | Clinical Summary ---
Author Organization [facility] Address [address] [place] [address] Care Team Providers Care Staff Educator Name Role Phone Melvin Lara MD Primary Care Provider [phone] Social History Tobacco Use Types Packs/Day Years [...] age to complete this topic Care Teams Staff Educator Relationship Specialty Start Date End Date Melvin Lara MD [address] [place] [address] [place] [id number] PCP - General Internal Medicine 07/18/19
== END 2025-03-20 14:00 | disposition home or self-care (01) ==
LOC: HO.HMCH 13:15
PROVIDERS: PCP Internal Medicine; Visit Provider Internal Medicine
DX: Z00.00 Encounter for general adult medical examination without abnormal findings (principal); I10 Essential (primary) hypertension; M50.10 Cervical disc disorder with radiculopathy, unspecified cervical region; H35.033 Hypertensive retinopathy, bilateral; G43.909 Migraine, unspecified, not intractable, without status migrainosus; E78.00 Pure hypercholesterolemia, unspecified; G47.00 Insomnia, unspecified; F41.9 Anxiety disorder, unspecified; E66.3 Overweight

== ENCOUNTER → 2025-03-20 13:14 | Outpatient (BNVA) | payer OTHER, SELFPAY | PROVIDERS: PCP Internal Medicine; Visit Provider Internal Medicine | DX: Z00.00 Encounter for general adult medical examination without abnormal findings (principal); I10 Essential (primary) hypertension; R05.9 Cough, unspecified; M50.10 Cervical disc disorder with radiculopathy, unspecified cervical region; H35.033 Hypertensive retinopathy, bilateral; G43.909 Migraine, unspecified, not intractable, without status migrainosus; E78.00 Pure hypercholesterolemia, unspecified; G47.00 Insomnia, unspecified; F41.9 Anxiety disorder, unspecified; E66.3 Overweight | CPT/HCPCS: 96127 ==